=== PATIENT | male | born 1945 | race Caucasian/White ===

== ENCOUNTER → 2016-03-18 | Outpatient (CLI) | payer MEDICARE ==
[2016-03-18 11:21] LABS: Basophils # (A) 0.1 k/uL (0-0.2); Basophils % (A) 1 %; CH 29.2; Eosinophils # (A) 0.2 k/uL (0-0.7); Eosinophils % (A) 2 %; HCT 41.4 % (39.0-53.0); HDW 2.76; HGB 13.6 gm/dL (13.0-17.5); Luc # (Auto) 0.25; Luc % (Auto) 2; Lymphocytes # (A) 2.4 k/uL (1.0-4.8); Lymphocytes % (A) 21 %; MCH 29.2 pg (25.0-35.0); MCHC 32.9 g/dL (31.0-37.0); MCV 88.7 fL (80.0-100.0); Mean Platelet Volume 7.1; Monocytes # (A) 0.6 k/uL (0-1.0); Monocytes % (A) 5 %; Neutrophils # (A) 7.8 k/uL (1.3-7.7); Neutrophils % (A) 69 %; RBC 4.67 m/uL (4.30-5.90); RDW 13.9 % (11.5-15.5); WBC 11.3 k/uL (3.8-10.6); WBC (Perox) 11.69
[2016-03-18 14:09] LABS: Erythrocyte Sedimentation Rate 48 mm/hr (0-15)
== END | disposition home or self-care (01) ==
LOC: LABWHC1 10:37
PROVIDERS: ATTEND Family Medicine
DX: M62.81 Muscle weakness (generalized) (principal); M79.1 Myalgia; M33.20 Polymyositis, organ involvement unspecified
CPT/HCPCS: 36415; 82553; 85025; 85652; 86038; 86431

== ENCOUNTER → 2017-08-30 | Outpatient (CLI) | payer MEDICARE ==
--- NOTE | 2017-08-30 17:04 | US ---
EXAMINATION TYPE: US axilla LT DATE OF EXAM: 08/30/2017 COMPARISON: NONE CLINICAL HISTORY: C85.90 Lymphoma. No abnormal appearing mass, lymph node or fluid collection seen at patients palpable area. IMPRESSION: Negative ultrasound of the left axilla. No enlarged lymph nodes seen.
--- NOTE | 2017-08-30 23:11 | CT ---
EXAMINATION TYPE: CT chest wo con DATE OF EXAM: 08/30/2017 COMPARISON: Left axillary ultrasound earlier today HISTORY: lump under left axillary area X 3 weeks per patient. Lymphoma per order. CT DLP: 482.2 mGycm. Automated Exposure Control for Dose Reduction was Utilized. TECHNIQUE: CT scan of the thorax is performed without IV contrast. FINDINGS: LUNGS: The lungs are predominantly clear, there is no concerning parenchymal mass or nodule identifie d. There are some patchy left basilar linear scarring and/or atelectasis. There is no pleural effusi on or pneumothorax seen. The tracheobronchial tree is patent. MEDIASTINUM: Lack of IV contrast is noted to limit evaluation for mediastinal and especially hilar ad enopathy. There are no definitive greater than 1 cm noncalcified hilar or mediastinal lymph nodes. There are some calcified paraesophageal lymph nodes. No significant pericardial effusion is seen. Car diomegaly is identified. There is moderate coronary artery calcification which is noted marker for co ronary artery disease. Main pulmonary artery at bifurcation measures 3.7 cm in diameter, CT findings consistent with underlying pulmonary artery hypertension. There is mild calcified plaque in the aorti c arch and descending aorta. There is 2.5 cm right thyroid nodule coronal image 48 that warrants foll ow-up. OTHER: There is tiny nondependent calcific focus right aspect of gallbladder measuring 2 mm could ref lect small calculus. Several calcifications are seen scattered throughout the spleen. Finding presume d product of old granulomatous disease. There is mild to moderate multilevel spurring in the thoracic spine. No suspicious axillary masses or adenopathy are identified. IMPRESSION: 1. No suspicious axillary masses or adenopathy. 2. Cardiomegaly and underlying pulmonary hypertension. No suspicious acute pulmonary process. 3. There is 2.5 cm right thyroid nodule. Thyroid ultrasound is advised to further evaluate and charac terize to rule out malignancy.
== END | disposition home or self-care (01) ==
LOC: RADCTMAIN 16:01
PROVIDERS: ATTEND Surgery Plastic and Reconstructive Surgery
DX: C85.90 Non-Hodgkin lymphoma, unspecified, unspecified site (principal); I51.7 Cardiomegaly; I27.20 Pulmonary hypertension, unspecified
CPT/HCPCS: 36415; 71250; 82565; 84520

== ENCOUNTER 2017-10-24 11:27 | Day surgery (SDC) | payer MEDICARE ==
[2017-10-24 12:12] VITALS: RESP 18; TEMP 98
[2017-10-24 12:37] LABS: Glucose,Whole Blood 141 mg/dL (75-99)
[2017-10-24 13:33] VITALS: BP 175/75; PULSE 75
--- NOTE | 2017-10-24 13:37 | US ---
EXAMINATION TYPE: US FNA thyroid DATE OF EXAM: 10/24/2017 COMPARISON: CT chest 08/30/2017 HISTORY: Thyroid nodule. Maximal barrier technique was utilized. After informed consent, skin overlying the lesion was locali zed with ultrasound and the overlying skin prepped and draped. Ultrasound was utilized using sterile technique. Lidocaine was used for local anesthesia. Five passes with a 25-gauge needle were made int o the right lower lobe thyroid nodule and aspirated specimen was submitted to cytology. Following th e procedure hemostasis achieved. No immediate complication. The patient discharged in stable condit ion. IMPRESSION: STATUS POST ULTRASOUND GUIDED FINE NEEDLE ASPIRATION OF THYROID NODULE, PATHOLOGY IS PEND ING. THIS PROCEDURE WAS PERFORMED BY THE UNDERSIGNED.
== END 2017-10-24 13:40 | disposition home or self-care (01) ==
LOC: RADPROMAIN 11:27
PROVIDERS: ATTEND Surgery Plastic and Reconstructive Surgery
DX: E04.1 Nontoxic single thyroid nodule (principal)
CPT/HCPCS: 10022; 76942; 88173; 88305

== ENCOUNTER → 2018-07-19 | Outpatient (CLI) | payer MEDICARE ==
--- NOTE | 2018-07-19 10:28 | XR ---
EXAMINATION TYPE: XR chest 2V DATE OF EXAM: 07/19/2018 COMPARISON: 12/23/2010 HISTORY: Cough and fever for one week TECHNIQUE: Frontal and lateral views of the chest are obtained. FINDINGS: There is no focal air space opacity, pleural effusion, or pneumothorax seen. Central perib ronchial cuffing is seen. The cardiac silhouette size is upper limits of normal. The osseous struct ures are intact. Mild to moderate degenerative changes of the thoracic spine. IMPRESSION: Central peribronchial cuffing may relate to reactive or infectious airway disease.
== END | disposition home or self-care (01) ==
LOC: RADXRYALE 08:36
PROVIDERS: ATTEND Nurse Practitioner Family
DX: J98.09 Other diseases of bronchus, not elsewhere classified (principal); R05 Cough; R50.9 Fever, unspecified
CPT/HCPCS: 71046

== ENCOUNTER 2021-05-20 12:21 | Observation (INO) | payer MEDICARE ==
[2021-05-20] MEDS ORDERED: SODIUM CHLORIDE 0.9% 500 ML 500 ML IV STA (12:51)
[2021-05-20 13:05] LABS: Basophils # (A) 0.1 k/uL (0-0.2); Basophils % (A) 1 %; Eosinophils # (A) 0.5 k/uL (0-0.7); Eosinophils % (A) 3 %; HCT 39.3 % (39.0-53.0); HGB 12.6 gm/dL (13.0-17.5); Lymphocytes # (A) 2.6 k/uL (1.0-4.8); Lymphocytes % (A) 18 %; MCH 27.9 pg (25.0-35.0); MCV 87.1 fL (80.0-100.0); Mean Platelet Volume 7.4; Monocytes # (A) 0.8 k/uL (0-1.0); Monocytes % (A) 5 %; Neutrophils # (A) 10.8 k/uL (1.3-7.7); Neutrophils % (A) 72 %; Platelet Count 298 k/uL (150-450); RBC 4.51 m/uL (4.30-5.90); RDW 13.5 % (11.5-15.5); WBC 14.9 k/uL (3.8-10.6)
--- NOTE | 2021-05-20 13:12 | ED ---
General Adult HPI - General Chief complaint: Dizziness Stated complaint: lightheaded, dizziness Time Seen by Provider: 05/20/21 12:45 Source: patient, EMS, RN notes reviewed, old records reviewed Mode of arrival: EMS - History of Present Illness Initial comments: 75-year-old male presents to the emergency room with complaints of a near- syncopal episode while at the store today. Patient states that he felt like he was going to pass out and when he sat down he lost bowel control. EMS was called he denies any chest pain or difficulty in breathing. He denies any abdominal pain. He states that this happened to him a February of last year. He opted not to seek medical care. He did talk to his doctor about his near syncope but did not let his doctor know about the bowel incontinence at that time. Patient denies any abdominal pain. He states that his primary care docto r did decrease his blood pressure medication patient has lower blood pressure readings. He has never been told he has a slow heart rate. He states that he did not hit his head he sat down on his own. -: hour(s) Severity scale (1-10): 0 Consistency: now resolved Associated Symptoms: other (Near syncope with loss of bowel control) Treatments Prior to Arrival: other (500 mL normal saline bolus by EMS) - Related Data Home Medications Medication Instructions Recorded Confirmed ALPRAZolam [Xanax] 0.5 mg PO DAILY PRN 03/01/17 05/20/21 Bisoprolol-Hctz 10-6.25 mg [Ziac 1 tab PO DAILY 03/01/17 05/20/21 10-6.25 MG] Febuxostat [Uloric] 80 mg PO DAILY 05/20/21 05/20/21 Olmesartan Medoxomil 40 mg PO DAILY 05/20/21 05/20/21 amLODIPine [Norvasc] 10 mg PO DAILY 05/20/21 05/20/21 hydroCHLOROthiazide [Hydrodiuril] 25 mg PO DAILY 05/20/21 05/20/21 Allergies Allergy/AdvReac Type Severity Reaction Status Date / Time Penicillins Allergy Rash/Hives Verified 05/20/21 15:22 Review of Systems ROS Statement: Those systems with pertinent positive or pertinent negative responses have been documented in the HPI. ROS Other: All systems not noted in ROS Statement are negative. Past Medical History Past Medical History: Hypertension Additional Past Medical History / Comment(s): polymyalgia, rheumatica, muscle pain/stiffness. 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 Absent: scleral icterus, conjunctival injection, nystagmus, periorbital swelling, periorbital tenderness ENT exam: Present: normal exam, normal oropharynx, mucous membranes moist Neck exam: Present: normal inspection. Absent: tenderness, meningismus, lymphadenopathy, thyromegaly Respiratory exam: Present: normal lung sounds bilaterally. Absent: respiratory distress, wheezes, rales, rhonchi, stridor, accessory muscle use, decreased breath sounds Cardiovascular Exam: Present: bradycardia. Absent: JVD GI/Abdominal exam: Present: soft. Absent: distended, tenderness Extremities exam: Present: normal capillary refill. Absent: pedal edema Back exam: Present: normal inspection, full ROM. Absent: tenderness, CVA tenderness (R), CVA tenderness (L), rash noted Neurological exam: Present: alert, oriented X3, CN II-XII intact Expanded Patient oriented to: Present: person, place, time Speech: Present: fluid speech Cranial nerves: EOM's Intact: Normal, Gag Reflex: Normal, Tongue Deviation: Normal Cerebellar function: Finger to Nose: Normal, Heel to Hardy: Normal Motor strength exam: RUE: 5, LUE: 5, RLE: 5, LLE: 5 Eye Response: (4) open spontaneously Motor Response: (6) obeys commands Verbal Response: (5) oriented [place] Total: 15 Psychiatric exam: Present: normal affect, normal mood Skin exam: Present: warm, dry, intact, normal color. Absent: cyanosis, diaphoretic, petechiae, pallor Course Vital Signs 05/20/21 05/20/21 12:23 14:29 Temperature 97.7 F Pulse Rate 58 L 67 Respiratory 18 18 Rate Blood Pressure 163/67 161/69 O2 Sat by Pulse 99 98 Oximetry EKG Findings - EKG Results: EKG: sinus rhythm EKG shows: bradycardia (Ventricular rate of 60, MS interval 0.205, QRS 0.120, QT C 0.439) Medical Decision Making - Medical Decision Making 75-year-old male presents with near-syncope and bowel incontinence today. He denies any chest pain or shortness of breath. He denies any hematochezia or hematemesis. He did not loose consciousness. He states he did see his primary care doctor in February who decreased his Ziac to 5mg a day related to low blood pressures. Patient states that he has been checking his heart rate at home and has been as low as 44 but he denies dizziness at that time. EKG shows sinus rhythm with a troponin negative at 0.012. There is slight elevation in BUN/Cre from last visit. Patient has no focal neurological deficits. Abdomen is soft and non-tender. Vital signs are stable. Case discussed with Dr. Jimenez, patient will be placed in observation with a cardiac consult. This may be related to his beta sujey blood pressure medication as patient states that he has had episodes where his heart rate is 44 at home. Patient and son are agreeable to this plan of care. - Lab Data Result diagrams: 05/20/21 12:57 05/20/21 12:57 Lab Results 05/20/21 05/20/21 05/20/21 Range/Units 12:57 12:57 12:57 WBC 14.9 H (3.8-10.6) k/uL RBC 4.51 (4.30-5.90) m/uL Hgb 12.6 L (13.0-17.5) gm/dL Hct 39.3 (39.0-53.0) % MCV 87.1 (80.0-100.0) fL MCH 27.9 (25.0-35.0) pg MCHC 32.0 (31.0-37.0) g/dL RDW 13.5 (11.5-15.5) % Plt Count 298 (150-450) k/uL MPV 7.4 Neutrophils % 72 % Lymphocytes % 18 % Monocytes % 5 % Eosinophils % 3 % Basophils % 1 % Neutrophils # 10.8 H (1.3-7.7) k/uL Lymphocytes # 2.6 (1.0-4.8) k/uL Monocytes # 0.8 (0-1.0) k/uL Eosinophils # 0.5 (0-0.7) k/uL Basophils # 0.1 (0-0.2) k/uL Sodium 141 (137-145) mmol/L Potassium 3.8 (3.5-5.1) mmol/L Chloride 103 (98-107) mmol/L Carbon Dioxide 24 (22-30) mmol/L Anion Gap 14 mmol/L BUN 38 H (9-20) mg/dL Creatinine 1.89 H (0.66-1.25) mg/dL Est GFR (CKD-EPI)AfAm 39 (>60 ml/min/1.73 sqM) Est GFR (CKD-EPI)NonAf 33 (>60 ml/min/1.73 sqM) Glucose 113 H (74-99) mg/dL Calcium 9.1 (8.4-10.2) mg/dL Total Bilirubin 0.6 (0.2-1.3) mg/dL AST 19 (17-59) U/L ALT 12 (4-49) U/L Alkaline Phosphatase 59 (38-126) U/L Troponin I <0.012 (0.000-0.034) ng/mL Total Protein 7.9 (6.3-8.2) g/dL Albumin 4.4 (3.5-5.0) g/dL Disposition Clinical Impression: Near syncope Disposition: ADMITTED IP TO THIS [facility] Decision Date: 05/20/21 Decision Time: 14:26
[2021-05-20 13:34] LABS: Albumin 4.4 g/dL (3.5-5.0); Calcium 9.1 mg/dL (8.4-10.2); Potassium 3.8 mmol/L (3.5-5.1); Total Bilirubin 0.6 mg/dL (0.2-1.3); Total Protein 7.9 g/dL (6.3-8.2)
--- NOTE | 2021-05-20 13:41 | XR ---
EXAMINATION TYPE: XR chest 2V DATE OF EXAM: 05/20/2021 COMPARISON: Chest x-ray July 19, 2018 HISTORY: Dizziness and weakness. TECHNIQUE: Frontal and lateral views of the chest are obtained. FINDINGS: There is mild chronic parenchymal change without suspicious focal air space opacity, pleur al effusion, or pneumothorax seen. The cardiac silhouette size is mildly enlarged. The osseous str uctures are intact. IMPRESSION: Chronic changes and mild cardiomegaly without acute pulmonary process.
[2021-05-20] MEDS ORDERED: NALOXONE 0.4 MG/ML 1 ML VIAL IV PRN ×2 (14:27→14:42)
[2021-05-20] MEDS ORDERED: ACETAMINOPHEN TAB 325 MG TAB PO PRN (14:27)
[2021-05-20] MEDS ORDERED: ALPRAZolam 0.5 MG TAB PO PRN (14:39)
[2021-05-20 14:42] LABS: Appearance,Urine Clear (Clear); Bilirubin,Urine Negative (Negative); Blood,Urine Negative (Negative); Color,Urine Light Yellow; Glucose,Urine (UA) Negative (Negative); Ketones,Urine Negative (Negative); Leukocyte Esterase,Urine Negative (Negative); Nitrite,Urine Negative (Negative); Protein,Urine Trace (Negative); Specific Gravity,Urine 1.012 (1.001-1.035); Urobilinogen,Urine <2.0 mg/dL (<2.0)
[2021-05-20] MEDS ORDERED: ONDANSETRON 4 MG/2 ML VIAL IVP PRN (14:42)
[2021-05-20] MEDS ORDERED: LOPERAMIDE 2 MG CAP PO ONE (14:42)
[2021-05-20] MEDS ORDERED: amLODIPine 5 MG TAB PO STA (14:53)
--- NOTE | 2021-05-20 15:39 | P.HPIM ---
History of Present Illness Chief Complaint: Near syncope 75-year-old male presents to the emergency room with complaints of a near- syncopal episode while at the store today. Patient states that he felt like he was going to pass out and when he sat down he lost bowel control. EMS was called he denies any chest pain or difficulty in breathing. He denies any abdominal pain. He states that this happened to him a February of last year. He opted not to seek medical care. He did talk to his doctor about his near syncope but did not let his doctor know about the bowel incontinence at that time. Patient denies any nausea vomiting or abdominal pain. He states that his primary care doctor did decrease his blood pressure medication patient has lower blood pressure readings. He has never been told he has a slow heart rate. He states that he did not hit his head he sat down on his own. Patient on multiple combination of antihypertensive medication including the generic for Ziac and Tribenzor. Patient denied any headache or visual changes. Patient denies any seizure activity. Patient stated that he lost weight lately due to stress. 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 Patient denies any history of coronary disease or stroke in the past. Review of Systems All 14 review of systems evaluated and all negative except for above. Past Medical History Past Medical History: Hypertension Additional Past Medical History / Comment(s): polymyalgia, rheumatica, muscle pain/stiffness. 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 Past Anesthesia/Blood Transfusion Reactions: No Reported Reaction Past Psychological History: No Psychological Hx Reported Smoking Status: Former smoker Past Alcohol Use History: None Reported Past Drug Use History: None Reported Medications and Allergies Home Medications Medication Instructions Recorded Confirmed Type ALPRAZolam [Xanax] 0.5 mg PO DAILY PRN 03/01/17 10/24/17 History Bisoprolol-Hctz 10-6.25 mg [Ziac 20 mg PO DAILY 03/01/17 10/24/17 History 10-6.25 MG] Febuxostat [Uloric] 80 mg PO DAILY 05/20/21 05/20/21 History Olmesartan Medoxomil 40 mg PO DAILY 05/20/21 05/20/21 History amLODIPine [Norvasc] 10 mg PO DAILY 05/20/21 05/20/21 History hydroCHLOROthiazide [Hydrodiuril] 25 mg PO DAILY 05/20/21 05/20/21 History Allergies Allergy/AdvReac Type Severity Reaction Status Date / Time Penicillins Allergy Rash/Hives Verified 05/20/21 15:22 Physical Exam Vitals: Vital Signs Temp Pulse Resp BP Pulse Ox 05/20/21 14:29 67 18 161/69 98 05/20/21 12:23 97.7 F 58 L 18 163/67 99 Intake and Output 05/20/21 05/20/21 05/20/21 06:59 14:59 22:59 Other: Weight 83.915 kg General: non toxic, no distress, appears at stated age Derm: warm, dry Head: atraumatic, normocephalic, symmetric Eyes: EOMI, no lid lag, anicteric sclera Mouth: no lip lesion, mucus membranes moist Cardiovascular: S1S2 reg, no murmur, positive posterior tibial pulse bilateral, Lungs: CTA bilateral, no rhonchi, no rales , no accessory muscle use Abdominal: soft, nontender to palpation, no guarding, no appreciable organomegaly Ext: no gross muscle atrophy, no edema, no contractures Neuro: CN II-XI grossly intact, no focal neuro deficits Psych: Alert, oriented, appropriate affect Results CBC & Chem 7: 05/20/21 12:57 05/20/21 12:57 Labs: Abnormal Lab Results - Last 24 Hours (Table) 05/20/21 05/20/21 05/20/21 Range/Units 12:57 12:57 14:28 WBC 14.9 H (3.8-10.6) k/uL Hgb 12.6 L (13.0-17.5) gm/dL Neutrophils # 10.8 H (1.3-7.7) k/uL BUN 38 H (9-20) mg/dL Creatinine 1.89 H (0.66-1.25) mg/dL Glucose 113 H (74-99) mg/dL Urine Protein Trace H (Negative) Assessment and Plan Assessment: #Near-syncopal episode -Unclear etiology possibly secondary to dehydration versus bradycardia -Possibly secondary to dehydration induced by medications -Discontinue hydrochlorothiazide -Change blood pressure meds to Norvasc 10 mg daily -Check orthostatics -Hold beta blockers. -Check CT of the head without contrast -Check B12, A1c and TSH -2-D echo -Telemetry floor -Cardiology consultation #Acute kidney injury -Hold diuretics -Hold ARBs -IV fluids -Kidney ultrasound #Chronic kidney disease. -Baseline creatinine 1.4-1.6 #History of rheumatoid arthritis -Patient currently off methotrexate and prednisone #DVT prophylaxis subcu heparin
--- NOTE | 2021-05-20 15:54 | US ---
EXAMINATION TYPE: US kidneys/renal and bladder DATE OF EXAM: 05/20/2021 COMPARISON: NONE CLINICAL HISTORY: JESSIE. Abnormal labs, no pain EXAM MEASUREMENTS: Right Kidney: 9.1 x 3.6 x 4.5 cm Left Kidney: 12.3 x 4.9 x 6.2 cm Right Kidney: Appears smaller in size compared to contralateral kidney. Cortical cyst = 2.2 x 2.6 x 2.1 cm. Malrotated kidney Left Kidney: Multiple cysts seen. Largest lateral = 1.8 x 1.3 x 1.5 cm. Largest mid = 1.3 x 1.6 x 1.2 cm. Bladder: distended, anechoic Right jet seen IMPRESSION: 1. Several grouped left renal cortical cysts. 2. Lower pole right renal cyst
--- NOTE | 2021-05-20 16:11 | CT ---
EXAMINATION TYPE: CT brain wo con DATE OF EXAM: 05/20/2021 HISTORY: Dizziness. CT DLP: 1092.4 mGycm. Automated Exposure Control for Dose Reduction was Utilized. TECHNIQUE: CT scan of the head is performed without contrast. COMPARISON: None. FINDINGS: There is no acute intracranial hemorrhage or midline shift identified. There is moderate diffuse ventricular and sulcal prominence consistent with diffuse cerebral atrophy greatest over the bilateral frontal and temporal lobes. Mena-white matter differentiation fairly well-maintained. No s uspicious opacification of mastoid air cells. The globes are intact and the visualized sinuses are cl ear. IMPRESSION: No acute intracranial hemorrhage or midline shift. There is moderate diffuse cerebral a trophy incidentally noted.
[2021-05-20 18:23] LABS: Glucose,Whole Blood 111 mg/dL (75-99)
[2021-05-20] MEDS: HEPARIN SODIUM,PORCINE/PF 5,000 UNIT/0.5 ML SYRINGE SQ SCH ×2 (18:25→23:51)
--- NOTE | 2021-05-21 07:26 | ECHOF ---
Referral Reason:near syncope MEASUREMENTS -------- HEIGHT: 177.8 cm WEIGHT: 83.9 kg BP: 161/69 RVIDd: 3.3 cm (< 3.3) IVSd: 1.1 cm (0.6 - 1.1) LVIDd: 5.0 cm (3.9 - 5.3) LVPWd: 1.1 cm (0.6 - 1.1) IVSs: 1.8 cm LVIDs: 3.5 cm LVPWs: 1.9 cm LA Diam: 3.8 cm (2.7 - 3.8) LAESV Index (A-L): 24.03 ml/m Ao Diam: 3.3 cm (2.0 - 3.7) AV Cusp: 2.3 cm (1.5 - 2.6) MV EXCURSION: 14.230 mm (> 18.000) MV EF SLOPE: 41 mm/s (70 - 150) EPSS: 0.7 cm MV E Daniel: 1.07 m/s MV DecT: 300 ms MV A Daniel: 1.13 m/s MV E/A Ratio: 0.95 RAP: 5.00 mmHg RVSP: 21.56 mmHg FINDINGS -------- Sinus rhythm. This was a technically adequate study. The left ventricular size is normal. There is borderline concentric left ventricular hypertrophy. Overall left ventricular systolic function is normal with, an EF between 55 - 60 %. The diastolic filling pattern is normal for the age of the patient 13.30. The right ventricle is normal in size. Normal LA size by volume 22+/-6 ml/m2. The right atrial size is normal. Interatrial and interventricular septum intact. The aortic valve is trileaflet and appears structurally normal. There is mild aortic regurgitation. The mitral valve leaflets are mildly thickened. Mild mitral regurgitation is present. The tricuspid valve appears structurally normal. Mild tricuspid regurgitation present. Right vent ricular systolic pressure is normal at < 35 mmHg. Trace/mild (physiologic) pulmonic regurgitation. The aortic root size is normal. Normal inferior vena cava with normal inspiratory collapse consistent with estimated right atrial pre ssure of 5 mmHg. There is no pericardial effusion. CONCLUSIONS -------- 1. There is borderline concentric left ventricular hypertrophy. 2. Overall left ventricular systolic function is normal with, an EF between 55 - 60 %. 3. There is mild aortic regurgitation. 4. Mild mitral regurgitation is present. 5. Mild tricuspid regurgitation present. 6. Trace/mild (physiologic) pulmonic regurgitation. 7. There is no pericardial effusion. LIBRARY INFORMATION TECHNICIAN: Darlene Drew RDCS
[2021-05-21 08:19] VITALS: RESP 18
[2021-05-21] MEDS: HEPARIN SODIUM,PORCINE/PF 5,000 UNIT/0.5 ML SYRINGE SQ SCH (08:26)
[2021-05-21] MEDS ORDERED: amLODIPine 10 MG TAB PO SCH (09:00)
[2021-05-21] MEDS ORDERED: FOLIC ACID 1 MG TAB PO SCH (09:00)
[2021-05-21] MEDS ORDERED: allopurinoL 100 MG TAB PO SCH ×2 (09:00)
[2021-05-21 09:06] LABS: Basophils # (A) 0.07 X 10*3/uL (0.00-0.10); Basophils % (A) 0.7 %; Eosinophils # (A) 0.41 X 10*3/uL (0.04-0.35); HCT 35.7 % (39.6-50.0); HGB 11.3 g/dL (13.0-17.0); Immature Grans, Automated 0.4 %; Lymphocytes # (A) 2.78 X 10*3/uL (0.90-5.00); Lymphocytes % (A) 26.8 %; MCH 27.6 pg (27.0-32.0); MCHC 31.7 g/dL (32.0-37.0); MCV 87.1 fL (80.0-97.0); Mean Platelet Volume 10.1 fL (9.5-12.2); Monocytes # (A) 0.77 X 10*3/uL (0.20-1.00); Monocytes % (A) 7.4 %; NRBC Per 100 WBC 0 /100 WBCS (0.0-0.0); Neutrophils # (A) 6.29 X 10*3/uL (1.80-7.70); Neutrophils % (A) 60.7 %; Platelet Count 265 X 10*3/uL (140-440); RDW 13.5 % (11.5-14.5); WBC 10.36 X 10*3/uL (4.50-10.00)
[2021-05-21 09:16] LABS: African American GFR (CKD) 53.5 (60.0-200.0); Albumin/Globulin Ratio 1.56 (1.60-3.17); Anion Gap 14.5 mmol/L (10.00-18.00); BUN/Creat Ratio 20.48 Ratio (12.00-20.00); Blood Urea Nitrogen 29.7 mg/dL (9.0-27.0); Calcium 9.2 mg/dL (8.7-10.3); Carbon Dioxide 21.9 mmol/L (20.0-27.5); Globulin 2.6 g/dL (1.6-3.3); Magnesium 2.1 mg/dL (1.5-2.4); Non-African American GFR(CKD) 46.1 (60.0-200.0); Potassium 3.9 mmol/L (3.5-5.5); Total Bilirubin 0.3 mg/dL (0.30-1.20); Total Protein 6.6 g/dL (6.2-8.2)
--- NOTE | 2021-05-21 10:17 | P.CRDCN ---
History of Present Illness Consult date: 05/21/21 History of present illness: History of Present Illness: The patient is a 75-year-old male with a history of hypertension who presented with presyncopal episode. He was still, standing he felt dizzy, leaned down for about 10 minutes until his symptoms resolved. He had no associated chest discomfort or dyspnea. He denies any palpitations or syncope. He had a similar episode in February. At that time his antihypertensive regimen was adjusted. Patient is reasonably active physically has no exertional chest discomfort or significant dyspnea on exertion. He denies any palpitations, PND or orthopnea. On presentation he was in sinus mechanism and he was noted to have abnormal renal function test. He has been in sinus since admission and he feels better. He has no history of recent smoking, he stopped in 1983. He has a history of hypertension. He is nondiabetic and no documented hyperlipidemia. His medications at home include hydro-Diuril, Norvasc, Lorcet than, euphoric, Ziac. Review of Systems: Respiratory: [No history of asthma, bronchitis or recent cough.] GI: [She had nausea and vomiting today. No history of peptic ulcer disease. No recent GI bleed.] : [No hematuria or dysuria.] Nervous System: [No stroke or seizure.] Physical Examination: 75-year-old male, alert and oriented no apparent distress blood pressure 154/60 was orthostatic changes, heart rate in the 60s Head: [Normocephalic.] Eyes: [Sclerae nonicteric.] Neck: [Good carotid upstroke, no bruit, no jugular venous distention.] Lungs: [Clear to auscultation.] Heart: [Regular rate and rhythm, S1-S2, no S3, no rub. Systolic murmur ejection type at the base .] Abdomen: [Soft nontender, positive bowel sounds no organomegaly.] Extremities: [No edema, intact distal pulses.] Labs: Troponin less than 0.012, BUN and creatinine 29 and 1.5, yesterday 38 and 1.89. Potassium 3.9. EKG shows sinus mechanism rate of [address] segment changes. Computed tomography scan of the head showed no acute event Impression: 1. Presyncope probable orthostatic hypotension and dehydration 2. Abnormal renal function test, improved consistent with dehydration 3. History of hypertension Plan: 1. Agree with holding beta sujey and diuretic 2. Obtain an echocardiogram with Doppler 3. Increase physical activity 4. If no further symptoms probable discharge home soon and follow blood pressure as an outpatient 5. Thank you for this consult we will follow with you. Past Medical History Past Medical History: Hypertension Additional Past Medical History / Comment(s): polymyalgia, rheumatica, muscle pain/stiffness. Elevated glucose A1c 10.2% on correction steroids at this time History of Any Multi-Drug Resistant Organisms: None Reported Additional Past Surgical History / Comment(s): melanoma behind right ear and left scalp Past Anesthesia/Blood Transfusion Reactions: No Reported Reaction Past Psychological History: No Psychological Hx Reported Smoking Status: Never smoker Past Alcohol Use History: None Reported Additional Past Alcohol Use History / Comment(s): stopped drinking beer in August 2016 Past Drug Use History: None Reported Medications and Allergies Home Medications Medication Instructions Recorded Confirmed Type ALPRAZolam [Xanax] 0.5 mg PO DAILY PRN 03/01/17 05/20/21 History Bisoprolol-Hctz 10-6.25 mg [Ziac 1 tab PO DAILY 03/01/17 05/20/21 History 10-6.25 MG] Febuxostat [Uloric] 80 mg PO DAILY 05/20/21 05/20/21 History Olmesartan Medoxomil 40 mg PO DAILY 05/20/21 05/20/21 History amLODIPine [Norvasc] 10 mg PO DAILY 05/20/21 05/20/21 History hydroCHLOROthiazide [Hydrodiuril] 25 mg PO DAILY 05/20/21 05/20/21 History Allergies Allergy/AdvReac Type Severity Reaction Status Date / Time Penicillins Allergy Rash/Hives Verified 05/20/21 15:22 Physical Exam Vitals: Vital Signs Temp Pulse Pulse Pulse Pulse Pulse Pulse 05/21/21 07:30 97.9 F 65 69 61 05/21/21 01:13 98.6 F 65 05/20/21 19:26 98.7 F 65 05/20/21 17:31 98.3 F 61 05/20/21 16:57 61 05/20/21 14:29 67 05/20/21 12:23 97.7 F 58 L Resp BP BP BP BP Pulse Ox 05/21/21 07:30 18 125/64 116/57 154/65 05/21/21 01:13 16 123/62 97 05/20/21 19:26 16 151/68 95 05/20/21 17:31 18 156/63 98 05/20/21 16:57 18 158/67 98 05/20/21 14:29 18 161/69 98 05/20/21 12:23 18 163/67 99 Intake and Output 05/20/21 05/21/21 05/21/21 22:59 06:59 14:59 Intake Total 118 Balance 118 Intake: Oral 118 Other: # Voids 1 1 Weight 83.915 kg Results 05/21/21 05:32 05/21/21 05:32 Cardiac Enzymes 05/20/21 05/20/21 05/20/21 Range/Units 12:57 12:57 15:23 AST 19 (17-59) U/L Troponin I <0.012 <0.012 (0.000-0.034) ng/mL 05/21/21 Range/Units 05:32 AST 11 L (17-59) U/L Troponin I (0.000-0.034) ng/mL CBC 05/20/21 05/21/21 Range/Units 12:57 05:32 WBC 14.9 H 10.36 H (3.8-10.6) k/uL RBC 4.51 4.10 L (4.30-5.90) m/uL Hgb 12.6 L 11.3 L (13.0-17.5) gm/dL Hct 39.3 35.7 L (39.0-53.0) % Plt Count 298 265 (150-450) k/uL Comprehensive Metabolic Panel 05/20/21 05/21/21 Range/Units 12:57 05:32 Sodium 141 141 (137-145) mmol/L Potassium 3.8 3.9 (3.5-5.1) mmol/L Chloride 103 105 (98-107) mmol/L Carbon Dioxide 24 21.9 (22-30) mmol/L BUN 38 H 29.7 H (9-20) mg/dL Creatinine 1.89 H 1.5 (0.66-1.25) mg/dL Glucose 113 H 89 (74-99) mg/dL Calcium 9.1 9.2 (8.4-10.2) mg/dL AST 19 11 L (17-59) U/L ALT 12 8 L (4-49) U/L Alkaline Phosphatase 59 57 (38-126) U/L Total Protein 7.9 6.6 (6.3-8.2) g/dL Albumin 4.4 4.0 (3.5-5.0) g/dL Current Medications Generic Name Dose Route Start Last Admin Trade Name Freq PRN Reason Stop Dose Admin Acetaminophen 650 mg 05/20/21 14:27 Acetaminophen Tab 325 Mg Tab PO Q6HR PRN Mild Pain or Fever > 100.5 Allopurinol 400 mg 05/21/21 09:00 05/21/21 08:26 Allopurinol 100 Mg Tab PO 400 mg DAILY JARET Administration Alprazolam 0.5 mg 05/20/21 14:39 05/20/21 23:51 Alprazolam 0.5 Mg Tab PO 0.5 mg DAILY PRN Administration Anxiety Amlodipine Besylate 10 mg 05/21/21 09:00 05/21/21 08:26 Amlodipine 10 Mg Tab PO 10 mg DAILY JARET Administration Folic Acid 1 mg 05/21/21 09:00 05/21/21 08:26 Folic Acid 1 Mg Tab PO 1 mg DAILY JARET Administration Heparin Sodium (Porcine) 5,000 unit 05/20/21 16:00 05/21/21 08:26 Heparin Sodium,Porcine/Pf 5,000 Unit/0.5 Ml Syringe SQ 5,000 unit Q8HR JARET Administration Naloxone HCl 0.2 mg 05/20/21 14:27 Naloxone 0.4 Mg/Ml 1 Ml Vial IV Q2M PRN Opioid Reversal Ondansetron HCl 4 mg 05/20/21 14:42 Ondansetron 4 Mg/2 Ml Vial IVP Q8HR PRN Nausea And Vomiting Prednisone 15 mg 05/25/21 09:00 Prednisone 10 Mg Tab PO WEEKLY JARET Intake and Output 05/20/21 05/21/21 05/21/21 22:59 06:59 14:59 Intake Total 118 Balance 118 Intake: Oral 118 Other: # Voids 1 1 Weight 83.915 kg 05/21/21 05:32 05/21/21 05:32
[2021-05-21 11:59] LABS: Glucose,Whole Blood 95 mg/dL (75-99)
[2021-05-21 14:36] VITALS: BP 122/61; PULSE 72; TEMP 97.7
--- NOTE | 2021-05-21 15:39 | P.DS ---
Providers Date of admission: 05/20/21 14:26 Expected date of discharge: 05/21/21 Attending physician: Aj Bee MD Consults: 05/20/21 14:28 Consult Physician Routine Consulting Provider: Edwin Velez Consult Reason/Comments: near syncope Do you want consulting provider notified?: Yes Primary care physician: [facility] Course: Discharge Diagnosis: Near syncopal episode likely secondary to dehydration, hydrochlorothiazide discontinued Bradycardia, beta sujey discontinued Acute kidney injury, resolved with discontinuation of hydrochlorothiazide and IV fluid hydration Chronic kidney disease, polycystic kidneys Rheumatoid arthritis Hospital Course: Patient is a very pleasant 75-year-old male with a past medical history of hypertension and polycystic kidneys. He presented to the emergency department with a chief complaint of near syncopal episode. Patient reported that while at the grocery store he was standing in line at the meat counter when he suddenly felt very lightheaded as if he was going to pass out so he went and laid down on the bench and moments later began to feel better but states he did have uncontrolled loss of his bowels. Despite his feeling better he reports that the grocery store manager told him it would be important for him to be evaluated in the emergency department as he had a similar event happen to him in February of last year in which he opted not to seek medical care. Patient denied having any associated symptoms at that time including headache, changes in vision or hearing, tinnitus, dysphagia, changes in or difficulties with his speech, chest pain or palpitations, shortness of breath, abdominal pain, nausea, vomiting, or experiencing any numbness/tingling/weakness in his extremities. Patient denies losing consciousness, states he was awake and talking the entire time. In the emergency department patient underwent full evaluation. He was found to have an acute kidney injury with BUN 38, creatinine 1.89, and GFR of 33, be bradycardic and dehydrated. Troponin less than 0.0122 draws. TSH 1.940. Patient was ad mitted under our services with consultation to cardiology. Chest x-ray was completed showing chronic changes with mild cardiomegaly negative for acute cardiopulmonary process. EKG showing sinus rhythm at 60 bpm with no noted T- wave or ST abnormalities. CT brain negative for acute intercranial process. Abdominal/kidney/bladder ultrasound negative for acute process showing several grouped left renal cortical cysts. Hydrochlorothiazide was discontinued and patient received IV hydration overnight. Patient reports feeling unremarkable and denies having any complaints at this time. Acute kidney injury has resolved. Patient did have slightly positive orthostatic vitals however he denies any dizziness upon standing. Patient ambulated up and down the halls unassisted without any difficulties or complaints. Echocardiogram completed revealing EF between 55 and 60% with mild mitral and tricuspid regurgitation. Patient is medically stable for discharge at this time. Beta sujey and diu retic were discontinued. Patient to follow up outpatient with cardiology and PCP as recommended. Cardiology in agreement that beta sujey and diuretic remain discontinued and recommend following up outpatient with their office in one week. Patient medically stable for discharge home with family at this time. Physical examination: Patient seen and examined at bedside. Vital signs reviewed and stable. General: Nontoxic, no distress and appears stated age. Derm: Skin warm and dry, normal coloration for ethnicity. Head: Atraumatic, normocephalic and symmetric. Eyes: EOMs intact, no lid lag, and anicteric sclera Mouth: no lip lesions, mucus membranes moist Cardiovascular: regular rate and rhythm with normal S1S2, no murmur, positive posterior tibial pulses bilaterally, and cap refill < 2 seconds. Lungs: Respirations even, regular, and unlabored on room air. Lungs CTA bilaterally, no rhonchi, no rales, no wheezing, and no accessory muscle usage. Abdominal: soft, nontender to palpation, no guarding, no appreciable organomegaly Ext: ROM intact. No gross muscle atrophy, no edema, no contractures Neuro: Speech clear, face symmetrical and CN II-XII grossly intact with no noted focal neuro deficits Psych: Alert and oriented to person, place, time, and situation. Appropriate and pleasant affect. A total of 40 minutes of time were spent preparing this complex discharge summary. Patient Condition at Discharge: Stable Plan - Discharge Summary Discharge Rx Participant: Yes New Discharge Prescriptions: New Folic Acid 1 mg PO DAILY 30 Days #30 tab Continue ALPRAZolam [Xanax] 0.5 mg PO DAILY PRN PRN Reason: Anxiety Febuxostat [Uloric] 80 mg PO DAILY Olmesartan Medoxomil 40 mg PO DAILY amLODIPine [Norvasc] 10 mg PO DAILY Discontinued Bisoprolol-Hctz 10-6.25 mg [Ziac 10-6.25 MG] 1 tab PO DAILY hydroCHLOROthiazide [Hydrodiuril] 25 mg PO DAILY Discharge Medication List ALPRAZolam [Xanax] 0.5 mg PO DAILY PRN 03/01/17 [History] Febuxostat [Uloric] 80 mg PO DAILY 05/20/21 [History] Olmesartan Medoxomil 40 mg PO DAILY 05/20/21 [History] amLODIPine [Norvasc] 10 mg PO DAILY 05/20/21 [History] Folic Acid 1 mg PO DAILY 30 Days #30 tab 05/21/21 [Rx] Follow up Appointment(s)/Referral(s): Tushar Carmichael MD [STAFF PHYSICIAN] - 1 Week (office will call to schedule.) David Mancini MD [Primary Care Provider] - 1-2 days Patient Instructions/Handouts: Syncope (DC) Activity/Diet/Wound Care/Special Instructions: Activity: As tolerated. Take breaks as needed. Remember to change positions slowly from lying to sitting and sitting to standing. Diet: Heart healthy and carb consistent diet. Avoid salts, or foods with hidden salts such as canned or boxed foods and frozen dinners. Extra salt makes your heart work harder and traps the fluid in your body for longer. Special Instructions: Take all of your medications as directed and remember to keep all of your doctor's appointments and follow-up as needed. Thank you for allowing us to participate in your care, it was truly a pleasure having you for our patient!!! Discharge Disposition: HOME SELF-CARE
[2021-05-25] MEDS ORDERED: predniSONE 10 MG TAB PO SCH (09:00)
== END 2021-05-21 15:51 | disposition home or self-care (01) ==
LOC: EC 12:21 → 6NMEDSUR 14:26
PROVIDERS: ADMIT Hospitalist; ATTEND Hospitalist
DX: R55 Syncope and collapse (principal); R15.9 Full incontinence of feces; R00.1 Bradycardia, unspecified; N17.9 Acute kidney failure, unspecified; E86.0 Dehydration; I12.9 Hypertensive chronic kidney disease with stage 1 through stage 4 chronic kidney disease, or unspecified chronic kidney disease; N18.9 Chronic kidney disease, unspecified; M35.3 Polymyalgia rheumatica; M06.9 Rheumatoid arthritis, unspecified; R63.4 Abnormal weight loss; M79.10 Myalgia, unspecified site; R73.9 Hyperglycemia, unspecified; Q61.3 Polycystic kidney, unspecified; I08.3 Combined rheumatic disorders of mitral, aortic and tricuspid valves; Z63.6 Dependent relative needing care at home; Z79.899 Other long term (current) drug therapy; Z88.0 Allergy status to penicillin; Z79.52 Long term (current) use of systemic steroids; Z85.820 Personal history of malignant melanoma of skin; Z87.891 Personal history of nicotine dependence
CPT/HCPCS: 96372 ×2; 96360; 99285; 36415; 93005; 93306; 80053 ×2; 84443; 83735; 84484; 85025 ×2; 81003; 83036; 71046; 76770; 70450; G0378 ×2; J1644 ×2

== ENCOUNTER 2021-07-22 05:56 | Inpatient (IN) | payer MEDICARE ==
[~2021-07-22 05:56] MED LIST: INSULIN REGULAR 100 UNIT in SODIUM CHLORIDE 0.9% 100 ML IV ONE; LACTATED RINGERS 1,000 ML IV ONE; NITROGLYCERIN-D5W PMX 50 MG in DEXTROSE/WATER 1 250ML.BAG IV ONE; NOREPINEPHRINE 4 MG in SODIUM CHLORIDE 0.9% 250 ML IV ONE
[2021-07-22] MEDS ORDERED: NITROGLYCERIN SL TABS 0.4 MG TAB SUBLINGUAL PRN (06:04)
[2021-07-22] MEDS ORDERED: ALPRAZolam 0.5 MG TAB PO PRN ×2 (06:04→08:28)
[2021-07-22] MEDS ORDERED: HEPARIN SODIUM,PORCINE 10,000 UNIT in SODIUM CHLORIDE 0.9% 1,000 ML IRRIGATION PRN (06:04)
[2021-07-22] MEDS ORDERED: ASPIRIN 325 MG TAB PO STA (06:04)
[2021-07-22] MEDS ORDERED: HEPARIN SODIUM,PORCINE 2,500 UNIT in SODIUM CHLORIDE 0.9% 250 ML IRRIGATION PRN (06:04)
[2021-07-22] MEDS ORDERED: ALPRAZolam 0.25 MG TAB PO PRN (06:04)
[2021-07-22] MEDS ORDERED: ATORVASTATIN 80 MG TAB PO STA (06:04)
[2021-07-22] MEDS: SODIUM CHLORIDE 0.9% 1,000 ML in EMPTY BAG 1 BAG IV SCH (06:35)
[2021-07-22] MEDS ORDERED: VERAPAMIL 2.5 MG/ML 2 ML AMP ONE (07:26)
[2021-07-22] MEDS ORDERED: HEPARIN SODIUM 1,000 UN/ML (10ML VL) ONE (07:27)
[2021-07-22] MEDS ORDERED: fentaNYL (PF) 50 MCG/ML 2 ML AMP ONE (07:27)
[2021-07-22] MEDS ORDERED: fentaNYL (PF) 50 MCG/ML 2 ML AMP IV ONE (07:56)
[2021-07-22] MEDS ORDERED: LIDOCAINE 1% PF 10 MG/ML (5 ML AMP) SQ ONE (08:01)
[2021-07-22] MEDS: MIDAZOLAM 2 MG/2 ML VIAL IV ONE ×2 (08:01→08:13)
[2021-07-22] MEDS ORDERED: VERAPAMIL SYRINGE (5 MG/10 ML) INTRAARTER ONE (08:02)
[2021-07-22] MEDS ORDERED: HEPARIN SODIUM 1,000 UN/ML (10ML VL) IV ONE (08:07)
[2021-07-22] MEDS ORDERED: IOPAMIDOL-370 125ML BTL INJ ONE (08:12)
[2021-07-22] MEDS ORDERED: RX INFO: IV CONTRAST WAS GIVEN 1 EACH MISC MISCELLANE PRN (08:27)
[2021-07-22] MEDS ORDERED: SODIUM CHLORIDE 0.9% 1,000 ML IV SCH (08:30)
--- NOTE | 2021-07-22 08:34 | P.CARDCATH ---
Date of Procedure: 07/22/21 Description of Procedure: Cardiac Catheterization: The patient is a 75-year-old male with a history of hypertension who has been complaining of dyspnea on exertion, progressive symptoms of fatigue, underwent an MPI that showed evidence of stress induced. Recommendations were made regarding cardiac catheterization, the risks and the complications were discussed with the patient who is in full understanding and agreement. Procedure Description: Patient was brought to carpenter labor supervisor in fasting semi-sedated state after receiving Fentanyl and Benadryl achieiving moderate conscious sedated state. Using Xylocaine Anesthesia and Seldinger technique, a 6-Amharic sheath was introduced in the right radial artery . Subsequently, selective coronary angiography performed using a 5-Amharic 3.5 bend Sara catheter. Multiple views of the coronary artery including hemiaxial views were obtained. Following that, catheter and sheath were removed. Hemostasis was obtained with deployment of TR band . There was no immediate complication. Patient was returned to room in stable condition. Of note, the patient received a total of 4500 units of intravenous heparin as well as intra- arterial verapamil. There was no immediate complications. Findings: Fluoroscopy revealed significant calcification involving all the coronary arteries, predominantly the left system. Left main: This is a large size vessel, bifurcating into LAD and left circumflex, the distal left main has 60% plaque LAD: This is a large size vessel, reaching to the apex with a wrap around the apex segment giving rise to 2 small to moderate diagonal branch. The ostium of the LAD has 99% stenosis with a tubular lesion in the midsegment of 50%. Left circumflex: This is a codominant vessel large in caliber giving us to a large obtuse marginal branch and distally bifurcating into PDA and PLV. The left circumflex has mild disease of 20% proximal segment RCA: This is a codominant vessel bifurcating into PDA and PLV, the mid RCA has a 40-50% plaque, mild intimal disease distally was noted with no high-grade stenosis. [Left] Ventriculogram: Was not performed Conclusion: 1. Calcified coronary arteries 2. Significant left main disease 3. Critical stenosis in the ostium of the LAD 4. Mild disease in the left circumflex and mild to moderate disease in the RCA Recommendations: In view of the anatomy I have recommended to proceed with evaluation for possible CABG. The procedure and the findings were discussed with the patient and his family, they are in full understanding and agreement. Surgical evaluation will be obtained. Duration of sedation is 17 minutes.
[2021-07-22] MEDS ORDERED: amLODIPine 10 MG TAB PO SCH (09:00)
[2021-07-22] MEDS ORDERED: OLMESARTAN MEDOXOMIL 40 MG PO SCH (09:00)
--- NOTE | 2021-07-22 11:17 | US ---
EXAMINATION TYPE: US carotid duplex BILAT DATE OF EXAM: 07/22/2021 COMPARISON: NONE CLINICAL HISTORY: preop cardiac surgery. EXAM MEASUREMENTS: RIGHT: Peak Systolic Velocity (PSV) cm/sec ----- Right CCA: 72.1 ----- Right ICA: 99.1 ----- Right ECA: 195.9 ICA/CCA ratio: 1.4 RIGHT: End Diastole cm/sec ----- Right CCA: 9.2 ----- Right ICA: 15.0 ----- Right ECA: 0.0 LEFT: Peak Systolic Velocity (PSV) cm/sec ----- Left CCA: 113.5 ----- Left ICA: 84.2 ----- Left ECA: 169.2 ICA/CCA ratio: 0.7 LEFT: End Diastole cm/sec ----- Left CCA: 10.4 ----- Left ICA: 18.7 ----- Left ECA: 0.0 VERTEBRALS (direction of flow): Right Vertebral: Antegrade Left Vertebral: Antegrade Rhythm: Normal No significant stenosis IMPRESSION: No evidence for hemodynamically significant stenosis. Criteria for Assigning % of Stenosis / Diameter reduction (Estimation based on the indirect measurements of the internal carotid artery velocities (ICA PSV). 1. Normal (no stenosis)=ICA PSV < 125 cm/s: ratio < 2.0: ICA EDV<40 cm/s. 2. Less than 50% stenosis=ICA PSV < 125 cm/s: ratio < 2.0: ICA EDV<40 cm/s. 3. 50 to 69% stenosis=ICA PSV of 125 to 230 cm/s: ration 2.0 ? 4.0: ICA EDV 40-100 cm/s. 4. Greater than 70% stenosis to near occlusion= ICA PSV > 230 cm/s: ratio > 4.0: ICA EDV > 100 cm/s. 5. Near occlusion= ICA PSV velocities may be low or undetectable: variable ratio and ICA EDV. 6. Total occlusion=unable to detect flow.
--- NOTE | 2021-07-22 11:43 | P.GSCN ---
History of Present Illness Consult date: 07/22/21 Reason for Consult: Coronary artery disease Requesting physician: Tushar Carmichael History of present illness: This is a 75-year-old active gentleman who follows on an outpatient basis with Dr. David Mancini for primary care and Dr. Carmichael for cardiology. He has a previous medical history of hypertension, polymyositis with daily prednisone use, melanoma in 2001 and 2016, remote history of pneumonia, previous tobacco dependence, 35 pound weight loss since last August due to not eating and the stress of taking care of his , and family history of premature coronary artery disease with father from myocardial infarction at 55 years old. He was recently hospitalized for dizziness and near syncope which was felt to be secondary to dehydration. Brain CT completed at that time was negative for any acute process. He also had an echocardiogram completed during that admission demonstrating normal left ventricular systolic function with EF 55-60%, mild aortic insufficiency, mild mitral and tricuspid regurgitation, and no pericardial effusion. He was stabilized and discharged to home. Upon follow-up with cardiology he had a stress test which was abnormal and he was recommended to undergo heart catheterization which was completed today and which demonstrated distal left main stenosis 60%, ostial LAD stenosis 99% with mid LAD stenosis 50%, and RCA stenosis 40-50%. Due to heart catheterization findings consultation was placed to Dr. Long from cardiothoracic surgery for revascularization recommendations. Review of Systems Review of systems was completed and was negative except as noted - Cardiovascular Reports as per HPI, Reports dyspnea on exertion, Reports lightheadedness Past Medical History Past Medical History: Coronary Artery Disease (CAD), Cancer, Hyperlipidemia, Hypertension, Pneumonia Additional Past Medical History / Comment(s): See Dr Carmichael's H&P. Polymyalgia Rheumatica causing muscle pain and stiffness, requiring detention steroid use, resulting in elevated A1C. Currently having mild flare up, on steroids. Hx Melamoma X2, once on left scalp and once behind right ear. History of Any Multi-Drug Resistant Organisms: None Reported Past Surgical History: Appendectomy Additional Past Surgical History / Comment(s): Melanoma behind right ear and left scalp removed, ganglion cyst removed from wrist, all teeth extracted. Knee scope Past Anesthesia/Blood Transfusion Reactions: No Reported Reaction Past Psychological History: No Psychological Hx Reported Smoking Status: Former smoker Past Alcohol Use History: Occasional Additional Past Alcohol Use History / Comment(s): Quit smoking at age 37. Stopped drinking beer 08/2016. Past Drug Use History: None Reported - Past Family History Mother Family Medical History: Dementia, Pneumonia Father Family Medical History: Coronary Artery Disease (CAD), Myocardial Infarction ([place]) Additional Family Medical History / Comment(s): from myocardial infarction at 55 years old Medications and Allergies Home Medications Medication Instructions Recorded Confirmed Type ALPRAZolam [Xanax] 0.5 mg PO DAILY PRN 03/01/17 07/22/21 History Febuxostat [Uloric] 40 mg PO DAILY 05/20/21 07/21/21 History Olmesartan Medoxomil 40 mg PO DAILY 05/20/21 07/22/21 History amLODIPine [Norvasc] 10 mg PO DAILY 05/20/21 07/22/21 History Folic Acid 1 mg PO DAILY 30 Days #30 tab 05/21/21 07/21/21 Rx Aspirin [Adult Low Dose Aspirin EC] 81 mg PO DAILY 07/21/21 07/22/21 History predniSONE 5 mg PO DAILY 07/21/21 07/21/21 History Allergies Allergy/AdvReac Type Severity Reaction Status Date / Time Penicillins Allergy Rash/Hives Verified 07/22/21 06:27 Surgical - Exam Vital Signs Temp Pulse Resp BP Pulse Ox 98.3 F 92 18 189/85 99 07/22/21 06:33 07/22/21 06:33 07/22/21 06:33 07/22/21 06:33 07/22/21 06:33 CONSTITUTIONAL: Awake and alert, appears comfortable, cooperative, well- developed, well-nourished, no pain, no acute distress EYES: Pupils equal, round, reactive to light, normal ocular movement ENT: Moist mucous membranes without oral lesions present NECK: No masses, no bruits, trachea midline RESPIRATORY: Lungs sounds clear to auscultation bilaterally. Respirations even, nonlabored. Currently on room air with oxygen saturation 99%. Strong cough. No chest wall deformities. No clubbing or cyanosis present CARDIOVASCULAR: S1, S2 present. Regular rate and rhythm, sinus rhythm on telemetry. Palpable peripheral pulses bilaterally. No edema present. No calf pain or tenderness noted. No significant lower extremity varicosities noted. GASTROINTESTINAL: Abdomen soft, nontender, nondistended without masses or organomegaly noted. There is no rebound or guarding present. Active bowel sounds present 4 quadrants. GENITOURINARY: Deferred INTEGUMENTARY: Skin is warm and dry with evidence of good perfusion. NEUROLOGIC: Cranial nerves II through XII intact, normal coordination, no obvious motor or sensory deficits, speech is normal MUSKULOSKELETAL: Able to move all extremities, strength equal bilaterally, normal posture PSYCHIATRIC: Alert and oriented to person place and time, appropriate affect, intact judgment and insight Results - Imaging Additional studies: Heart catheterization films reviewed with Dr. Long Assessment and Plan Assessment: 1. Coronary artery disease 2. Hypertension 3. Hyperlipidemia 4. Polymyositis with daily prednisone use 5. Melanoma in 2001 and 2016 6. Remote history of pneumonia 7. Previous tobacco dependence 8. 35 pound weight loss since last August 9. Family history of premature coronary artery disease 10. Severe COPD with preoperative FEV1 28% of predicted Plan: The patient was seen and examined at the bedside with Dr. Long in the extended stay unit. Chart/diagnostics were reviewed. The usual perioperative course of coronary artery bypass surgery was discussed in detail with the patient and his son, risks and benefits were reviewed, all questions were answered. Preoperative testing was initiated. Carotid Dopplers revealed no significant stenosis bilaterally. Bedside spirometry revealed FEV1 28% of predicted, 0.83 L. Once all testing is been completed STS risk score will be calculated and discussed with the patient. Pulmonology was consulted for recommendations. Currently our plan is for coronary artery bypass surgery with left internal mammary artery and endoscopic vein harvest, left atrial appendage ligation with Dr. Barboza tomorrow, 07/23/2021 pending final outcome of preoperative testing and pulmonology recommendations. Continue aspirin, statin, beta sujey therapy. Thank you Dr. Carmichael for this consult. We will continue to follow along with be ramos and make further recommendations as appropriate I have personally seen and examined the patient, performed the documentation and the assessment and plan as written. Number of minutes spent on the visit: 30. DRU Luu
--- NOTE | 2021-07-22 12:16 | XR ---
EXAMINATION TYPE: XR chest 2V DATE OF EXAM: 07/22/2021 HISTORY: Shortness of breath. COMPARISON: None. TECHNIQUE: Single view of the chest is submitted. FINDINGS: Demonstrated are scattered senescent parenchymal change. There is no evidence for focal infiltrate. The heart is stable. Hilar and mediastinal structures are within normal limits. Degenerative changes are seen of the dorsal spine. IMPRESSION: 1. Chronic changes without evidence for acute pulmonary disease.
--- NOTE | 2021-07-22 14:48 | P.CNPUL ---
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 Carmichael. Patient was recently hospitalized for symptoms of dizziness and near-syncope. His brain CT showed no acute intracranial process, echocardiogram showed normal LV function with EF 55-60%, mild aortic insufficiency, mild mitral and tricuspid regurgitation, no pericardial effusion, patient had a outpatient stress test at the [facility] which was abnormal, and patient was recommended to undergo heart catheterization which was completed today on 07/22/2021 and showed a distal left main stenosis of 60%, ostial LAD stenosis of 99% with mid LAD st enosis 50% and RCA stenosis of 40-50%. Patient was referred to cardiothoracic surgery for surgical revascularization. Patient had a preop FEV1 was 0.83, which is 28% of predicted, FVC of 2.77 or 66% of predicted, FEV1 to FVC ratio of 42%, MCV of 31.1. Patient states he had quit smoking at age 37, and denies any extensive tobacco smoking history. Patient states he can climb stairs, although one at a time. His chest x-ray shows chronic changes without evidence for acute pulmonary disease. Scattered senescent parenchymal changes, no evidence of focal infiltrate. His last set of blood work from 07/08/2021 showed a white count of 14.8, hemoglobin was 12.5, platelet count was 301, electrolytes and renal profile were all within normal limits, cardiac enzymes and troponins were negative 1, total cholesterol is 160, triglyceride level was 231, LDL was 81.8, HDL was 32, TSH was within normal limits. COVID-19 PCR was negative. Cardiothoracic surgery is considering taking the patient to surgery tomorrow. We were asked to see the patient in preop evaluation for pulmonary clearance. Patient is able to achieve [id number] on his incentive spirometer, his lungs are clear to auscultation, there is a possibility that poor preop FEV1 was due to poor patient effort. Review of Systems All systems: negative Constitutional: Denies chills, Denies fever Eyes: denies blurred vision, denies pain Ears, nose, mouth and throat: Denies headache, Denies sore throat Cardiovascular: Denies chest pain, Denies shortness of breath Respiratory: Denies cough Gastrointestinal: Denies abdominal pain, Denies diarrhea, Denies nausea, Denies vomiting Musculoskeletal: Denies myalgias Integumentary: Denies pruritus, Denies rash Neurological: Denies numbness, Denies weakness Psychiatric: Denies anxiety, Denies depression Endocrine: Denies fatigue, Denies weight change Past Medical History Past Medical History: Coronary Artery Disease (CAD), Cancer, Hyperlipidemia, Hypertension, Pneumonia Additional Past Medical History / Comment(s): See Dr Carmichael's H&P. Polymyositis causing muscle pain and stiffness, requiring custodial steroid use, resulting in elevated A1C. Currently having mild flare up, on steroids. Hx Melamoma X2, once on left scalp and once behind right ear. History of Any Multi-Drug Resistant Organisms: None Reported Past Surgical History: Appendectomy Additional Past Surgical History / Comment(s): Melanoma behind right ear and lef t scalp removed, ganglion cyst removed from wrist, all teeth extracted. Knee scope Past Anesthesia/Blood Transfusion Reactions: No Reported Reaction Past Psychological History: No Psychological Hx Reported Smoking Status: Former smoker Past Alcohol Use History: Occasional Additional Past Alcohol Use History / Comment(s): Quit smoking at age 37. Stopped drinking beer 08/2016. Past Drug Use History: None Reported - Past Family History Mother Family Medical History: Dementia, Pneumonia Father Family Medical History: Coronary Artery Disease (CAD), Myocardial Infarction ([place]) Additional Family Medical History / Comment(s): from myocardial infarction at 55 years old Medications and Allergies Home Medications Medication Instructions Recorded Confirmed Type ALPRAZolam [Xanax] 0.5 mg PO DAILY PRN 03/01/17 07/22/21 History Febuxostat [Uloric] 40 mg PO DAILY 05/20/21 07/21/21 History Olmesartan Medoxomil 40 mg PO DAILY 05/20/21 07/22/21 History amLODIPine [Norvasc] 10 mg PO DAILY 05/20/21 07/22/21 History Folic Acid 1 mg PO DAILY 30 Days #30 tab 05/21/21 07/21/21 Rx Aspirin [Adult Low Dose Aspirin EC] 81 mg PO DAILY 07/21/21 07/22/21 History predniSONE 5 mg PO DAILY 07/21/21 07/21/21 History Allergies Allergy/AdvReac Type Severity Reaction Status Date / Time Penicillins Allergy Rash/Hives Verified 07/23/21 06:33 Physical Exam Vitals: Vital Signs Temp Pulse Pulse Resp BP BP Pulse Ox 07/22/21 12:34 68 18 174/74 99 07/22/21 11:34 76 18 146/65 99 07/22/21 10:34 73 18 141/64 99 07/22/21 10:04 86 18 148/67 99 07/22/21 09:34 94 18 137/62 99 07/22/21 09:19 92 18 151/71 99 07/22/21 08:49 90 18 137/64 99 07/22/21 08:34 96 18 176/95 99 07/22/21 06:33 98.3 F 92 18 189/85 183/84 99 Intake and Output 07/21/21 07/22/21 07/22/21 22:59 06:59 14:59 Intake Total 350 100 Output Total 650 Balance 350 -550 Intake: IV 350 100 Output: Urine 650 Other: # Voids 1 Weight 82.1 kg GENERAL EXAM: Alert, very pleasant, 75-year-old white male, resting on the gurney in extended stay, awaiting a bed on 3 S., breathing comfortably, on room air with pulse ox of 99% comfortable in no apparent distress. HEAD: Normocephalic/atraumatic. EYES: Normal reaction of pupils, equal size. Conjunctiva pink, sclera white. NOSE: Clear with pink turbinates. THROAT: No erythema or exudates. NECK: No masses, no JVD, no thyroid enlargement, no adenopathy. CHEST: No chest wall deformity. Symmetrical expansion. LUNGS: Equal air entry with no crackles, wheeze, rhonchi or dullness. CVS: Regular rate and rhythm, normal S1 and S2, no gallops, no murmurs, no rubs ABDOMEN: Soft, nontender. No hepatosplenomegaly, normal bowel sounds, no guarding or rigidity. EXTREMITIES: No clubbing, no edema, no cyanosis, 2+ pulses and upper and lower extremities. MUSCULOSKELETAL: Muscle strength and tone normal. SPINE: No scoliosis or deformity SKIN: No rashes CENTRAL NERVOUS SYSTEM: Alert and oriented -3. No focal deficits, tone is normal in all 4 extremities. PSYCHIATRIC: Alert and oriented -3. Appropriate affect. Intact judgment and i nsight. Results - Laboratory Findings CBC and BMP: 07/22/21 15:11 07/22/21 15:11 - Diagnostic Findings Chest x-ray: report reviewed, image reviewed Assessment and Plan Plan: Assessment: #1. Coronary artery disease, with 60% left main stenosis, ostial LAD stenosis of 99%, and mid LAD stenosis of 50% and RCA stenosis of 40-50%, pending surgical evaluation for revascularization surgery #2. Hypertension #3. Remote history of smoking #4. Recent hospitalization for dizziness and syncope #5. History of melanoma with history of surgical resection behind his right ear, and left scalp #6. Family history of Heart disease #7. History of polymyositis on maintenance dose prednisone 5 mg daily #8. Severe obstruction seen on the preop FEV1, which was 28% of predicted, which is likely related to poor patient effort, positioning or technique. #9. History of 35 pound weight loss in roughly 11 months Plan: Patient was interviewed and examined at the bedside along with Dr. Morris Preop FEV1 was reviewed, and is not likely accurate, and inconsistent with patient's incentive spirometer effort, and remote history of smoking Continue with cardiology and CT surgery recommendations No difficulty breathing, no cough or congestion, and maintaining stable O2 saturations Patient's benefits of surgical revascularization outweigh potential risk We'll continue to follow in the postoperative period I have personally seen and examined the patient, performed the documentation and the assessment and plan as written. Number of minutes spent on the visit: [15] I have personally seen and examined the patient and reviewed the documentation. I performed a joint evaluation with the nurse practitioner in this evaluation was done more than 30 minutes. I fully agree with the documentation above and the plan of care. Patient is stable. The patient will need stress dose hydrocortisone.. His been chronically steroid dependence and history of polymyositis. Nevertheless, overall muscle strength and functionality has been good. The spirometry has been suboptimal due to poor effort. Patient has adequate functionality and his performance and functional status is adequate and his pulling more than 3000 on his incentive spirometer. Chest x-ray is normal. We'll change this patient for surgery. May be beneficial to repeat a spirometry which was essentially of a low quality/suboptimal trial. Time with Patient: Greater than 30
[2021-07-22] MEDS ORDERED: MD COMMUNICATION TO PHARMACY 1 EACH MISC PO ONE ×3 (14:52)
[2021-07-22 15:32] LABS: Basophils # (A) 0.1 k/uL (0-0.2); Basophils % (A) 1 %; Eosinophils # (A) 0.3 k/uL (0-0.7); Eosinophils % (A) 3 %; HCT 39.9 % (39.0-53.0); HGB 12.4 gm/dL (13.0-17.5); Lymphocytes # (A) 2.4 k/uL (1.0-4.8); Lymphocytes % (A) 23 %; MCH 27.8 pg (25.0-35.0); MCHC 31.1 g/dL (31.0-37.0); MCV 89.4 fL (80.0-100.0); Mean Platelet Volume 7.2; Monocytes # (A) 0.6 k/uL (0-1.0); Monocytes % (A) 6 %; Neutrophils # (A) 7.2 k/uL (1.3-7.7); Neutrophils % (A) 67 %; Platelet Count 202 k/uL (150-450); RBC 4.46 m/uL (4.30-5.90); RDW 14.4 % (11.5-15.5); WBC 10.7 k/uL (3.8-10.6)
[2021-07-22 15:37] LABS: Calcium 8.5 mg/dL (8.4-10.2); Partial Thromboplastin Time 27.6 sec (22.0-30.0); Potassium 3.8 mmol/L (3.5-5.1); Total Bilirubin 0.3 mg/dL (0.2-1.3); Total Protein 6.7 g/dL (6.3-8.2)
[2021-07-22 16:02] LABS: Glucose,Whole Blood 86 mg/dL (75-99)
[2021-07-22 16:07] LABS: Appearance,Urine Clear (Clear); Bilirubin,Urine Negative (Negative); Blood,Urine Trace (Negative); Color,Urine Light Yellow; Glucose,Urine (UA) Negative (Negative); Hyaline Casts,Urine 1 /lpf (0-2); Ketones,Urine Negative (Negative); Leukocyte Esterase,Urine Negative (Negative); Nitrite,Urine Negative (Negative); Protein,Urine Trace (Negative); RBC,Urine 3 /hpf (0-5); Specific Gravity,Urine 1.029 (1.001-1.035); Urobilinogen,Urine <2.0 mg/dL (<2.0); WBC,Urine 1 /hpf (0-5)
[2021-07-22] MEDS ORDERED: TRANEXAMIC ACID 2,000 MG in SODIUM CHLORIDE 0.9% 80 ML IV ONE (16:15)
[2021-07-22] MEDS: MUPIROCIN 2% OINT 22 GM TUBE NASAL SCH (21:00)
[2021-07-22] MEDS ORDERED: METOPROLOL TARTRATE 25 MG TAB PO SCH (21:00)
[2021-07-22 22:47] LABS: Chol/HDL Ratio 4.14 Ratio
[2021-07-23] MEDS ORDERED: PAPAVERINE 360 MG in SODIUM CHLORIDE 0.9% 90 ML IV ONE ×2 (05:00→09:34)
[2021-07-23] MEDS ORDERED: SODIUM BICARB 8.4% 50 ML SYR (1 MEQ/ML) IV ONE (05:00)
[2021-07-23] MEDS ORDERED: ALBUMIN HUMAN 25% 50 ML in EMPTY BAG 1 BAG IVPB ONE (05:00)
[2021-07-23] MEDS ORDERED: ASPIRIN 325 MG TAB PO ONE (05:00)
[2021-07-23] MEDS ORDERED: CHLORHEXIDINE GLUCONATE 15 ML CUP MUCOUS MEM ONE (05:00)
[2021-07-23] MEDS ORDERED: MANNITOL 25% 12.5 GM/50 ML VIAL IV ONE ×2 (05:00)
[2021-07-23] MEDS ORDERED: HEPARIN SODIUM,PORCINE 5,000 UNIT in SODIUM CHLORIDE 0.9% 500 ML 500 ML IV ONE (05:00)
[2021-07-23] MEDS ORDERED: TRANEXAMIC ACID 2,000 MG in SODIUM CHLORIDE 0.9% 80 ML IV ONE ×4 (05:00)
[2021-07-23] MEDS ORDERED: ALBUMIN HUMAN 5% 500 ML in EMPTY BAG 1 BAG IVPB ONE ×6 (05:00)
[2021-07-23] MEDS ORDERED: PROTAMINE SULFATE 10 MG/ML 25 ML VIAL IV ONE ×2 (05:00→07:50)
[2021-07-23] MEDS ORDERED: CALCIUM CHLORIDE 100 MG/ML 10 ML SYRINGE IVP ONE (05:00)
[2021-07-23] MEDS ORDERED: HEPARIN SODIUM 1,000 UN/ML (10ML VL) IV ONE (05:00)
[2021-07-23] MEDS ORDERED: ATORVASTATIN 10 MG TAB PO ONE (05:00)
[2021-07-23] MEDS ORDERED: ceFAZolin 1,000 MG in SODIUM CHLORIDE 0.9% IRRIGATIO 1,000 ML IRRIGATION ONE (05:00)
[2021-07-23] MEDS ORDERED: NITROGLYCERIN-D5W PMX 25 MG/250 ML BTL IV ONE (05:00)
[2021-07-23] MEDS ORDERED: PROTAMINE SULFATE 250 MG in EMPTY BAG 1 BAG IV ONE (05:00)
[2021-07-23] MEDS ORDERED: PHENYLEPHRINE 40 MG in SODIUM CHLORIDE 0.9% 250 ML IV ONE (05:00)
[2021-07-23] MEDS ORDERED: METOPROLOL TARTRATE 12.5 MG TAB PO ONE (05:00)
[2021-07-23] MEDS ORDERED: MAGNESIUM SULFATE 16.24 MEQ in EMPTY SYRINGE 1 SYR IV ONE (05:00)
[2021-07-23] MEDS ORDERED: PHENYLEPHRINE 10 MG/ML VIAL IV ONE (05:00)
[2021-07-23] MEDS ORDERED: CLEVIDIPINE BUTYRATE 25 MG in EMPTY BAG 1 BAG IV SCH ×2 (05:00→12:09)
[2021-07-23] MEDS ORDERED: ELECTROLYTE-A SOLUTION 1,000 ML with POTASSIUM CHLORIDE 40 MEQ, MAGNESIUM SULFATE 16 ME... IV SCH ×5 (05:00)
[2021-07-23] MEDS ORDERED: ELECTROLYTE-A SOLUTION 1,000 ML with POTASSIUM CHLORIDE 100 MEQ, MAGNESIUM SULFATE 16 M... IV SCH ×5 (05:00)
[2021-07-23] MEDS: SODIUM CHLORIDE 0.9% 1,000 ML in EMPTY BAG 1 BAG IV SCH ×3 (05:05→05:07)
[2021-07-23] MEDS: MUPIROCIN 2% OINT 22 GM TUBE NASAL SCH ×2 (05:08→21:50)
[2021-07-23 05:48] LABS: Glucose,Whole Blood 89 mg/dL (75-99)
[2021-07-23] MEDS ORDERED: LIDOCAINE 1% (10MG/ML) FOR IV START INTRADERMA ONE (06:29)
[2021-07-23] MEDS ORDERED: HYDROCORTISONE SUCCINATE 100 MG/2 ML VIAL IV ONE (06:50)
[2021-07-23] MEDS ORDERED: ALBUMIN HUMAN 5% (25gm) 500 ML VIAL IVPB ONE (07:50)
[2021-07-23] MEDS ORDERED: fentaNYL (PF) 50 MCG/ML 50 ML VIAL ONE (07:50)
[2021-07-23] MEDS ORDERED: MAGNESIUM SULFATE 4 MEQ/ML 10ML VIAL ONE (07:50)
[2021-07-23] MEDS ORDERED: PHENYLEPHRINE-0.9% NACL SYG 1,000 MCG/10 ML SYRINGE ONE (07:50)
[2021-07-23] MEDS ORDERED: VECURONIUM 10 MG VIAL IV ONE (07:50)
[2021-07-23] MEDS ORDERED: HEPARIN SODIUM,PORCINE 10,000 UNIT/ML 1 ML VIAL ONE (07:50)
[2021-07-23] MEDS ORDERED: LIDOCAINE 2% SYG (PF) 100 MG/5 ML ONE (07:50)
[2021-07-23] MEDS ORDERED: PROPOFOL 10 MG/ML 20 ML VIAL IV ONE (07:50)
[2021-07-23] MEDS ORDERED: TRANEXAMIC ACID IN NACL,ISO-OS 1,000 MG/100 ML BAG ONE (07:50)
[2021-07-23] MEDS ORDERED: MIDAZOLAM HCL 10 MG/10 ML VIAL ONE (07:50)
[2021-07-23 08:27] LABS: ABG Base Excess 1.7 mmol/L; ABG Glucose Whole Blood 111 mg/dL (75-99); ABG HCO3 26 mmol/L (21-25); ABG Hematocrit 35 % (34.0-46.0); ABG Ionized Calcium 4.5 mg/dL (4.5-5.3); ABG Lactic Acid Whole Blood 0.4 mmol/L (0.5-1.6); ABG PCO2 38 mmHg (35-45); ABG PH 7.44 (7.35-7.45); ABG PO2 417 mmHg (83-108); ABG Potassium Whole Blood 3.8 mmol/L (3.4-4.5); ABG Sodium Whole Blood 143 mmol/L (135-146); ABG TCO2 27 mmol/L (19-24)
[2021-07-23] MEDS ORDERED: FOLIC ACID 1 MG TAB PO SCH (09:00)
[2021-07-23 09:29] LABS: ABG Base Excess 0.9 mmol/L; ABG Glucose Whole Blood 141 mg/dL (75-99); ABG HCO3 26 mmol/L (21-25); ABG Hematocrit 33 % (34.0-46.0); ABG Ionized Calcium 4.6 mg/dL (4.5-5.3); ABG Lactic Acid Whole Blood 1.2 mmol/L (0.5-1.6); ABG Oxygen Saturation 99.2 % (94-97); ABG PCO2 44 mmHg (35-45); ABG PH 7.38 (7.35-7.45); ABG PO2 145 mmHg (83-108); ABG Potassium Whole Blood 4.1 mmol/L (3.4-4.5); ABG Sodium Whole Blood 141 mmol/L (135-146); ABG TCO2 28 mmol/L (19-24)
[2021-07-23] MEDS ORDERED: SODIUM CHLORIDE 0.9% 500 ML 500 ML with HEPARIN SODIUM,PORCINE 5,000 UNIT IV ONE ×2 (09:34)
[2021-07-23] MEDS ORDERED: ceFAZolin 1,000 MG in SODIUM CHLORIDE 0.9% 1,000 ML IRRIGATION ONE (09:35)
--- NOTE | 2021-07-23 09:37 | P.ANPRN ---
Procedure Note - Anesthesia - Invasive Line Right Central Line Time Out Performed: Yes (0727) Date of Procedure: 07/23/21 Time of Procedure: 07:28 Location of Patient: PreOp Preparation: Sterile Prep, Sterile Dressing Arterial Line Location: Radial (right per [employer]ENDER) Ultrasound Used: Yes Purpose - Visualization and Identification of Vasculature: Yes Needle Guage: 18g angio Image Stored and Saved: Yes Narrative: Central line placement per sterile protocol utilized. sterile protocol. Right neck prepped and draped. Local. Angio. CVP. Jwire. Uneventful dilation and introduction right IJ cordis. +US for vessel identification +picture saved. Lumen bled and flushed. Secured.
--- NOTE | 2021-07-23 09:38 | P.ANPRN ---
Procedure Note - Anesthesia - Invasive Line Right [place] Sharlene Time Out Performed: Yes (0727) Date of Procedure: 07/23/21 Time of Procedure: 07:39 Location of Patient: PreOp Preparation: Sterile Prep, Sterile Dressing Ultrasound Used: No Purpose - Visualization and Identification of Vasculature: No Image Stored and Saved: No Narrative: Central line placement per sterile protocol utilized. sterile protocol. [place] floated in sheath in one attempt to wedge at 52 cm. balloon down and withdrawn to 47 cm. PA waveform. Secured.
[2021-07-23 10:14] LABS: ABG Glucose Whole Blood 148 mg/dL (75-99); ABG HCO3 25 mmol/L (21-25); ABG Hematocrit 26 % (34.0-46.0); ABG Ionized Calcium 4.1 mg/dL (4.5-5.3); ABG Lactic Acid Whole Blood 0.9 mmol/L (0.5-1.6); ABG PCO2 42 mmHg (35-45); ABG PH 7.38 (7.35-7.45); ABG PO2 356 mmHg (83-108); ABG Potassium Whole Blood 4.9 mmol/L (3.4-4.5); ABG Sodium Whole Blood 139 mmol/L (135-146); ABG TCO2 26 mmol/L (19-24)
[2021-07-23 10:53] LABS: ABG Base Excess -0.9 mmol/L; ABG Glucose Whole Blood 156 mg/dL (75-99); ABG HCO3 24 mmol/L (21-25); ABG Hematocrit 25 % (34.0-46.0); ABG Ionized Calcium 4.1 mg/dL (4.5-5.3); ABG Lactic Acid Whole Blood 1.1 mmol/L (0.5-1.6); ABG PCO2 42 mmHg (35-45); ABG PH 7.37 (7.35-7.45); ABG PO2 356 mmHg (83-108); ABG Potassium Whole Blood 4.8 mmol/L (3.4-4.5); ABG Sodium Whole Blood 140 mmol/L (135-146); ABG TCO2 26 mmol/L (19-24)
[2021-07-23 11:45] LABS: ABG Base Excess -0.7 mmol/L; ABG Glucose Whole Blood 163 mg/dL (75-99); ABG HCO3 24 mmol/L (21-25); ABG Hematocrit 29 % (34.0-46.0); ABG Ionized Calcium 4.6 mg/dL (4.5-5.3); ABG Lactic Acid Whole Blood 1.6 mmol/L (0.5-1.6); ABG Oxygen Saturation 99.9 % (94-97); ABG PCO2 38 mmHg (35-45); ABG PO2 311 mmHg (83-108); ABG Potassium Whole Blood 4.3 mmol/L (3.4-4.5); ABG Sodium Whole Blood 141 mmol/L (135-146); ABG TCO2 25 mmol/L (19-24)
[2021-07-23] MEDS ORDERED: BENZOCAINE/MENTHOL LOZENG 1 EACH LOZENGE MUCOUS MEM PRN (12:09)
[2021-07-23] MEDS ORDERED: Magnesium Replacement Protocol 1 EACH MISC MISCELLANE PRN (12:09)
[2021-07-23] MEDS ORDERED: INSULIN REGULAR 100 UNIT in SODIUM CHLORIDE 0.9% 100 ML IV SCH (12:09)
[2021-07-23] MEDS ORDERED: CALCIUM GLUCONATE IN NACL 2 GM in SALINE 1 100ML.BAG IVPB PRN (12:09)
[2021-07-23] MEDS ORDERED: DEXMEDETOMIDINE/0.9% NACL(PMX) 400 MCG in EMPTY BAG 1 BAG IV SCH (12:09)
[2021-07-23] MEDS ORDERED: AMIODARONE 360 MG in DEXTROSE 5% IN WATER 200 ML IV PRN ×2 (12:09)
[2021-07-23] MEDS ORDERED: AMIODARONE 450 MG in DEXTROSE 5% IN WATER 250 ML IV PRN ×2 (12:09)
[2021-07-23] MEDS ORDERED: IPRATROPIUM-ALBUTEROL 3 ML NEB INHALATION PRN (12:09)
[2021-07-23] MEDS ORDERED: Potassium Replacement Protocol 1 EACH MISC MISCELLANE PRN (12:09)
[2021-07-23] MEDS ORDERED: NITROGLYCERIN-D5W PMX 50 MG in DEXTROSE/WATER 1 250ML.BAG IV SCH (12:09)
[2021-07-23 12:39] LABS: Glucose,Whole Blood 176 mg/dL (75-99)
[2021-07-23 13:06] LABS: ABG Base Excess -1.1 mmol/L; ABG HCO3 24 mmol/L (21-25); ABG PCO2 40 mmHg (35-45); ABG PH 7.38 (7.35-7.45); ABG PO2 342 mmHg (83-108); ABG TCO2 25 mmol/L (19-24)
[2021-07-23] MEDS: IPRATROPIUM-ALBUTEROL 3 ML NEB INHALATION SCH ×3 (13:15→21:11)
--- NOTE | 2021-07-23 13:22 | XR ---
EXAMINATION TYPE: XR chest 1V portable DATE OF EXAM: 07/23/2021 COMPARISON: 07/22/2021 INDICATION: Postop cardiac surgery TECHNIQUE: Single frontal view of the chest is obtained. FINDINGS: The heart size is normal. The pulmonary vasculature is normal. Minimal plate atelectasis in the left lung. Mild infiltrate is in the right infrahilar region. Correl ate for atelectasis . Endotracheal tube tip is 4.3 cm above the alejandro. Bilateral chest tubes and a mediastinal tube are pr esent. [place]-Sharlene catheter tip is in the main pulmonary artery region. No pneumothorax is evident. IMPRESSION: 1. Mild bilateral lung infiltrates, likely on the basis of atelectasis. Follow-up can be performed. 2. Multiple lines and catheters as discussed above
[2021-07-23] MEDS: LACTATED RINGERS 1,000 ML IV SCH (13:40)
[2021-07-23] MEDS: NOREPINEPHRINE 4 MG in SODIUM CHLORIDE 0.9% 250 ML IV SCH (13:41)
[2021-07-23 13:43] LABS: Basophils # (A) 0.1 k/uL (0-0.2); Basophils % (A) 0 %; Eosinophils % (A) 0 %; HCT 30.4 % (39.0-53.0); Lymphocytes # (A) 0.9 k/uL (1.0-4.8); Lymphocytes % (A) 6 %; MCH 28.7 pg (25.0-35.0); MCHC 31.8 g/dL (31.0-37.0); MCV 90.2 fL (80.0-100.0); Mean Platelet Volume 7.3; Monocytes # (A) 0.5 k/uL (0-1.0); Monocytes % (A) 3 %; Neutrophils # (A) 12.8 k/uL (1.3-7.7); Neutrophils % (A) 89 %; Platelet Count 157 k/uL (150-450); RBC 3.38 m/uL (4.30-5.90); RDW 14.4 % (11.5-15.5); WBC 14.3 k/uL (3.8-10.6)
[2021-07-23 13:44] LABS: Ionized Calcium 4.8 mg/dL (4.5-5.3)
[2021-07-23 13:45] LABS: HGB 9.7 gm/dL (13.0-17.5)
[2021-07-23 13:52] LABS: Albumin 3.1 g/dL (3.5-5.0); Calcium 7.8 mg/dL (8.4-10.2); Magnesium 2.8 mg/dL (1.6-2.3); Potassium 4.4 mmol/L (3.5-5.1); Total Bilirubin 0.4 mg/dL (0.2-1.3)
[2021-07-23 14:02] LABS: INR 1.1 (<1.2); Partial Thromboplastin Time 31.9 sec (22.0-30.0); Prothrombin Time 11.9 sec (9.0-12.0)
[2021-07-23] MEDS: ACETAMINOPHEN IV (For NPO) 1,000 MG in EMPTY BAG 1 BAG IVPB SCH ×2 (14:18→18:55)
[2021-07-23 14:57] LABS: Glucose,Whole Blood 169 mg/dL (75-99)
--- NOTE | 2021-07-23 15:30 | P.PN ---
Subjective Progress Note Date: 07/23/21 07/23/2021, the patient is being seen for a follow-up. The patient was seen immediately after he arrived from the operating room. The patient underwent two-vessel bypass surgery with MEZA to LAD. The patient was kept sedated and the patient was brought into the intensive care unit. This point in time, the patient on propofol running at 50 mg/kg per minute. He is well sedated and synchronous with the mechanical ventilator. His assist-control mode of mechanical ventilation at the rate of 12 with tidal volume of 550 mL with an FiO2 of 100% and a PEEP of 5. The patient has 3 chest tubes, right pleural, left pleural and mediastinal and output is minimal for now. No evidence of any air leaks. No evidence of pneumothorax on chest x-ray done postop. ET tube is in a good location and the patient also has a [place]-Sharlene catheter in place. The patient is at 7.38 with a pCO2 of 40 and pO2 of 342 and the patient's FiO2 has been drop down to 50%. Hemodynamically, the patient is on 5 mcg/kg per minute of nitroglycerin infusion. The patient is on no pressors for now. The patient on insulin drip at 2 units an hour. Urine output is adequate. The hemoglobin is at 9.7 with a white second of 14.3. Platelet count is at 157. BUN is at 17 with a creatinine of 0.7 sodium level is at 138. He is afebrile. He is on normal saline at the rate of 50 hour., Comfortable and a cardiac rhythm is sin us. Objective - Vital Signs Vital signs: Vital Signs Temp 98.9 F 07/23/21 06:32 Pulse 80 07/23/21 15:00 Resp 16 07/23/21 15:00 BP 172/78 07/23/21 06:32 Pulse Ox 100 07/23/21 15:00 FiO2 50 07/23/21 13:45 Intake & Output 07/22/21 07/23/21 07/23/21 18:59 06:59 18:59 Intake Total 100 200 405.004 Output Total 650 2034 Balance -550 200 -1628.996 Weight 82.1 kg Intake: IV 100 200 393.5 ACETAMINOPHEN IV (For NPO 100 ) 1,000 mg In Empty Bag 1 bag @ 400 mls/hr IVPB Q6HR JARET Rx#:[id number] CO/CI 60 Lactated Ringers 1,000 ml 150 @ 50 mls/hr IV .Q20H JARET Rx#:[id number] Nitroglycerin-D5w Pmx 50 4.5 mg In Dextrose/Water 1 250ml.bag @ 5 MCG/MIN 1.5 mls/hr IV .Q24H JARET Rx#: [id number] PRESSURE BAGS 27 Intake, IV Titration 11.504 Amount Insulin Regular 100 unit 2.062 In Sodium Chloride 0.9% 100 ml @ Per Protocol IV .Q0M JARET Rx#:[id number] propofoL 1,000 mg In 9.442 Empty Bag 1 bag @ Titrate IV .Q0M JARET Rx#: [id number] Output: Chest Tube Drainage 174 Mediastinal 100 Right/Left 74 Urine 650 860 Estimated Blood Loss 1000 Other: Voiding Method Toilet # Voids 1 2 ABP, PAP, CO, CI - Last Documented Arterial Blood Pressure 117/56 Pulmonary Artery Pressure 28/19 Cardiac Output 5.3 Cardiac Index 2.7 - Exam intubated, calm and comfortable nonacute distress, sedated with propofol Head exam was generally normal. There was no scleral icterus or corneal arcus. Mucous membranes were moist. Neck was supple and without jugular venous distension, thyromegaly, or carotid bruits. Carotids were easily palpable bilaterally. There was no adenopathy.The patient has a right IJ [place]arlene catheter is in place. Orogastric and orotracheal tube are both in place. Lungs sounds are diminished bilaterally and the patient has equal and symmetrical breath sound and the patient has 3 chest tubes, bipolar, left pleural and mediastinal. Cardiac exam revealed the PMI to be normally situated and sized. The rhythm was regular and no extrasystoles were noted during several minutes of auscultation. The first and second heart sounds were normal and physiologic splitting of the second heart sound was noted. There were no murmurs, rubs, clicks, or gallops.Sternum stable clean and intact. Abdominal exam revealed normal bowel sounds. The abdomen was soft, non-tender, and without masses, organomegaly, or appreciable enlargement of the abdominal aorta. Examination of the extremities revealed easily palpable radial, femoral and pedal pulses. There was no cyanosis, clubbing or edema. Examination of the skin revealed no evidence of significant rashes, suspicious appearing nevi or other concerning lesions. Neurologically, the patient is sedated with propofol. Pupils are equal and reactive to light. He grimaces to deep painful stimulation. - Labs CBC & Chem 7: 07/23/21 12:40 07/23/21 12:40 Labs: Abnormal Lab Results - Last 24 Hours (Table) 07/22/21 07/22/21 07/22/21 Range/Units 13:02 15:11 15:11 WBC (3.8-10.6) k/uL RBC (4.30-5.90) m/uL Hgb (13.0-17.5) gm/dL Hct (39.0-53.0) % Neutrophils # (1.3-7.7) k/uL Lymphocytes # (1.0-4.8) k/uL APTT (22.0-30.0) sec ABG pO2 (83-108) mmHg ABG HCO3 (21-25) mmol/L ABG Total CO2 (19-24) mmol/L ABG O2 Saturation (94-97) % ABG Hematocrit (34.0-46.0) % ABG Potassium (3.4-4.5) mmol/L ABG Ionized Calcium (4.5-5.3) mg/dL ABG Glucose (75-99) mg/dL ABG Lactic Acid (0.5-1.6) mmol/L Hemoglobin (13.0-17.5) gm/dL Chloride (98-107) mmol/L Glucose (74-99) mg/dL POC Glucose (mg/dL) (75-99) mg/dL Calcium (8.4-10.2) mg/dL Magnesium (1.6-2.3) mg/dL Alkaline Phosphatase (38-126) U/L Total Protein (6.3-8.2) g/dL Albumin (3.5-5.0) g/dL Triglycerides 169.00 H (0.00-149.00) mg/dL HDL Cholesterol 38.20 L (40.00-60.00) mg/dL Arterial Blood Potassium (3.4-4.5) mmol/L Arterial Blood Glucose (75-99) mg/dL Urine Protein Trace H (Negative) Urine Blood Trace H (Negative) Crossmatch See Detail 07/22/21 07/22/21 07/23/21 Range/Units 15:11 15:11 08:29 WBC 10.7 H (3.8-10.6) k/uL RBC (4.30-5.90) m/uL Hgb 12.4 L (13.0-17.5) gm/dL Hct (39.0-53.0) % Neutrophils # (1.3-7.7) k/uL Lymphocytes # (1.0-4.8) k/uL APTT (22.0-30.0) sec ABG pO2 417 H (83-108) mmHg ABG HCO3 26 H (21-25) mmol/L ABG Total CO2 27 H (19-24) mmol/L ABG O2 Saturation 100.0 H (94-97) % ABG Hematocrit (34.0-46.0) % ABG Potassium (3.4-4.5) mmol/L ABG Ionized Calcium (4.5-5.3) mg/dL ABG Glucose 111 H (75-99) mg/dL ABG Lactic Acid 0.4 L (0.5-1.6) mmol/L Hemoglobin 11.5 L (13.0-17.5) gm/dL Chloride 109 H (98-107) mmol/L Glucose (74-99) mg/dL POC Glucose (mg/dL) (75-99) mg/dL Calcium (8.4-10.2) mg/dL Magnesium (1.6-2.3) mg/dL Alkaline Phosphatase (38-126) U/L Total Protein (6.3-8.2) g/dL Albumin (3.5-5.0) g/dL Triglycerides (0.00-149.00) mg/dL HDL Cholesterol (40.00-60.00) mg/dL Arterial Blood Potassium (3.4-4.5) mmol/L Arterial Blood Glucose 111 H (75-99) mg/dL Urine Protein (Negative) Urine Blood (Negative) Crossmatch 07/23/21 07/23/21 07/23/21 Range/Units 09:30 10:15 10:54 WBC (3.8-10.6) k/uL RBC (4.30-5.90) m/uL Hgb (13.0-17.5) gm/dL Hct (39.0-53.0) % Neutrophils # (1.3-7.7) k/uL Lymphocytes # (1.0-4.8) k/uL APTT (22.0-30.0) sec ABG pO2 145 H 356 H 356 H (83-108) mmHg ABG HCO3 26 H (21-25) mmol/L ABG Total CO2 28 H 26 H 26 H (19-24) mmol/L ABG O2 Saturation 99.2 H 100.0 H 100.0 H (94-97) % ABG Hematocrit 33 L 26 L 25 L (34.0-46.0) % ABG Potassium 4.9 H 4.8 H (3.4-4.5) mmol/L ABG Ionized Calcium 4.1 L 4.1 L (4.5-5.3) mg/dL ABG Glucose 141 H 148 H 156 H (75-99) mg/dL ABG Lactic Acid (0.5-1.6) mmol/L Hemoglobin 10.8 L 8.4 L 8.3 L (13.0-17.5) gm/dL Chloride (98-107) mmol/L Glucose (74-99) mg/dL POC Glucose (mg/dL) (75-99) mg/dL Calcium (8.4-10.2) mg/dL Magnesium (1.6-2.3) mg/dL Alkaline Phosphatase (38-126) U/L Total Protein (6.3-8.2) g/dL Albumin (3.5-5.0) g/dL Triglycerides (0.00-149.00) mg/dL HDL Cholesterol (40.00-60.00) mg/dL Arterial Blood Potassium 4.9 H 4.8 H (3.4-4.5) mmol/L Arterial Blood Glucose 141 H 148 H 156 H (75-99) mg/dL Urine Protein (Negative) Urine Blood (Negative) Crossmatch 07/23/21 07/23/21 07/23/21 Range/Units 11:46 12:37 12:40 WBC 14.3 H (3.8-10.6) k/uL RBC 3.38 L (4.30-5.90) m/uL Hgb 9.7 L D (13.0-17.5) gm/dL Hct 30.4 L (39.0-53.0) % Neutrophils # 12.8 H (1.3-7.7) k/uL Lymphocytes # 0.9 L (1.0-4.8) k/uL APTT (22.0-30.0) sec ABG pO2 311 H (83-108) mmHg ABG HCO3 (21-25) mmol/L ABG Total CO2 25 H (19-24) mmol/L ABG O2 Saturation 99.9 H (94-97) % ABG Hematocrit 29 L (34.0-46.0) % ABG Potassium (3.4-4.5) mmol/L ABG Ionized Calcium (4.5-5.3) mg/dL ABG Glucose 163 H (75-99) mg/dL ABG Lactic Acid (0.5-1.6) mmol/L Hemoglobin 9.4 L (13.0-17.5) gm/dL Chloride (98-107) mmol/L Glucose (74-99) mg/dL POC Glucose (mg/dL) 176 H (75-99) mg/dL Calcium (8.4-10.2) mg/dL Magnesium (1.6-2.3) mg/dL Alkaline Phosphatase (38-126) U/L Total Protein (6.3-8.2) g/dL Albumin (3.5-5.0) g/dL Triglycerides (0.00-149.00) mg/dL HDL Cholesterol (40.00-60.00) mg/dL Arterial Blood Potassium (3.4-4.5) mmol/L Arterial Blood Glucose 163 H (75-99) mg/dL Urine Protein (Negative) Urine Blood (Negative) Crossmatch 07/23/21 07/23/21 07/23/21 Range/Units 12:40 12:40 13:00 WBC (3.8-10.6) k/uL RBC (4.30-5.90) m/uL Hgb (13.0-17.5) gm/dL Hct (39.0-53.0) % Neutrophils # (1.3-7.7) k/uL Lymphocytes # (1.0-4.8) k/uL APTT 31.9 H (22.0-30.0) sec ABG pO2 342 H (83-108) mmHg ABG HCO3 (21-25) mmol/L ABG Total CO2 25 H (19-24) mmol/L ABG O2 Saturation 100.0 H (94-97) % ABG Hematocrit (34.0-46.0) % ABG Potassium (3.4-4.5) mmol/L ABG Ionized Calcium (4.5-5.3) mg/dL ABG Glucose (75-99) mg/dL ABG Lactic Acid (0.5-1.6) mmol/L Hemoglobin (13.0-17.5) gm/dL Chloride (98-107) mmol/L Glucose 166 H (74-99) mg/dL POC Glucose (mg/dL) (75-99) mg/dL Calcium 7.8 L (8.4-10.2) mg/dL Magnesium 2.8 H (1.6-2.3) mg/dL Alkaline Phosphatase 32 L (38-126) U/L Total Protein 5.0 L (6.3-8.2) g/dL Albumin 3.1 L (3.5-5.0) g/dL Triglycerides (0.00-149.00) mg/dL HDL Cholesterol (40.00-60.00) mg/dL Arterial Blood Potassium (3.4-4.5) mmol/L Arterial Blood Glucose (75-99) mg/dL Urine Protein (Negative) Urine Blood (Negative) Crossmatch 07/23/21 Range/Units 14:54 WBC (3.8-10.6) k/uL RBC (4.30-5.90) m/uL Hgb (13.0-17.5) gm/dL Hct (39.0-53.0) % Neutrophils # (1.3-7.7) k/uL Lymphocytes # (1.0-4.8) k/uL APTT (22.0-30.0) sec ABG pO2 (83-108) mmHg ABG HCO3 (21-25) mmol/L ABG Total CO2 (19-24) mmol/L ABG O2 Saturation (94-97) % ABG Hematocrit (34.0-46.0) % ABG Potassium (3.4-4.5) mmol/L ABG Ionized Calcium (4.5-5.3) mg/dL ABG Glucose (75-99) mg/dL ABG Lactic Acid (0.5-1.6) mmol/L Hemoglobin (13.0-17.5) gm/dL Chloride (98-107) mmol/L Glucose (74-99) mg/dL POC Glucose (mg/dL) 169 H (75-99) mg/dL Calcium (8.4-10.2) mg/dL Magnesium (1.6-2.3) mg/dL Alkaline Phosphatase (38-126) U/L Total Protein (6.3-8.2) g/dL Albumin (3.5-5.0) g/dL Triglycerides (0.00-149.00) mg/dL HDL Cholesterol (40.00-60.00) mg/dL Arterial Blood Potassium (3.4-4.5) mmol/L Arterial Blood Glucose (75-99) mg/dL Urine Protein (Negative) Urine Blood (Negative) Crossmatch Microbiology - Last 24 Hours (Table) 07/22/21 15:00 Nasal Screen MRSA/MSSA - Preliminary Nasal Swab Assessment and Plan Plan: Assessment: coronary artery bypass surgery. The patient is post two-vessel bypass and the patient is currently postop day #0. Note that the patient had some dramatic CAD and preop cardiac catheterization showed 60% left main stenosis, ostial LAD stenosis of 99%, and mid LAD stenosis of 50% and RCA stenosis of 40-50%. The patient is currently hemodynamically stable intubated on a mechanical ventilator. Cardiac rhythm is sinus on no pressors and hemodynamic parameters are adequate with an adequate cardiac output and index. Post thoracotomy, currently intubated on a mechanical ventilator. 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 History of 35 pound weight loss in roughly 11 months Plan: continue ventilator support Drop the FiO2 down to 40% and gradually down the FiO2 to maintain saturation above 90% Keep the patient on the sedation for now Gradually down his sedation propofol and check weaning parameters and assess his readiness to wean Output from the chest tubes were noted and output is minimal at this point in time and there is no evidence of air leak Hemodynamic parameters are adequate and the patient has adequate cardiac output and index and the patient is on no pressors for now Continue following up this patient. Put the patient on stress dose hydrocortisone as the patient has been on steroids for a extended period of time. Possible extubation within the next few hours. We'll try to extubate him prior to 6 hours window. Condition is stable for now. We'll continue to follow make further accommodation based on the progress. There is a critically care evaluation that was done and more than 30 minutes. Time with Patient: Greater than 30
[2021-07-23] MEDS: ALBUMIN HUMAN 5% 250 ML in EMPTY BAG 1 BAG IVPB PRN ×3 (15:33→22:21)
[2021-07-23 15:55] LABS: Glucose,Whole Blood 152 mg/dL (75-99)
[2021-07-23] MEDS: HYDROCORTISONE SUCCINATE 100 MG/2 ML VIAL IV SCH ×2 (16:01→23:59)
[2021-07-23] MEDS: HEPARIN SODIUM,PORCINE/PF 5,000 UNIT/0.5 ML SYRINGE SQ SCH ×2 (16:01→23:58)
[2021-07-23 16:04] LABS: Basophils % (A) 0 %; Eosinophils % (A) 0 %; HCT 29.5 % (39.0-53.0); HGB 9.6 gm/dL (13.0-17.5); Lymphocytes # (A) 1.2 k/uL (1.0-4.8); Lymphocytes % (A) 8 %; MCH 28.8 pg (25.0-35.0); MCHC 32.5 g/dL (31.0-37.0); MCV 88.6 fL (80.0-100.0); Mean Platelet Volume 7.8; Monocytes # (A) 0.8 k/uL (0-1.0); Monocytes % (A) 6 %; Neutrophils # (A) 12.9 k/uL (1.3-7.7); Neutrophils % (A) 86 %; Platelet Count 173 k/uL (150-450); RBC 3.33 m/uL (4.30-5.90); RDW 15.1 % (11.5-15.5)
[2021-07-23 16:39] LABS: ABG Base Excess 0.2 mmol/L; ABG HCO3 25 mmol/L (21-25); ABG PCO2 44 mmHg (35-45); ABG PH 7.38 (7.35-7.45); ABG PO2 144 mmHg (83-108); ABG TCO2 27 mmol/L (19-24)
[2021-07-23 17:08] LABS: Glucose,Whole Blood 143 mg/dL (75-99)
[2021-07-23] MEDS: KETOROLAC 15 MG/ML 1 ML VIAL IVP SCH ×2 (17:19→23:59)
[2021-07-23 17:57] LABS: Glucose,Whole Blood 142 mg/dL (75-99)
--- NOTE | 2021-07-23 18:44 | OP ---
OPERATIVE REPORT DATE OF SURGERY: 07/23/2021. PREOPERATIVE DIAGNOSIS: Coronary artery disease. POSTOPERATIVE DIAGNOSIS: Coronary artery disease. PROCEDURE: 1. Coronary artery bypass grafting x2 vessels (left internal mammary artery to left anterior descending artery, saphenous vein graft to obtuse marginal artery). 2. Endoscopic harvest of left greater saphenous vein. 3. Ligation of left atrial appendage using 35 mm AtriClip. 4. Epiaortic ultrasound. 5. Transesophageal echocardiogram. SURGEON: Faraz Barboza M.D. ASSISTANTS: 1. CTA. Maral 2. Sabino Cr N.P. ANESTHESIA: General. SPECIMEN: None. COMPLICATIONS: None. INDICATION: The patient is a 75-year-old male with a past medical history significant for hyperlipidemia, hypertension, polymyositis, on daily prednisone, history of melanoma and history of tobacco use who was recently hospitalized secondary to a near- syncopal episode. Workup revealed multivessel coronary artery disease, including an ostial left anterior descending artery stenosis of 99%. Coronary artery bypass was recommended. The risks, benefits, and alternatives of this procedure were discussed with the patient. All of his questions were answered. Consent was obtained. FINDINGS: The left internal mammary artery was a good conduit with brisk flow. The saphenous vein was a good conduit. The LAD measured 1.5 mm. The obtuse marginal artery measured 1.5 mm. PROCEDURE IN DETAIL: The patient was taken to the operating room and placed supine on the operating table. After the induction of general anesthesia, he was prepped and draped in the usual sterile fashion. Preoperative transesophageal echocardiogram confirmed a preserved ejection fraction with no significant valvular pathology. A median sternotomy was performed. The left internal mammary artery was harvested in the standard fashion, taking care to clip all branches. Intravenous heparin was administered. The vessel was transected distally revealing brisk flow. Simultaneously, greater saphenous vein was harvested from the left lower extremity using endoscopic technique. All branches were tied. Both the mammary artery and saphenous vein were good conduits. A pericardial cradle was created. The ascending aorta was palpated. There was no significant calcific plaque noted. The aortic wall itself appeared to be thickened. Epiaortic ultrasound was then performed on the ascending aorta. Again no calcific plaque was identified. An arterial cannula was placed in the distal ascending aorta. A venous cannula was placed through the right atrial appendage and directed into the IVC. Both antegrade and retrograde catheters were placed as well. The patient was then placed on cardiopulmonary bypass with good decompression of the heart. The aortic crossclamp was applied. Cold blood potassium cardioplegia was delivered in both antegrade and retrograde fashion to achieve arrest of the heart. Of note, cardioplegia was delivered every 15 to 20 minutes while the patient was under crossclamp. I began by identifying the left atrial appendage. A 35 mm AtriClip was placed across its base to ensure ligation. Next, attention was turned to the lateral wall. The obtuse marginal was identified. It was dissected free. A small arteriotomy was created. This vessel accepted a 1.5 mm probe. Using saphenous vein in a reverse fashion, an end- to-side anastomosis was created. This was performed using a running 7-0 Prolene suture. The graft was hemostatic and had great flow. Next, attention was turned to the anterior wall. The left anterior descending artery was dissected free in its mid portion. A small arteriotomy was created. This vessel accepted a 1.5 mm probe. Using the left internal mammary artery, an end-to- side anastomosis was created. This was performed using a running 8-0 Prolene suture. The graft was hemostatic. The mammary pedicle was then tacked down to the anterior surface of the heart. Attention was then turned to the proximal anastomosis. This was performed in an end-to- side fashion using a running 6-0 Prolene suture. One liter of warm blood was delivered in retrograde fashion. Lidocaine and magnesium were administered as well. The aortic crossclamp was removed. The vein graft was de-aired in the standard fashion. Distal anastomoses were all inspected and appeared to be hemostatic. Temporary and atrial ventricular pacing wires were placed and brought through the skin. The patient was then weaned off cardiopulmonary bypass. He without difficulty. Follow-up transesophageal echocardiogram confirmed a preserved ejection fraction with good wall motion and no valvular pathology. Protamine was administered. There were no adverse reactions. The remaining cannulas were then removed. The mediastinum was copiously irrigated with warm saline solution. Again all surgical sites were inspected and appeared to be hemostatic. Soft tissues were reapproximated over the ascending aorta as well as over the apex of the heart. Chest tubes were placed in both the left and right pleural spaces as well as in the mediastinum. These were all secured to the skin using sutures. The sternum was then reapproximated using the [place] Cable System. The cables were placed in a figure- of-eight fashion. At the completion of the closure, the sternum was well aligned. The remainder of the wound was closed in layers. A sterile dressing was applied. The patient appeared to tolerate the procedure well. There were no immediate complications. He returned to the ICU in critical but stable condition. He did not receive any intraoperative blood products. MMODL / IJN: [id number] / [id number]
[2021-07-23 18:52] LABS: Glucose,Whole Blood 146 mg/dL (75-99)
[2021-07-23 19:17] LABS: Basophils % (A) 0 %; Eosinophils % (A) 0 %; HCT 29.1 % (39.0-53.0); HGB 9.5 gm/dL (13.0-17.5); Lymphocytes # (A) 0.5 k/uL (1.0-4.8); Lymphocytes % (A) 4 %; MCH 28.8 pg (25.0-35.0); MCHC 32.5 g/dL (31.0-37.0); MCV 88.5 fL (80.0-100.0); Mean Platelet Volume 7.8; Monocytes # (A) 0.6 k/uL (0-1.0); Monocytes % (A) 4 %; Neutrophils # (A) 12.5 k/uL (1.3-7.7); Neutrophils % (A) 92 %; Platelet Count 151 k/uL (150-450); RBC 3.29 m/uL (4.30-5.90); RDW 14.8 % (11.5-15.5); WBC 13.7 k/uL (3.8-10.6)
[2021-07-23 20:12] LABS: Glucose,Whole Blood 124 mg/dL (75-99)
[2021-07-23 21:01] LABS: Glucose,Whole Blood 132 mg/dL (75-99)
[2021-07-23 22:54] LABS: Glucose,Whole Blood 125 mg/dL (75-99)
[2021-07-23] MEDS ORDERED: HYDROcodone/APAP 5-325MG 1 EACH TAB PO PRN (23:13)
[2021-07-24] MEDS: ALBUMIN HUMAN 5% 250 ML in EMPTY BAG 1 BAG IVPB PRN ×6 (00:42→12:04)
[2021-07-24 01:05] LABS: Glucose,Whole Blood 107 mg/dL (75-99)
[2021-07-24] MEDS: ONDANSETRON 4 MG/2 ML VIAL IVP PRN ×2 (01:22→14:14)
[2021-07-24 02:58] LABS: Glucose,Whole Blood 136 mg/dL (75-99)
[2021-07-24 03:29] LABS: Glucose,Whole Blood 140 mg/dL (75-99)
[2021-07-24 04:02] LABS: Basophils % (A) 0 %; Eosinophils % (A) 0 %; HGB 8.4 gm/dL (13.0-17.5); Lymphocytes # (A) 0.8 k/uL (1.0-4.8); Lymphocytes % (A) 6 %; MCH 28.8 pg (25.0-35.0); MCHC 32.2 g/dL (31.0-37.0); MCV 89.5 fL (80.0-100.0); Mean Platelet Volume 7.6; Monocytes # (A) 0.6 k/uL (0-1.0); Monocytes % (A) 4 %; Neutrophils # (A) 12.5 k/uL (1.3-7.7); Neutrophils % (A) 90 %; Platelet Count 148 k/uL (150-450); RBC 2.91 m/uL (4.30-5.90); RDW 14.5 % (11.5-15.5); WBC 13.9 k/uL (3.8-10.6)
[2021-07-24 04:23] LABS: Ionized Calcium 4.6 mg/dL (4.5-5.3)
[2021-07-24 04:32] LABS: Albumin 3.5 g/dL (3.5-5.0); Calcium 7.8 mg/dL (8.4-10.2); Magnesium 2.3 mg/dL (1.6-2.3); Potassium 3.8 mmol/L (3.5-5.1); Total Bilirubin 0.4 mg/dL (0.2-1.3); Total Protein 5.2 g/dL (6.3-8.2)
[2021-07-24] MEDS ORDERED: POTASSIUM CHLORIDE ER 20 MEQ TAB.ER PO SCH ×2 (05:00→08:00)
[2021-07-24 05:50] LABS: Glucose,Whole Blood 120 mg/dL (75-99)
[2021-07-24] MEDS: HYDROcodone/APAP 5-325MG 1 EACH TAB PO PRN ×2 (06:28→10:06)
[2021-07-24] MEDS: KETOROLAC 15 MG/ML 1 ML VIAL IVP SCH ×3 (06:29→18:09)
[2021-07-24 06:50] LABS: Glucose,Whole Blood 128 mg/dL (75-99)
--- NOTE | 2021-07-24 07:46 | XR ---
EXAMINATION TYPE: XR chest 1V portable DATE OF EXAM: 07/24/2021 COMPARISON: 07/23/2021 INDICATION: Postop cardiac surgery TECHNIQUE: Single frontal view of the chest is obtained. FINDINGS: The heart size is mildly prominent. The pulmonary vasculature is normal. There may be some developing left lower lobe infiltrate. Left-sided chest tube remains present. Right -sided chest tube is present. No pneumothorax is evident. [place]-Sharlene catheter may be present, distal tip however is not well-visualized. Mediastinal tube is present. IMPRESSION: 1. There may be some developing left lower lobe infiltrate. Correlate for atelectasis and pneumonia.
[2021-07-24 08:13] LABS: Glucose,Whole Blood 129 mg/dL (75-99)
[2021-07-24] MEDS: NOREPINEPHRINE 4 MG in SODIUM CHLORIDE 0.9% 250 ML IV SCH (08:14)
[2021-07-24] MEDS: ASPIRIN 325 MG TAB PO SCH (08:15)
[2021-07-24] MEDS: CLOPIDOGREL 75 MG TAB PO SCH (08:15)
[2021-07-24] MEDS: HEPARIN SODIUM,PORCINE/PF 5,000 UNIT/0.5 ML SYRINGE SQ SCH ×2 (08:15→16:03)
[2021-07-24] MEDS: METOPROLOL TARTRATE 12.5 MG TAB PO SCH ×2 (08:15→20:04)
[2021-07-24] MEDS: HYDROCORTISONE SUCCINATE 100 MG/2 ML VIAL IV SCH ×2 (08:15→16:03)
[2021-07-24] MEDS: FOLIC ACID 1 MG TAB PO SCH (08:15)
[2021-07-24] MEDS: ATORVASTATIN 40 MG TAB PO SCH (08:15)
[2021-07-24] MEDS: MUPIROCIN 2% OINT 22 GM TUBE NASAL SCH (08:16)
[2021-07-24] MEDS: IPRATROPIUM-ALBUTEROL 3 ML NEB INHALATION SCH ×4 (08:19→19:16)
[2021-07-24] MEDS ORDERED: ATORVASTATIN 40 MG TAB PO SCH (09:00)
[2021-07-24] MEDS ORDERED: ASPIRIN 81 MG PO SCH (09:00)
[2021-07-24] MEDS ORDERED: PANTOPRAZOLE 40 MG/10 ML VIAL IVP SCH (09:00)
[2021-07-24] MEDS ORDERED: MAGNESIUM HYDROXIDE 2,400 MG/10 ML CUP PO PRN (09:00)
[2021-07-24] MEDS ORDERED: bisacodyL 10 MG SUPP RECTAL PRN (09:00)
[2021-07-24 09:16] LABS: Glucose,Whole Blood 147 mg/dL (75-99)
[2021-07-24] MEDS: LACTATED RINGERS 1,000 ML IV SCH (09:27)
[2021-07-24] MEDS ORDERED: ACETAMINOPHEN TAB 325 MG TAB PO PRN (09:51)
[2021-07-24 10:10] LABS: Glucose,Whole Blood 131 mg/dL (75-99)
--- NOTE | 2021-07-24 10:30 | P.PN ---
Subjective Progress Note Date: 07/24/21 Principal diagnosis: Coronary artery disease. Previous medical history of hypertension, hyperlipidemia, polymyositis with daily prednisone use, melanoma in 2001 and 2016, remote history of pneumonia, previous tobacco dependence, 35 pound weight loss since last August, family history of premature coronary artery disease, severe COPD POD #1 coronary artery bypass grafting 2 vessels, left internal mammary artery to the left anterior descending artery, reverse saphenous vein graft to the obtuse marginal artery, endoscopic harvesting of the left greater saphenous vein, ligation of left atrial appendage using a 25 mm Atriclip, epi-aortic ultrasound and intraoperative transesophageal echocardiogram Postoperative acute blood loss anemia, expected given hemodilution and cardi opulmonary bypass pump The patient was seen and examined this morning with Dr. Barboza sitting up in a recliner in no acute distress in the intensive care unit. He was successfully extubated yesterday at 16:55. Remains in sinus rhythm and hemodynamically stable on low-dose levo. Does complain of postsurgical pain including between his shoulder blades, mostly controlled on current medication regimen. Currently on 2 L nasal cannula with oxygen saturation in the high 90s, poor effort with incentive spirometry only achieving 750 mL. Right internal jugular [place]/Cordis, right radial arterial line, mediastinal/right/left pleural chest tubes all remain in place. No other new concerns. Objective - Vital Signs Vital signs: Vital Signs Temp 99.5 F 07/24/21 04:00 Pulse 79 07/24/21 09:00 Resp 14 07/24/21 09:00 BP 110/53 07/24/21 09:00 Pulse Ox 94 L 07/24/21 09:00 FiO2 50 07/23/21 16:00 Intake & Output 07/23/21 07/24/21 07/24/21 18:59 06:59 18:59 Intake Total 3219.767 0668.793 717.324 Output Total 2711 1387 75 Balance -1572.928 946.793 642.324 Weight 84.1 kg Intake: IV 1115.5 1828 688 ACETAMINOPHEN IV (For NPO 200 ) 1,000 mg In Empty Bag 1 bag @ 400 mls/hr IVPB Q6HR [facility] Rx#:[id number] Albumin Human 5% 250 ml 250 1000 500 In Empty Bag 1 bag @ 250 mls/hr IVPB Q1HR PRN Rx#: [id number] CO/CI 140 120 20 Lactated Ringers 1,000 ml 300 600 100 @ 50 mls/hr IV .Q20H [facility] Rx#:[id number] Nitroglycerin-D5w Pmx 50 10.5 mg In Dextrose/Water 1 250ml.bag @ 5 MCG/MIN 1.5 mls/hr IV .Q24H [facility] Rx#: [id number] PRESSURE BAGS 63 108 18 ceFAZolin 1,000 mg In 100 50 Sodium Chloride 0.9% 50 ml @ 100 mls/hr IVPB Q8HR [facility] Rx#:[id number] Intake, IV Titration 22.572 25.793 29.324 Amount Insulin Regular 100 unit 13.130 24.755 7.011 In Sodium Chloride 0.9% 100 ml @ Per Protocol IV .Q0M [facility] Rx#:[id number] Norepinephrine 4 mg In 22.313 Sodium Chloride 0.9% 250 ml @ 0.05 MCG/KG/MIN 15. 64 mls/hr IV .H20O78Q [facility] Rx#:[id number] Norepinephrine 4 mg In 1.038 Sodium Chloride 0.9% 250 ml @ Titrate IV .Q0M [facility] Rx#:[id number] propofoL 1,000 mg In 9.442 Empty Bag 1 bag @ Titrate IV .Q0M [facility] Rx#: [id number] Oral 480 Output: Chest Tube Drainage 316 532 40 Mediastinal 162 328 10 Right/Left 154 204 30 Urine 1395 855 35 Estimated Blood Loss 1000 Other: Voiding Method Indwelling Catheter Indwelling Catheter Indwelling Catheter ABP, PAP, CO, CI - Last Documented Arterial Blood Pressure 108/39 Pulmonary Artery Pressure 30/11 Cardiac Output 8.9 Cardiac Index 4.5 - Exam CONSTITUTIONAL: Appears comfortable, cooperative, no acute distress RESPIRATORY: Lungs sounds diminished bilaterally. Respirations even, nonlabored. Currently on 2 L nasal cannula with oxygen saturation 96%. Able to achieve 750 mL on incentive spirometry. Weak cough. CARDIOVASCULAR: S1, S2 present. Regular rate and rhythm, sinus rhythm on telemetry. Sternum stable. Palpable peripheral pulses bilaterally. No edema present. No calf pain or tenderness noted. Heart hugger in place with patient demonstrating appropriate use. Antiembolism stockings, SCDs present. GASTROINTESTINAL: Abdomen soft, nontender, nondistended. Hypoactive bowel sounds present 4 quadrants. Tolerating clear liquids. Denies flatus GENITOURINARY: Ramirez present draining clear, yellow urine. Output overnight 30-80 mL per hour INTEGUMENTARY: Skin is warm and dry with evidence of good perfusion. Anterior chest incision well approximated and covered with dry intact dressing. Left lower extremity EVH site well approximated without redness or drainage. NEUROLOGIC: Cranial nerves II through XII intact MUSKULOSKELETAL: Able to move all extremities, strength equal bilaterally PSYCHIATRIC: Alert and oriented to person place and time, appropriate affect, intact judgment and insight INVASIVE LINES AND TUBES: Mediastinal/left/right pleural chest tubes present and connected to wall suction, no air leaks present. Mediastinal tube with 260 mL serosanguineous drainage overnight, 500 mL since surgery. Left/right pleural chest tubes with 180 mL serosanguineous drainage overnight, 350 mL since surgery. A/V epicardial pacemaker wires present, connected to generator, backup rate 50 bpm. Right internal jugular [place]/Cordis, right radial arterial line present. Last CO/CI 8.9/4.5, PA 13/01, CVP 5. - Allied health notes Allied health notes reviewed: nursing - Labs CBC & Chem 7: 07/24/21 03:30 07/24/21 03:30 Labs: Abnormal Lab Results - Last 24 Hours (Table) 07/22/21 07/23/21 07/23/21 Range/Units 15:11 08:29 09:30 WBC (3.8-10.6) k/uL RBC (4.30-5.90) m/uL Hgb (13.0-17.5) gm/dL Hct (39.0-53.0) % Plt Count (150-450) k/uL Neutrophils # (1.3-7.7) k/uL Lymphocytes # (1.0-4.8) k/uL APTT (22.0-30.0) sec ABG pO2 417 H 145 H (83-108) mmHg ABG HCO3 26 H 26 H (21-25) mmol/L ABG Total CO2 27 H 28 H (19-24) mmol/L ABG O2 Saturation 100.0 H 99.2 H (94-97) % ABG Hematocrit 33 L (34.0-46.0) % ABG Potassium (3.4-4.5) mmol/L ABG Ionized Calcium (4.5-5.3) mg/dL ABG Glucose 111 H 141 H (75-99) mg/dL ABG Lactic Acid 0.4 L (0.5-1.6) mmol/L Hemoglobin 11.5 L 10.8 L (13.0-17.5) gm/dL Glucose (74-99) mg/dL POC Glucose (mg/dL) (75-99) mg/dL Calcium (8.4-10.2) mg/dL Magnesium (1.6-2.3) mg/dL Alkaline Phosphatase (38-126) U/L Total Protein (6.3-8.2) g/dL Albumin (3.5-5.0) g/dL Arterial Blood Potassium (3.4-4.5) mmol/L Arterial Blood Glucose 111 H 141 H (75-99) mg/dL Crossmatch See Detail 07/23/21 07/23/21 07/23/21 Range/Units 10:15 10:54 11:46 WBC (3.8-10.6) k/uL RBC (4.30-5.90) m/uL Hgb (13.0-17.5) gm/dL Hct (39.0-53.0) % Plt Count (150-450) k/uL Neutrophils # (1.3-7.7) k/uL Lymphocytes # (1.0-4.8) k/uL APTT (22.0-30.0) sec ABG pO2 356 H 356 H 311 H (83-108) mmHg ABG HCO3 (21-25) mmol/L ABG Total CO2 26 H 26 H 25 H (19-24) mmol/L ABG O2 Saturation 100.0 H 100.0 H 99.9 H (94-97) % ABG Hematocrit 26 L 25 L 29 L (34.0-46.0) % ABG Potassium 4.9 H 4.8 H (3.4-4.5) mmol/L ABG Ionized Calcium 4.1 L 4.1 L (4.5-5.3) mg/dL ABG Glucose 148 H 156 H 163 H (75-99) mg/dL ABG Lactic Acid (0.5-1.6) mmol/L Hemoglobin 8.4 L 8.3 L 9.4 L (13.0-17.5) gm/dL Glucose (74-99) mg/dL POC Glucose (mg/dL) (75-99) mg/dL Calcium (8.4-10.2) mg/dL Magnesium (1.6-2.3) mg/dL Alkaline Phosphatase (38-126) U/L Total Protein (6.3-8.2) g/dL Albumin (3.5-5.0) g/dL Arterial Blood Potassium 4.9 H 4.8 H (3.4-4.5) mmol/L Arterial Blood Glucose 148 H 156 H 163 H (75-99) mg/dL Crossmatch 07/23/21 07/23/21 07/23/21 Range/Units 12:37 12:40 12:40 WBC 14.3 H (3.8-10.6) k/uL RBC 3.38 L (4.30-5.90) m/uL Hgb 9.7 L D (13.0-17.5) gm/dL Hct 30.4 L (39.0-53.0) % Plt Count (150-450) k/uL Neutrophils # 12.8 H (1.3-7.7) k/uL Lymphocytes # 0.9 L (1.0-4.8) k/uL APTT 31.9 H (22.0-30.0) sec ABG pO2 (83-108) mmHg ABG HCO3 (21-25) mmol/L ABG Total CO2 (19-24) mmol/L ABG O2 Saturation (94-97) % ABG Hematocrit (34.0-46.0) % ABG Potassium (3.4-4.5) mmol/L ABG Ionized Calcium (4.5-5.3) mg/dL ABG Glucose (75-99) mg/dL ABG Lactic Acid (0.5-1.6) mmol/L Hemoglobin (13.0-17.5) gm/dL Glucose (74-99) mg/dL POC Glucose (mg/dL) 176 H (75-99) mg/dL Calcium (8.4-10.2) mg/dL Magnesium (1.6-2.3) mg/dL Alkaline Phosphatase (38-126) U/L Total Protein (6.3-8.2) g/dL Albumin (3.5-5.0) g/dL Arterial Blood Potassium (3.4-4.5) mmol/L Arterial Blood Glucose (75-99) mg/dL Crossmatch 07/23/21 07/23/21 07/23/21 Range/Units 12:40 13:00 14:54 WBC (3.8-10.6) k/uL RBC (4.30-5.90) m/uL Hgb (13.0-17.5) gm/dL Hct (39.0-53.0) % Plt Count (150-450) k/uL Neutrophils # (1.3-7.7) k/uL Lymphocytes # (1.0-4.8) k/uL APTT (22.0-30.0) sec ABG pO2 342 H (83-108) mmHg ABG HCO3 (21-25) mmol/L ABG Total CO2 25 H (19-24) mmol/L ABG O2 Saturation 100.0 H (94-97) % ABG Hematocrit (34.0-46.0) % ABG Potassium (3.4-4.5) mmol/L ABG Ionized Calcium (4.5-5.3) mg/dL ABG Glucose (75-99) mg/dL ABG Lactic Acid (0.5-1.6) mmol/L Hemoglobin (13.0-17.5) gm/dL Glucose 166 H (74-99) mg/dL POC Glucose (mg/dL) 169 H (75-99) mg/dL Calcium 7.8 L (8.4-10.2) mg/dL Magnesium 2.8 H (1.6-2.3) mg/dL Alkaline Phosphatase 32 L (38-126) U/L Total Protein 5.0 L (6.3-8.2) g/dL Albumin 3.1 L (3.5-5.0) g/dL Arterial Blood Potassium (3.4-4.5) mmol/L Arterial Blood Glucose (75-99) mg/dL Crossmatch 07/23/21 07/23/21 07/23/21 Range/Units 15:50 15:52 16:37 WBC 15.0 H (3.8-10.6) k/uL RBC 3.33 L (4.30-5.90) m/uL Hgb 9.6 L (13.0-17.5) gm/dL Hct 29.5 L (39.0-53.0) % Plt Count (150-450) k/uL Neutrophils # 12.9 H (1.3-7.7) k/uL Lymphocytes # (1.0-4.8) k/uL APTT (22.0-30.0) sec ABG pO2 144 H (83-108) mmHg ABG HCO3 (21-25) mmol/L ABG Total CO2 27 H (19-24) mmol/L ABG O2 Saturation 100.0 H (94-97) % ABG Hematocrit (34.0-46.0) % ABG Potassium (3.4-4.5) mmol/L ABG Ionized Calcium (4.5-5.3) mg/dL ABG Glucose (75-99) mg/dL ABG Lactic Acid (0.5-1.6) mmol/L Hemoglobin (13.0-17.5) gm/dL Glucose (74-99) mg/dL POC Glucose (mg/dL) 152 H (75-99) mg/dL Calcium (8.4-10.2) mg/dL Magnesium (1.6-2.3) mg/dL Alkaline Phosphatase (38-126) U/L Total Protein (6.3-8.2) g/dL Albumin (3.5-5.0) g/dL Arterial Blood Potassium (3.4-4.5) mmol/L Arterial Blood Glucose (75-99) mg/dL Crossmatch 07/23/21 07/23/21 07/23/21 Range/Units 17:06 17:56 18:50 WBC 13.7 H (3.8-10.6) k/uL RBC 3.29 L (4.30-5.90) m/uL Hgb 9.5 L (13.0-17.5) gm/dL Hct 29.1 L (39.0-53.0) % Plt Count (150-450) k/uL Neutrophils # 12.5 H (1.3-7.7) k/uL Lymphocytes # 0.5 L (1.0-4.8) k/uL APTT (22.0-30.0) sec ABG pO2 (83-108) mmHg ABG HCO3 (21-25) mmol/L ABG Total CO2 (19-24) mmol/L ABG O2 Saturation (94-97) % ABG Hematocrit (34.0-46.0) % ABG Potassium (3.4-4.5) mmol/L ABG Ionized Calcium (4.5-5.3) mg/dL ABG Glucose (75-99) mg/dL ABG Lactic Acid (0.5-1.6) mmol/L Hemoglobin (13.0-17.5) gm/dL Glucose (74-99) mg/dL POC Glucose (mg/dL) 143 H 142 H (75-99) mg/dL Calcium (8.4-10.2) mg/dL Magnesium (1.6-2.3) mg/dL Alkaline Phosphatase (38-126) U/L Total Protein (6.3-8.2) g/dL Albumin (3.5-5.0) g/dL Arterial Blood Potassium (3.4-4.5) mmol/L Arterial Blood Glucose (75-99) mg/dL Crossmatch 07/23/21 07/23/21 07/23/21 Range/Units 18:50 20:10 20:59 WBC (3.8-10.6) k/uL RBC (4.30-5.90) m/uL Hgb (13.0-17.5) gm/dL Hct (39.0-53.0) % Plt Count (150-450) k/uL Neutrophils # (1.3-7.7) k/uL Lymphocytes # (1.0-4.8) k/uL APTT (22.0-30.0) sec ABG pO2 (83-108) mmHg ABG HCO3 (21-25) mmol/L ABG Total CO2 (19-24) mmol/L ABG O2 Saturation (94-97) % ABG Hematocrit (34.0-46.0) % ABG Potassium (3.4-4.5) mmol/L ABG Ionized Calcium (4.5-5.3) mg/dL ABG Glucose (75-99) mg/dL ABG Lactic Acid (0.5-1.6) mmol/L Hemoglobin (13.0-17.5) gm/dL Glucose (74-99) mg/dL POC Glucose (mg/dL) 146 H 124 H 132 H (75-99) mg/dL Calcium (8.4-10.2) mg/dL Magnesium (1.6-2.3) mg/dL Alkaline Phosphatase (38-126) U/L Total Protein (6.3-8.2) g/dL Albumin (3.5-5.0) g/dL Arterial Blood Potassium (3.4-4.5) mmol/L Arterial Blood Glucose (75-99) mg/dL Crossmatch 07/23/21 07/24/21 07/24/21 Range/Units 22:53 01:03 02:55 WBC (3.8-10.6) k/uL RBC (4.30-5.90) m/uL Hgb (13.0-17.5) gm/dL Hct (39.0-53.0) % Plt Count (150-450) k/uL Neutrophils # (1.3-7.7) k/uL Lymphocytes # (1.0-4.8) k/uL APTT (22.0-30.0) sec ABG pO2 (83-108) mmHg ABG HCO3 (21-25) mmol/L ABG Total CO2 (19-24) mmol/L ABG O2 Saturation (94-97) % ABG Hematocrit (34.0-46.0) % ABG Potassium (3.4-4.5) mmol/L ABG Ionized Calcium (4.5-5.3) mg/dL ABG Glucose (75-99) mg/dL ABG Lactic Acid (0.5-1.6) mmol/L Hemoglobin (13.0-17.5) gm/dL Glucose (74-99) mg/dL POC Glucose (mg/dL) 125 H 107 H 136 H (75-99) mg/dL Calcium (8.4-10.2) mg/dL Magnesium (1.6-2.3) mg/dL Alkaline Phosphatase (38-126) U/L Total Protein (6.3-8.2) g/dL Albumin (3.5-5.0) g/dL Arterial Blood Potassium (3.4-4.5) mmol/L Arterial Blood Glucose (75-99) mg/dL Crossmatch 0607/24/21 07/24/21 Range/Units 03:27 03:30 03:30 WBC 13.9 H (3.8-10.6) k/uL RBC 2.91 L (4.30-5.90) m/uL Hgb 8.4 L (13.0-17.5) gm/dL Hct 26.0 L (39.0-53.0) % Plt Count 148 L (150-450) k/uL Neutrophils # 12.5 H (1.3-7.7) k/uL Lymphocytes # 0.8 L (1.0-4.8) k/uL APTT (22.0-30.0) sec ABG pO2 (83-108) mmHg ABG HCO3 (21-25) mmol/L ABG Total CO2 (19-24) mmol/L ABG O2 Saturation (94-97) % ABG Hematocrit (34.0-46.0) % ABG Potassium (3.4-4.5) mmol/L ABG Ionized Calcium (4.5-5.3) mg/dL ABG Glucose (75-99) mg/dL ABG Lactic Acid (0.5-1.6) mmol/L Hemoglobin (13.0-17.5) gm/dL Glucose 127 H (74-99) mg/dL POC Glucose (mg/dL) 140 H (75-99) mg/dL Calcium 7.8 L (8.4-10.2) mg/dL Magnesium (1.6-2.3) mg/dL Alkaline Phosphatase 33 L (38-126) U/L Total Protein 5.2 L (6.3-8.2) g/dL Albumin (3.5-5.0) g/dL Arterial Blood Potassium (3.4-4.5) mmol/L Arterial Blood Glucose (75-99) mg/dL Crossmatch 07/24/21 07/24/21 07/24/21 Range/Units 05:49 06:49 08:11 WBC (3.8-10.6) k/uL RBC (4.30-5.90) m/uL Hgb (13.0-17.5) gm/dL Hct (39.0-53.0) % Plt Count (150-450) k/uL Neutrophils # (1.3-7.7) k/uL Lymphocytes # (1.0-4.8) k/uL APTT (22.0-30.0) sec ABG pO2 (83-108) mmHg ABG HCO3 (21-25) mmol/L ABG Total CO2 (19-24) mmol/L ABG O2 Saturation (94-97) % ABG Hematocrit (34.0-46.0) % ABG Potassium (3.4-4.5) mmol/L ABG Ionized Calcium (4.5-5.3) mg/dL ABG Glucose (75-99) mg/dL ABG Lactic Acid (0.5-1.6) mmol/L Hemoglobin (13.0-17.5) gm/dL Glucose (74-99) mg/dL POC Glucose (mg/dL) 120 H 128 H 129 H (75-99) mg/dL Calcium (8.4-10.2) mg/dL Magnesium (1.6-2.3) mg/dL Alkaline Phosphatase (38-126) U/L Total Protein (6.3-8.2) g/dL Albumin (3.5-5.0) g/dL Arterial Blood Potassium (3.4-4.5) mmol/L Arterial Blood Glucose (75-99) mg/dL Crossmatch 07/24/21 07/24/21 Range/Units 09:14 10:09 WBC (3.8-10.6) k/uL RBC (4.30-5.90) m/uL Hgb (13.0-17.5) gm/dL Hct (39.0-53.0) % Plt Count (150-450) k/uL Neutrophils # (1.3-7.7) k/uL Lymphocytes # (1.0-4.8) k/uL APTT (22.0-30.0) sec ABG pO2 (83-108) mmHg ABG HCO3 (21-25) mmol/L ABG Total CO2 (19-24) mmol/L ABG O2 Saturation (94-97) % ABG Hematocrit (34.0-46.0) % ABG Potassium (3.4-4.5) mmol/L ABG Ionized Calcium (4.5-5.3) mg/dL ABG Glucose (75-99) mg/dL ABG Lactic Acid (0.5-1.6) mmol/L Hemoglobin (13.0-17.5) gm/dL Glucose (74-99) mg/dL POC Glucose (mg/dL) 147 H 131 H (75-99) mg/dL Calcium (8.4-10.2) mg/dL Magnesium (1.6-2.3) mg/dL Alkaline Phosphatase (38-126) U/L Total Protein (6.3-8.2) g/dL Albumin (3.5-5.0) g/dL Arterial Blood Potassium (3.4-4.5) mmol/L Arterial Blood Glucose (75-99) mg/dL Crossmatch Microbiology - Last 24 Hours (Table) 07/22/21 15:00 Nasal Screen MRSA/MSSA - Final Nasal Swab - Imaging and Cardiology Chest x-ray: report reviewed, image reviewed Assessment and Plan Assessment: 1. Coronary artery disease, status post two-vessel CABG 2. Hypertension 3. Hyperlipidemia 4. Polymyositis with daily prednisone use 5. Melanoma in 2001 and 2016 6. Remote history of pneumonia 7. Previous tobacco dependence 8. 35 pound weight loss since last August 9. Family history of premature coronary artery disease 10. Severe COPD with preoperative FEV1 28% of predicted Plan: 1. Continue aspirin, statin, Plavix, beta sujey therapy. Will increase beta sujey therapy as tolerated. Discontinue IV nitro. Wean levo as tolerated 2. Wean O2 as tolerated. Encourage incentive spirometry 10 times every hour while awake. Bronchodilators, IV Solu-Cortef per pulmonology 3. Increase activity as tolerated. PT/OT/cardiac rehab consulted 4. Will monitor daily labs and x-rays. Electrolyte replacement per protocol 5. GI/DVT prophylaxis 6. Pain control with current medication regimen 7. Insulin management per primary care service. Patient is not diabetic, preoperative hemoglobin A1c 6.3% of predicted 8. Discontinue [place]. Connect Cordis to continuous CVP monitoring 9. Continue chest tubes for another 24 hours 10. Continue Ramirez catheter for another 24 hours for strict accurate intake and output. Daily weights 11. More recommendations to follow
--- NOTE | 2021-07-24 10:30 | P.PN ---
Subjective Progress Note Date: 07/24/21 07/23/2021, the patient is being seen for a follow-up. The patient was seen immediately after he arrived from the operating room. The patient underwent two-vessel bypass surgery with MEZA to LAD. The patient was kept sedated and the patient was brought into the intensive care unit. This point in time, the patient on propofol running at 50 mg/kg per minute. He is well sedated and synchronous with the mechanical ventilator. His assist-control mode of mechanical ventilation at the rate of 12 with tidal volume of 550 mL with an FiO2 of 100% and a PEEP of 5. The patient has 3 chest tubes, right pleural, left pleural and mediastinal and output is minimal for now. No evidence of any air leaks. No evidence of pneumothorax on chest x-ray done postop. ET tube is in a good location and the patient also has a [place] catheter in place. The patient is at 7.38 with a pCO2 of 40 and pO2 of 342 and the patient's FiO2 has been drop down to 50%. Hemodynamically, the patient is on 5 mcg/kg per minute of nitroglycerin infusion. The patient is on no pressors for now. The patient on insulin drip at 2 units an hour. Urine output is adequate. The hemoglobin is at 9.7 with a white second of 14.3. Platelet count is at 157. BUN is at 17 with a creatinine of 0.7 sodium level is at 138. He is afebrile. He is on normal saline at the rate of 50 hour., Comfortable and a cardiac rhythm is sin us. Stent 2021, the patient is extubated and patient sitting up on a chair. Is currently on oxygen at 2 L. No complaints. No altered mentation. No focal neurological deficits. His cardiac output is at 8.9 with an index of 4.9. Pulmonary artery pressures are 31/17. The patient is on a low dose of norepinephrine infusion running at 0.01 mcg/kg per minute. Insulin drip is running at 2 units an hour. Nitroglycerin drip has been discontinued yesterday. Chest tube output was noted. The mediastinal chest tube has produced 20 mL /hours 460 cc since surgery, I will and the right and left pleural chest tubes are produced 10 mL an hour a total of 270 mL since arrival from today operating room. Chest x-ray showed adequate expansion of both lungs. No evidence of pneumothorax. Chest tubes are in place. [place] catheter is still in place. He is using incentive spirometer and is pulling approximately 500 mL. He is also on a stress dose hydrocortisone for now.. On today's blood work, the hemoglobin is at 8.4, dropped since surgery. Platelet count is at 148, dropped since surgery. Objective - Vital Signs Vital signs: Vital Signs Temp 99.5 F 07/24/21 04:00 Pulse 69 07/24/21 10:15 Resp 11 L 07/24/21 10:15 BP 121/58 07/24/21 10:15 Pulse Ox 95 07/24/21 10:15 FiO2 50 07/23/21 16:00 Intake & Output 07/23/21 07/24/21 07/24/21 18:59 06:59 18:59 Intake Total 3381.010 6718.793 1026.324 Output Total 2711 1387 100 Balance -1572.928 946.793 926.324 Weight 84.1 kg Intake: IV 1115.5 1828 997 ACETAMINOPHEN IV (For NPO 200 ) 1,000 mg In Empty Bag 1 bag @ 400 mls/hr IVPB Q6HR [facility] Rx#:[id number] Albumin Human 5% 250 ml 250 1000 750 In Empty Bag 1 bag @ 250 mls/hr IVPB Q1HR PRN Rx#: [id number] CO/CI 140 120 20 Lactated Ringers 1,000 ml 300 600 100 @ 20 mls/hr IV .Q24H JARET Rx#:[id number] Nitroglycerin-D5w Pmx 50 10.5 mg In Dextrose/Water 1 250ml.bag @ 5 MCG/MIN 1.5 mls/hr IV .Q24H JAR[facility] Rx#: [id number] PRESSURE BAGS 63 108 27 ceFAZolin 1,000 mg In 100 100 Sodium Chloride 0.9% 50 ml @ 100 mls/hr IVPB Q8HR JARET Rx#:[id number] Intake, IV Titration 22.572 25.793 29.324 Amount Insulin Regular 100 unit 13.130 24.755 7.011 In Sodium Chloride 0.9% 100 ml @ Per Protocol IV .Q0M [facility] Rx#:[id number] Norepinephrine 4 mg In 22.313 Sodium Chloride 0.9% 250 ml @ 0.05 MCG/KG/MIN 15. 64 mls/hr IV .[id number] [facility] Rx#:[id number] Norepinephrine 4 mg In 1.038 Sodium Chloride 0.9% 250 ml @ Titrate IV .Q0M ONE Rx#:[id number] propofoL 1,000 mg In 9.442 Empty Bag 1 bag @ Titrate IV .Q0M [facility] Rx#: [id number] Oral 480 Output: Chest Tube Drainage 316 532 60 Mediastinal 162 328 30 Right/Left 154 204 30 Urine 1395 855 40 Estimated Blood Loss 1000 Other: Voiding Method Indwelling Catheter Indwelling Catheter Indwelling Catheter ABP, PAP, CO, CI - Last Documented Arterial Blood Pressure 100/39 Pulmonary Artery Pressure 29/12 Cardiac Output 5.9 Cardiac Index 3 - Exam intubated, calm and comfortable nonacute distress, awake and alert on 2 L of oxygen by nasal cannula Head exam was generally normal. There was no scleral icterus or corneal arcus. Mucous membranes were moist. Neck was supple and without jugular venous distension, thyromegaly, or carotid bruits. Carotids were easily palpable bilaterally. There was no adenopathy.The patient has a right IJ [place] catheter is in place. Orogastric and orotracheal tube are both in place. Lungs sounds are diminished bilaterally and the patient has equal and symmetrical breath sound and the patient has 3 chest tubes, bipolar, left pleural and mediastinal. Cardiac exam revealed the PMI to be normally situated and sized. The rhythm was regular and no extrasystoles were noted during several minutes of auscultation. The first and second heart sounds were normal and physiologic splitting of the second heart sound was noted. There were no murmurs, rubs, clicks, or gallops.Sternum stable clean and intact. Abdominal exam revealed normal bowel sounds. The abdomen was soft, non-tender, and without masses, organomegaly, or appreciable enlargement of the abdominal aorta. Examination of the extremities revealed easily palpable radial, femoral and pedal pulses. There was no cyanosis, clubbing or edema. Examination of the skin revealed no evidence of significant rashes, suspicious appearing nevi or other concerning lesions. Neurologically, the patient is awake and alert and the patient does not have any focal neurological deficit. Cranial nerves are essentially intact. - Labs CBC & Chem 7: 07/24/21 03:30 07/24/21 03:30 Labs: Abnormal Lab Results - Last 24 Hours (Table) 07/22/21 07/23/21 07/23/21 Range/Units 15:11 08:29 09:30 WBC (3.8-10.6) k/uL RBC (4.30-5.90) m/uL Hgb (13.0-17.5) gm/dL Hct (39.0-53.0) % Plt Count (150-450) k/uL Neutrophils # (1.3-7.7) k/uL Lymphocytes # (1.0-4.8) k/uL APTT (22.0-30.0) sec ABG pO2 417 H 145 H (83-108) mmHg ABG HCO3 26 H 26 H (21-25) mmol/L ABG Total CO2 27 H 28 H (19-24) mmol/L ABG O2 Saturation 100.0 H 99.2 H (94-97) % ABG Hematocrit 33 L (34.0-46.0) % ABG Potassium (3.4-4.5) mmol/L ABG Ionized Calcium (4.5-5.3) mg/dL ABG Glucose 111 H 141 H (75-99) mg/dL ABG Lactic Acid 0.4 L (0.5-1.6) mmol/L Hemoglobin 11.5 L 10.8 L (13.0-17.5) gm/dL Glucose (74-99) mg/dL POC Glucose (mg/dL) (75-99) mg/dL Calcium (8.4-10.2) mg/dL Magnesium (1.6-2.3) mg/dL Alkaline Phosphatase (38-126) U/L Total Protein (6.3-8.2) g/dL Albumin (3.5-5.0) g/dL Arterial Blood Potassium (3.4-4.5) mmol/L Arterial Blood Glucose 111 H 141 H (75-99) mg/dL Crossmatch See Detail 07/23/21 07/23/21 07/23/21 Range/Units 10:15 10:54 11:46 WBC (3.8-10.6) k/uL RBC (4.30-5.90) m/uL Hgb (13.0-17.5) gm/dL Hct (39.0-53.0) % Plt Count (150-450) k/uL Neutrophils # (1.3-7.7) k/uL Lymphocytes # (1.0-4.8) k/uL APTT (22.0-30.0) sec ABG pO2 356 H 356 H 311 H (83-108) mmHg ABG HCO3 (21-25) mmol/L ABG Total CO2 26 H 26 H 25 H (19-24) mmol/L ABG O2 Saturation 100.0 H 100.0 H 99.9 H (94-97) % ABG Hematocrit 26 L 25 L 29 L (34.0-46.0) % ABG Potassium 4.9 H 4.8 H (3.4-4.5) mmol/L ABG Ionized Calcium 4.1 L 4.1 L (4.5-5.3) mg/dL ABG Glucose 148 H 156 H 163 H (75-99) mg/dL ABG Lactic Acid (0.5-1.6) mmol/L Hemoglobin 8.4 L 8.3 L 9.4 L (13.0-17.5) gm/dL Glucose (74-99) mg/dL POC Glucose (mg/dL) (75-99) mg/dL Calcium (8.4-10.2) mg/dL Magnesium (1.6-2.3) mg/dL Alkaline Phosphatase (38-126) U/L Total Protein (6.3-8.2) g/dL Albumin (3.5-5.0) g/dL Arterial Blood Potassium 4.9 H 4.8 H (3.4-4.5) mmol/L Arterial Blood Glucose 148 H 156 H 163 H (75-99) mg/dL Crossmatch 07/23/21 07/23/21 07/23/21 Range/Units 12:37 12:40 12:40 WBC 14.3 H (3.8-10.6) k/uL RBC 3.38 L (4.30-5.90) m/uL Hgb 9.7 L D (13.0-17.5) gm/dL Hct 30.4 L (39.0-53.0) % Plt Count (150-450) k/uL Neutrophils # 12.8 H (1.3-7.7) k/uL Lymphocytes # 0.9 L (1.0-4.8) k/uL APTT 31.9 H (22.0-30.0) sec ABG pO2 (83-108) mmHg ABG HCO3 (21-25) mmol/L ABG Total CO2 (19-24) mmol/L ABG O2 Saturation (94-97) % ABG Hematocrit (34.0-46.0) % ABG Potassium (3.4-4.5) mmol/L ABG Ionized Calcium (4.5-5.3) mg/dL ABG Glucose (75-99) mg/dL ABG Lactic Acid (0.5-1.6) mmol/L Hemoglobin (13.0-17.5) gm/dL Glucose (74-99) mg/dL POC Glucose (mg/dL) 176 H (75-99) mg/dL Calcium (8.4-10.2) mg/dL Magnesium (1.6-2.3) mg/dL Alkaline Phosphatase (38-126) U/L Total Protein (6.3-8.2) g/dL Albumin (3.5-5.0) g/dL Arterial Blood Potassium (3.4-4.5) mmol/L Arterial Blood Glucose (75-99) mg/dL Crossmatch 07/23/21 07/23/21 07/23/21 Range/Units 12:40 13:00 14:54 WBC (3.8-10.6) k/uL RBC (4.30-5.90) m/uL Hgb (13.0-17.5) gm/dL Hct (39.0-53.0) % Plt Count (150-450) k/uL Neutrophils # (1.3-7.7) k/uL Lymphocytes # (1.0-4.8) k/uL APTT (22.0-30.0) sec ABG pO2 342 H (83-108) mmHg ABG HCO3 (21-25) mmol/L ABG Total CO2 25 H (19-24) mmol/L ABG O2 Saturation 100.0 H (94-97) % ABG Hematocrit (34.0-46.0) % ABG Potassium (3.4-4.5) mmol/L ABG Ionized Calcium (4.5-5.3) mg/dL ABG Glucose (75-99) mg/dL ABG Lactic Acid (0.5-1.6) mmol/L Hemoglobin (13.0-17.5) gm/dL Glucose 166 H (74-99) mg/dL POC Glucose (mg/dL) 169 H (75-99) mg/dL Calcium 7.8 L (8.4-10.2) mg/dL Magnesium 2.8 H (1.6-2.3) mg/dL Alkaline Phosphatase 32 L (38-126) U/L Total Protein 5.0 L (6.3-8.2) g/dL Albumin 3.1 L (3.5-5.0) g/dL Arterial Blood Potassium (3.4-4.5) mmol/L Arterial Blood Glucose (75-99) mg/dL Crossmatch 07/23/21 07/23/21 07/23/21 Range/Units 15:50 15:52 16:37 WBC 15.0 H (3.8-10.6) k/uL RBC 3.33 L (4.30-5.90) m/uL Hgb 9.6 L (13.0-17.5) gm/dL Hct 29.5 L (39.0-53.0) % Plt Count (150-450) k/uL Neutrophils # 12.9 H (1.3-7.7) k/uL Lymphocytes # (1.0-4.8) k/uL APTT (22.0-30.0) sec ABG pO2 144 H (83-108) mmHg ABG HCO3 (21-25) mmol/L ABG Total CO2 27 H (19-24) mmol/L ABG O2 Saturation 100.0 H (94-97) % ABG Hematocrit (34.0-46.0) % ABG Potassium (3.4-4.5) mmol/L ABG Ionized Calcium (4.5-5.3) mg/dL ABG Glucose (75-99) mg/dL ABG Lactic Acid (0.5-1.6) mmol/L Hemoglobin (13.0-17.5) gm/dL Glucose (74-99) mg/dL POC Glucose (mg/dL) 152 H (75-99) mg/dL Calcium (8.4-10.2) mg/dL Magnesium (1.6-2.3) mg/dL Alkaline Phosphatase (38-126) U/L Total Protein (6.3-8.2) g/dL Albumin (3.5-5.0) g/dL Arterial Blood Potassium (3.4-4.5) mmol/L Arterial Blood Glucose (75-99) mg/dL Crossmatch 07/23/21 07/23/21 07/23/21 Range/Units 17:06 17:56 18:50 WBC 13.7 H (3.8-10.6) k/uL RBC 3.29 L (4.30-5.90) m/uL Hgb 9.5 L (13.0-17.5) gm/dL Hct 29.1 L (39.0-53.0) % Plt Count (150-450) k/uL Neutrophils # 12.5 H (1.3-7.7) k/uL Lymphocytes # 0.5 L (1.0-4.8) k/uL APTT (22.0-30.0) sec ABG pO2 (83-108) mmHg ABG HCO3 (21-25) mmol/L ABG Total CO2 (19-24) mmol/L ABG O2 Saturation (94-97) % ABG Hematocrit (34.0-46.0) % ABG Potassium (3.4-4.5) mmol/L ABG Ionized Calcium (4.5-5.3) mg/dL ABG Glucose (75-99) mg/dL ABG Lactic Acid (0.5-1.6) mmol/L Hemoglobin (13.0-17.5) gm/dL Glucose (74-99) mg/dL POC Glucose (mg/dL) 143 H 142 H (75-99) mg/dL Calcium (8.4-10.2) mg/dL Magnesium (1.6-2.3) mg/dL Alkaline Phosphatase (38-126) U/L Total Protein (6.3-8.2) g/dL Albumin (3.5-5.0) g/dL Arterial Blood Potassium (3.4-4.5) mmol/L Arterial Blood Glucose (75-99) mg/dL Crossmatch 07/23/21 07/23/21 07/23/21 Range/Units 18:50 20:10 20:59 WBC (3.8-10.6) k/uL RBC (4.30-5.90) m/uL Hgb (13.0-17.5) gm/dL Hct (39.0-53.0) % Plt Count (150-450) k/uL Neutrophils # (1.3-7.7) k/uL Lymphocytes # (1.0-4.8) k/uL APTT (22.0-30.0) sec ABG pO2 (83-108) mmHg ABG HCO3 (21-25) mmol/L ABG Total CO2 (19-24) mmol/L ABG O2 Saturation (94-97) % ABG Hematocrit (34.0-46.0) % ABG Potassium (3.4-4.5) mmol/L ABG Ionized Calcium (4.5-5.3) mg/dL ABG Glucose (75-99) mg/dL ABG Lactic Acid (0.5-1.6) mmol/L Hemoglobin (13.0-17.5) gm/dL Glucose (74-99) mg/dL POC Glucose (mg/dL) 146 H 124 H 132 H (75-99) mg/dL Calcium (8.4-10.2) mg/dL Magnesium (1.6-2.3) mg/dL Alkaline Phosphatase (38-126) U/L Total Protein (6.3-8.2) g/dL Albumin (3.5-5.0) g/dL Arterial Blood Potassium (3.4-4.5) mmol/L Arterial Blood Glucose (75-99) mg/dL Crossmatch 07/23/21 07/24/21 07/24/21 Range/Units 22:53 01:03 02:55 WBC (3.8-10.6) k/uL RBC (4.30-5.90) m/uL Hgb (13.0-17.5) gm/dL Hct (39.0-53.0) % Plt Count (150-450) k/uL Neutrophils # (1.3-7.7) k/uL Lymphocytes # (1.0-4.8) k/uL APTT (22.0-30.0) sec ABG pO2 (83-108) mmHg ABG HCO3 (21-25) mmol/L ABG Total CO2 (19-24) mmol/L ABG O2 Saturation (94-97) % ABG Hematocrit (34.0-46.0) % ABG Potassium (3.4-4.5) mmol/L ABG Ionized Calcium (4.5-5.3) mg/dL ABG Glucose (75-99) mg/dL ABG Lactic Acid (0.5-1.6) mmol/L Hemoglobin (13.0-17.5) gm/dL Glucose (74-99) mg/dL POC Glucose (mg/dL) 125 H 107 H 136 H (75-99) mg/dL Calcium (8.4-10.2) mg/dL Magnesium (1.6-2.3) mg/dL Alkaline Phosphatase (38-126) U/L Total Protein (6.3-8.2) g/dL Albumin (3.5-5.0) g/dL Arterial Blood Potassium (3.4-4.5) mmol/L Arterial Blood Glucose (75-99) mg/dL Crossmatch 07/24/21 07/24/21 07/24/21 Range/Units 03:27 03:30 03:30 WBC 13.9 H (3.8-10.6) k/uL RBC 2.91 L (4.30-5.90) m/uL Hgb 8.4 L (13.0-17.5) gm/dL Hct 26.0 L (39.0-53.0) % Plt Count 148 L (150-450) k/uL Neutrophils # 12.5 H (1.3-7.7) k/uL Lymphocytes # 0.8 L (1.0-4.8) k/uL APTT (22.0-30.0) sec ABG pO2 (83-108) mmHg ABG HCO3 (21-25) mmol/L ABG Total CO2 (19-24) mmol/L ABG O2 Saturation (94-97) % ABG Hematocrit (34.0-46.0) % ABG Potassium (3.4-4.5) mmol/L ABG Ionized Calcium (4.5-5.3) mg/dL ABG Glucose (75-99) mg/dL ABG Lactic Acid (0.5-1.6) mmol/L Hemoglobin (13.0-17.5) gm/dL Glucose 127 H (74-99) mg/dL POC Glucose (mg/dL) 140 H (75-99) mg/dL Calcium 7.8 L (8.4-10.2) mg/dL Magnesium (1.6-2.3) mg/dL Alkaline Phosphatase 33 L (38-126) U/L Total Protein 5.2 L (6.3-8.2) g/dL Albumin (3.5-5.0) g/dL Arterial Blood Potassium (3.4-4.5) mmol/L Arterial Blood Glucose (75-99) mg/dL Crossmatch 07/24/21 07/24/21 07/24/21 Range/Units 05:49 06:49 08:11 WBC (3.8-10.6) k/uL RBC (4.30-5.90) m/uL Hgb (13.0-17.5) gm/dL Hct (39.0-53.0) % Plt Count (150-450) k/uL Neutrophils # (1.3-7.7) k/uL Lymphocytes # (1.0-4.8) k/uL APTT (22.0-30.0) sec ABG pO2 (83-108) mmHg ABG HCO3 (21-25) mmol/L ABG Total CO2 (19-24) mmol/L ABG O2 Saturation (94-97) % ABG Hematocrit (34.0-46.0) % ABG Potassium (3.4-4.5) mmol/L ABG Ionized Calcium (4.5-5.3) mg/dL ABG Glucose (75-99) mg/dL ABG Lactic Acid (0.5-1.6) mmol/L Hemoglobin (13.0-17.5) gm/dL Glucose (74-99) mg/dL POC Glucose (mg/dL) 120 H 128 H 129 H (75-99) mg/dL Calcium (8.4-10.2) mg/dL Magnesium (1.6-2.3) mg/dL Alkaline Phosphatase (38-126) U/L Total Protein (6.3-8.2) g/dL Albumin (3.5-5.0) g/dL Arterial Blood Potassium (3.4-4.5) mmol/L Arterial Blood Glucose (75-99) mg/dL Crossmatch 07/24/21 07/24/21 Range/Units 09:14 10:09 WBC (3.8-10.6) k/uL RBC (4.30-5.90) m/uL Hgb (13.0-17.5) gm/dL Hct (39.0-53.0) % Plt Count (150-450) k/uL Neutrophils # (1.3-7.7) k/uL Lymphocytes # (1.0-4.8) k/uL APTT (22.0-30.0) sec ABG pO2 (83-108) mmHg ABG HCO3 (21-25) mmol/L ABG Total CO2 (19-24) mmol/L ABG O2 Saturation (94-97) % ABG Hematocrit (34.0-46.0) % ABG Potassium (3.4-4.5) mmol/L ABG Ionized Calcium (4.5-5.3) mg/dL ABG Glucose (75-99) mg/dL ABG Lactic Acid (0.5-1.6) mmol/L Hemoglobin (13.0-17.5) gm/dL Glucose (74-99) mg/dL POC Glucose (mg/dL) 147 H 131 H (75-99) mg/dL Calcium (8.4-10.2) mg/dL Magnesium (1.6-2.3) mg/dL Alkaline Phosphatase (38-126) U/L Total Protein (6.3-8.2) g/dL Albumin (3.5-5.0) g/dL Arterial Blood Potassium (3.4-4.5) mmol/L Arterial Blood Glucose (75-99) mg/dL Crossmatch Microbiology - Last 24 Hours (Table) 07/22/21 15:00 Nasal Screen MRSA/MSSA - Final Nasal Swab Assessment and Plan Plan: Assessment: coronary artery bypass surgery. The patient is post two-vessel bypass and the patient is currently postop day #1. Note that the patient had some dramatic CAD and preop cardiac catheterization showed 60% left main stenosis, ostial LAD stenosis of 99%, and mid LAD stenosis of 50% and RCA stenosis of 40-50%. The patient is currently hemodynamically stable intubated on a mechanical ventilator. Cardiac rhythm is sinus on no pressors and hemodynamic parameters are adequate with an adequate cardiac output and index. Patient is currently on a low-dose norepinephrine infusion which will be hopefully weaned off. Post thoracotomy, currently off mechanical ventilator on 2 L of oxygen nasal cannula. Chest x-ray blood gases are noted and the patient the chest is in pl jus without any evidence of air leaks Hypertension, Currently off nitroglycerin the patient is requiring low-dose norepinephrine infusion for now. 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 History of 35 pound weight loss in roughly 11 months Acute anemia, expected outcome following surgery Plan: Continue using incentive spirometer and the patient is pulling approximately 750 Drop down the FiO2 to maintain saturation above 90% Output from the chest tubes were noted and output is minimal at this point in time and there is no evidence of air leak Hemodynamic parameters are adequate and the patient has adequate cardiac output and index and the patient is on low dose pressors for now Continue following up this patient. Put the patient on stress dose hydrocortisone Monitor hemoglobin DC swan The patient was started on aspirin and beta blockers and high-dose statins. Condition is stable for now. We'll continue to follow make further accommodation based on the progress.
[2021-07-24 11:12] LABS: Glucose,Whole Blood 118 mg/dL (75-99)
[2021-07-24 12:11] LABS: Glucose,Whole Blood 118 mg/dL (75-99)
[2021-07-24 13:07] LABS: Glucose,Whole Blood 148 mg/dL (75-99)
[2021-07-24 13:36] VITALS: BMI 26.6
[2021-07-24 14:14] LABS: Glucose,Whole Blood 137 mg/dL (75-99)
[2021-07-24 15:02] LABS: Glucose,Whole Blood 115 mg/dL (75-99)
[2021-07-24] MEDS: METOCLOPRAMIDE 5 MG/ML 2 ML VIAL IVP PRN (16:03)
[2021-07-24 16:15] LABS: Glucose,Whole Blood 117 mg/dL (75-99)
--- NOTE | 2021-07-24 16:39 | P.CONS ---
History of Present Illness - Reason for Consult Consult date: 07/24/21 Medical management - Chief Complaint CAD/Distal left main stenosis - History of Present Illness 75-year-old active gentleman who follows on an outpatient basis with Dr. David Mancini for primary care and Dr. Carmichael for cardiology. He has a previous medical history of hypertension, polymyositis with daily prednisone use, melanoma in 2001 and 2016, remote history of pneumonia, previous tobacco dependence, 35 pound weight loss since last August due to not eating and the stress of taking care of his , and family history of premature coronary artery disease with father from myocardial infarction at 55 years old. He was recently hospitalized for dizziness and near syncope which was felt to be secondary to dehydration. Brain CT completed at that time was negative for any acute proce ss. He also had an echocardiogram completed during that admission demonstrating normal left ventricular systolic function with EF 55-60%, mild aortic insufficiency, mild mitral and tricuspid regurgitation, and no pericardial effusion. He was stabilized and discharged to home. Upon follow-up with cardiology he had a stress test which was abnormal and he was recommended to undergo heart catheterization which was completed today and which demonstrated distal left main stenosis 60%, ostial LAD stenosis 99% with mid LAD stenosis 50%, and RCA stenosis 40-50%. Due to heart catheterization findings consultation was placed to Dr. Long from cardiothoracic surgery for revascularization recommendations. Review of Systems REVIEW OF SYSTEMS: CONSTITUTIONAL: No fever, no malaise, no fatigue. HEENT: No recent visual problems or hearing problems. Denied any sore throat. CARDIOVASCULAR: No chest pain, orthopnea, PND, no palpitations, no syncope. PULMONARY: No shortness of breath, no cough, no hemoptysis. GASTROINTESTINAL: No diarrhea, no nausea, no vomiting, no abdominal pain. NEUROLOGICAL: No headaches, no weakness, no numbness. HEMATOLOGICAL: Denies any bleeding or petechiae. GENITOURINARY: Denies any burning micturition, frequency, or urgency. MUSCULOSKELETAL/RHEUMATOLOGICAL: Denies any joint pain, swelling, or any muscle pain. ENDOCRINE: Denies any polyuria or polydipsia. The rest of the 14-point review of systems is negative. Past Medical History Past Medical History: Coronary Artery Disease (CAD), Cancer, Hyperlipidemia, Hypertension, Pneumonia Additional Past Medical History / Comment(s): See Dr Carmichael's H&P. Polymyositis causing muscle pain and stiffness, requiring [facility] steroid use, resulting in elevated A1C. Currently having mild flare up, on steroids. Hx Melamoma X2, once on left scalp and once behind right ear. History of Any Multi-Drug Resistant Organisms: None Reported Past Surgical History: Appendectomy Additional Past Surgical History / Comment(s): Melanoma behind right ear and left scalp removed, ganglion cyst removed from wrist, all teeth extracted. Knee scope Past Anesthesia/Blood Transfusion Reactions: No Reported Reaction Past Psychological History: No Psychological Hx Reported Smoking Status: Former smoker Past Alcohol Use History: Occasional Additional Past Alcohol Use History / Comment(s): Quit smoking at age 37. Stopped drinking beer 08/2016. Past Drug Use History: None Reported - Past Family History Mother Family Medical History: Dementia, Pneumonia Father Family Medical History: Coronary Artery Disease (CAD), Myocardial Infarction ([place]) Additional Family Medical History / Comment(s): from myocardial infarction at 55 years old Medications and Allergies Home Medications Medication Instructions Recorded Confirmed Type ALPRAZolam [Xanax] 0.5 mg PO DAILY PRN 03/01/17 07/22/21 History Febuxostat [Uloric] 40 mg PO DAILY 05/20/21 07/21/21 History Olmesartan Medoxomil 40 mg PO DAILY 05/20/21 07/22/21 History amLODIPine [Norvasc] 10 mg PO DAILY 05/20/21 07/22/21 History Folic Acid 1 mg PO DAILY 30 Days #30 tab 05/21/21 07/21/21 Rx Aspirin [Adult Low Dose Aspirin EC] 81 mg PO DAILY 07/21/21 07/22/21 History predniSONE 5 mg PO DAILY 07/21/21 07/21/21 History Allergies Allergy/AdvReac Type Severity Reaction Status Date / Time Penicillins Allergy Rash/Hives Verified 07/23/21 06:33 Physical Exam Vitals: Vital Signs Temp Pulse Pulse Resp BP Pulse Ox FiO2 07/24/21 11:30 76 14 107/50 07/24/21 11:00 68 11 L 96 07/24/21 10:30 75 13 95 07/24/21 10:15 69 11 L 121/58 95 07/24/21 10:00 68 13 96 07/24/21 09:45 75 11 L 95 07/24/21 09:30 74 13 96 07/24/21 09:15 79 21 96 07/24/21 09:00 79 14 110/53 94 L 07/24/21 08:45 80 10 L 96 07/24/21 08:33 83 16 07/24/21 08:30 77 8 L 99 07/24/21 08:19 76 18 96 07/24/21 08:15 72 12 95 07/24/21 08:00 80 15 103/56 96 07/24/21 07:45 83 9 L 94 L 07/24/21 07:30 79 8 L 108/55 95 07/24/21 07:15 90 5 L 07/24/21 07:00 86 5 L 101/50 07/24/21 06:45 85 14 121/65 07/24/21 06:30 94 20 121/65 07/24/21 06:15 118 H 18 07/24/21 06:00 87 16 95 07/24/21 05:45 94 13 92 L 07/24/21 05:30 98 16 94 L 07/24/21 05:15 104 H 16 94 L 07/24/21 05:00 97 14 94 L 07/24/21 04:45 84 13 94 L 07/24/21 04:30 84 14 94 L 07/24/21 04:15 79 14 114/55 94 L 07/24/21 04:00 99.5 F 89 92 14 94 L 07/24/21 03:45 87 11 L 94 L 07/24/21 03:30 87 14 94 L 07/24/21 03:15 86 12 95 07/24/21 03:00 86 12 94 L 07/24/21 02:45 89 12 94 L 07/24/21 02:30 87 12 94 L 07/24/21 02:15 88 5 L 110/60 93 L 07/24/21 02:00 83 13 95 07/24/21 01:45 85 14 95 07/24/21 01:30 81 12 94 L 07/24/21 01:15 75 13 94 L 07/24/21 01:00 74 14 94 L 07/24/21 00:45 80 14 95 07/24/21 00:30 70 12 93 L 07/24/21 00:15 73 16 114/54 95 07/24/21 00:00 99.5 F 70 14 96 07/23/21 23:45 84 15 96 07/23/21 23:30 71 11 L 97 07/23/21 23:15 73 12 98 07/23/21 23:12 71 10 L 07/23/21 23:00 72 10 L 98 07/23/21 22:45 70 10 L 98 07/23/21 22:30 70 10 L 98 07/23/21 22:15 67 10 L 98 07/23/21 22:00 68 10 L 98 07/23/21 21:45 70 11 L 107/53 97 07/23/21 21:30 73 12 97 07/23/21 21:15 93 17 96 07/23/21 21:13 95 07/23/21 21:00 75 12 94 L 07/23/21 20:45 64 97 07/23/21 20:30 80 97 07/23/21 20:15 84 131/61 96 07/23/21 20:00 65 76 14 121/55 98 07/23/21 19:45 98.1 F 63 14 97 07/23/21 19:30 86 12 96 07/23/21 19:00 69 8 L 98 07/23/21 18:45 64 6 L 99 07/23/21 18:30 76 6 L 98 07/23/21 18:15 61 3 L 99 07/23/21 18:00 55 L 10 L 99 07/23/21 17:45 57 L 12 100 07/23/21 17:30 80 13 99 07/23/21 17:15 80 13 100 07/23/21 17:06 80 16 07/23/21 17:00 80 14 121/69 100 07/23/21 16:45 50 L 18 100 07/23/21 16:30 63 15 100 07/23/21 16:15 53 L 14 100 07/23/21 16:00 80 14 100 50 07/23/21 15:48 50 07/23/21 15:45 80 14 100 07/23/21 15:30 80 13 100 07/23/21 15:15 80 12 100 07/23/21 15:00 80 16 100 07/23/21 14:30 80 13 100 07/23/21 14:00 80 12 97 07/23/21 13:50 80 12 98 07/23/21 13:45 80 13 100 50 07/23/21 13:25 80 13 07/23/21 13:18 80 12 07/23/21 13:15 50 07/23/21 12:36 100 07/23/21 12:27 100 Intake and Output 07/23/21 07/24/21 07/24/21 22:59 06:59 14:59 Intake Total 0690.049 5981.221 1098.743 Output Total 1485 825 110 Balance 152.043 786.221 988.743 Intake: IV 1619.5 1111 1056 ACETAMINOPHEN IV (For NPO 200 ) 1,000 mg In Empty Bag 1 bag @ 400 mls/hr IVPB Q6HR JARET Rx#:[id number] Albumin Human 5% 250 ml 750 500 750 In Empty Bag 1 bag @ 250 mls/hr IVPB Q1HR PRN Rx#: [id number] CO/CI 140 80 20 Lactated Ringers 1,000 ml 350 450 150 @ 20 mls/hr IV .Q24H JARET Rx#:[id number] Nitroglycerin-D5w Pmx 50 7.5 mg In Dextrose/Water 1 250ml.bag @ 5 MCG/MIN 1.5 mls/hr IV .Q24H JARET Rx#: [id number] PRESSURE BAGS 72 81 36 ceFAZolin 1,000 mg In 100 100 Sodium Chloride 0.9% 50 ml @ 100 mls/hr IVPB Q8HR JARET Rx#:[id number] Intake, IV Titration 17.543 20.221 42.743 Amount Insulin Regular 100 unit 16.640 19.183 9.065 In Sodium Chloride 0.9% 100 ml @ Per Protocol IV .Q0M JARET Rx#:[id number] Norepinephrine 4 mg In 33.678 Sodium Chloride 0.9% 250 ml @ 0.05 MCG/KG/MIN 15. 64 mls/hr IV .[id number] JARET Rx#:[id number] Norepinephrine 4 mg In 1.038 Sodium Chloride 0.9% 250 ml @ Titrate IV .Q0M ONE Rx#:[id number] propofoL 1,000 mg In 0.903 Empty Bag 1 bag @ Titrate IV .Q0M JARET Rx#: [id number] Oral 480 Output: Chest Tube Drainage 280 440 60 Mediastinal 146 260 30 Right/Left 134 180 30 Urine 1205 385 50 Other: Voiding Method Indwelling Catheter Indwelling Catheter Indwelling Catheter Weight 84.1 kg ABP, PAP, CO, CI - Last 8 Hours Arterial Blood Pressure 103/36 Arterial Blood Pressure 90/38 Arterial Blood Pressure 119/46 Arterial Blood Pressure 100/39 Arterial Blood Pressure 100/36 Arterial Blood Pressure 107/40 Arterial Blood Pressure 92/34 Arterial Blood Pressure 95/35 Arterial Blood Pressure 108/39 Arterial Blood Pressure 96/38 Arterial Blood Pressure 118/41 Arterial Blood Pressure 97/37 Arterial Blood Pressure 91/37 Arterial Blood Pressure 101/44 Arterial Blood Pressure 92/40 Arterial Blood Pressure 94/42 Arterial Blood Pressure 89/39 Arterial Blood Pressure 111/38 Arterial Blood Pressure 111/41 Arterial Blood Pressure 115/47 Arterial Blood Pressure 112/48 Arterial Blood Pressure 122/51 Arterial Blood Pressure 142/57 Arterial Blood Pressure 132/56 Arterial Blood Pressure 104/45 Arterial Blood Pressure 101/46 Arterial Blood Pressure 92/44 Arterial Blood Pressure 96/46 Pulmonary Artery Pressure 28/11 Pulmonary Artery Pressure 35/14 Pulmonary Artery Pressure 29/12 Pulmonary Artery Pressure 28/9 Pulmonary Artery Pressure 30/10 Pulmonary Artery Pressure 29/10 Pulmonary Artery Pressure 30/11 Pulmonary Artery Pressure 29/10 Pulmonary Artery Pressure 27/9 Pulmonary Artery Pressure 26/10 Pulmonary Artery Pressure 26/10 Pulmonary Artery Pressure 28/12 Pulmonary Artery Pressure 29/11 Pulmonary Artery Pressure 36/13 Pulmonary Artery Pressure 29/9 Pulmonary Artery Pressure 33/10 Pulmonary Artery Pressure 29/11 Pulmonary Artery Pressure 41/26 Pulmonary Artery Pressure 39/16 Pulmonary Artery Pressure 39/15 Pulmonary Artery Pressure 38/18 Pulmonary Artery Pressure 42/18 Pulmonary Artery Pressure 43/17 Pulmonary Artery Pressure 37/15 Pulmonary Artery Pressure 36/13 Pulmonary Artery Pressure 35/12 Cardiac Output 5.9 Cardiac Output 8.9 Cardiac Output 8.4 Cardiac Index 3 Cardiac Index 4.5 Cardiac Index 4.2 Head exam was generally normal. There was no scleral icterus or corneal arcus. Mucous membranes were moist. Neck was supple and without jugular venous distension, thyromegaly, or carotid bruits. Carotids were easily palpable bilaterally Lungs sounds are diminished bilaterally and the patient has equal and symmetrical breath sound and the patient has 3 chest tubes, bipolar, left pleural and mediastinal. Cardiac exam revealed the PMI to be normally situated and sized. The rhythm was regular and no extrasystoles were noted during several minutes of auscultation. The first and second heart sounds were normal and physiologic splitting of the second heart sound was noted. There were no murmurs, rubs, clicks, or gallops.Sternum stable clean and intact. Abdominal exam revealed normal bowel sounds. The abdomen was soft, non-tender, and without masses, organomegaly, or appreciable enlargement of the abdominal aorta. Examination of the extremities revealed easily palpable radial, femoral and pedal pulses. There was no cyanosis, clubbing or edema. Examination of the skin revealed no evidence of significant rashes, suspicious appearing nevi or other concerning lesions. Neurologically, the patient is awake and alert and the patient does not have any focal neurological deficit. Cranial nerves are essentially intact. Results CBC & Chem 7: 07/24/21 03:30 07/24/21 03:30 Labs: Abnormal Lab Results - Last 24 Hours (Table) 07/22/21 07/23/21 07/23/21 Range/Units 15:11 08:29 09:30 WBC (3.8-10.6) k/uL RBC (4.30-5.90) m/uL Hgb (13.0-17.5) gm/dL Hct (39.0-53.0) % Plt Count (150-450) k/uL Neutrophils # (1.3-7.7) k/uL Lymphocytes # (1.0-4.8) k/uL APTT (22.0-30.0) sec ABG pO2 417 H 145 H (83-108) mmHg ABG HCO3 26 H 26 H (21-25) mmol/L ABG Total CO2 27 H 28 H (19-24) mmol/L ABG O2 Saturation 100.0 H 99.2 H (94-97) % ABG Hematocrit 33 L (34.0-46.0) % ABG Potassium (3.4-4.5) mmol/L ABG Ionized Calcium (4.5-5.3) mg/dL ABG Glucose 111 H 141 H (75-99) mg/dL ABG Lactic Acid 0.4 L (0.5-1.6) mmol/L Hemoglobin 11.5 L 10.8 L (13.0-17.5) gm/dL Glucose (74-99) mg/dL POC Glucose (mg/dL) (75-99) mg/dL Calcium (8.4-10.2) mg/dL Magnesium (1.6-2.3) mg/dL Alkaline Phosphatase (38-126) U/L Total Protein (6.3-8.2) g/dL Albumin (3.5-5.0) g/dL Arterial Blood Potassium (3.4-4.5) mmol/L Arterial Blood Glucose 111 H 141 H (75-99) mg/dL Crossmatch See Detail 07/23/21 07/23/21 07/23/21 Range/Units 10:15 10:54 11:46 WBC (3.8-10.6) k/uL RBC (4.30-5.90) m/uL Hgb (13.0-17.5) gm/dL Hct (39.0-53.0) % Plt Count (150-450) k/uL Neutrophils # (1.3-7.7) k/uL Lymphocytes # (1.0-4.8) k/uL APTT (22.0-30.0) sec ABG pO2 356 H 356 H 311 H (83-108) mmHg ABG HCO3 (21-25) mmol/L ABG Total CO2 26 H 26 H 25 H (19-24) mmol/L ABG O2 Saturation 100.0 H 100.0 H 99.9 H (94-97) % ABG Hematocrit 26 L 25 L 29 L (34.0-46.0) % ABG Potassium 4.9 H 4.8 H (3.4-4.5) mmol/L ABG Ionized Calcium 4.1 L 4.1 L (4.5-5.3) mg/dL ABG Glucose 148 H 156 H 163 H (75-99) mg/dL ABG Lactic Acid (0.5-1.6) mmol/L Hemoglobin 8.4 L 8.3 L 9.4 L (13.0-17.5) gm/dL Glucose (74-99) mg/dL POC Glucose (mg/dL) (75-99) mg/dL Calcium (8.4-10.2) mg/dL Magnesium (1.6-2.3) mg/dL Alkaline Phosphatase (38-126) U/L Total Protein (6.3-8.2) g/dL Albumin (3.5-5.0) g/dL Arterial Blood Potassium 4.9 H 4.8 H (3.4-4.5) mmol/L Arterial Blood Glucose 148 H 156 H 163 H (75-99) mg/dL Crossmatch 07/23/21 07/23/21 07/23/21 Range/Units 12:37 12:40 12:40 WBC 14.3 H (3.8-10.6) k/uL RBC 3.38 L (4.30-5.90) m/uL Hgb 9.7 L D (13.0-17.5) gm/dL Hct 30.4 L (39.0-53.0) % Plt Count (150-450) k/uL Neutrophils # 12.8 H (1.3-7.7) k/uL Lymphocytes # 0.9 L (1.0-4.8) k/uL APTT 31.9 H (22.0-30.0) sec ABG pO2 (83-108) mmHg ABG HCO3 (21-25) mmol/L ABG Total CO2 (19-24) mmol/L ABG O2 Saturation (94-97) % ABG Hematocrit (34.0-46.0) % ABG Potassium (3.4-4.5) mmol/L ABG Ionized Calcium (4.5-5.3) mg/dL ABG Glucose (75-99) mg/dL ABG Lactic Acid (0.5-1.6) mmol/L Hemoglobin (13.0-17.5) gm/dL Glucose (74-99) mg/dL POC Glucose (mg/dL) 176 H (75-99) mg/dL Calcium (8.4-10.2) mg/dL Magnesium (1.6-2.3) mg/dL Alkaline Phosphatase (38-126) U/L Total Protein (6.3-8.2) g/dL Albumin (3.5-5.0) g/dL Arterial Blood Potassium (3.4-4.5) mmol/L Arterial Blood Glucose (75-99) mg/dL Crossmatch 07/23/21 07/23/21 07/23/21 Range/Units 12:40 13:00 14:54 WBC (3.8-10.6) k/uL RBC (4.30-5.90) m/uL Hgb (13.0-17.5) gm/dL Hct (39.0-53.0) % Plt Count (150-450) k/uL Neutrophils # (1.3-7.7) k/uL Lymphocytes # (1.0-4.8) k/uL APTT (22.0-30.0) sec ABG pO2 342 H (83-108) mmHg ABG HCO3 (21-25) mmol/L ABG Total CO2 25 H (19-24) mmol/L ABG O2 Saturation 100.0 H (94-97) % ABG Hematocrit (34.0-46.0) % ABG Potassium (3.4-4.5) mmol/L ABG Ionized Calcium (4.5-5.3) mg/dL ABG Glucose (75-99) mg/dL ABG Lactic Acid (0.5-1.6) mmol/L Hemoglobin (13.0-17.5) gm/dL Glucose 166 H (74-99) mg/dL POC Glucose (mg/dL) 169 H (75-99) mg/dL Calcium 7.8 L (8.4-10.2) mg/dL Magnesium 2.8 H (1.6-2.3) mg/dL Alkaline Phosphatase 32 L (38-126) U/L Total Protein 5.0 L (6.3-8.2) g/dL Albumin 3.1 L (3.5-5.0) g/dL Arterial Blood Potassium (3.4-4.5) mmol/L Arterial Blood Glucose (75-99) mg/dL Crossmatch 07/23/21 07/23/21 07/23/21 Range/Units 15:50 15:52 16:37 WBC 15.0 H (3.8-10.6) k/uL RBC 3.33 L (4.30-5.90) m/uL Hgb 9.6 L (13.0-17.5) gm/dL Hct 29.5 L (39.0-53.0) % Plt Count (150-450) k/uL Neutrophils # 12.9 H (1.3-7.7) k/uL Lymphocytes # (1.0-4.8) k/uL APTT (22.0-30.0) sec ABG pO2 144 H (83-108) mmHg ABG HCO3 (21-25) mmol/L ABG Total CO2 27 H (19-24) mmol/L ABG O2 Saturation 100.0 H (94-97) % ABG Hematocrit (34.0-46.0) % ABG Potassium (3.4-4.5) mmol/L ABG Ionized Calcium (4.5-5.3) mg/dL ABG Glucose (75-99) mg/dL ABG Lactic Acid (0.5-1.6) mmol/L Hemoglobin (13.0-17.5) gm/dL Glucose (74-99) mg/dL POC Glucose (mg/dL) 152 H (75-99) mg/dL Calcium (8.4-10.2) mg/dL Magnesium (1.6-2.3) mg/dL Alkaline Phosphatase (38-126) U/L Total Protein (6.3-8.2) g/dL Albumin (3.5-5.0) g/dL Arterial Blood Potassium (3.4-4.5) mmol/L Arterial Blood Glucose (75-99) mg/dL Crossmatch 07/23/21 07/23/21 07/23/21 Range/Units 17:06 17:56 18:50 WBC 13.7 H (3.8-10.6) k/uL RBC 3.29 L (4.30-5.90) m/uL Hgb 9.5 L (13.0-17.5) gm/dL Hct 29.1 L (39.0-53.0) % Plt Count (150-450) k/uL Neutrophils # 12.5 H (1.3-7.7) k/uL Lymphocytes # 0.5 L (1.0-4.8) k/uL APTT (22.0-30.0) sec ABG pO2 (83-108) mmHg ABG HCO3 (21-25) mmol/L ABG Total CO2 (19-24) mmol/L ABG O2 Saturation (94-97) % ABG Hematocrit (34.0-46.0) % ABG Potassium (3.4-4.5) mmol/L ABG Ionized Calcium (4.5-5.3) mg/dL ABG Glucose (75-99) mg/dL ABG Lactic Acid (0.5-1.6) mmol/L Hemoglobin (13.0-17.5) gm/dL Glucose (74-99) mg/dL POC Glucose (mg/dL) 143 H 142 H (75-99) mg/dL Calcium (8.4-10.2) mg/dL Magnesium (1.6-2.3) mg/dL Alkaline Phosphatase (38-126) U/L Total Protein (6.3-8.2) g/dL Albumin (3.5-5.0) g/dL Arterial Blood Potassium (3.4-4.5) mmol/L Arterial Blood Glucose (75-99) mg/dL Crossmatch 07/23/21 07/23/21 07/23/21 Range/Units 18:50 20:10 20:59 WBC (3.8-10.6) k/uL RBC (4.30-5.90) m/uL Hgb (13.0-17.5) gm/dL Hct (39.0-53.0) % Plt Count (150-450) k/uL Neutrophils # (1.3-7.7) k/uL Lymphocytes # (1.0-4.8) k/uL APTT (22.0-30.0) sec ABG pO2 (83-108) mmHg ABG HCO3 (21-25) mmol/L ABG Total CO2 (19-24) mmol/L ABG O2 Saturation (94-97) % ABG Hematocrit (34.0-46.0) % ABG Potassium (3.4-4.5) mmol/L ABG Ionized Calcium (4.5-5.3) mg/dL ABG Glucose (75-99) mg/dL ABG Lactic Acid (0.5-1.6) mmol/L Hemoglobin (13.0-17.5) gm/dL Glucose (74-99) mg/dL POC Glucose (mg/dL) 146 H 124 H 132 H (75-99) mg/dL Calcium (8.4-10.2) mg/dL Magnesium (1.6-2.3) mg/dL Alkaline Phosphatase (38-126) U/L Total Protein (6.3-8.2) g/dL Albumin (3.5-5.0) g/dL Arterial Blood Potassium (3.4-4.5) mmol/L Arterial Blood Glucose (75-99) mg/dL Crossmatch 07/23/21 07/24/21 07/24/21 Range/Units 22:53 01:03 02:55 WBC (3.8-10.6) k/uL RBC (4.30-5.90) m/uL Hgb (13.0-17.5) gm/dL Hct (39.0-53.0) % Plt Count (150-450) k/uL Neutrophils # (1.3-7.7) k/uL Lymphocytes # (1.0-4.8) k/uL APTT (22.0-30.0) sec ABG pO2 (83-108) mmHg ABG HCO3 (21-25) mmol/L ABG Total CO2 (19-24) mmol/L ABG O2 Saturation (94-97) % ABG Hematocrit (34.0-46.0) % ABG Potassium (3.4-4.5) mmol/L ABG Ionized Calcium (4.5-5.3) mg/dL ABG Glucose (75-99) mg/dL ABG Lactic Acid (0.5-1.6) mmol/L Hemoglobin (13.0-17.5) gm/dL Glucose (74-99) mg/dL POC Glucose (mg/dL) 125 H 107 H 136 H (75-99) mg/dL Calcium (8.4-10.2) mg/dL Magnesium (1.6-2.3) mg/dL Alkaline Phosphatase (38-126) U/L Total Protein (6.3-8.2) g/dL Albumin (3.5-5.0) g/dL Arterial Blood Potassium (3.4-4.5) mmol/L Arterial Blood Glucose (75-99) mg/dL Crossmatch 07/24/21 07/24/21 07/24/21 Range/Units 03:27 03:30 03:30 WBC 13.9 H (3.8-10.6) k/uL RBC 2.91 L (4.30-5.90) m/uL Hgb 8.4 L (13.0-17.5) gm/dL Hct 26.0 L (39.0-53.0) % Plt Count 148 L (150-450) k/uL Neutrophils # 12.5 H (1.3-7.7) k/uL Lymphocytes # 0.8 L (1.0-4.8) k/uL APTT (22.0-30.0) sec ABG pO2 (83-108) mmHg ABG HCO3 (21-25) mmol/L ABG Total CO2 (19-24) mmol/L ABG O2 Saturation (94-97) % ABG Hematocrit (34.0-46.0) % ABG Potassium (3.4-4.5) mmol/L ABG Ionized Calcium (4.5-5.3) mg/dL ABG Glucose (75-99) mg/dL ABG Lactic Acid (0.5-1.6) mmol/L Hemoglobin (13.0-17.5) gm/dL Glucose 127 H (74-99) mg/dL POC Glucose (mg/dL) 140 H (75-99) mg/dL Calcium 7.8 L (8.4-10.2) mg/dL Magnesium (1.6-2.3) mg/dL Alkaline Phosphatase 33 L (38-126) U/L Total Protein 5.2 L (6.3-8.2) g/dL Albumin (3.5-5.0) g/dL Arterial Blood Potassium (3.4-4.5) mmol/L Arterial Blood Glucose (75-99) mg/dL Crossmatch 07/24/21 07/24/21 07/24/21 Range/Units 05:49 06:49 08:11 WBC (3.8-10.6) k/uL RBC (4.30-5.90) m/uL Hgb (13.0-17.5) gm/dL Hct (39.0-53.0) % Plt Count (150-450) k/uL Neutrophils # (1.3-7.7) k/uL Lymphocytes # (1.0-4.8) k/uL APTT (22.0-30.0) sec ABG pO2 (83-108) mmHg ABG HCO3 (21-25) mmol/L ABG Total CO2 (19-24) mmol/L ABG O2 Saturation (94-97) % ABG Hematocrit (34.0-46.0) % ABG Potassium (3.4-4.5) mmol/L ABG Ionized Calcium (4.5-5.3) mg/dL ABG Glucose (75-99) mg/dL ABG Lactic Acid (0.5-1.6) mmol/L Hemoglobin (13.0-17.5) gm/dL Glucose (74-99) mg/dL POC Glucose (mg/dL) 120 H 128 H 129 H (75-99) mg/dL Calcium (8.4-10.2) mg/dL Magnesium (1.6-2.3) mg/dL Alkaline Phosphatase (38-126) U/L Total Protein (6.3-8.2) g/dL Albumin (3.5-5.0) g/dL Arterial Blood Potassium (3.4-4.5) mmol/L Arterial Blood Glucose (75-99) mg/dL Crossmatch 07/24/21 07/24/21 07/24/21 Range/Units 09:14 10:09 11:10 WBC (3.8-10.6) k/uL RBC (4.30-5.90) m/uL Hgb (13.0-17.5) gm/dL Hct (39.0-53.0) % Plt Count (150-450) k/uL Neutrophils # (1.3-7.7) k/uL Lymphocytes # (1.0-4.8) k/uL APTT (22.0-30.0) sec ABG pO2 (83-108) mmHg ABG HCO3 (21-25) mmol/L ABG Total CO2 (19-24) mmol/L ABG O2 Saturation (94-97) % ABG Hematocrit (34.0-46.0) % ABG Potassium (3.4-4.5) mmol/L ABG Ionized Calcium (4.5-5.3) mg/dL ABG Glucose (75-99) mg/dL ABG Lactic Acid (0.5-1.6) mmol/L Hemoglobin (13.0-17.5) gm/dL Glucose (74-99) mg/dL POC Glucose (mg/dL) 147 H 131 H 118 H (75-99) mg/dL Calcium (8.4-10.2) mg/dL Magnesium (1.6-2.3) mg/dL Alkaline Phosphatase (38-126) U/L Total Protein (6.3-8.2) g/dL Albumin (3.5-5.0) g/dL Arterial Blood Potassium (3.4-4.5) mmol/L Arterial Blood Glucose (75-99) mg/dL Crossmatch Microbiology - Last 24 Hours (Table) 07/22/21 15:00 Nasal Screen MRSA/MSSA - Final Nasal Swab Assessment and Plan Assessment: 1. CAD/CABG. The patient is post two-vessel bypass and the patient is currently postop day #1. Note that the patient had some dramatic CAD and preop cardiac catheterization showed 60% left main stenosis, ostial LAD stenosis of 99%, and mid LAD stenosis of 50% and RCA stenosis of 40-50%. The patient is currently hemodynamically stable intubated on a mechanical ventilator. Cardiac rhythm is sinus on no pressors and hemodynamic parameters are adequate with an adequate cardiac output and index. Patient is currently on a low-dose norepinephrine infusion which will be hopefully weaned off. 2. Post thoracotomy, currently off mechanical ventilator on 2 L of oxygen nasal cannula. Chest x-ray blood gases are noted and the patient the chest is in place without any evidence of air leaks 3. Hypertension, Currently off nitroglycerin the patient is requiring low-dose norepinephrine infusion for now. 4. History of polymyositis on maintenance dose prednisone 5 mg daily 5. Severe obstruction seen on the preop FEV1, which was 28% of predicted, which is likely related to poor patient effort, positioning or technique. 6. Acute anemia, expected outcome following surgery Plan: Continue using incentive spirometer and the patient is pulling approximately 750 Drop down the FiO2 to maintain saturation above 90% Output from the chest tubes were noted and output is minimal at this point in time and there is no evidence of air leak Hemodynamic parameters are adequate and the patient has adequate cardiac output and index and the patient is on low dose pressors for now Continue following up this patient. Put the patient on stress dose hydrocortisone Monitor hemoglobin DC swan The patient was started on aspirin and beta blockers and high-dose statins. Condition is stable for now. We'll continue to follow make further accommodation based on the progress.
[2021-07-24 18:15] LABS: Glucose,Whole Blood 153 mg/dL (75-99)
[2021-07-24 19:01] LABS: Glucose,Whole Blood 168 mg/dL (75-99)
[2021-07-24 19:47] LABS: Glucose,Whole Blood 149 mg/dL (75-99)
[2021-07-24] MEDS: SENNOSIDES-DOCUSATE SODIUM 1 EACH TAB PO SCH (20:04)
[2021-07-24 21:56] LABS: Glucose,Whole Blood 114 mg/dL (75-99)
[2021-07-25] MEDS: KETOROLAC 15 MG/ML 1 ML VIAL IVP SCH ×4 (00:21→16:57)
[2021-07-25] MEDS: HEPARIN SODIUM,PORCINE/PF 5,000 UNIT/0.5 ML SYRINGE SQ SCH ×3 (00:32→16:56)
[2021-07-25] MEDS: HYDROCORTISONE SUCCINATE 100 MG/2 ML VIAL IV SCH ×3 (00:32→16:56)
[2021-07-25 00:39] LABS: Glucose,Whole Blood 124 mg/dL (75-99)
[2021-07-25 02:25] LABS: Glucose,Whole Blood 127 mg/dL (75-99)
[2021-07-25 04:36] LABS: Glucose,Whole Blood 107 mg/dL (75-99)
[2021-07-25 04:51] LABS: Basophils % (A) 0 %; Eosinophils % (A) 0 %; HCT 22.7 % (39.0-53.0); HGB 7.4 gm/dL (13.0-17.5); Lymphocytes # (A) 0.8 k/uL (1.0-4.8); Lymphocytes % (A) 7 %; MCH 28.8 pg (25.0-35.0); MCHC 32.4 g/dL (31.0-37.0); MCV 88.9 fL (80.0-100.0); Mean Platelet Volume 9.3; Monocytes # (A) 0.4 k/uL (0-1.0); Monocytes % (A) 4 %; Neutrophils # (A) 10.4 k/uL (1.3-7.7); Neutrophils % (A) 89 %; Platelet Count 132 k/uL (150-450); RBC 2.56 m/uL (4.30-5.90); RDW 15.2 % (11.5-15.5); WBC 11.7 k/uL (3.8-10.6)
[2021-07-25 04:56] LABS: Ionized Calcium 4.7 mg/dL (4.5-5.3)
[2021-07-25 05:30] LABS: Albumin 3.6 g/dL (3.5-5.0); Total Bilirubin 0.2 mg/dL (0.2-1.3); Total Protein 5.5 g/dL (6.3-8.2)
[2021-07-25 06:21] LABS: Glucose,Whole Blood 125 mg/dL (75-99)
[2021-07-25] MEDS: PANTOPRAZOLE 40 MG TABLET PO SCH (06:37)
--- NOTE | 2021-07-25 06:49 | XR ---
EXAMINATION TYPE: XR chest 1V portable DATE OF EXAM: 07/25/2021 COMPARISON: 07/24/2021 HISTORY: Postcardiac surgery TECHNIQUE: Single frontal view of the chest is obtained. FINDINGS: There are median sternotomy wires, bilateral chest tubes and a mediastinal tube unchanged. There is no pneumothorax. There is mild pulmonary vascular congestion and interstitial edema and small bilateral pleural effusi ons. Overall, no significant interval change. IMPRESSION: Mild to moderate acute cardiopulmonary disease with no significant interval change.
[2021-07-25] MEDS: METOCLOPRAMIDE 5 MG/ML 2 ML VIAL IVP PRN (06:57)
[2021-07-25] MEDS: IPRATROPIUM-ALBUTEROL 3 ML NEB INHALATION SCH (07:28)
--- NOTE | 2021-07-25 08:06 | P.PN ---
Subjective Progress Note Date: 07/25/21 Principal diagnosis: Coronary artery disease. Previous medical history of hypertension, hyperlipidemia, polymyositis with daily prednisone use, melanoma in 2001 and 2016, remote history of pneumonia, previous tobacco dependence, 35 pound weight loss since last August, family history of premature coronary artery disease, severe COPD POD #2 coronary artery bypass grafting 2 vessels, left internal mammary artery to the left anterior descending artery, reverse saphenous vein graft to the obtuse marginal artery, endoscopic harvesting of the left greater saphenous vein, ligation of left atrial appendage using a 25 mm Atriclip, epi-aortic ultrasound and intraoperative transesophageal echocardiogram Postoperative acute blood loss anemia, expected given hemodilution and cardi opulmonary bypass pump The patient was seen and examined this morning sitting up in a recliner in no acute distress in the intensive care unit. Remains in sinus rhythm and hemodynamically stable. Does complain of postsurgical pain including between his shoulder blades, better today. Currently on 2 L nasal cannula with oxygen saturation in the high 90s, able to achieve 1000 mL on his incentive spirometry. Ambulated out to the hallway with assistance this morning. Right internal jugular Cordis, right radial arterial line, mediastinal/right/left pleural chest tubes all remain in place. No other new concerns. Objective - Vital Signs Vital signs: Vital Signs Temp 98.5 F 07/25/21 04:00 Pulse 98 07/25/21 07:00 Resp 18 07/25/21 07:00 BP 135/60 07/25/21 05:15 Pulse Ox 94 L 07/25/21 07:00 FiO2 50 07/24/21 16:00 Intake & Output 07/24/21 07/25/21 07/25/21 18:59 06:59 18:59 Intake Total 2117.167 532.403 36 Output Total 400 1785 75 Balance 1717.167 -1252.597 -39 Weight 84.1 kg 84.7 kg Intake: IV 1562 432 36 Albumin Human 5% 250 ml 1000 In Empty Bag 1 bag @ 250 mls/hr IVPB Q1HR PRN Rx#: [id number] CO/CI 20 Lactated Ringers 1,000 ml 370 360 30 @ 20 mls/hr IV .Q24H [facility] Rx#:[id number] PRESSURE BAGS 72 72 6 ceFAZolin 1,000 mg In 100 Sodium Chloride 0.9% 50 ml @ 100 mls/hr IVPB Q8HR [facility] Rx#:[id number] Intake, IV Titration 55.167 100.403 Amount Insulin Regular 100 unit 21.489 21.681 In Sodium Chloride 0.9% 100 ml @ Per Protocol IV .Q0M [facility] Rx#:[id number] Norepinephrine 4 mg In 33.678 78.722 Sodium Chloride 0.9% 250 ml @ 0.05 MCG/KG/MIN 15. 64 mls/hr IV .[id number] [facility] Rx#:[id number] Oral 500 Output: Chest Tube Drainage 200 130 Mediastinal 130 50 Right/Left 70 80 Urine 200 1655 75 Other: Voiding Method Indwelling Catheter Indwelling Catheter ABP, PAP, CO, CI - Last Documented Arterial Blood Pressure 119/44 Pulmonary Artery Pressure 28/11 Cardiac Output 5.9 Cardiac Index 3 - Exam CONSTITUTIONAL: Appears comfortable, cooperative, no acute distress RESPIRATORY: Lungs sounds diminished bilaterally. Respirations even, nonlabored. Currently on 2 L nasal cannula with oxygen saturation 95%. Able to achieve 1000 mL on incentive spirometry. Weak cough. CARDIOVASCULAR: S1, S2 present. Regular rate and rhythm, sinus rhythm on telemetry. Sternum stable. Palpable peripheral pulses bilaterally. No edema present. No calf pain or tenderness noted. Heart hugger in place with patient demonstrating appropriate use. Antiembolism stockings, SCDs present. GASTROINTESTINAL: Abdomen soft, nontender, nondistended. Active bowel sounds present 4 quadrants. Tolerating diet. Denies flatus GENITOURINARY: Ramirez present draining clear, yellow urine. Output overnight 90-175 mL per hour, 1855 mL the last 24 hours INTEGUMENTARY: Skin is warm and dry with evidence of good perfusion. Anterior chest incision well approximated and covered with dry intact dressing. Left lower extremity EVH site well approximated without redness or drainage. NEUROLOGIC: Cranial nerves II through XII intact MUSKULOSKELETAL: Able to move all extremities, strength equal bilaterally PSYCHIATRIC: Alert and oriented to person place and time, appropriate affect, intact judgment and insight INVASIVE LINES AND TUBES: Mediastinal/left/right pleural chest tubes present and connected to wall suction, no air leaks present. Mediastinal tube with 50 mL serosanguineous drainage overnight, 150 mL in the last 24 hours. Left/right pleural chest tubes with 80 mL serosanguineous drainage overnight, 100 mL the last 24 hours. A/V epicardial pacemaker wires present, grounded. Right inter nal jugular Cordis, right radial arterial line present. - Allied health notes Allied health notes reviewed: nursing - Labs CBC & Chem 7: 07/25/21 04:38 07/25/21 04:38 Labs: Abnormal Lab Results - Last 24 Hours (Table) 07/24/21 07/24/21 07/24/21 Range/Units 08:11 09:14 10:09 WBC (3.8-10.6) k/uL RBC (4.30-5.90) m/uL Hgb (13.0-17.5) gm/dL Hct (39.0-53.0) % Plt Count (150-450) k/uL Neutrophils # (1.3-7.7) k/uL Lymphocytes # (1.0-4.8) k/uL BUN (9-20) mg/dL POC Glucose (mg/dL) 129 H 147 H 131 H (75-99) mg/dL Calcium (8.4-10.2) mg/dL Alkaline Phosphatase (38-126) U/L Total Protein (6.3-8.2) g/dL 07/24/21 07/24/21 07/24/21 Range/Units 11:10 12:09 13:05 WBC (3.8-10.6) k/uL RBC (4.30-5.90) m/uL Hgb (13.0-17.5) gm/dL Hct (39.0-53.0) % Plt Count (150-450) k/uL Neutrophils # (1.3-7.7) k/uL Lymphocytes # (1.0-4.8) k/uL BUN (9-20) mg/dL POC Glucose (mg/dL) 118 H 118 H 148 H (75-99) mg/dL Calcium (8.4-10.2) mg/dL Alkaline Phosphatase (38-126) U/L Total Protein (6.3-8.2) g/dL 07/24/21 07/24/21 07/24/21 Range/Units 14:12 15:00 16:14 WBC (3.8-10.6) k/uL RBC (4.30-5.90) m/uL Hgb (13.0-17.5) gm/dL Hct (39.0-53.0) % Plt Count (150-450) k/uL Neutrophils # (1.3-7.7) k/uL Lymphocytes # (1.0-4.8) k/uL BUN (9-20) mg/dL POC Glucose (mg/dL) 137 H 115 H 117 H (75-99) mg/dL Calcium (8.4-10.2) mg/dL Alkaline Phosphatase (38-126) U/L Total Protein (6.3-8.2) g/dL 07/24/21 07/24/21 07/24/21 Range/Units 18:13 19:00 19:44 WBC (3.8-10.6) k/uL RBC (4.30-5.90) m/uL Hgb (13.0-17.5) gm/dL Hct (39.0-53.0) % Plt Count (150-450) k/uL Neutrophils # (1.3-7.7) k/uL Lymphocytes # (1.0-4.8) k/uL BUN (9-20) mg/dL POC Glucose (mg/dL) 153 H 168 H 149 H (75-99) mg/dL Calcium (8.4-10.2) mg/dL Alkaline Phosphatase (38-126) U/L Total Protein (6.3-8.2) g/dL 07/24/21 07/25/21 07/25/21 Range/Units 21:54 00:37 02:23 WBC (3.8-10.6) k/uL RBC (4.30-5.90) m/uL Hgb (13.0-17.5) gm/dL Hct (39.0-53.0) % Plt Count (150-450) k/uL Neutrophils # (1.3-7.7) k/uL Lymphocytes # (1.0-4.8) k/uL BUN (9-20) mg/dL POC Glucose (mg/dL) 114 H 124 H 127 H (75-99) mg/dL Calcium (8.4-10.2) mg/dL Alkaline Phosphatase (38-126) U/L Total Protein (6.3-8.2) g/dL 07/25/21 07/25/21 07/25/21 Range/Units 04:34 04:38 04:38 WBC 11.7 H (3.8-10.6) k/uL RBC 2.56 L (4.30-5.90) m/uL Hgb 7.4 L (13.0-17.5) gm/dL Hct 22.7 L (39.0-53.0) % Plt Count 132 L (150-450) k/uL Neutrophils # 10.4 H (1.3-7.7) k/uL Lymphocytes # 0.8 L (1.0-4.8) k/uL BUN 21 H (9-20) mg/dL POC Glucose (mg/dL) 107 H (75-99) mg/dL Calcium 8.0 L (8.4-10.2) mg/dL Alkaline Phosphatase 35 L (38-126) U/L Total Protein 5.5 L (6.3-8.2) g/dL 07/25/21 Range/Units 06:20 WBC (3.8-10.6) k/uL RBC (4.30-5.90) m/uL Hgb (13.0-17.5) gm/dL Hct (39.0-53.0) % Plt Count (150-450) k/uL Neutrophils # (1.3-7.7) k/uL Lymphocytes # (1.0-4.8) k/uL BUN (9-20) mg/dL POC Glucose (mg/dL) 125 H (75-99) mg/dL Calcium (8.4-10.2) mg/dL Alkaline Phosphatase (38-126) U/L Total Protein (6.3-8.2) g/dL - Imaging and Cardiology Chest x-ray: report reviewed, image reviewed Assessment and Plan Assessment: 1. Coronary artery disease, status post two-vessel CABG 2. Hypertension 3. Hyperlipidemia 4. Polymyositis with daily prednisone use 5. Melanoma in 2001 and 2017 6. Remote history of pneumonia 7. Previous tobacco dependence 8. 35 pound weight loss since last August 9. Family history of premature coronary artery disease 10. Severe COPD with preoperative FEV1 28% of predicted Plan: 1. Continue aspirin, statin, Plavix, beta sujey therapy. Will increase beta sujey therapy as tolerated. 2. Wean O2 as tolerated. Encourage incentive spirometry 10 times every hour while awake. Bronchodilators, IV Solu-Cortef per pulmonology 3. Increase activity as tolerated. PT/OT/cardiac rehab consulted 4. Will monitor daily labs and x-rays. Electrolyte replacement per protocol 5. GI/DVT prophylaxis 6. Pain control with current medication regimen 7. Insulin management per primary care service. Patient is not diabetic, preoperative hemoglobin A1c 6.3% of predicted 8. Will discontinue mediastinal chest tube. Continue pleural chest tubes for another 24 hours 9. Discontinue Ramirez catheter. May bladder scan and straight cath for > 300 mL residual 10. Strict accurate intake and output. Daily weights 11. More recommendations to follow
[2021-07-25] MEDS: HYDROcodone/APAP 5-325MG 1 EACH TAB PO PRN (09:00)
[2021-07-25] MEDS: METOPROLOL TARTRATE 25 MG TAB PO SCH ×2 (09:01→20:48)
[2021-07-25] MEDS: CLOPIDOGREL 75 MG TAB PO SCH (09:01)
[2021-07-25] MEDS: ASPIRIN 325 MG TAB PO SCH (09:01)
[2021-07-25] MEDS: FOLIC ACID 1 MG TAB PO SCH (09:01)
[2021-07-25] MEDS: ATORVASTATIN 40 MG TAB PO SCH (09:01)
--- NOTE | 2021-07-25 09:09 | P.PN ---
Subjective Progress Note Date: 07/25/21 07/23/2021, the patient is being seen for a follow-up. The patient was seen immediately after he arrived from the operating room. The patient underwent two-vessel bypass surgery with MZEA to LAD. The patient was kept sedated and the patient was brought into the intensive care unit. This point in time, the patient on propofol running at 50 mg/kg per minute. He is well sedated and synchronous with the mechanical ventilator. His assist-control mode of mechanical ventilation at the rate of 12 with tidal volume of 550 mL with an FiO2 of 100% and a PEEP of 5. The patient has 3 chest tubes, right pleural, left pleural and mediastinal and output is minimal for now. No evidence of any air leaks. No evidence of pneumothorax on chest x-ray done postop. ET tube is in a good location and the patient also has a [place]-Sharlene catheter in place. The patient is at 7.38 with a pCO2 of 40 and pO2 of 342 and the patient's FiO2 has been drop down to 50%. Hemodynamically, the patient is on 5 mcg/kg per minute of nitroglycerin infusion. The patient is on no pressors for now. The patient on insulin drip at 2 units an hour. Urine output is adequate. The hemoglobin is at 9.7 with a white second of 14.3. Platelet count is at 157. BUN is at 17 with a creatinine of 0.7 sodium level is at 138. He is afebrile. He is on normal saline at the rate of 50 hour., Comfortable and a cardiac rhythm is sin us. 2021, the patient is extubated and patient sitting up on a chair. Is currently on oxygen at 2 L. No complaints. No altered mentation. No focal neurological deficits. His cardiac output is at 8.9 with an index of 4.9. Pulmonary artery pressures are 31/17. The patient is on a low dose of norepinephrine infusion running at 0.01 mcg/kg per minute. Insulin drip is running at 2 units an hour. Nitroglycerin drip has been discontinued yesterday. Chest tube output was noted. The mediastinal chest tube has produced 20 mL /hours 460 cc since surgery, I will and the right and left pleural chest tubes are produced 10 mL an hour a total of 270 mL since arrival from today operating room. Chest x-ray showed adequate expansion of both lungs. No evidence of pneumothorax. Chest tubes are in place. [place]-Sharlene catheter is still in place. He is using incentive spirometer and is pulling approximately 500 mL. He is also on a stress dose hydrocortisone for now.. On today's blood work, the hemoglobin is at 8.4, dropped since surgery. Platelet count is at 148, dropped since surgery.. 07/25 2021, the patient is doing well on 2 L of oxygen by nasal cannula. Chest tubes are still in place and the patient has a mediastinal, right pleural and left pleural chest tube. The output from the chest tubes were noted. The mediastinal chest tube has produced 1 80 mL over the past 24 hours and the pleural chest tubes have produced 1 50 mL over the past 24 hours. The chest x- ray from today shows adequate expansion of both lungs. No evidence of pneumothorax. All of the chest tubes are in good location and the patient is using incentive spirometer and he is pulling approximately 500. The patient otherwise is doing well. No nausea. No vomiting. No chest pain. No hypotension. He was taken off the norepinephrine infusion this morning and he is running is soft and blood pressure. Despite all this, he is receiving his Lopressor. Cardiac rhythm remains sinus. [place]-Sharlene catheter removed. Surgical wound site is dry clean and intact. No altered mentation. No focal neurol ogical deficits. The blood work from today shows a hemoglobin of 7.4 and the white cell count is at 11.7. Platelet count is at 132. BUN is at 21 with a creatinine of 1.2 and the sodium level of 137. Objective - Vital Signs Vital signs: Vital Signs Temp 98.5 F 07/25/21 04:00 Pulse 98 07/25/21 07:00 Resp 18 07/25/21 07:00 BP 135/60 07/25/21 05:15 Pulse Ox 94 L 07/25/21 07:00 FiO2 50 07/24/21 16:00 Intake & Output 07/24/21 07/25/21 07/25/21 18:59 06:59 18:59 Intake Total 2117.167 532.403 36 Output Total 400 1785 75 Balance 1717.167 -1252.597 -39 Weight 84.1 kg 84.7 kg Intake: IV 1562 432 36 Albumin Human 5% 250 ml 1000 In Empty Bag 1 bag @ 250 mls/hr IVPB Q1HR PRN Rx#: [id number] CO/CI 20 Lactated Ringers 1,000 ml 370 360 30 @ 20 mls/hr IV .Q24H [facility] Rx#:[id number] PRESSURE BAGS 72 72 6 ceFAZolin 1,000 mg In 100 Sodium Chloride 0.9% 50 ml @ 100 mls/hr IVPB Q8HR [facility] Rx#:[id number] Intake, IV Titration 55.167 100.403 Amount Insulin Regular 100 unit 21.489 21.681 In Sodium Chloride 0.9% 100 ml @ Per Protocol IV .Q0M [facility] Rx#:[id number] Norepinephrine 4 mg In 33.678 78.722 Sodium Chloride 0.9% 250 ml @ 0.05 MCG/KG/MIN 15. 64 mls/hr IV .[id number] [facility] Rx#:[id number] Oral 500 Output: Chest Tube Drainage 200 130 Mediastinal 130 50 Right/Left 70 80 Urine 200 1655 75 Other: Voiding Method Indwelling Catheter Indwelling Catheter ABP, PAP, CO, CI - Last Documented Arterial Blood Pressure 119/44 Pulmonary Artery Pressure 28/11 Cardiac Output 5.9 Cardiac Index 3 - Exam intubated, calm and comfortable nonacute distress, awake and alert on 2 L of oxygen by nasal cannula Head exam was generally normal. There was no scleral icterus or corneal arcus. Mucous membranes were moist. Neck was supple and without jugular venous distension, thyromegaly, or carotid bruits. Carotids were easily palpable bilaterally. There was no adenopathy.The patient has a right IJ [place]-Sharlene catheter is in place. Orogastric and orotracheal tube are both in place. Lungs sounds are diminished bilaterally and the patient has equal and symmetrical breath sound and the patient has 3 chest tubes, bipolar, left p leural and mediastinal. Cardiac exam revealed the PMI to be normally situated and sized. The rhythm was regular and no extrasystoles were noted during several minutes of auscultation. The first and second heart sounds were normal and physiologic splitting of the second heart sound was noted. There were no murmurs, rubs, clicks, or gallops.Sternum stable clean and intact. Abdominal exam revealed normal bowel sounds. The abdomen was soft, non-tender, and without masses, organomegaly, or appreciable enlargement of the abdominal aorta. Examination of the extremities revealed easily palpable radial, femoral and pedal pulses. There was no cyanosis, clubbing or edema. Examination of the skin revealed no evidence of significant rashes, suspicious appearing nevi or other concerning lesions. Neurologically, the patient is awake and alert and the patient does not have any focal neurological deficit. Cranial nerves are essentially intact. - Labs CBC & Chem 7: 07/25/21 04:38 07/25/21 04:38 Labs: Abnormal Lab Results - Last 24 Hours (Table) 07/24/21 07/24/21 07/24/21 Range/Units 09:14 10:09 11:10 WBC (3.8-10.6) k/uL RBC (4.30-5.90) m/uL Hgb (13.0-17.5) gm/dL Hct (39.0-53.0) % Plt Count (150-450) k/uL Neutrophils # (1.3-7.7) k/uL Lymphocytes # (1.0-4.8) k/uL BUN (9-20) mg/dL POC Glucose (mg/dL) 147 H 131 H 118 H (75-99) mg/dL Calcium (8.4-10.2) mg/dL Alkaline Phosphatase (38-126) U/L Total Protein (6.3-8.2) g/dL 07/24/21 07/24/21 07/24/21 Range/Units 12:09 13:05 14:12 WBC (3.8-10.6) k/uL RBC (4.30-5.90) m/uL Hgb (13.0-17.5) gm/dL Hct (39.0-53.0) % Plt Count (150-450) k/uL Neutrophils # (1.3-7.7) k/uL Lymphocytes # (1.0-4.8) k/uL BUN (9-20) mg/dL POC Glucose (mg/dL) 118 H 148 H 137 H (75-99) mg/dL Calcium (8.4-10.2) mg/dL Alkaline Phosphatase (38-126) U/L Total Protein (6.3-8.2) g/dL 07/24/21 07/24/21 07/24/21 Range/Units 15:00 16:14 18:13 WBC (3.8-10.6) k/uL RBC (4.30-5.90) m/uL Hgb (13.0-17.5) gm/dL Hct (39.0-53.0) % Plt Count (150-450) k/uL Neutrophils # (1.3-7.7) k/uL Lymphocytes # (1.0-4.8) k/uL BUN (9-20) mg/dL POC Glucose (mg/dL) 115 H 117 H 153 H (75-99) mg/dL Calcium (8.4-10.2) mg/dL Alkaline Phosphatase (38-126) U/L Total Protein (6.3-8.2) g/dL 07/24/21 07/24/21 07/24/21 Range/Units 19:00 19:44 21:54 WBC (3.8-10.6) k/uL RBC (4.30-5.90) m/uL Hgb (13.0-17.5) gm/dL Hct (39.0-53.0) % Plt Count (150-450) k/uL Neutrophils # (1.3-7.7) k/uL Lymphocytes # (1.0-4.8) k/uL BUN (9-20) mg/dL POC Glucose (mg/dL) 168 H 149 H 114 H (75-99) mg/dL Calcium (8.4-10.2) mg/dL Alkaline Phosphatase (38-126) U/L Total Protein (6.3-8.2) g/dL 07/25/21 07/25/21 07/25/21 Range/Units 00:37 02:23 04:34 WBC (3.8-10.6) k/uL RBC (4.30-5.90) m/uL Hgb (13.0-17.5) gm/dL Hct (39.0-53.0) % Plt Count (150-450) k/uL Neutrophils # (1.3-7.7) k/uL Lymphocytes # (1.0-4.8) k/uL BUN (9-20) mg/dL POC Glucose (mg/dL) 124 H 127 H 107 H (75-99) mg/dL Calcium (8.4-10.2) mg/dL Alkaline Phosphatase (38-126) U/L Total Protein (6.3-8.2) g/dL 07/25/21 07/25/21 07/25/21 Range/Units 04:38 04:38 06:20 WBC 11.7 H (3.8-10.6) k/uL RBC 2.56 L (4.30-5.90) m/uL Hgb 7.4 L (13.0-17.5) gm/dL Hct 22.7 L (39.0-53.0) % Plt Count 132 L (150-450) k/uL Neutrophils # 10.4 H (1.3-7.7) k/uL Lymphocytes # 0.8 L (1.0-4.8) k/uL BUN 21 H (9-20) mg/dL POC Glucose (mg/dL) 125 H (75-99) mg/dL Calcium 8.0 L (8.4-10.2) mg/dL Alkaline Phosphatase 35 L (38-126) U/L Total Protein 5.5 L (6.3-8.2) g/dL Assessment and Plan Plan: Assessment: coronary artery bypass surgery. The patient is post two-vessel bypass and the patient is currently postop day #2. Note that the patient had some dramatic CAD and preop cardiac catheterization showed 60% left main stenosis, ostial LAD stenosis of 99%, and mid LAD stenosis of 50% and RCA stenosis of 40-50%. The p atient is currently hemodynamically stable intubated on a mechanical ventilator. Cardiac rhythm is sinus on no pressors and hemodynamic parameters are adequate with an adequate cardiac output and index. Patient was on a low-dose norepinephrine infusion was treated with IV albumin and the patient was taken off pressors for now. Post thoracotomy, current and volumely off mechanical ventilator on 2 L of oxygen nasal cannula. Chest x-ray blood gases are noted and the patient the chest is in place without any evidence of air leaks Hypertension, Currently off nitroglycerin the patient is requiring low-dose norepinephrine infusion for now. The patient was requiring norepinephrine postop. The patient received IV albumin and total of 9 doses and the patient is currently off pressors. 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 History of 35 pound weight loss in roughly 11 months Acute anemia, expected outcome following surgery Plan: Continue using incentive spirometer and the patient is pulling approximately 500-750 Drop down the FiO2 to maintain saturation above 90% Output from the chest tubes were noted and output is minimal at this point in time and there is no evidence of air leak Discontinue insulin drip and transitioned this patient to a NovoLog sliding scale coverage. Blood sugars of rather adequate control. Hemodynamic parameters are adequate and the patient has adequate cardiac output and index and the patient is on low dose pressors for now Continue following up this patient. Put the patient on stress dose hydrocortisone Keep the patient off pressors and monitor the blood pressure Management of chest tube for cardiothoracic surgery. Output was noted. No ilbertad dence of any air leak. No evidence of pneumothorax on today's chest x-ray. Hemoglobin is stable The patient was started on aspirin and beta blockers and high-dose statins. Condition is stable for now. We'll continue to follow make further accommodation based on the progress.
[2021-07-25] MEDS: LACTATED RINGERS 1,000 ML IV SCH (10:40)
--- NOTE | 2021-07-25 11:08 | P.PN ---
Subjective Progress Note Date: 07/25/21 This is Patel kincaid NP, I'm dictating on behalf of Dr. Whitney's H&P and A&P. Patient was interviewed and examined. Patient is a pleasant 75-year-old male who initially presented to Hospital for a cardiac catheterization, and ended up undergoing CABG. Patient reports that he is doing well today, does not complain of any chest pain or shortness of breath. He does have 3 chest tubes that are being removed today. Patient was sitting up in the chair during the exam. He is using his incentive spirometry as ordered. GENERAL: Well-appearing, well-nourished and in no acute distress. NECK: Supple without JVD or thyromegaly. LUNGS: Breath sounds clear to auscultation bilaterally. Respiration equal and unlabored. No wheezes, rales or rhonchi. HEART: Regular rate and rhythm without murmurs, rubs or gallops. S1 and S2 heard. EXTREMITIES: Normal range of motion, no edema. No clubbing or cyanosis. Peripheral pulses intact and strong. VITALS: Pulse 62, respirations 13, blood pressure 129/63, O2 saturation 95% TELEMETRY: Normal sinus rhythm LABS: White count 11.7, hemoglobin 7.4, sodium 137, potassium 4.0, B1 21, creatinine 1.20 IMPRESSION/PLAN: 1. CAD, status post CABG-continue medications as ordered. Control blood pressures. 2. Hypertension-see #1. 3. Hyperlipidemia-continue statin 4. COPD-continue to follow with pulmonary Further recommendations will be made based on the patient's clinical course. Objective - Vital Signs Vital signs: Vital Signs Temp 98.2 F 07/25/21 08:00 Pulse 62 07/25/21 10:45 Resp 10 L 07/25/21 10:45 BP 129/63 07/25/21 10:45 Pulse Ox 95 07/25/21 10:45 FiO2 50 07/24/21 16:00 Intake & Output 07/24/21 07/25/21 07/25/21 18:59 06:59 18:59 Intake Total 2117.167 532.403 504 Output Total 400 1785 225 Balance 1717.167 -1252.597 279 Weight 84.1 kg 84.7 kg Intake: IV 1562 432 144 Albumin Human 5% 250 ml 1000 In Empty Bag 1 bag @ 250 mls/hr IVPB Q1HR PRN Rx#: [id number] CO/CI 20 Lactated Ringers 1,000 ml 370 360 120 @ 20 mls/hr IV .Q24H [facility] Rx#:[id number] PRESSURE BAGS 72 72 24 ceFAZolin 1,000 mg In 100 Sodium Chloride 0.9% 50 ml @ 100 mls/hr IVPB Q8HR [facility] Rx#:[id number] Intake, IV Titration 55.167 100.403 Amount Insulin Regular 100 unit 21.489 21.681 In Sodium Chloride 0.9% 100 ml @ Per Protocol IV .Q0M [facility] Rx#:[id number] Norepinephrine 4 mg In 33.678 78.722 Sodium Chloride 0.9% 250 ml @ 0.05 MCG/KG/MIN 15. 64 mls/hr IV .[id number] [facility] Rx#:[id number] Oral 500 360 Output: Chest Tube Drainage 200 130 Mediastinal 130 50 Right/Left 70 80 Urine 200 1655 225 Other: Voiding Method Indwelling Catheter Indwelling Catheter ABP, PAP, CO, CI - Last Documented Arterial Blood Pressure 89/36 Pulmonary Artery Pressure 28/11 Cardiac Output 5.9 Cardiac Index 3 - Labs CBC & Chem 7: 07/25/21 04:38 07/25/21 04:38 Labs: Abnormal Lab Results - Last 24 Hours (Table) 07/24/21 07/24/21 07/24/21 Range/Units 11:10 12:09 13:05 WBC (3.8-10.6) k/uL RBC (4.30-5.90) m/uL Hgb (13.0-17.5) gm/dL Hct (39.0-53.0) % Plt Count (150-450) k/uL Neutrophils # (1.3-7.7) k/uL Lymphocytes # (1.0-4.8) k/uL BUN (9-20) mg/dL POC Glucose (mg/dL) 118 H 118 H 148 H (75-99) mg/dL Calcium (8.4-10.2) mg/dL Alkaline Phosphatase (38-126) U/L Total Protein (6.3-8.2) g/dL 07/24/21 07/24/21 07/24/21 Range/Units 14:12 15:00 16:14 WBC (3.8-10.6) k/uL RBC (4.30-5.90) m/uL Hgb (13.0-17.5) gm/dL Hct (39.0-53.0) % Plt Count (150-450) k/uL Neutrophils # (1.3-7.7) k/uL Lymphocytes # (1.0-4.8) k/uL BUN (9-20) mg/dL POC Glucose (mg/dL) 137 H 115 H 117 H (75-99) mg/dL Calcium (8.4-10.2) mg/dL Alkaline Phosphatase (38-126) U/L Total Protein (6.3-8.2) g/dL 07/24/21 07/24/21 07/24/21 Range/Units 18:13 19:00 19:44 WBC (3.8-10.6) k/uL RBC (4.30-5.90) m/uL Hgb (13.0-17.5) gm/dL Hct (39.0-53.0) % Plt Count (150-450) k/uL Neutrophils # (1.3-7.7) k/uL Lymphocytes # (1.0-4.8) k/uL BUN (9-20) mg/dL POC Glucose (mg/dL) 153 H 168 H 149 H (75-99) mg/dL Calcium (8.4-10.2) mg/dL Alkaline Phosphatase (38-126) U/L Total Protein (6.3-8.2) g/dL 07/24/21 07/25/21 07/25/21 Range/Units 21:54 00:37 02:23 WBC (3.8-10.6) k/uL RBC (4.30-5.90) m/uL Hgb (13.0-17.5) gm/dL Hct (39.0-53.0) % Plt Count (150-450) k/uL Neutrophils # (1.3-7.7) k/uL Lymphocytes # (1.0-4.8) k/uL BUN (9-20) mg/dL POC Glucose (mg/dL) 114 H 124 H 127 H (75-99) mg/dL Calcium (8.4-10.2) mg/dL Alkaline Phosphatase (38-126) U/L Total Protein (6.3-8.2) g/dL 07/25/21 07/25/21 07/25/21 Range/Units 04:34 04:38 04:38 WBC 11.7 H (3.8-10.6) k/uL RBC 2.56 L (4.30-5.90) m/uL Hgb 7.4 L (13.0-17.5) gm/dL Hct 22.7 L (39.0-53.0) % Plt Count 132 L (150-450) k/uL Neutrophils # 10.4 H (1.3-7.7) k/uL Lymphocytes # 0.8 L (1.0-4.8) k/uL BUN 21 H (9-20) mg/dL POC Glucose (mg/dL) 107 H (75-99) mg/dL Calcium 8.0 L (8.4-10.2) mg/dL Alkaline Phosphatase 35 L (38-126) U/L Total Protein 5.5 L (6.3-8.2) g/dL 07/25/21 Range/Units 06:20 WBC (3.8-10.6) k/uL RBC (4.30-5.90) m/uL Hgb (13.0-17.5) gm/dL Hct (39.0-53.0) % Plt Count (150-450) k/uL Neutrophils # (1.3-7.7) k/uL Lymphocytes # (1.0-4.8) k/uL BUN (9-20) mg/dL POC Glucose (mg/dL) 125 H (75-99) mg/dL Calcium (8.4-10.2) mg/dL Alkaline Phosphatase (38-126) U/L Total Protein (6.3-8.2) g/dL
[2021-07-25 11:45] LABS: Glucose,Whole Blood 140 mg/dL (75-99)
[2021-07-25] MEDS: INSULIN ASPART (NovoLOG) 100 UNIT/ML VIAL SQ SCH ×3 (13:55→21:00)
[2021-07-25 16:38] LABS: Glucose,Whole Blood 190 mg/dL (75-99)
--- NOTE | 2021-07-25 16:52 | P.PN ---
Subjective Progress Note Date: 07/25/21 Principal diagnosis: Coronary artery bypass surgery; post two-vessel bypass Post thoracotomy 75-year-old active gentleman who follows on an outpatient basis with Dr. David Mancini for primary care and Dr. Carmichael for cardiology. He has a previous medical history of hypertension, polymyositis with daily prednisone use, melanoma in 2001 and 2016, remote history of pneumonia, previous tobacco dependence, 35 pound weight loss since last August due to not eating and the stress of taking care of his , and family history of premature coronary artery disease with father from myocardial infarction at 55 years old. He was recently hospitalized for dizziness and near syncope which was felt to be secondary to dehydration. Brain CT completed at that time was negative for any acute process. He also had an echocardiogram completed during that admission demonstrating normal left ventricular systolic function with EF 55-60%, mild aortic insufficiency, mild mitral and tricuspid regurgitation, and no pericardial effusion. He was stabilized and discharged to home. Upon follow-up with cardiology he had a stress test which was abnormal and he was recommended to undergo heart catheterization which was completed today and which demonstrated distal left main stenosis 60%, ostial LAD stenosis 99% with mid LAD stenosis 50%, and RCA stenosis 40-50%. Due to heart catheterization findings consultation was placed to Dr. Long from cardiothoracic surgery for revascularization recommendations. 07/25 2021 --the patient is doing well on 2 L of oxygen by nasal cannula. Chest tubes are still in place and the patient has a mediastinal, right pleural and left pleural chest tube. --The mediastinal chest tube has produced 1 80 mL over the past 24 hours and the pleural chest tubes have produced 1 50 mL over the past 24 hours. The chest x- ray from today shows adequate expansion of both lungs. No evidence of pneumotho rax. All of the chest tubes are in good location and the patient is using incentive spirometer and he is pulling approximately 500. -- He was taken off the norepinephrine infusion this morning and he is running is soft and blood pressure. Despite all this, he is receiving his Lopressor. Cardiac rhythm remains sinus. Surgical wound site is dry clean and intact. No altered mentation. No focal neurological deficits. The blood work from today shows a hemoglobin of 7.4 and the white cell count is at 11.7. Platelet count is at 132. BUN is at 21 with a creatinine of 1.2 and the sodium level of 137. Software Configuration Analyst on both and recommending to continue insulin drip and transition patient to Accu-Cheks every before meals and at bedtime with insulin sliding scale -- The patient was started on aspirin and beta blockers and high-dose statins. Objective - Vital Signs Vital signs: Vital Signs Temp 98.0 F 07/25/21 12:00 Pulse 85 07/25/21 14:00 Resp 13 07/25/21 14:00 BP 129/55 07/25/21 14:00 Pulse Ox 95 07/25/21 14:00 FiO2 50 07/24/21 16:00 Intake & Output 07/24/21 07/25/21 07/25/21 18:59 06:59 18:59 Intake Total 2117.167 552.682 4873 Output Total 400 1785 365 Balance 1717.167 -1252.597 877 Weight 84.1 kg 84.7 kg Intake: IV 1562 432 282 Albumin Human 5% 250 ml 1000 In Empty Bag 1 bag @ 250 mls/hr IVPB Q1HR PRN Rx#: [id number] CO/CI 20 Lactated Ringers 1,000 ml 370 360 240 @ 20 mls/hr IV .Q24H [facility] Rx#:[id number] PRESSURE BAGS 72 72 42 ceFAZolin 1,000 mg In 100 Sodium Chloride 0.9% 50 ml @ 100 mls/hr IVPB Q8HR [facility] Rx#:[id number] Intake, IV Titration 55.167 100.403 Amount Insulin Regular 100 unit 21.489 21.681 In Sodium Chloride 0.9% 100 ml @ Per Protocol IV .Q0M [facility] Rx#:[id number] Norepinephrine 4 mg In 33.678 78.722 Sodium Chloride 0.9% 250 ml @ 0.05 MCG/KG/MIN 15. 64 mls/hr IV .[id number] [facility] Rx#:[id number] Oral 500 960 Output: Chest Tube Drainage 200 130 Mediastinal 130 50 Right/Left 70 80 Urine 200 1655 365 Other: Voiding Method Indwelling Catheter Indwelling Catheter Indwelling Catheter ABP, PAP, CO, CI - Last Documented Arterial Blood Pressure 95/46 Pulmonary Artery Pressure 28/11 Cardiac Output 5.9 Cardiac Index 3 - Exam Head exam was generally normal. There was no scleral icterus or corneal arcus. Mucous membranes were moist. Neck was supple and without jugular venous distension, thyromegaly, or carotid bruits. Carotids were easily palpable bilaterally Lungs sounds are diminished bilaterally and the patient has equal and symmetrical breath sound and the patient has 3 chest tubes, bipolar, left pleural and mediastinal. Cardiac exam revealed the PMI to be normally situated and sized. The rhythm was regular and no extrasystoles were noted during several minutes of auscultation. The first and second heart sounds were normal and physiologic splitting of the second heart sound was noted. There were no murmurs, rubs, clicks, or gallops.Sternum stable clean and intact. Abdominal exam revealed normal bowel sounds. The abdomen was soft, non-tender, and without masses, organomegaly, or appreciable enlargement of the abdominal aorta. Examination of the extremities revealed easily palpable radial, femoral and pedal pulses. There was no cyanosis, clubbing or edema. Examination of the skin revealed no evidence of significant rashes, suspicious appearing nevi or other concerning lesions. Neurologically, the patient is awake and alert; Cranial nerves are essentially intact. - Labs CBC & Chem 7: 07/25/21 04:38 07/25/21 04:38 Labs: Abnormal Lab Results - Last 24 Hours (Table) 07/24/21 07/24/21 07/24/21 Range/Units 18:13 19:00 19:44 WBC (3.8-10.6) k/uL RBC (4.30-5.90) m/uL Hgb (13.0-17.5) gm/dL Hct (39.0-53.0) % Plt Count (150-450) k/uL Neutrophils # (1.3-7.7) k/uL Lymphocytes # (1.0-4.8) k/uL BUN (9-20) mg/dL POC Glucose (mg/dL) 153 H 168 H 149 H (75-99) mg/dL Calcium (8.4-10.2) mg/dL Alkaline Phosphatase (38-126) U/L Total Protein (6.3-8.2) g/dL 07/24/21 07/25/21 07/25/21 Range/Units 21:54 00:37 02:23 WBC (3.8-10.6) k/uL RBC (4.30-5.90) m/uL Hgb (13.0-17.5) gm/dL Hct (39.0-53.0) % Plt Count (150-450) k/uL Neutrophils # (1.3-7.7) k/uL Lymphocytes # (1.0-4.8) k/uL BUN (9-20) mg/dL POC Glucose (mg/dL) 114 H 124 H 127 H (75-99) mg/dL Calcium (8.4-10.2) mg/dL Alkaline Phosphatase (38-126) U/L Total Protein (6.3-8.2) g/dL 07/25/21 07/25/21 07/25/21 Range/Units 04:34 04:38 04:38 WBC 11.7 H (3.8-10.6) k/uL RBC 2.56 L (4.30-5.90) m/uL Hgb 7.4 L (13.0-17.5) gm/dL Hct 22.7 L (39.0-53.0) % Plt Count 132 L (150-450) k/uL Neutrophils # 10.4 H (1.3-7.7) k/uL Lymphocytes # 0.8 L (1.0-4.8) k/uL BUN 21 H (9-20) mg/dL POC Glucose (mg/dL) 107 H (75-99) mg/dL Calcium 8.0 L (8.4-10.2) mg/dL Alkaline Phosphatase 35 L (38-126) U/L Total Protein 5.5 L (6.3-8.2) g/dL 07/25/21 07/25/21 07/25/21 Range/Units 06:20 11:43 16:36 WBC (3.8-10.6) k/uL RBC (4.30-5.90) m/uL Hgb (13.0-17.5) gm/dL Hct (39.0-53.0) % Plt Count (150-450) k/uL Neutrophils # (1.3-7.7) k/uL Lymphocytes # (1.0-4.8) k/uL BUN (9-20) mg/dL POC Glucose (mg/dL) 125 H 140 H 190 H (75-99) mg/dL Calcium (8.4-10.2) mg/dL Alkaline Phosphatase (38-126) U/L Total Protein (6.3-8.2) g/dL
[2021-07-25] MEDS: SENNOSIDES-DOCUSATE SODIUM 1 EACH TAB PO SCH (20:49)
[2021-07-25 20:53] LABS: Glucose,Whole Blood 157 mg/dL (75-99)
[2021-07-26] MEDS: HYDROCORTISONE SUCCINATE 100 MG/2 ML VIAL IV SCH ×2 (00:14→07:40)
[2021-07-26] MEDS: HEPARIN SODIUM,PORCINE/PF 5,000 UNIT/0.5 ML SYRINGE SQ SCH ×4 (00:14→23:37)
[2021-07-26] MEDS: KETOROLAC 15 MG/ML 1 ML VIAL IVP SCH ×3 (00:17→11:48)
--- NOTE | 2021-07-26 06:34 | XR ---
EXAMINATION TYPE: XR chest 1V portable DATE OF EXAM: 07/26/2021 COMPARISON: 07/25/2021 HISTORY: Postcardiac surgery TECHNIQUE: Single frontal view of the chest is obtained. FINDINGS: Postoperative changes of recent cardiac surgery. There has been interval removal of the bilateral chest tubes and mediastinal tube. There is no pneumo thorax. There is mild persistent atelectasis in the left lower lobe. The right lung is clear. The pulmonary vasculature does not appear congested. There are no pleural effusions. IMPRESSION: Interval removal of the bilateral chest tubes and mediastinal tube. No pneumothorax or p leural effusion. Minimal left lower lobe atelectasis.
[2021-07-26 06:58] LABS: Glucose,Whole Blood 176 mg/dL (75-99)
[2021-07-26] MEDS: DEXTROSE 5% IN WATER 100 ML with AMIODARONE 150 MG IV PRN ×3 (07:03→11:48)
[2021-07-26] MEDS: INSULIN ASPART (NovoLOG) 100 UNIT/ML VIAL SQ SCH ×4 (07:04→20:18)
[2021-07-26] MEDS: ASPIRIN 325 MG TAB PO SCH (07:40)
[2021-07-26] MEDS: METOPROLOL TARTRATE 25 MG TAB PO SCH ×3 (07:40→23:37)
[2021-07-26] MEDS: PANTOPRAZOLE 40 MG TABLET PO SCH (07:40)
[2021-07-26] MEDS: FOLIC ACID 1 MG TAB PO SCH (07:40)
[2021-07-26] MEDS: CLOPIDOGREL 75 MG TAB PO SCH (07:40)
[2021-07-26] MEDS: ATORVASTATIN 40 MG TAB PO SCH (07:40)
--- NOTE | 2021-07-26 07:51 | P.PN ---
Subjective Progress Note Date: 07/26/21 Principal diagnosis: Coronary artery disease. Previous medical history of hypertension, hyperlipidemia, polymyositis with daily prednisone use, melanoma in 2001 and 2016, remote history of pneumonia, previous tobacco dependence, 35 pound weight loss since last August, family history of premature coronary artery disease, severe COPD POD #3 coronary artery bypass grafting 2 vessels, left internal mammary artery to the left anterior descending artery, reverse saphenous vein graft to the obtuse marginal artery, endoscopic harvesting of the left greater saphenous vein, ligation of left atrial appendage using a 25 mm Atriclip, epi-aortic ultrasound and intraoperative transesophageal echocardiogram Postoperative acute blood loss anemia, expected given hemodilution and cardi opulmonary bypass pump Postoperative atrial fibrillation, known common occurrence after open heart surgery The patient was seen and examined this morning laying in bed in no acute distress in the intensive care unit. Went into AFib with RVR this morning, started on amiodarone protocol. Hemodynamically stable off pressors. Does complain of chest pain which started with tachycardia. Currently on 2 L nasal cannula with oxygen saturation in the high 90s, able to achieve 1000 mL on his incentive spirometry. Ambulated out to the hallway yesterday. Right internal jugular Cordis remains in place. No other new concerns. Objective - Vital Signs Vital signs: Vital Signs Temp 98 F 07/26/21 04:00 Pulse 131 H 07/26/21 07:00 Resp 13 07/26/21 07:00 BP 122/88 07/26/21 07:00 Pulse Ox 93 L 07/26/21 07:00 FiO2 50 07/25/21 16:00 Intake & Output 07/25/21 07/26/21 07/26/21 18:59 06:59 18:59 Intake Total 1767 363 33 Output Total 545 975 200 Balance 1222 -612 -167 Intake: IV 447 363 33 Lactated Ringers 1,000 ml 390 330 30 @ 20 mls/hr IV .Q24H [facility] Rx#:[id number] PRESSURE BAGS 57 33 3 Oral 1320 Output: Urine 545 975 200 Other: Voiding Method Indwelling Catheter Indwelling Catheter ABP, PAP, CO, CI - Last Documented Arterial Blood Pressure 95/46 Pulmonary Artery Pressure 28/11 Cardiac Output 5.9 Cardiac Index 3 - Exam CONSTITUTIONAL: Appears comfortable, cooperative, no acute distress RESPIRATORY: Lungs sounds diminished bilaterally. Respirations even, nonlabored. Currently on 2 L nasal cannula with oxygen saturation 96%. Able to achieve 1000 mL on incentive spirometry. Weak cough. CARDIOVASCULAR: S1, S2 present. [place], irregular rate and rhythm, afib with RVR on telemetry. Sternum stable. Palpable peripheral pulses bilaterally. No edema present. No calf pain or tenderness noted. Heart hugger in place with patient demonstrating appropriate use. Antiembolism stockings, SCDs present. GASTROINTESTINAL: Abdomen soft, nontender, nondistended. Active bowel sounds present 4 quadrants. Tolerating diet. Positive flatus GENITOURINARY: Ramirez present draining clear, yellow urine. Output overnight 70-100 mL per hour, 1520 mL the last 24 hours INTEGUMENTARY: Skin is warm and dry with evidence of good perfusion. Anterior chest incision well approximated and covered with dry intact dressing. Left lower extremity EVH site well approximated without redness or drainage. NEUROLOGIC: Cranial nerves II through XII intact MUSKULOSKELETAL: Able to move all extremities, strength equal bilaterally PSYCHIATRIC: Alert and oriented to person place and time, appropriate affect, intact judgment and insight INVASIVE LINES AND TUBES: A/V epicardial pacemaker wires present, grounded. Right internal jugular Cordis present. - Allied health notes Allied health notes reviewed: nursing - Labs CBC & Chem 7: 07/25/21 04:38 07/25/21 04:38 Labs: Abnormal Lab Results - Last 24 Hours (Table) 07/25/21 07/25/21 07/25/21 Range/Units 11:43 16:36 20:52 POC Glucose (mg/dL) 140 H 190 H 157 H (75-99) mg/dL 07/26/21 Range/Units 06:55 POC Glucose (mg/dL) 176 H (75-99) mg/dL - Imaging and Cardiology Chest x-ray: report reviewed, image reviewed Assessment and Plan Assessment: 1. Coronary artery disease, status post two-vessel CABG 2. Hypertension 3. Hyperlipidemia 4. Polymyositis with daily prednisone use 5. Melanoma in 2001 and 2016 6. Remote history of pneumonia 7. Previous tobacco dependence 8. 35 pound weight loss since last August 9. Family history of premature coronary artery disease 10. Severe COPD with preoperative FEV1 28% of predicted 11. Postoperative acute blood loss anemia 12. Postoperative atrial fibrillation, status post left atrial appendage ligation Plan: 1. Continue aspirin, statin, Plavix, beta sujey therapy. Will increase beta sujey therapy as tolerated. 2. Continue amiodarone, may give up to 4 boluses. Will transition to oral amio. No need for anticoagulation unless in afib >24 hours 3. Wean O2 as tolerated. Encourage incentive spirometry 10 times every hour while awake. Bronchodilators, IV Solu-Cortef per pulmonology 4. Increase activity as tolerated. PT/OT/cardiac rehab consulted 5. Will monitor daily labs and x-rays. Electrolyte replacement per protocol 6. GI/DVT prophylaxis 7. Pain control with current medication regimen 8. Insulin management per primary care service. Patient is not diabetic, preoperative hemoglobin A1c 6.3% of predicted 9. Discontinue Ramirez catheter. May bladder scan and straight cath for > 300 mL residual 10. Strict accurate intake and output. Daily weights 11. More recommendations to follow
[2021-07-26 07:55] LABS: Basophils % (A) 0 %; Eosinophils % (A) 0 %; HCT 24.7 % (39.0-53.0); HGB 7.6 gm/dL (13.0-17.5); Lymphocytes # (A) 0.9 k/uL (1.0-4.8); Lymphocytes % (A) 8 %; MCHC 30.9 g/dL (31.0-37.0); MCV 90.6 fL (80.0-100.0); Mean Platelet Volume 8.8; Monocytes # (A) 0.4 k/uL (0-1.0); Monocytes % (A) 3 %; Neutrophils # (A) 9.5 k/uL (1.3-7.7); Neutrophils % (A) 88 %; Platelet Count 157 k/uL (150-450); RBC 2.72 m/uL (4.30-5.90); RDW 14.6 % (11.5-15.5); WBC 10.8 k/uL (3.8-10.6)
[2021-07-26 07:57] LABS: Albumin 3.4 g/dL (3.5-5.0); Calcium 7.9 mg/dL (8.4-10.2); Total Bilirubin 0.3 mg/dL (0.2-1.3); Total Protein 5.5 g/dL (6.3-8.2)
[2021-07-26] MEDS: LACTATED RINGERS 1,000 ML IV SCH (09:41)
[2021-07-26] MEDS: CLOTRIMAZOLE 1% CREAM 30 GM TUBE TOPICAL SCH ×2 (10:19→20:17)
--- NOTE | 2021-07-26 10:19 | P.PN ---
Subjective Progress Note Date: 07/26/21 07/23/2021, the patient is being seen for a follow-up. The patient was seen immediately after he arrived from the operating room. The patient underwent two-vessel bypass surgery with MEZA to LAD. The patient was kept sedated and the patient was brought into the intensive care unit. This point in time, the patient on propofol running at 50 mg/kg per minute. He is well sedated and synchronous with the mechanical ventilator. His assist-control mode of mechanical ventilation at the rate of 12 with tidal volume of 550 mL with an FiO2 of 100% and a PEEP of 5. The patient has 3 chest tubes, right pleural, left pleural and mediastinal and output is minimal for now. No evidence of any air leaks. No evidence of pneumothorax on chest x-ray done postop. ET tube is in a good location and the patient also has a [place] catheter in place. The patient is at 7.38 with a pCO2 of 40 and pO2 of 342 and the patient's FiO2 has been drop down to 50%. Hemodynamically, the patient is on 5 mcg/kg per minute of nitroglycerin infusion. The patient is on no pressors for now. The patient on insulin drip at 2 units an hour. Urine output is adequate. The hemoglobin is at 9.7 with a white second of 14.3. Platelet count is at 157. BUN is at 17 with a creatinine of 0.7 sodium level is at 138. He is afebrile. He is on normal saline at the rate of 50 hour., Comfortable and a cardiac rhythm is sin us. 2021, the patient is extubated and patient sitting up on a chair. Is currently on oxygen at 2 L. No complaints. No altered mentation. No focal neurological deficits. His cardiac output is at 8.9 with an index of 4.9. Pulmonary artery pressures are 31/17. The patient is on a low dose of norepinephrine infusion running at 0.01 mcg/kg per minute. Insulin drip is running at 2 units an hour. Nitroglycerin drip has been discontinued yesterday. Chest tube output was noted. The mediastinal chest tube has produced 20 mL /hours 460 cc since surgery, I will and the right and left pleural chest tubes are produced 10 mL an hour a total of 270 mL since arrival from today operating room. Chest x-ray showed adequate expansion of both lungs. No evidence of pneumothorax. Chest tubes are in place. [place] catheter is still in place. He is using incentive spirometer and is pulling approximately 500 mL. He is also on a stress dose hydrocortisone for now.. On today's blood work, the hemoglobin is at 8.4, dropped since surgery. Platelet count is at 148, dropped since surgery.. 07/25 2021, the patient is doing well on 2 L of oxygen by nasal cannula. Chest tubes are still in place and the patient has a mediastinal, right pleural and left pleural chest tube. The output from the chest tubes were noted. The mediastinal chest tube has produced 1 80 mL over the past 24 hours and the pleural chest tubes have produced 1 50 mL over the past 24 hours. The chest x- ray from today shows adequate expansion of both lungs. No evidence of pneumothorax. All of the chest tubes are in good location and the patient is using incentive spirometer and he is pulling approximately 500. The patient otherwise is doing well. No nausea. No vomiting. No chest pain. No hypotension. He was taken off the norepinephrine infusion this morning and he is running is soft and blood pressure. Despite all this, he is receiving his Lopressor. Cardiac rhythm remains sinus. [place] catheter removed. Surgical wound site is dry clean and intact. No altered mentation. No focal neurol ogical deficits. The blood work from today shows a hemoglobin of 7.4 and the white cell count is at 11.7. Platelet count is at 132. BUN is at 21 with a creatinine of 1.2 and the sodium level of 137. On today's evaluation of 07/26/2021, the patient is postop day #3. The patient was doing well following his two-vessel bypass surgery. However, at around 8:00 this morning, the patient went into atrial fibrillation with RVR. Based on that, the patient was started on amiodarone per protocol the patient has received a bolus. The patient has received 2 boluses thus far the patient is currently being loaded with amiodarone. Cardiac rhythm for now is atrial fibrillation with a controlled rate. He is currently on room air oxygen. All of the chest tubes have been removed yesterday. He is using the incentive spirometer and he is achieving of 1000 mL of air. He did ambulate yesterday. Priscila lopeztly is sitting up comfortably on the recliner. No other new complaints otherwise for now. No chest pain. Surgical wound site is dry clean and intact. The chest x-ray from today shows postsurgical atelectatic changes and left lung base. The patient's white cell count is at 10.8 with a hemoglobin of 7.6. Creatinine is at 1.2. Objective - Vital Signs Vital signs: Vital Signs Temp 98.9 F 07/26/21 08:00 Pulse 82 07/26/21 09:00 Resp 12 07/26/21 09:00 BP 127/63 07/26/21 09:00 Pulse Ox 98 07/26/21 09:00 FiO2 50 07/25/21 16:00 Intake & Output 07/25/21 07/26/21 07/26/21 18:59 06:59 18:59 Intake Total 1767 363 505 Output Total 545 975 200 Balance 1222 -612 305 Intake: IV 447 363 99 Lactated Ringers 1,000 ml 390 330 90 @ 20 mls/hr IV .Q24H [facility] Rx#:[id number] PRESSURE BAGS 57 33 9 Intake, IV Titration 166 Amount Amiodarone 360 mg In 66 Dextrose 5% in Water 200 ml @ 1 MG/MIN 34.533 mls/ hr IV .Q6H [facility]N Rx#: [id number] Dextrose 5% in Water 100 100 ml @ 618 mls/hr IV .Q10M PRN with Amiodarone 150 mg Rx#:[id number] Oral 1320 240 Output: Urine 545 975 200 Other: Voiding Method Indwelling Catheter Indwelling Catheter Urinal ABP, PAP, CO, CI - Last Documented Arterial Blood Pressure 95/46 Pulmonary Artery Pressure 28/11 Cardiac Output 5.9 Cardiac Index 3 - Exam intubated, calm and comfortable nonacute distress, awake and alert on 2 L of oxygen by nasal cannula Head exam was generally normal. There was no scleral icterus or corneal arcus. Mucous membranes were moist. Neck was supple and without jugular venous distension, thyromegaly, or carotid bruits. Carotids were easily palpable bilaterally. There was no adenopathy.The patient has a right IJ [place] catheter is in place. Orogastric and orotracheal tube are both in place. Lungs sounds are diminished bilaterally and the patient has equal and symmetrical breath sound and the patient has 3 chest tubes and all of the chest tubes are removed and the patient has adequate dry dressing applied to the chest tube sites. Cardiac exam revealed the PMI to be normally situated and sized. The rhythm was irregular and no extrasystoles were noted during several minutes of auscultation. The first and second heart sounds were normal and physiologic splitting of the second heart sound was noted. There were no murmurs, rubs, clicks, or gallops.Sternum stable clean and intact. The patient's cardiac rhythm is irregular consistent with atrial fibrillation, rate is controlled for now Abdominal exam revealed normal bowel sounds. The abdomen was soft, non-tender, and without masses, organomegaly, or appreciable enlargement of the abdominal aorta. Examination of the extremities revealed easily palpable radial, femoral and pedal pulses. There was no cyanosis, clubbing or edema. Examination of the skin revealed no evidence of significant rashes, suspicious appearing nevi or other concerning lesions. Neurologically, the patient is awake and alert and the patient does not have any focal neurological deficit. Cranial nerves are essentially intact. - Labs CBC & Chem 7: 07/26/21 07:18 07/26/21 07:18 Labs: Abnormal Lab Results - Last 24 Hours (Table) 07/25/21 07/25/21 07/25/21 Range/Units 11:43 16:36 20:52 WBC (3.8-10.6) k/uL RBC (4.30-5.90) m/uL Hgb (13.0-17.5) gm/dL Hct (39.0-53.0) % MCHC (31.0-37.0) g/dL Neutrophils # (1.3-7.7) k/uL Lymphocytes # (1.0-4.8) k/uL BUN (9-20) mg/dL Glucose (74-99) mg/dL POC Glucose (mg/dL) 140 H 190 H 157 H (75-99) mg/dL Calcium (8.4-10.2) mg/dL Total Protein (6.3-8.2) g/dL Albumin (3.5-5.0) g/dL 07/26/21 07/26/21 07/26/21 Range/Units 06:55 07:18 07:18 WBC 10.8 H (3.8-10.6) k/uL RBC 2.72 L (4.30-5.90) m/uL Hgb 7.6 L (13.0-17.5) gm/dL Hct 24.7 L (39.0-53.0) % MCHC 30.9 L (31.0-37.0) g/dL Neutrophils # 9.5 H (1.3-7.7) k/uL Lymphocytes # 0.9 L (1.0-4.8) k/uL BUN 25 H (9-20) mg/dL Glucose 159 H (74-99) mg/dL POC Glucose (mg/dL) 176 H (75-99) mg/dL Calcium 7.9 L (8.4-10.2) mg/dL Total Protein 5.5 L (6.3-8.2) g/dL Albumin 3.4 L (3.5-5.0) g/dL Assessment and Plan Plan: Assessment: coronary artery bypass surgery. The patient is post two-vessel bypass and the patient is currently postop day #3. Note that the patient had some dramatic CAD and preop cardiac catheterization showed 60% left main stenosis, ostial LAD stenosis of 99%, and mid LAD stenosis of 50% and RCA stenosis of 40-50%. The patient is currently hemodynamically stable intubated on a mechanical ventilator. Atrial fibrillation with RVR, currently loaded with amiodarone. Still in atrial fibrillation with a controlled rate for now. 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 History of 35 pound weight loss in roughly 11 months Acute anemia, expected outcome following surgery Plan: Discontinue the hydrocortisone up with the patient on prednisone of 10 mg on a daily basis, and maintenance dose for polymyositis Continue using incentive spirometer and the patient is pulling approximately 1000 Drop down the FiO2 to maintain saturation above 90%, currently on room air oxygen No pressors for now Amiodarone loading and maintenance per protocol No anticoagulants for now Chest tubes are removed and the patient has some postsurgical atelectatic carter ges in the left lung base, expected outcome of surgery Hemoglobin is stable The patient was started on aspirin and beta blockers and high-dose statins. Condition is stable for now. We'll continue to follow make further accommodation based on the progress.
[2021-07-26 11:10] LABS: Glucose,Whole Blood 183 mg/dL (75-99)
--- NOTE | 2021-07-26 11:18 | P.PN ---
Subjective Progress Note Date: 07/26/21 This is Patel Monteiro NP, I'm dictating on behalf of Dr. Whitney's H&P and A&P. Patient was interviewed and examined. Patient is a pleasant 75-year-old male who initially presented to the hospital for a heart catheterization, and subsequently underwent CABG. Patient reports that he's doing okay this morning, but nursing reports that the patient went into A. fib with RVR this morning. The nursing staff has been following cardiothoracic protocol giving the patient boluses of amiodarone. They state t he patient's heart rate started in the 140s, and is now in the low 100s, the patient does remain in A. fib at this time. Patient denies chest pain, shortness of breath, heart palpitations. He does report that he felt when he went into A. fib, as he did not feel very well at that time. Patient does state he has improved. GENERAL: Well-appearing, well-nourished and in no acute distress. NECK: Supple without JVD or thyromegaly. LUNGS: Breath sounds clear to auscultation bilaterally. Respiration equal and unlabored. No wheezes, rales or rhonchi. HEART: Regular rate and rhythm without murmurs, rubs or gallops. S1 and S2 heard. EXTREMITIES: Normal range of motion, no edema. No clubbing or cyanosis. Peripheral pulses intact and strong. VITALS: Temp 98.9, pulse 112, respirations 13, blood pressure 135/81, O2 saturation 97% on 2 L by nasal cannula TELEMETRY: Atrial fibrillation, rapid ventricular response LABS: White count 10.8, hemoglobin 7.6, sodium 141, potassium 4.0, B1 25, creatinine 1.22 IMPRESSION/PLAN: 1. A. fib with RVR-recommend increasing beta blockers for more sympathetic management to the heart rate. 2. CAD, status post CABG-continue medications as ordered. Continue to monitor blood pressure. 3. Hyperlipidemia-continue statin. 4. COPD-continue to follow with pulmonary. Further recommendations will be made based on the patient's clinical course. Objective - Vital Signs Vital signs: Vital Signs Temp 98 F 07/26/21 04:00 Pulse 131 H 07/26/21 07:00 Resp 13 07/26/21 07:00 BP 122/88 07/26/21 07:00 Pulse Ox 97 07/26/21 08:14 FiO2 50 07/25/21 16:00 Intake & Output 07/25/21 07/26/21 07/26/21 18:59 06:59 18:59 Intake Total 1767 363 33 Output Total 545 975 200 Balance 8662 -292 -997 Intake: IV 447 363 33 Lactated Ringers 1,000 ml 390 330 30 @ 20 mls/hr IV .Q24H [facility] Rx#:[id number] PRESSURE BAGS 57 33 3 Oral 1320 Output: Urine 545 975 200 Other: Voiding Method Indwelling Catheter Indwelling Catheter ABP, PAP, CO, CI - Last Documented Arterial Blood Pressure 95/46 Pulmonary Artery Pressure 28/11 Cardiac Output 5.9 Cardiac Index 3 - Labs CBC & Chem 7: 07/26/21 07:18 07/26/21 07:18 Labs: Abnormal Lab Results - Last 24 Hours (Table) 07/25/21 07/25/21 07/25/21 Range/Units 11:43 16:36 20:52 WBC (3.8-10.6) k/uL RBC (4.30-5.90) m/uL Hgb (13.0-17.5) gm/dL Hct (39.0-53.0) % MCHC (31.0-37.0) g/dL Neutrophils # (1.3-7.7) k/uL Lymphocytes # (1.0-4.8) k/uL BUN (9-20) mg/dL Glucose (74-99) mg/dL POC Glucose (mg/dL) 140 H 190 H 157 H (75-99) mg/dL Calcium (8.4-10.2) mg/dL Total Protein (6.3-8.2) g/dL Albumin (3.5-5.0) g/dL 07/26/21 07/26/21 07/26/21 Range/Units 06:55 07:18 07:18 WBC 10.8 H (3.8-10.6) k/uL RBC 2.72 L (4.30-5.90) m/uL Hgb 7.6 L (13.0-17.5) gm/dL Hct 24.7 L (39.0-53.0) % MCHC 30.9 L (31.0-37.0) g/dL Neutrophils # 9.5 H (1.3-7.7) k/uL Lymphocytes # 0.9 L (1.0-4.8) k/uL BUN 25 H (9-20) mg/dL Glucose 159 H (74-99) mg/dL POC Glucose (mg/dL) 176 H (75-99) mg/dL Calcium 7.9 L (8.4-10.2) mg/dL Total Protein 5.5 L (6.3-8.2) g/dL Albumin 3.4 L (3.5-5.0) g/dL
[2021-07-26] MEDS: AMIODARONE 450 MG in DEXTROSE 5% IN WATER 250 ML IV SCH ×2 (15:48)
[2021-07-26 16:40] LABS: Glucose,Whole Blood 132 mg/dL (75-99)
[2021-07-26 20:16] LABS: Glucose,Whole Blood 143 mg/dL (75-99)
[2021-07-26] MEDS: SENNOSIDES-DOCUSATE SODIUM 1 EACH TAB PO SCH (20:18)
[2021-07-26] MEDS: AMIODARONE 200 MG TAB PO SCH (20:19)
[2021-07-26 20:56] LABS: Glucose,Whole Blood 137 mg/dL (75-99)
[2021-07-26] MEDS ORDERED: MELATONIN 3 MG TABLET PO PRN (23:52)
[2021-07-27 06:08] LABS: Glucose,Whole Blood 101 mg/dL (75-99)
[2021-07-27] MEDS: INSULIN ASPART (NovoLOG) 100 UNIT/ML VIAL SQ SCH ×4 (06:19→20:44)
[2021-07-27] MEDS: PANTOPRAZOLE 40 MG TABLET PO SCH (06:44)
--- NOTE | 2021-07-27 07:19 | XR ---
EXAMINATION TYPE: XR chest 2V DATE OF EXAM: 07/27/2021 HISTORY: Shortness of breath. COMPARISON: 07/26/2021 TECHNIQUE: Single view of the chest is submitted. FINDINGS: Demonstrated are scattered senescent parenchymal change. Improving linear atelectasis at the left lung base. Postoperative changes redemonstrated. The heart is stable. Hilar and mediastinal structures are within normal limits. Degenerative changes are seen of the dorsal spine. IMPRESSION: 1. Improved aeration left lower lobe with near complete resolution of atelectasis. No pneumothorax p resent.
[2021-07-27 07:24] LABS: HGB 8.8 gm/dL (13.0-17.5); Hypochromasia Slight; MCH 29.4 pg (25.0-35.0); MCHC 32.6 g/dL (31.0-37.0); MCV 90.3 fL (80.0-100.0); Mean Platelet Volume 8.3; RBC 2.99 m/uL (4.30-5.90); RDW 15.2 % (11.5-15.5); WBC 15.8 k/uL (3.8-10.6)
[2021-07-27 07:25] LABS: Platelet Count 322 k/uL (150-450)
[2021-07-27 07:48] LABS: Calcium 8.3 mg/dL (8.4-10.2); Magnesium 2.6 mg/dL (1.6-2.3); Potassium 3.8 mmol/L (3.5-5.1)
[2021-07-27] MEDS: AMIODARONE 450 MG in DEXTROSE 5% IN WATER 250 ML IV SCH ×2 (08:18)
[2021-07-27] MEDS: LACTATED RINGERS 1,000 ML IV SCH (08:19)
[2021-07-27] MEDS: HEPARIN SODIUM,PORCINE/PF 5,000 UNIT/0.5 ML SYRINGE SQ SCH ×3 (08:41→23:49)
[2021-07-27] MEDS: CLOPIDOGREL 75 MG TAB PO SCH (08:41)
[2021-07-27] MEDS: AMIODARONE 200 MG TAB PO SCH ×2 (08:41→20:41)
[2021-07-27] MEDS: ATORVASTATIN 40 MG TAB PO SCH (08:41)
[2021-07-27] MEDS: ASPIRIN 325 MG TAB PO SCH (08:41)
[2021-07-27] MEDS: predniSONE 10 MG TAB PO SCH (08:42)
[2021-07-27] MEDS: CLOTRIMAZOLE 1% CREAM 30 GM TUBE TOPICAL SCH ×2 (08:42→20:44)
[2021-07-27] MEDS: METOPROLOL TARTRATE 50 MG TAB PO SCH ×2 (09:00→20:42)
[2021-07-27] MEDS ORDERED: POTASSIUM CHLORIDE ER 20 MEQ TAB.ER PO SCH (09:00)
[2021-07-27] MEDS: FOLIC ACID 1 MG TAB PO SCH (09:00)
--- NOTE | 2021-07-27 10:13 | P.PN ---
Subjective 75-year-old gentleman with history of coronary artery disease status post CABG postop atrial fibrillation. Patient is doing well and is free of cardiac symptoms. He could not sleep well last night. He has had runs of atrial fibrillation and had to be treated with amiodarone. He is currently not on anticoagulant per cardiothoracic surgery. Patient had MEZA to LAD and saphenous vein graft to OM. Left atrial appendage was ligated using 35 mm atriclip On exam: Patient is comfortable at rest remains in sinus rhythm vital signs are stable th ere is no jugular venous distention diminished air entry bilaterally heart exam reveals first and second heart sounds no gallop no murmur abdomen is soft exam extremities reveals mild bilateral pitting edema Labs showed a hemoglobin of 8.8 potassium is 3.8 BN is 26 creatinine is 1.4 Patient is currently on amiodarone 400 twice a day aspirin and Lipitor Plavix Lopressor 50 twice a day Assessment and plan: CAD status post CABG Postop atrial fibrillation Hypertension Dyslipidemia Continue current medications I will decrease the dose of amiodarone to 200 twice a day in 3 days. Objective - Vital Signs Vital signs: Vital Signs Temp 98.0 F 07/27/21 08:18 Pulse 64 07/27/21 08:18 Resp 12 07/27/21 08:18 BP 143/55 07/27/21 08:18 Pulse Ox 94 L 07/27/21 08:18 FiO2 21 07/27/21 08:16 Intake & Output 07/26/21 07/27/21 07/27/21 18:59 06:59 18:59 Intake Total 1151 216 100 Output Total 600 1775 Balance 551 -1559 100 Weight 85.5 kg Intake: IV 309 100 Lactated Ringers 1,000 ml 300 100 @ 20 mls/hr IV .Q24H [facility] Rx#:[id number] PRESSURE BAGS 9 Intake, IV Titration 362 16 Amount Amiodarone 360 mg In 66 Dextrose 5% in Water 200 ml @ 1 MG/MIN 34.533 mls/ hr IV .Q6H PRN Rx#: [id number] Amiodarone 450 mg In 48 Dextrose 5% in Water 250 ml @ 0.5 MG/MIN 16.667 mls/hr IV .Q15H PRN Rx#: [id number] Amiodarone 450 mg In 48 16 Dextrose 5% in Water 250 ml @ 0.5 MG/MIN 16.667 mls/hr IV .Q15H [facility] Rx#: [id number] Dextrose 5% in Water 100 200 ml @ 618 mls/hr IV .Q10M PRN with Amiodarone 150 mg Rx#:[id number] Oral 480 100 100 Output: Urine 600 1775 Other: Voiding Method Urinal Urinal # Bowel Movements 1 ABP, PAP, CO, CI - Last Documented Arterial Blood Pressure 95/46 Pulmonary Artery Pressure 28/11 Cardiac Output 5.9 Cardiac Index 3 - Labs CBC & Chem 7: 07/27/21 06:38 07/27/21 06:52 Labs: Abnormal Lab Results - Last 24 Hours (Table) 07/26/21 07/26/21 07/26/21 Range/Units 11:09 16:38 20:14 WBC (3.8-10.6) k/uL RBC (4.30-5.90) m/uL Hgb (13.0-17.5) gm/dL Hct (39.0-53.0) % BUN (9-20) mg/dL Creatinine (0.66-1.25) mg/dL Glucose (74-99) mg/dL POC Glucose (mg/dL) 183 H 132 H 143 H (75-99) mg/dL Calcium (8.4-10.2) mg/dL Magnesium (1.6-2.3) mg/dL 07/26/21 07/27/21 07/27/21 Range/Units 20:55 06:06 06:38 WBC 15.8 H (3.8-10.6) k/uL RBC 2.99 L (4.30-5.90) m/uL Hgb 8.8 L (13.0-17.5) gm/dL Hct 27.0 L (39.0-53.0) % BUN (9-20) mg/dL Creatinine (0.66-1.25) mg/dL Glucose (74-99) mg/dL POC Glucose (mg/dL) 137 H 101 H (75-99) mg/dL Calcium (8.4-10.2) mg/dL Magnesium (1.6-2.3) mg/dL 07/27/21 Range/Units 06:52 WBC (3.8-10.6) k/uL RBC (4.30-5.90) m/uL Hgb (13.0-17.5) gm/dL Hct (39.0-53.0) % BUN 26 H (9-20) mg/dL Creatinine 1.41 H (0.66-1.25) mg/dL Glucose 105 H (74-99) mg/dL POC Glucose (mg/dL) (75-99) mg/dL Calcium 8.3 L (8.4-10.2) mg/dL Magnesium 2.6 H (1.6-2.3) mg/dL
--- NOTE | 2021-07-27 10:43 | P.PN ---
Subjective Progress Note Date: 07/26/21 75-year-old active gentleman who follows on an outpatient basis with Dr. David Mancini for primary care and Dr. Carmichael for cardiology. He has a previous medical history of hypertension, polymyositis with daily prednisone use, melanoma in 2001 and 2016, remote history of pneumonia, previous tobacco dependence, 35 pound weight loss since last August due to not eating and the stress of taking care of his , and family history of premature coronary artery disease with father from myocardial infarction at 55 years old. He was recently hospitalized for dizziness and near syncope which was felt to be secondary to dehydration. Brain CT completed at that time was negative for any acute process. He also had an echocardiogram completed during that admission demonstrating normal left ventricular systolic function with EF 55-60%, mild aortic insufficiency, mild mitral and tricuspid regurgitation, and no pericardial effusion. He was stabilized and discharged to home. Upon follow-up with cardiology he had a stress test which was abnormal and he was recommended to undergo heart catheterization which was completed today and which demonstrated distal left main stenosis 60%, ostial LAD stenosis 99% with mid LAD stenosis 50%, and RCA stenosis 40-50%. Due to heart catheterization findings consultation was placed to Dr. Long from cardiothoracic surgery for revascularization recommendations. 07/25 2021 --the patient is doing well on 2 L of oxygen by nasal cannula. Chest tubes are still in place and the patient has a mediastinal, right pleural and left pleural chest tube. --The mediastinal chest tube has produced 1 80 mL over the past 24 hours and the pleural chest tubes have produced 1 50 mL over the past 24 hours. The chest x- ray from today shows adequate expansion of both lungs. No evidence of pneumothorax. All of the chest tubes are in good location and the patient is using incentive spirometer and he is pulling approximately 500. -- He was taken off the norepinephrine infusion this morning and he is running is soft and blood pressure. Despite all this, he is receiving his Lopressor. Cardiac rhythm remains sinus. Surgical wound site is dry clean and intact. No altered mentation. No focal neurological deficits. The blood work from today shows a hemoglobin of 7.4 and the white cell count is at 11.7. Platelet count is at 132. BUN is at 21 with a creatinine of 1.2 and the sodium level of 137. Compressed Gases Tester on both and recommending to continue insulin drip and [facility] before meals and at bedtime with insulin sliding scale -- The patient was started on aspirin and beta blockers and high-dose statins. 07/26/2021 Patient is currently sitting in a chair comfortably. Awake alert and oriented 3. No complaints of shortness of breath. Soreness at the surgical site. Patient is able to tolerate oral diet. On room air currently. Otherwise patient went into atrial fibrillation with RVR around 8 AM today. Patient was started on amiodarone drip and loading dose was given. Denied any dizziness or lightheadedness. No cough or sputum production. Chest x-ray showed interval removal of the bilateral chest tubes and mediastinal tube. No pneumothorax or pleural effusion. Minimal left lower lobe atelectasis. Laboratory data showed WBC 10.8 hemoglobin 7.6 and platelets 157 sodium 141 potassium 4.0 chloride 106 bicarb is 27 BUN 25 and creatinine 1.22 and calcium 7.9, 3.4 Current medications reviewed. Objective - Vital Signs Vital signs: Vital Signs Temp 98.0 F 07/27/21 08:18 Pulse 64 07/27/21 08:18 Resp 12 07/27/21 08:18 BP 143/55 07/27/21 08:18 Pulse Ox 94 L 07/27/21 08:18 FiO2 21 07/27/21 08:16 Intake & Output 07/26/21 07/27/21 07/27/21 18:59 06:59 18:59 Intake Total 1151 216 100 Output Total 600 1775 Balance 551 -1559 100 Weight 85.5 kg Intake: IV 309 100 Lactated Ringers 1,000 ml 300 100 @ 20 mls/hr IV .Q24H JARET Rx#:[id number] PRESSURE BAGS 9 Intake, IV Titration 362 16 Amount Amiodarone 360 mg In 66 Dextrose 5% in Water 200 ml @ 1 MG/MIN 34.533 mls/ hr IV .Q6H PRN Rx#: [id number] Amiodarone 450 mg In 48 Dextrose 5% in Water 250 ml @ 0.5 MG/MIN 16.667 mls/hr IV .Q15H PRN Rx#: [id number] Amiodarone 450 mg In 48 16 Dextrose 5% in Water 250 ml @ 0.5 MG/MIN 16.667 mls/hr IV .Q15H JARET Rx#: [id number] Dextrose 5% in Water 100 200 ml @ 618 mls/hr IV .Q10M PRN with Amiodarone 150 mg Rx#:[id number] Oral 480 100 100 Output: Urine 600 1775 Other: Voiding Method Urinal Urinal # Bowel Movements 1 ABP, PAP, CO, CI - Last Documented Arterial Blood Pressure 95/46 Pulmonary Artery Pressure 28/11 Cardiac Output 5.9 Cardiac Index 3 - Exam - Exam Head exam was generally normal. There was no scleral icterus or corneal arcus. M ucous membranes were moist. Neck was supple and without jugular venous distension, thyromegaly, or carotid bruits. Carotids were easily palpable bilaterally Lungs sounds are diminished bilaterally and the patient has equal and symmetrical breath sounds Cardiac exam revealed the PMI to be normally situated and sized. Irregular rhythm. There were no murmurs, rubs, clicks, or gallops.Sternum stable clean and intact. Abdominal exam revealed normal bowel sounds. The abdomen was soft, non-tender, a nd without masses, organomegaly, or appreciable enlargement of the abdominal aorta. Examination of the extremities revealed easily palpable radial, femoral and pedal pulses. There was no cyanosis, clubbing or edema. Examination of the skin revealed no evidence of significant rashes, suspicious appearing nevi or other concerning lesions. Neurologically, the patient is awake and alert; Cranial nerves are essentially intact. - Labs CBC & Chem 7: 07/27/21 06:38 07/27/21 06:52 Labs: Abnormal Lab Results - Last 24 Hours (Table) 07/26/21 07/26/21 07/26/21 Range/Units 11:09 16:38 20:14 WBC (3.8-10.6) k/uL RBC (4.30-5.90) m/uL Hgb (13.0-17.5) gm/dL Hct (39.0-53.0) % BUN (9-20) mg/dL Creatinine (0.66-1.25) mg/dL Glucose (74-99) mg/dL POC Glucose (mg/dL) 183 H 132 H 143 H (75-99) mg/dL Calcium (8.4-10.2) mg/dL Magnesium (1.6-2.3) mg/dL 07/26/21 07/27/21 07/27/21 Range/Units 20:55 06:06 06:38 WBC 15.8 H (3.8-10.6) k/uL RBC 2.99 L (4.30-5.90) m/uL Hgb 8.8 L (13.0-17.5) gm/dL Hct 27.0 L (39.0-53.0) % BUN (9-20) mg/dL Creatinine (0.66-1.25) mg/dL Glucose (74-99) mg/dL POC Glucose (mg/dL) 137 H 101 H (75-99) mg/dL Calcium (8.4-10.2) mg/dL Magnesium (1.6-2.3) mg/dL 07/27/21 Range/Units 06:52 WBC (3.8-10.6) k/uL RBC (4.30-5.90) m/uL Hgb (13.0-17.5) gm/dL Hct (39.0-53.0) % BUN 26 H (9-20) mg/dL Creatinine 1.41 H (0.66-1.25) mg/dL Glucose 105 H (74-99) mg/dL POC Glucose (mg/dL) (75-99) mg/dL Calcium 8.3 L (8.4-10.2) mg/dL Magnesium 2.6 H (1.6-2.3) mg/dL Assessment and Plan Assessment: Status post two-vessel coronary artery bypass graft. Postoperative day 2. Patient is off mechanical ventilator and is on room air currently. Tapered off pressors support. New onset atrial fibrillation with rapid Rate Hypertension History of polymyositis on maintenance dose of prednisone 5 mg daily. Mild acute blood loss anemia expected from surgery. DVT prophylaxis Plan: Patient will be continued on telemetry monitoring. Started on amiodarone drip and bolus dose was given due to new onset atrial fibrillation with rapid ventricular rate. Currently patient is on room air. Status post removal of bilateral chest tubes and mediastinal tube.. Encourage incentive spirometry. Monitor H&H. Patient is being continued on aspirin as, statins and the bronchus. Continue to follow closely. Cardiology pulmonary is on board.
[2021-07-27 11:30] LABS: Glucose,Whole Blood 131 mg/dL (75-99)
--- NOTE | 2021-07-27 12:24 | P.PN ---
Subjective Progress Note Date: 07/27/21 Principal diagnosis: Status post two-vessel CABG, postoperative day #4 07/23/2021, the patient is being seen for a follow-up. The patient was seen immediately after he arrived from the operating room. The patient underwent two-vessel bypass surgery with MEZA to LAD. The patient was kept sedated and the patient was brought into the intensive care unit. This point in time, the patient on propofol running at 50 mg/kg per minute. He is well sedated and synchronous with the mechanical ventilator. His assist-control mode of mechanical ventilation at the rate of 12 with tidal volume of 550 mL with an FiO2 of 100% and a PEEP of 5. The patient has 3 chest tubes, right pleural, left pleural and mediastinal and output is minimal for now. No evidence of any air leaks. No evidence of pneumothorax on chest x-ray done postop. ET tube is in a good location and the patient also has a [place]ir[place]-Sharlene catheter in place. The patient is at 7.38 with a pCO2 of 40 and pO2 of 342 and the patient's FiO2 has been drop down to 50%. Hemodynamically, the patient is on 5 mcg/kg per minute of nitroglycerin infusion. The patient is on no pressors for now. The patient on insulin drip at 2 units an hour. Urine output is adequate. The hemoglobin is at 9.7 with a white second of 14.3. Platelet count is at 157. BUN is at 17 with a creatinine of 0.7 sodium level is at 138. He is afebrile. He is on normal saline at the rate of 50 hour., Comfortable and a cardiac rhythm is sinus. 2021, the patient is extubated and patient sitting up on a chair. Is currently on oxygen at 2 L. No complaints. No altered mentation. No focal neurological deficits. His cardiac output is at 8.9 with an index of 4.9. Pulmonary artery pressures are 31/17. The patient is on a low dose of norepinephrine infusion running at 0.01 mcg/kg per minute. Insulin drip is running at 2 units an hour. Nitroglycerin drip has been discontinued yesterday. Chest tube output was noted. The mediastinal chest tube has produced 20 mL /hours 460 cc since surgery, I will and the right and left pleural chest tubes are produced 10 mL an hour a total of 270 mL since arrival from today operating room. Chest x-ray showed adequate expansion of both lungs. No evidence of pneumothorax. Chest tubes are in place. [place]-Sharlene catheter is still in place. He is using incentive spirometer and is pulling approximately 500 mL. He is also on a stress dose hydrocortisone for now.. On today's blood work, the hemoglobin is at 8.4, dropped since surgery. Platelet count is at 148, dropped since surgery.. 07/25 2021, the patient is doing well on 2 L of oxygen by nasal cannula. Chest tubes are still in place and the patient has a mediastinal, right pleural and left pleural chest tube. The output from the chest tubes were noted. The mediastinal chest tube has produced 1 80 mL over the past 24 hours and the pleural chest tubes have produced 1 50 mL over the past 24 hours. The chest x- ray from today shows adequate expansion of both lungs. No evidence of pneumothorax. All of the chest tubes are in good location and the patient is using incentive spirometer and he is pulling approximately 500. The patient otherwise is doing well. No nausea. No vomiting. No chest pain. No hypotension. He was taken off the norepinephrine infusion this morning and he is running is soft and blood pressure. Despite all this, he is receiving his Lopressor. Cardiac rhythm remains sinus. Weir[place]-Sharlene catheter removed. Surgical wound site is dry clean and intact. No altered mentation. No focal neurologi dorie deficits. The blood work from today shows a hemoglobin of 7.4 and the white cell count is at 11.7. Platelet count is at 132. BUN is at 21 with a creatinine of 1.2 and the sodium level of 137. On today's evaluation of 07/26/2021, the patient is postop day #3. The patient was doing well following his two-vessel bypass surgery. However, at around 8:00 this morning, the patient went into atrial fibrillation with RVR. Based on that, the patient was started on amiodarone per protocol the patient has received a bolus. The patient has received 2 boluses thus far the patient is currently being loaded with amiodarone. Cardiac rhythm for now is atrial fibrillation with a controlled rate. He is currently on room air oxygen. All of the chest tubes have been removed yesterday. He is using the incentive spirometer and he is achieving of 1000 mL of air. He did ambulate yesterday. Currently is sitting up comfortably on the recliner. No other new complaints otherwise for now. No chest pain. Surgical wound site is dry clean and intact. The chest x-ray from today shows postsurgical atelectatic changes and left lung base. The patient's white cell count is at 10.8 with a hemoglobin of 7.6. Creatinine is at 1.2. Reevaluated today on , patient is now postoperative day #4, patient is status post 2 vessel bypass surgery, last night the patient had atrial fibrillation with RVR, required amiodarone. however the patient is now in sinus rhythm, seems to be very comfortable, not in any distress. Patient is status post MEZA to LAD and saphenous vein graft to obtuse marginal, chest x-ray is relatively reassuring. His aeration to the left lower lobe is significantly improved. And no further atelectasis Objective - Vital Signs Vital signs: Vital Signs Temp 98.0 F 07/27/21 08:18 Pulse 64 07/27/21 11:00 Resp 13 07/27/21 11:00 BP 143/55 07/27/21 09:00 Pulse Ox 94 L 07/27/21 11:00 FiO2 21 07/27/21 08:16 Intake & Output 07/26/21 07/27/21 07/27/21 18:59 06:59 18:59 Intake Total 1151 216 550 Output Total 600 1775 200 Balance 551 -1559 350 Weight 85.5 kg Intake: IV 309 100 Lactated Ringers 1,000 ml 300 100 @ 20 mls/hr IV .Q24H JARET Rx#:[id number] PRESSURE BAGS 9 Intake, IV Titration 362 16 Amount Amiodarone 360 mg In 66 Dextrose 5% in Water 200 ml @ 1 MG/MIN 34.533 mls/ hr IV .Q6H PRN Rx#: [id number] Amiodarone 450 mg In 48 Dextrose 5% in Water 250 ml @ 0.5 MG/MIN 16.667 mls/hr IV .Q15H PRN Rx#: [id number] Amiodarone 450 mg In 48 16 Dextrose 5% in Water 250 ml @ 0.5 MG/MIN 16.667 mls/hr IV .Q15H JARET Rx#: [id number] Dextrose 5% in Water 100 200 ml @ 618 mls/hr IV .Q10M PRN with Amiodarone 150 mg Rx#:[id number] Oral 480 100 550 Output: Urine 600 1775 200 Other: Voiding Method Urinal Urinal # Bowel Movements 1 ABP, PAP, CO, CI - Last Documented Arterial Blood Pressure 95/46 Pulmonary Artery Pressure 28/11 Cardiac Output 5.9 Cardiac Index 3 - Exam Physical Exam: Revealed a 75-year-old white male in no distress. Head: Atraumatic, normocephalic. HEENT:[Neck is supple.] [No neck masses.] [No thyromegaly.] [No JVD.] Chest: [Symmetrical chest expansion, diminished breath sounds at the bases no rhonchi and no wheezes. Cardiac Exam: [Normal S1 and S2, no S3 gallop, no murmur.] Abdomen: [Soft, nontender, no megaly, no rebound, no guarding, normal bowel sounds.] Extremities: [No clubbing, no edema, no cyanosis.] Neurological Exam: [No focal neurologic deficit.] Alert and oriented 3. Psychiatric: Normal mood, affect and normal mental status examination. Skin: No rashes - Labs CBC & Chem 7: 07/27/21 06:38 07/27/21 06:52 Labs: Abnormal Lab Results - Last 24 Hours (Table) 07/26/21 07/26/21 07/26/21 Range/Units 16:38 20:14 20:55 WBC (3.8-10.6) k/uL RBC (4.30-5.90) m/uL Hgb (13.0-17.5) gm/dL Hct (39.0-53.0) % BUN (9-20) mg/dL Creatinine (0.66-1.25) mg/dL Glucose (74-99) mg/dL POC Glucose (mg/dL) 132 H 143 H 137 H (75-99) mg/dL Calcium (8.4-10.2) mg/dL Magnesium (1.6-2.3) mg/dL 07/27/21 07/27/21 07/27/21 Range/Units 06:06 06:38 06:52 WBC 15.8 H (3.8-10.6) k/uL RBC 2.99 L (4.30-5.90) m/uL Hgb 8.8 L (13.0-17.5) gm/dL Hct 27.0 L (39.0-53.0) % BUN 26 H (9-20) mg/dL Creatinine 1.41 H (0.66-1.25) mg/dL Glucose 105 H (74-99) mg/dL POC Glucose (mg/dL) 101 H (75-99) mg/dL Calcium 8.3 L (8.4-10.2) mg/dL Magnesium 2.6 H (1.6-2.3) mg/dL 07/27/21 Range/Units 11:29 WBC (3.8-10.6) k/uL RBC (4.30-5.90) m/uL Hgb (13.0-17.5) gm/dL Hct (39.0-53.0) % BUN (9-20) mg/dL Creatinine (0.66-1.25) mg/dL Glucose (74-99) mg/dL POC Glucose (mg/dL) 131 H (75-99) mg/dL Calcium (8.4-10.2) mg/dL Magnesium (1.6-2.3) mg/dL Assessment and Plan Assessment: Impression: Status post CABG postoperative day #4. Patient had a two-vessel bypass surgery, MEZA to LAD, and SVG to obtuse marginal. Atrial fibrillation with RVR, on amiodarone. Hypertension. Remote smoking history. History of melanoma requiring surgical resection behind his right ear. And left scalp. History of polymyositis, maintained on 5 mg of prednisone. Recommendation: Continue prednisone, maintenance dose. Continue incentive spirometry. Ambulate. Continue amiodarone. Continue beta blockers as present status. Likely transfer out of the ICU to medical floor today. Time with Patient: Less than 30
--- NOTE | 2021-07-27 12:59 | P.PN ---
Subjective Progress Note Date: 07/27/21 Principal diagnosis: Coronary artery disease. Past medical history significant for hypertension, hyperlipidemia, polymyositis with daily prednisone use, melanoma in 2001 and 2016, remote history of pneumonia, previous tobacco dependence, 35 pound weight loss since last August, family history of premature coronary artery disease, and severe COPD. POD #4 coronary artery bypass grafting 2 vessels, left internal mammary artery to the left anterior descending artery, reverse greater saphenous vein graft to the obtuse marginal artery, endoscopic harvesting of the left greater saphenous vein, ligation of left atrial appendage using a 25 mm Atriclip, epi-aortic ultrasound and intraoperative transesophageal echocardiogram. Postoperative acute blood loss anemia, expected given hemodilution and cardiopulmonary bypass pump. Postoperative atrial fibrillation, known common occurrence after open heart surgery. The patient was seen and examined in follow-up today at his bedside in the intensive care unit. Currently sitting up to the bedside chair, is awake, alert, oriented 3 and is in no acute apparent distress. Denies any complaints of shortness of breath or pain at this time. He remains hemodynamically stable and is currently on no inotropic or pressor support. His bedside nurse reports that he had an episode of atrial fibrillation which lasted for approximately 20- 30 minutes. Bedside telemetry this morning is showing normal sinus rhythm heart rate 74 bpm. Oxygen saturations are 96% on room air, and he is achieving 2000 L on his incentive spirometry with encouragement. Atrial and ventricular epicardial pacemaker wires remaining in place and are grounded. Laboratory results this morning show a WBC count of 15.8, hemoglobin 8.8, hematocrit 27.0, platelets 322, sodium 143, potassium 3.8, BUN 26 and creatinine 1.41. The patient reports he has been up ambulating in the intensive care unit hallway with standby assistance from nursing and therapy staff. He has been afebrile the last 24 hours. Objective - Vital Signs Vital signs: Vital Signs Temp 98 F 07/27/21 12:00 Pulse 67 07/27/21 12:00 Resp 14 07/27/21 12:00 BP 142/62 07/27/21 12:00 Pulse Ox 95 07/27/21 12:00 FiO2 21 07/27/21 08:16 Intake & Output 07/26/21 07/27/21 07/27/21 18:59 06:59 18:59 Intake Total 1151 216 750 Output Total 600 1775 400 Balance 551 -1559 350 Weight 85.5 kg Intake: IV 309 100 Lactated Ringers 1,000 ml 300 100 @ 20 mls/hr IV .Q24H JARET Rx#:[id number] PRESSURE BAGS 9 Intake, IV Titration 362 16 Amount Amiodarone 360 mg In 66 Dextrose 5% in Water 200 ml @ 1 MG/MIN 34.533 mls/ hr IV .Q6H PRN Rx#: [id number] Amiodarone 450 mg In 48 Dextrose 5% in Water 250 ml @ 0.5 MG/MIN 16.667 mls/hr IV .Q15H PRN Rx#: [id number] Amiodarone 450 mg In 48 16 Dextrose 5% in Water 250 ml @ 0.5 MG/MIN 16.667 mls/hr IV .Q15H JARET Rx#: [id number] Dextrose 5% in Water 100 200 ml @ 618 mls/hr IV .Q10M PRN with Amiodarone 150 mg Rx#:[id number] Oral 480 100 750 Output: Urine 600 1775 400 Other: Voiding Method Urinal Urinal Urinal # Bowel Movements 1 1 ABP, PAP, CO, CI - Last Documented Arterial Blood Pressure 95/46 Pulmonary Artery Pressure 28/11 Cardiac Output 5.9 Cardiac Index 3 - Exam CONSTITUTIONAL: Sitting up to the bedside chair in the intensive care unit, appears comfortable, cooperative, no apparent acute distress. HEENT: Neck is supple, no JVD, no lymphadenopathy. RESPIRATORY: Lungs sounds essentially clear throughout, diminished to his bilateral bases. Respirations are symmetrical and nonlabored. Currently on room air with oxygen saturations 96%. Able to achieve 2000 mL on his incentive spirometry. Strong cough. CARDIOVASCULAR: Regular rhythm and rate. S1 and S2 present, negative for S3, gallop or murmur. Sternum is stable. Palpable peripheral pulses bilaterally. No calf pain or tenderness noted. Heart hugger in place with patient demonstr ating appropriate use. Knee-high TIFFANIE hose and sequential compression devices in place to his bilateral lower extremities. GASTROINTESTINAL: Abdomen soft, nontender, nondistended. Active bowel sounds present 4 quadrants. Tolerating diet. Passing flatus. No guarding or rigidity. GENITOURINARY: Continues to void. 1175 mL of urine output in the last 8 hours. INTEGUMENTARY: Skin is warm and dry with no evidence of clubbing or cyanosis. Midline sternal incision clean dry and well approximated, covered with dry intact dressing. Left lower extremity EVH site well approximated without redness or drainage. NEUROLOGIC: Cranial nerves II through XII intact. No focal deficits. MUSKULOSKELETAL: Able to move all extremities, strength equal bilaterally, generalized weakness. PSYCHIATRIC: Alert and oriented to person place and time, appropriate affect, intact judgment and insight. INVASIVE LINES AND TUBES: Atrial and ventricular epicardial pacemaker wires in place and grounded. - Allied health notes Allied health notes reviewed: nursing - Labs CBC & Chem 7: 07/27/21 06:38 07/27/21 06:52 Labs: Abnormal Lab Results - Last 24 Hours (Table) 07/26/21 07/26/21 07/26/21 Range/Units 16:38 20:14 20:55 WBC (3.8-10.6) k/uL RBC (4.30-5.90) m/uL Hgb (13.0-17.5) gm/dL Hct (39.0-53.0) % BUN (9-20) mg/dL Creatinine (0.66-1.25) mg/dL Glucose (74-99) mg/dL POC Glucose (mg/dL) 132 H 143 H 137 H (75-99) mg/dL Calcium (8.4-10.2) mg/dL Magnesium (1.6-2.3) mg/dL 07/27/21 07/27/21 07/27/21 Range/Units 06:06 06:38 06:52 WBC 15.8 H (3.8-10.6) k/uL RBC 2.99 L (4.30-5.90) m/uL Hgb 8.8 L (13.0-17.5) gm/dL Hct 27.0 L (39.0-53.0) % BUN 26 H (9-20) mg/dL Creatinine 1.41 H (0.66-1.25) mg/dL Glucose 105 H (74-99) mg/dL POC Glucose (mg/dL) 101 H (75-99) mg/dL Calcium 8.3 L (8.4-10.2) mg/dL Magnesium 2.6 H (1.6-2.3) mg/dL 07/27/21 Range/Units 11:29 WBC (3.8-10.6) k/uL RBC (4.30-5.90) m/uL Hgb (13.0-17.5) gm/dL Hct (39.0-53.0) % BUN (9-20) mg/dL Creatinine (0.66-1.25) mg/dL Glucose (74-99) mg/dL POC Glucose (mg/dL) 131 H (75-99) mg/dL Calcium (8.4-10.2) mg/dL Magnesium (1.6-2.3) mg/dL - Imaging and Cardiology Chest x-ray: report reviewed, image reviewed Assessment and Plan Assessment: 1. Coronary artery disease, status post two-vessel CABG 2. Hypertension 3. Hyperlipidemia 4. Polymyositis with daily prednisone use 5. Melanoma in 2001 and 2016 6. Remote history of pneumonia 7. Previous tobacco dependence 8. 35 pound weight loss since last August 9. Family history of premature coronary artery disease 10. Severe COPD with preoperative FEV1 28% of predicted 11. Postoperative acute blood loss anemia 12. Postoperative paroxysmal atrial fibrillation, a known common occurrence after cardiac surgery, status post left atrial appendage ligation Plan: 1. Continue aspirin, statin, Plavix, beta sujey therapy. Will increase metoprolol tartrate to 50 mg by mouth twice a day. 2. Continue amiodarone 400 mg by mouth twice a day. No need for anticoagulation unless in afib >24 hours 3. Encourage incentive spirometry 10 times every hour while awake. Bronchodilators, prednisone per pulmonology recommendations. 4. Increase activity as tolerated. PT/OT/cardiac rehab following. 5. Will monitor daily labs and chest x-rays. Electrolyte replacement per protocol. 6. GI/DVT prophylaxis. 7. Pain control with current medication regimen. 8. Insulin management per primary care service. Patient is not diabetic, preoperative hemoglobin A1c 6.3% of predicted. 9. Continue record strict and accurate I's and O's. May bladder scan and straight cath for > 300 mL residual 10. Daily weights. 11. First postoperative shower today. 12. We will place transfer orders to the third floor cardiac stepdown unit. Discharge planning is in place. 13. More recommendations to follow based on patient's clinical course. Time with Patient: Greater than 30
[2021-07-27 16:48] LABS: Glucose,Whole Blood 153 mg/dL (75-99)
[2021-07-27 20:27] LABS: Glucose,Whole Blood 118 mg/dL (75-99)
[2021-07-27] MEDS: SENNOSIDES-DOCUSATE SODIUM 1 EACH TAB PO SCH (20:41)
--- NOTE | 2021-07-27 20:54 | P.PN ---
Progress Note - Text Progress Note Date: 07/27/21 75-year-old active gentleman who follows on an outpatient basis with Dr. David Mancini for primary care and Dr. Carmichael for cardiology. He has a previous medical history of hypertension, polymyositis with daily prednisone use, melanoma in 2001 and 2016, remote history of pneumonia, previous tobacco dependence, 35 pound weight loss since last August due to not eating and the stress of taking care of his , and family history of premature coronary artery disease with father from myocardial infarction at 55 years old. He was recently hospitalized for dizziness and near syncope which was felt to be secondary to dehydration. Brain CT completed at that time was negative for any acute process. He also had an echocardiogram completed during that admission demonstrating normal left ventricular systolic function with EF 55-60%, mild aortic insufficiency, mild mitral and tricuspid regurgitation, and no pericardial effusion. He was stabilized and discharged to home. Upon follow-up with cardiology he had a stress test which was abnormal and he was recommended to undergo heart catheterization which was completed today and which demonstrated distal left main stenosis 60%, ostial LAD stenosis 99% with mid LAD stenosis 50%, and RCA stenosis 40-50%. Due to heart catheterization findings consultation was placed to Dr. Long from cardiothoracic surgery for revascularization recommendations. 07/25 2021 --the patient is doing well on 2 L of oxygen by nasal cannula. Chest tubes are still in place and the patient has a mediastinal, right pleural and left pleural chest tube. --The mediastinal chest tube has produced 1 80 mL over the past 24 hours and the pleural chest tubes have produced 1 50 mL over the past 24 hours. The chest x- ray from today shows adequate expansion of both lungs. No evidence of pneumothorax. All of the chest tubes are in good location and the patient is using incentive spirometer and he is pulling approximately 500. -- He was taken off the norepinephrine infusion this morning and he is running is soft and blood pressure. Despite all this, he is receiving his Lopressor. Cardiac rhythm remains sinus. Surgical wound site is dry clean and intact. No altered mentation. No focal neurological deficits. The blood work from today shows a hemoglobin of 7.4 and the white cell count is at 11.7. Platelet count is at 132. BUN is at 21 with a creatinine of 1.2 and the sodium level of 137. Director Of Slot Operations on both and recommending to continue insulin drip and transition patient to Accu-Cheks every before meals and at bedtime with insulin sliding scale -- The patient was started on aspirin and beta blockers and high-dose statins. 07/26/2021 Patient is currently sitting in a chair comfortably. Awake alert and oriented 3. No complaints of shortness of breath. Soreness at the surgical site. Patient is able to tolerate oral diet. On room air currently. Otherwise patient went into atrial fibrillation with RVR around 8 AM today. Patient was started on amiodarone drip and loading dose was given. Denied any d izziness or lightheadedness. No cough or sputum production. Chest x-ray showed interval removal of the bilateral chest tubes and mediastinal tube. No pneumothorax or pleural effusion. Minimal left lower lobe atelectasis. Laboratory data showed WBC 10.8 hemoglobin 7.6 and platelets 157 sodium 141 potassium 4.0 chloride 106 bicarb is 27 BUN 25 and creatinine 1.22 and calcium 7.9, 3.4 Current medications reviewed. July 27: I assumed care of the patient today. ICU: Sitting up. Comfortable. Had breakfast. Have a bowel movement. Took a few steps. Last night had gone into atrial fibrillation. Acute sinus rhythm. Change to IV amiodarone. Active Medications Acetaminophen (Acetaminophen Tab 325 Mg Tab) 650 mg PO Q4HR PRN PRN Reason: Fever and/ or Pain Albuterol/Ipratropium (Ipratropium-Albuterol 3 Ml Neb) 3 ml INHALATION RT-Q2H PRN PRN Reason: Shortness Of Breath Or Wheezing Amiodarone HCl (Amiodarone 200 Mg Tab) 400 mg PO BID [facility] Last Admin: 07/27/21 20:41 Dose: 400 mg Aspirin (Aspirin 325 Mg Tab) 325 mg PO DAILY [facility] Last Admin: 07/27/21 08:41 Dose: 325 mg Atorvastatin Calcium (Atorvastatin 40 Mg Tab) 40 mg PO DAILY [facility] Last Admin: 07/27/21 08:41 Dose: 40 mg Bisacodyl (Bisacodyl 10 Mg Supp) 10 mg RECTAL DAILY PRN PRN Reason: Constipation Clopidogrel Bisulfate (Clopidogrel 75 Mg Tab) 75 mg PO DAILY [facility] Last Admin: 07/27/21 08:41 Dose: 75 mg Clotrimazole (Clotrimazole 1% Cream 30 Gm Tube) 1 applic TOPICAL BID [facility]; Protocol Last Admin: 07/27/21 08:42 Dose: 1 applic Folic Acid (Folic Acid 1 Mg Tab) 1 mg PO DAILY [facility] Last Admin: 07/27/21 09:00 Dose: 1 mg Heparin Sodium (Porcine) (Heparin Sodium,Porcine/Pf 5,000 Unit/0.5 Ml Syringe) 5,000 unit SQ Q8HR [facility] Last Admin: 07/27/21 16:02 Dose: 5,000 unit Calcium Gluconate/Sodium (Chloride 2 gm/ IV Solution) 100 mls @ 100 mls/hr IVPB ONCE PRN PRN Reason: Ionized Calcium less than 4.4 Stop: 08/13/21 12:10 Insulin Aspart (Insulin Aspart (Novolog) 100 Unit/Ml Vial) 0 unit SQ ACHS [facility]; Protocol Last Admin: 07/27/21 16:50 Dose: 1 unit Magnesium Hydroxide (Magnesium Hydroxide 2,400 Mg/10 Ml Cup) 2,400 mg PO BID PRN PRN Reason: Constipation Last Admin: 07/25/21 09:01 Dose: 2,400 mg Melatonin (Melatonin 3 Mg Tablet) 3 mg PO HS PRN PRN Reason: Insomnia Last Admin: 07/27/21 20:42 Dose: 3 mg Metoclopramide HCl (Metoclopramide 5 Mg/Ml 2 Ml Vial) 10 mg IVP Q4H PRN PRN Reason: Nausea And Vomiting Last Admin: 07/25/21 06:57 Dose: 10 mg Metoprolol Tartrate (Metoprolol Tartrate 50 Mg Tab) 50 mg PO BID [facility] Last Admin: 07/27/21 20:42 Dose: 50 mg Miscellaneous Information (Potassium Replacement Protocol 1 Each Misc) 1 each MISCELLANE DAILY PRN; Protocol PRN Reason: Per Protocol Miscellaneous Information (Magnesium Replacement Protocol 1 Each Misc) 1 each MISCELLANE DAILY PRN; Protocol PRN Reason: Per Protocol Ondansetron HCl (Ondansetron 4 Mg/2 Ml Vial) 4 mg IVP Q6HR PRN PRN Reason: Nausea And Vomiting Last Admin: 07/24/21 14:14 Dose: 4 mg Pantoprazole Sodium (Pantoprazole 40 Mg Tablet) 40 mg PO AC-BRKFST [facility] Last Admin: 07/27/21 06:44 Dose: 40 mg Prednisone (Prednisone 10 Mg Tab) 10 mg PO DAILY [facility] Last Admin: 07/27/21 08:42 Dose: 10 mg Senna/Docusate Sodium (Sennosides-Docusate Sodium 1 Each Tab) 2 each PO HS [facility] Last Admin: 07/27/21 20:41 Dose: 2 each Sodium Chloride (Sodium Chloride 0.9% Flush 10 Ml Syringe) 10 ml IV BID [facility] Last Admin: 07/27/21 20:42 Dose: 10 ml On examination: VITAL SIGNS: [98, 67, 14, 142/62, 95%] GENERAL APPEARANCE: Sitting up reclining in bed, comfortable HEENT: Normal external appearance of nose and ear. Oral cavity normal EYES: Pupils equal. Conjunctiva normal. NECK: JVD not raised. Mass not palpable. RESPIRATORY: Respiratory effort increased. Decreased breath sounds CARDIOVASCULAR: First and second sounds normal. No edema. ABDOMEN: Soft. Liver and spleen not palpable. No tenderness. No mass palpable. PSYCHIATRY: Alert and oriented x3. Mood and affect normal. INVESTIGATIONS, reviewed in the clinical context: White count 15.8 hemoglobin 8.8 platelets 322 potassium 3.8 BUN 26 creatinine 1.41 Admitting labs: Hemoglobin 12.4 Creatinine 1.0 Assessment and plan: -Status post two-vessel coronary artery bypass graft/July 22. Patient is off mechanical ventilator and is on room air currently. Tapered off pressors support. -CAD Aspirin, Lipitor, Plavix, Lopressor -Paroxysmal atrial fibrillation with rapid Rate. back in sinus rhythm Amiodarone 400 mg twice a day, Lopressor 50 mg twice a day -Essential Hypertension Lopressor 50 mg twice a day -Hyperlipidemia Lipitor 40 mg a day -polymyositis on maintenance dose of prednisone 5 mg daily. Currently on 10 mg - acute blood loss anemia as expected from surgery. Ferrous sulfate Oral amiodarone. Continue other medications. Discussed with patient. Add ferrous sulfate. Increase activity as tolerated.
--- NOTE | 2021-07-27 23:17 | US ---
EXAMINATION TYPE: US vein mapping BILAT DATE OF EXAM: 07/22/2021 10:44 AM COMPARISON: NONE CLINICAL HISTORY: preop cardiac surgery. SIDE PERFORMED: Bilateral TECHNIQUE: Lower extremity saphenous vein is examined and measured utilizing real time linear array sonography. DUPLEX FINDINGS: Greater Saphenous: Color flow seen Measurements in mm: Right Greater Saphenous: Groin: 6.1 x 6.4 mm High Thigh: 6.8 x 7.0 mm Mid Thigh: 4.8 x 5.8 mm Above Knee: 4.2 x 4.7 mm Knee: 3.8 x 4.0 mm Below Knee: 3.2 x 3.4 mm Mid Calf: 3.0 x 3.5 mm At Ankle: 2.8 x 3.5 mm Left Greater Saphenous: Groin: 6.3 x 6.1 mm High Thigh: 5.5 x 5.4 mm Mid Thigh: 3.8 x 4.4 mm Above Knee: 4.0 x 4.8 mm Knee: 3.6 x 4.0 mm Below Knee: 3.5 x 3.8 mm Mid Calf: 2.5 x 2.6 mm At Ankle: 2.7 x 3.1 mm IMPRESSION: 1. Bilateral GSV measurements listed above. 2. Performing surgeon to determine viability as conduit.
[2021-07-28 06:07] LABS: Glucose,Whole Blood 129 mg/dL (75-99)
[2021-07-28] MEDS: INSULIN ASPART (NovoLOG) 100 UNIT/ML VIAL SQ SCH ×2 (06:29→12:36)
[2021-07-28] MEDS: PANTOPRAZOLE 40 MG TABLET PO SCH (06:34)
[2021-07-28] MEDS ORDERED: FERROUS SULFATE 325 MG TAB PO SCH (07:30)
[2021-07-28 07:54] LABS: Basophils % (A) 0 %; Eosinophils # (A) 0.2 k/uL (0-0.7); Eosinophils % (A) 2 %; HCT 23.5 % (39.0-53.0); HGB 7.7 gm/dL (13.0-17.5); Hypochromasia Slight; Lymphocytes # (A) 2.1 k/uL (1.0-4.8); Lymphocytes % (A) 20 %; MCH 29.4 pg (25.0-35.0); MCHC 32.7 g/dL (31.0-37.0); MCV 90.1 fL (80.0-100.0); Mean Platelet Volume 7.5; Monocytes # (A) 0.7 k/uL (0-1.0); Monocytes % (A) 7 %; Neutrophils # (A) 7.3 k/uL (1.3-7.7); Neutrophils % (A) 69 %; Platelet Count 292 k/uL (150-450); RBC 2.61 m/uL (4.30-5.90); RDW 14.9 % (11.5-15.5); WBC 10.5 k/uL (3.8-10.6)
[2021-07-28 08:05] LABS: Calcium 7.7 mg/dL (8.4-10.2); Potassium 3.1 mmol/L (3.5-5.1)
[2021-07-28] MEDS ORDERED: Potassium Replacement Protocol 1 EACH MISC MISCELLANE PRN (08:21)
[2021-07-28] MEDS: AMIODARONE 200 MG TAB PO SCH (08:30)
[2021-07-28] MEDS: FOLIC ACID 1 MG TAB PO SCH (08:30)
[2021-07-28] MEDS: ONDANSETRON 4 MG/2 ML VIAL IVP PRN (08:30)
[2021-07-28] MEDS: POTASSIUM CHLORIDE ER 20 MEQ TAB.ER PO SCH ×2 (08:30→10:16)
[2021-07-28] MEDS: ASPIRIN 325 MG TAB PO SCH (08:30)
[2021-07-28] MEDS: ATORVASTATIN 40 MG TAB PO SCH (08:30)
[2021-07-28] MEDS: METOPROLOL TARTRATE 50 MG TAB PO SCH (08:30)
[2021-07-28] MEDS: predniSONE 10 MG TAB PO SCH (08:30)
[2021-07-28] MEDS: CLOTRIMAZOLE 1% CREAM 30 GM TUBE TOPICAL SCH (08:31)
[2021-07-28] MEDS: HEPARIN SODIUM,PORCINE/PF 5,000 UNIT/0.5 ML SYRINGE SQ SCH (08:31)
[2021-07-28] MEDS: CLOPIDOGREL 75 MG TAB PO SCH (08:32)
--- NOTE | 2021-07-28 08:53 | XR ---
EXAMINATION TYPE: XR chest 1V portable DATE OF EXAM: 07/28/2021 Comparison: 07/27/2021 Clinical History: 75-year-old male Postoperative cardiac surgery Findings: Patient is rotated towards the right artery and normal cardiac and mediastinal contours. Median goldstein otomy wires are present with post-CABG clips. Heart borderline enlarged. Mild interstitial prominence unchanged. Mild patchy left lower lung and retrocardiac opacity. Impression: Rotated exam. Borderline heart size. Post-CABG changes. Some increasing patchy left lower lung and re trocardiac densities, likely postoperative atelectasis.
[2021-07-28] MEDS ORDERED: POTASSIUM CHLORIDE ER 10 MEQ TAB.ER.PRT PO STA (09:45)
[2021-07-28] MEDS ORDERED: FUROSEMIDE 10 MG/ML 2 ML VIAL IV STA (09:45)
[2021-07-28 11:57] LABS: Glucose,Whole Blood 145 mg/dL (75-99)
[2021-07-28 12:14] VITALS: PULSE 62; RESP 16
--- NOTE | 2021-07-28 13:02 | P.PN ---
Subjective Progress Note Date: 07/28/21 Principal diagnosis: Coronary artery disease. Past medical history significant for hypertension, hyperlipidemia, polymyositis with daily prednisone use, melanoma in 2001 and 2016, remote history of pneumonia, previous tobacco dependence, 35 pound weight loss since last August, family history of premature coronary artery disease, and severe COPD. POD #5 coronary artery bypass grafting 2 vessels, left internal mammary artery to the left anterior descending artery, reverse greater saphenous vein graft to the obtuse marginal artery, endoscopic harvesting of the left greater saphenous vein, ligation of left atrial appendage using a 25 mm Atriclip, epi-aortic ultrasound and intraoperative transesophageal echocardiogram. Postoperative acute blood loss anemia, expected given hemodilution and cardiopulmonary bypass pump. Postoperative atrial fibrillation, known common occurrence after open heart surgery. The patient was seen and examined in follow-up today 07/28/2021 at his bedside in the intensive care unit. Currently sitting up to the bedside chair, is awake, alert, oriented 3 and is in no acute apparent distress. Denies any complaints of shortness of breath or pain at this time. The patient is complaining of some fatigue, complaining that he has not slept in the last couple of days and he is also complaining of some nausea this morning. He reports he has been up ambulating in the cardiac stepdown unit with minimal assistance from nursing staff, although the nursing staff is reporting that he is only walking short distances. Remote telemetry showing normal sinus rhythm heart rate 64 BPM. Oxygen saturations are 97% on room air and he is achieving 2000 mL on his incentive spirometry with much encouragement. His atrial and ventricular epicardial pacemaker wires were removed yesterday without incident. He has been afebrile the last 24 hours. Laboratory results this morning show a WBC count of 10.5, hemoglobin 7.7, hematocrit 23.5, platelets 292, sodium 139, potassium 3.1, BUN 23, creatinine 1.23, and calcium 7.7. Chest x-ray this morning shows mild interstitial prominence and mild patchy left lower lung retrocardiac opacity. Objective - Vital Signs Vital signs: Vital Signs Temp 97.4 F L 07/28/21 12:00 Pulse 62 07/28/21 12:00 Resp 16 07/28/21 12:00 BP 131/62 07/28/21 12:00 Pulse Ox 95 07/28/21 12:00 FiO2 21 07/27/21 08:16 Intake & Output 07/27/21 07/28/21 07/28/21 18:59 06:59 18:59 Intake Total 750 120 240 Output Total 600 250 750 Balance 150 -130 -510 Weight 129 kg Intake: Oral 750 120 240 Output: Urine 600 250 750 Other: Voiding Method Urinal Urinal Urinal # Bowel Movements 1 1 ABP, PAP, CO, CI - Last Documented Arterial Blood Pressure 95/46 Pulmonary Artery Pressure 28/11 Cardiac Output 5.9 Cardiac Index 3 - Exam CONSTITUTIONAL: Sitting up to the bedside chair in the intensive care unit, appears comfortable, cooperative, no apparent acute distress. HEENT: Neck is supple, no JVD, no lymphadenopathy. RESPIRATORY: Lungs sounds essentially clear throughout, diminished to his bilateral bases, left greater than right. Respirations are symmetrical and nonlabored. Currently on room air with oxygen saturations 97%. Able to achieve 2000 mL on his incentive spirometry. Strong cough. CARDIOVASCULAR: Regular rhythm and rate. S1 and S2 present, negative for S3, gallop or murmur. Sternum is stable. Palpable peripheral pulses bilaterally. No calf pain or tenderness noted. Heart hugger in place with patient demonstrating appropriate use. Knee-high TIFFANIE hose and sequential compression devices in place to his bilateral lower extremities. Remote telemetry showing normal sinus rhythm heart rate 64 BPM. GASTROINTESTINAL: Abdomen soft, nontender, nondistended. Active bowel sounds present 4 quadrants. Tolerating diet. Passing flatus. No guarding or rigidity. Bowel movement this morning. GENITOURINARY: Continues to void. 750 mL of urine output in the last 8 hours. INTEGUMENTARY: Skin is warm and dry with no evidence of clubbing or cyanosis. Midline sternal incision clean dry and well approximated, covered with dry intact dressing. Left lower extremity EVH site well approximated without redness or drainage. NEUROLOGIC: Cranial nerves II through XII intact. No focal deficits. MUSKULOSKELETAL: Able to move all extremities, strength equal bilaterally, generalized weakness. PSYCHIATRIC: Alert and oriented to person place and time, appropriate affect, intact judgment and insight. - Allied health notes Allied health notes reviewed: nursing - Labs CBC & Chem 7: 07/28/21 07:32 07/28/21 07:32 Labs: Abnormal Lab Results - Last 24 Hours (Table) 07/27/21 07/27/21 07/28/21 Range/Units 16:47 20:25 06:02 RBC (4.30-5.90) m/uL Hgb (13.0-17.5) gm/dL Hct (39.0-53.0) % Potassium (3.5-5.1) mmol/L BUN (9-20) mg/dL Glucose (74-99) mg/dL POC Glucose (mg/dL) 153 H 118 H 129 H (75-99) mg/dL Calcium (8.4-10.2) mg/dL 07/28/21 07/28/21 07/28/21 Range/Units 07:32 07:32 11:56 RBC 2.61 L (4.30-5.90) m/uL Hgb 7.7 L (13.0-17.5) gm/dL Hct 23.5 L (39.0-53.0) % Potassium 3.1 L (3.5-5.1) mmol/L BUN 23 H (9-20) mg/dL Glucose 114 H (74-99) mg/dL POC Glucose (mg/dL) 145 H (75-99) mg/dL Calcium 7.7 L (8.4-10.2) mg/dL - Imaging and Cardiology Chest x-ray: report reviewed, image reviewed Assessment and Plan Assessment: 1. Coronary artery disease, status post two-vessel CABG 2. Hypertension 3. Hyperlipidemia 4. Polymyositis with daily prednisone use 5. Melanoma in 2001 and 2017 6. Remote history of pneumonia 7. Previous tobacco dependence 8. 35 pound weight loss since last August 9. Family history of premature coronary artery disease 10. Severe COPD with preoperative FEV1 28% of predicted 11. Postoperative acute blood loss anemia 12. Postoperative paroxysmal atrial fibrillation, a known common occurrence after cardiac surgery, status post left atrial appendage ligation Plan: 1. Continue aspirin, statin, Plavix, beta sujey therapy. Will increase metoprolol tartrate as tolerated. 2. Continue amiodarone 400 mg by mouth twice a day. No need for anticoagulation unless in afib >24 hours 3. Encourage incentive spirometry 10 times every hour while awake. Bronchodilators, prednisone per pulmonology recommendations. 4. Increase activity as tolerated. PT/OT/cardiac rehab following. 5. Will monitor daily labs and chest x-rays. Electrolyte replacement per protocol. 6. GI/DVT prophylaxis. 7. Pain control with current medication regimen. 8. Insulin management per primary care service. Patient is not diabetic, preoperative hemoglobin A1c 6.3% of predicted. 9. Continue record strict and accurate I's and O's. May bladder scan and straight cath for > 300 mL residual 10. Daily weights. 11. Lasix 20 mg IV 1 now. Potassium chloride 10 mEq by mouth 1 now. 12. Anticipate discharge home or to rehab in the next 24 hours. 13. More recommendations to follow based on patient's clinical course. Time with Patient: Greater than 30
--- NOTE | 2021-07-28 13:21 | P.PN ---
Subjective Progress Note Date: 07/28/21 HISTORY OF PRESENT ILLNESS: Patient is status post CABG 2 vessels (MEZA to LAD and SVG to OM). Postoperative day #5. Patient examined this morning at the bedside. Patient denies chest pain or pressure. He denies shortness of breath. Patient is complaining that he has not slept well for the past few days. Telemetry reveals sinus mechanism. Vital signs are stable. PHYSICAL EXAM: VITAL SIGNS: Reviewed. GENERAL: Well-developed in no acute distress. NECK: Supple. No JVD or thyromegaly LUNGS: Respirations even and unlabored. Lungs essentially clear to auscultation bilaterally. HEART: Regular rate and rhythm. S1 and S2 heard. EXTREMITIES: Normal range of motion. No clubbing or cyanosis. Peripheral pulses intact. No lower extremity edema ASSESSMENT: Coronary artery disease, status post CABG 2 vessels Postoperative paroxysmal atrial fibrillation Hypertension Hyperlipidemia Former nicotine dependence COPD PLAN: Continue postoperative management per CTS Continue current cardiac medications Continue telemetry monitoring Increase activity as tolerated Encouraged use of incentive spirometer Further recommendations pending patient course Nurse practitioner note has been reviewed by physician. Signing provider agrees with the documented findings, assessment, and plan of care. Objective - Vital Signs Vital signs: Vital Signs Temp 97.4 F L 07/28/21 12:00 Pulse 62 07/28/21 12:00 Resp 16 07/28/21 12:00 BP 131/62 07/28/21 12:00 Pulse Ox 95 07/28/21 12:00 FiO2 21 07/27/21 08:16 Intake & Output 07/27/21 07/28/21 07/28/21 18:59 06:59 18:59 Intake Total 750 120 240 Output Total 600 250 750 Balance 150 -130 -510 Weight 129 kg Intake: Oral 750 120 240 Output: Urine 600 250 750 Other: Voiding Method Urinal Urinal Urinal # Bowel Movements 1 1 ABP, PAP, CO, CI - Last Documented Arterial Blood Pressure 95/46 Pulmonary Artery Pressure 28/11 Cardiac Output 5.9 Cardiac Index 3 - Labs CBC & Chem 7: 07/28/21 07:32 07/28/21 07:32 Labs: Abnormal Lab Results - Last 24 Hours (Table) 07/27/21 07/27/21 07/28/21 Range/Units 16:47 20:25 06:02 RBC (4.30-5.90) m/uL Hgb (13.0-17.5) gm/dL Hct (39.0-53.0) % Potassium (3.5-5.1) mmol/L BUN (9-20) mg/dL Glucose (74-99) mg/dL POC Glucose (mg/dL) 153 H 118 H 129 H (75-99) mg/dL Calcium (8.4-10.2) mg/dL 07/28/21 07/28/21 07/28/21 Range/Units 07:32 07:32 11:56 RBC 2.61 L (4.30-5.90) m/uL Hgb 7.7 L (13.0-17.5) gm/dL Hct 23.5 L (39.0-53.0) % Potassium 3.1 L (3.5-5.1) mmol/L BUN 23 H (9-20) mg/dL Glucose 114 H (74-99) mg/dL POC Glucose (mg/dL) 145 H (75-99) mg/dL Calcium 7.7 L (8.4-10.2) mg/dL
--- NOTE | 2021-07-28 14:18 | P.PN ---
Subjective Progress Note Date: 07/28/21 Principal diagnosis: Coronary artery disease On 07/28/2021 patient Is seen in follow-up on selective care unit, he was transferred out of intensive care unit yesterday, today is postoperative day #5 status post 2 vessel coronary artery bypass grafting surgery. Patient is doing very well, breathing comfortably, room air pulse ox is 95-98%, his chest tubes and wires have been discontinued, today's chest x-ray showing median sternotomy, mild interstitial prominence, mild patchy left lower lung and a retrocardiac opacity. This likely related to postoperative atelectasis. Working on incentive spirometer. Remains in sinus mechanism. Patient has currently on oral amiodarone 400 mg twice daily, aspirin 325 mg daily, Lipitor 40 mg daily, Plavix, he did receive a dose of IV Lasix today per CT surgery, he is on GI and DVT prophylaxis, he is on beta blockers in the form of Lopressor 50 mg twice daily. He is on prednisone 10 mg daily. Objective - Vital Signs Vital signs: Vital Signs Temp 97.4 F L 07/28/21 12:00 Pulse 62 07/28/21 12:00 Resp 16 07/28/21 12:00 BP 131/62 07/28/21 12:00 Pulse Ox 95 07/28/21 12:00 FiO2 21 07/27/21 08:16 Intake & Output 07/27/21 07/28/21 07/28/21 18:59 06:59 18:59 Intake Total 750 120 240 Output Total 600 250 750 Balance 150 -130 -510 Weight 129 kg Intake: Oral 750 120 240 Output: Urine 600 250 750 Other: Voiding Method Urinal Urinal Urinal # Bowel Movements 1 1 ABP, PAP, CO, CI - Last Documented Arterial Blood Pressure 95/46 Pulmonary Artery Pressure 28/11 Cardiac Output 5.9 Cardiac Index 3 - Exam GENERAL EXAM: Alert, very pleasant, 75-year-old white male, on room air with a pulse ox 97%, sitting up in the recliner on selective care unit, comfortable in no apparent distress. HEAD: Normocephalic/atraumatic. EYES: Normal reaction of pupils, equal size. Conjunctiva pink, sclera white. NOSE: Clear with pink turbinates. THROAT: No erythema or exudates. NECK: No masses, no JVD, no thyroid enlargement, no adenopathy. CHEST: No chest wall deformity. Symmetrical expansion. Midsternal incision and chest tube sites are clean dry and intact, covered with a surgical dressing, LUNGS: Equal air entry with no crackles, wheeze, rhonchi or dullness. CVS: Regular rate and rhythm, normal S1 and S2, no gallops, no murmurs, no rubs ABDOMEN: Soft, nontender. No hepatosplenomegaly, normal bowel sounds, no guarding or rigidity. EXTREMITIES: No clubbing, no edema, no cyanosis, 2+ pulses and upper and lower extremities. MUSCULOSKELETAL: Muscle strength and tone normal. SPINE: No scoliosis or deformity SKIN: No rashes CENTRAL NERVOUS SYSTEM: Alert and oriented -3. No focal deficits, tone is normal in all 4 extremities. PSYCHIATRIC: Alert and oriented -3. Appropriate affect. Intact judgment and insight. - Labs CBC & Chem 7: 07/28/21 07:32 07/28/21 07:32 Labs: Abnormal Lab Results - Last 24 Hours (Table) 07/27/21 07/27/21 07/28/21 Range/Units 16:47 20:25 06:02 RBC (4.30-5.90) m/uL Hgb (13.0-17.5) gm/dL Hct (39.0-53.0) % Potassium (3.5-5.1) mmol/L BUN (9-20) mg/dL Glucose (74-99) mg/dL POC Glucose (mg/dL) 153 H 118 H 129 H (75-99) mg/dL Calcium (8.4-10.2) mg/dL 07/28/21 07/28/21 07/28/21 Range/Units 07:32 07:32 11:56 RBC 2.61 L (4.30-5.90) m/uL Hgb 7.7 L (13.0-17.5) gm/dL Hct 23.5 L (39.0-53.0) % Potassium 3.1 L (3.5-5.1) mmol/L BUN 23 H (9-20) mg/dL Glucose 114 H (74-99) mg/dL POC Glucose (mg/dL) 145 H (75-99) mg/dL Calcium 7.7 L (8.4-10.2) mg/dL Assessment and Plan Plan: Assessment: #1. Coronary artery disease, with 60% left main stenosis, ostial LAD stenosis of 99%, and mid LAD stenosis of 50% and RCA stenosis of 40-50%, status post 2 vessel coronary artery bypass grafting surgery, postoperative day #5 #2. Routine postoperative ventilator management, successfully weaned and extubated postoperative day #0 #3. Episode of A. fib #4. Hypertension #5. Remote history of smoking #6. Recent hospitalization for dizziness and syncope #7. History of melanoma with history of surgical resection behind his right ear, and left scalp #8. Family history of Heart disease #9. History of polymyositis on maintenance dose prednisone 5 mg daily #10. Severe obstruction seen on the preop FEV1, which was 28% of predicted, which is likely related to poor patient effort, positioning or technique. #11. History of 35 pound weight loss in roughly 11 months Plan: Patient is doing well on postoperative day #5 He remains on room air, no worsening dyspnea, Encourage deep breathing and coughing, incentive spirometer use Chest tubes have been removed No evidence of pneumothorax Patient has received a dose of Lasix per CT surgery Remains in sinus mechanism Continue prednisone 10 mg daily We'll continue to follow I have personally seen and examined the patient, performed the documentation and the assessment and plan as written. Number of minutes spent on the visit: [15] Time with Patient: Less than 30
[2021-07-28 14:49] LABS: Glucose,Whole Blood 133 mg/dL (75-99)
--- NOTE | 2021-07-28 14:51 | US ---
EXAMINATION TYPE: Pre-Operative Non-Invasive Evaluation of the hand for Potential Radial Artery Rose dixon, Measurements only DATE OF EXAM: 07/22/2021 10:43 AM CLINICAL HISTORY: measurements only for pre cabg. SIDE PERFORMED: Left TECHNIQUE: Radial artery is measured utilizing real time linear array sonography. Dominant hand: Right Duplex Findings: Radial Artery: Color flow seen Measurements in mm, transverse view: Left Radial: Proximal: 2.2 x 2.4 mm Mid: 2.2 x 2.1 mm Distal: 2.3 x 2.2 mm IMPRESSION: 1. Left radial artery measurements listed above. 2. Performing surgeon to determine viability as conduit.
--- NOTE | 2021-07-28 15:15 | P.PN ---
Progress Note - Text Progress Note Date: 07/28/21 75-year-old active gentleman who follows on an outpatient basis with Dr. David Mancini for primary care and Dr. Carmichael for cardiology. He has a previous medical history of hypertension, polymyositis with daily prednisone use, melanoma in 2001 and 2016, remote history of pneumonia, previous tobacco dependence, 35 pound weight loss since last August due to not eating and the stress of taking care of his , and family history of premature coronary artery disease with father from myocardial infarction at 55 years old. He was recently hospitalized for dizziness and near syncope which was felt to be secondary to dehydration. Brain CT completed at that time was negative for any acute process. He also had an echocardiogram completed during that admission demonstrating normal left ventricular systolic function with EF 55-60%, mild aortic insufficiency, mild mitral and tricuspid regurgitation, and no pericardial effusion. He was stabilized and discharged to home. Upon follow-up with cardiology he had a stress test which was abnormal and he was recommended to undergo heart catheterization which was completed today and which demonstrated distal left main stenosis 60%, ostial LAD stenosis 99% with mid LAD stenosis 50%, and RCA stenosis 40-50%. Due to heart catheterization findings consultation was placed to Dr. Long from cardiothoracic surgery for revascularization recommendations. 07/25 2021 --the patient is doing well on 2 L of oxygen by nasal cannula. Chest tubes are still in place and the patient has a mediastinal, right pleural and left pleural chest tube. --The mediastinal chest tube has produced 1 80 mL over the past 24 hours and the pleural chest tubes have produced 1 50 mL over the past 24 hours. The chest x- ray from today shows adequate expansion of both lungs. No evidence of pneumothorax. All of the chest tubes are in good location and the patient is using incentive spirometer and he is pulling approximately 500. -- He was taken off the norepinephrine infusion this morning and he is running is soft and blood pressure. Despite all this, he is receiving his Lopressor. Cardiac rhythm remains sinus. Surgical wound site is dry clean and intact. No altered mentation. No focal neurological deficits. The blood work from today shows a hemoglobin of 7.4 and the white cell count is at 11.7. Platelet count is at 132. BUN is at 21 with a creatinine of 1.2 and the sodium level of 137. Spinning Mule Operator on both and recommending to continue insulin drip and transition patient to Accu-Cheks every before meals and at bedtime with insulin sliding scale -- The patient was started on aspirin and beta blockers and high-dose statins. 07/26/2021 Patient is currently sitting in a chair comfortably. Awake alert and oriented 3. No complaints of shortness of breath. Soreness at the surgical site. Patient is able to tolerate oral diet. On room air currently. Otherwise patient went into atrial fibrillation with RVR around 8 AM today. Patient was started on amiodarone drip and loading dose was given. Denied any d izziness or lightheadedness. No cough or sputum production. Chest x-ray showed interval removal of the bilateral chest tubes and mediastinal tube. No pneumothorax or pleural effusion. Minimal left lower lobe atelectasis. Laboratory data showed WBC 10.8 hemoglobin 7.6 and platelets 157 sodium 141 potassium 4.0 chloride 106 bicarb is 27 BUN 25 and creatinine 1.22 and calcium 7.9, 3.4 Current medications reviewed. July 27: I assumed care of the patient today. ICU: Sitting up. Comfortable. Had breakfast. Have a bowel movement. Took a few steps. Last night had gone into atrial fibrillation. Acute sinus rhythm. Change to po amiodarone. July 28: Not much of an appetite. Hardly had breakfast. Tired. Breathing stable. Did walk a few steps. Inpatient rehab is being considered. Active Medications Acetaminophen (Acetaminophen Tab 325 Mg Tab) 650 mg PO Q4HR PRN PRN Reason: Fever and/ or Pain Last Admin: 07/27/21 23:49 Dose: 650 mg Albuterol/Ipratropium (Ipratropium-Albuterol 3 Ml Neb) 3 ml INHALATION RT-Q2H PRN PRN Reason: Shortness Of Breath Or Wheezing Amiodarone HCl (Amiodarone 200 Mg Tab) 400 mg PO BID [facility] Last Admin: 07/28/21 08:30 Dose: 400 mg Aspirin (Aspirin 325 Mg Tab) 325 mg PO DAILY [facility] Last Admin: 07/28/21 08:30 Dose: 325 mg Atorvastatin Calcium (Atorvastatin 40 Mg Tab) 40 mg PO DAILY [facility] Last Admin: 07/28/21 08:30 Dose: 40 mg Bisacodyl (Bisacodyl 10 Mg Supp) 10 mg RECTAL DAILY PRN PRN Reason: Constipation Clopidogrel Bisulfate (Clopidogrel 75 Mg Tab) 75 mg PO DAILY [facility] Last Admin: 07/28/21 08:32 Dose: 75 mg Clotrimazole (Clotrimazole 1% Cream 30 Gm Tube) 1 applic TOPICAL BID [facility]; Protocol Last Admin: 07/28/21 08:31 Dose: 1 applic Ferrous Sulfate (Ferrous Sulfate 325 Mg Tab) 325 mg PO BID-W/MEALS [facility] Last Admin: 07/28/21 06:34 Dose: 325 mg Folic Acid (Folic Acid 1 Mg Tab) 1 mg PO DAILY [facility] Last Admin: 07/28/21 08:30 Dose: 1 mg Heparin Sodium (Porcine) (Heparin Sodium,Porcine/Pf 5,000 Unit/0.5 Ml Syringe) 5,000 unit SQ Q8HR [facility] Last Admin: 07/28/21 08:31 Dose: 5,000 unit Calcium Gluconate/Sodium (Chloride 2 gm/ IV Solution) 100 mls @ 100 mls/hr IVPB ONCE PRN PRN Reason: Ionized Calcium less than 4.4 Stop: 08/13/21 12:10 Insulin Aspart (Insulin Aspart (Novolog) 100 Unit/Ml Vial) 0 unit SQ ACHS [facility]; Protocol Last Admin: 07/28/21 12:36 Dose: 1 unit Magnesium Hydroxide (Magnesium Hydroxide 2,400 Mg/10 Ml Cup) 2,400 mg PO BID PRN PRN Reason: Constipation Last Admin: 07/25/21 09:01 Dose: 2,400 mg Melatonin (Melatonin 3 Mg Tablet) 3 mg PO HS PRN PRN Reason: Insomnia Last Admin: 07/27/21 20:42 Dose: 3 mg Metoclopramide HCl (Metoclopramide 5 Mg/Ml 2 Ml Vial) 10 mg IVP Q4H PRN PRN Reason: Nausea And Vomiting Last Admin: 07/25/21 06:57 Dose: 10 mg Metoprolol Tartrate (Metoprolol Tartrate 50 Mg Tab) 50 mg PO BID [facility] Last Admin: 07/28/21 08:30 Dose: 50 mg Miscellaneous Information (Potassium Replacement Protocol 1 Each Misc) 1 each MISCELLANE DAILY PRN; Protocol PRN Reason: Per Protocol Miscellaneous Information (Magnesium Replacement Protocol 1 Each Misc) 1 each MISCELLANE DAILY PRN; Protocol PRN Reason: Per Protocol Miscellaneous Information (Potassium Replacement Protocol 1 Each Misc) 1 each MISCELLANE DAILY PRN; Protocol PRN Reason: Per Protocol Ondansetron HCl (Ondansetron 4 Mg/2 Ml Vial) 4 mg IVP Q6HR PRN PRN Reason: Nausea And Vomiting Last Admin: 07/28/21 08:30 Dose: 4 mg Pantoprazole Sodium (Pantoprazole 40 Mg Tablet) 40 mg PO [id number] [facility] Last Admin: 07/28/21 06:34 Dose: 40 mg Prednisone (Prednisone 10 Mg Tab) 10 mg PO DAILY [facility] Last Admin: 07/28/21 08:30 Dose: 10 mg Senna/Docusate Sodium (Sennosides-Docusate Sodium 1 Each Tab) 2 each PO HS [facility] Last Admin: 07/27/21 20:41 Dose: 2 each Sodium Chloride (Sodium Chloride 0.9% Flush 10 Ml Syringe) 10 ml IV BID [facility] Last Admin: 07/27/21 20:42 Dose: 10 ml On examination: VITAL SIGNS: 97.4, 62, 16, 131/62, 95% room air GENERAL APPEARANCE: Sitting up in a recliner, comfortable HEENT: Normal external appearance of nose and ear. Oral cavity normal EYES: Pupils equal. Conjunctiva normal. NECK: JVD not raised. Mass not palpable. RESPIRATORY: Respiratory effort increased. Decreased breath sounds CARDIOVASCULAR: First and second sounds normal. No edema. ABDOMEN: Soft. Liver and spleen not palpable. No tenderness. No mass palpable. PSYCHIATRY: Alert and oriented x3. Mood and affect normal. INVESTIGATIONS, reviewed in the clinical context: July 28: White count 10.5 hemoglobin 7.7 platelets 292 potassium 3.1 creatinine 1.23 White count 15.8 hemoglobin 8.8 platelets 322 potassium 3.8 BUN 26 creatinine 1.41 Admitting labs: Hemoglobin 12.4 Creatinine 1.0 Assessment and plan: -Status post two-vessel coronary artery bypass graft/July 22. -CAD Aspirin, Lipitor, Plavix, Lopressor -Paroxysmal atrial fibrillation with rapid Rate. back in sinus rhythm Amiodarone 400 mg twice a day, Lopressor 50 mg twice a day -Essential Hypertension Lopressor 50 mg twice a day -Hyperlipidemia Lipitor 40 mg a day -polymyositis on maintenance dose of prednisone 5 mg daily. Currently on 10 mg - acute blood loss anemia as expected from surgery. Ferrous sulfate -Acute medical debility from surgery PT OT. Oral amiodarone. Continue other medications. Discussed with patient and cardiothoracic team.. Increase activity as tolerated. Possible inpatient rehab.
[2021-07-28 17:28] VITALS: BP 146/63; TEMP 98.1
--- NOTE | 2021-07-28 17:42 | P.DS ---
Providers Date of admission: 07/23/21 09:07 Expected date of discharge: 07/28/21 Attending physician: Faraz Barboza Consults: 07/22/21 08:41 Consult Physician Routine Consulting Provider: David Long Consult Reason/Comments: cabg Do you want consulting provider notified?: Already Contacted 07/22/21 11:02 Consult Physician Routine Consulting Provider: Dev Morris Consult Reason/Comments: preop cabg Do you want consulting provider notified?: Already Contacted 07/22/21 14:53 Consult to Anesthesia Routine Consulting Provider: Anesthesia,Services Consult Reason/Comments: Cardiac Surgery Pre-Op 07/23/21 12:09 Consult Physician Routine Consulting Provider: Cr Whitney Consult Reason/Comments: Pit Recorder Consult: post cardiac surgery Do you want consulting provider notified?: Yes Consult Physician Routine Consulting Provider: Jose A Renee Consult Reason/Comments: med mgmt; [facility] patient Do you want consulting provider notified?: Yes Primary care physician: [facility] Course: FINAL DIAGNOSIS: 1. Coronary artery disease, status post two-vessel CABG 2. Hypertension 3. Hyperlipidemia 4. Polymyositis with daily prednisone use 5. Melanoma in 2001 and 2016 6. Remote history of pneumonia 7. Previous tobacco dependence 8. 35 pound weight loss since last August 9. Family history of premature coronary artery disease 10. Severe COPD with preoperative FEV1 28% of predicted 11. Postoperative acute blood loss anemia 12. Postoperative paroxysmal atrial fibrillation, a known common occurrence after cardiac surgery, status post left atrial appendage ligation PRINCIPAL PROCEDURE: 1. Coronary artery bypass grafting 2 vessels, left internal mammary artery to left anterior setting coronary artery, a reverse greater saphenous vein graft to the obtuse marginal coronary artery. 2. Endoscopic harvesting of the left greater saphenous vein. 3. Ligation of the left atrial appendage using a 35 mm Atriclip. 4. Intraoperative epi-aortic ultrasound. 5. Intraoperative transesophageal echocardiogram. HISTORY OF PRESENT ILLNESS: This is a 75-year-old gentleman who follows on an outpatient basis with Dr. David Moon for his primary care and Dr. Carmichael for his cardiology care. He was recently hospitalized for some dizziness and near syncope which was felt to be secondary to dehydration. During that admission a brain computed tomography scan was completed which was negative for any acute process. Also during that admission a transthoracic 2-D echocardiogram was completed which demonstrated a normal left ventricular systolic function with an ejection fraction of 55-60%, mild aortic valve insufficiency, mild mitral valve and mild tricuspid valve regurgitation and no pericardial effusion. After he was medically stabilized he was discharged home. Subsequently, upon follow-up with his solar installation manager he had a stress test completed which was abnormal and he was recommended to undergo a heart catheterization which was completed on 07/22/2021. The heart catheterization demonstrated a distal left main stenosis of 60%, a 99% ostial LAD stenosis with a 50% mid LAD stenosis and a 40-50% stenosis to his right coronary artery. Subsequently due to the findings on the heart catheterization a consult was placed to Dr. David Long from cardiothoracic surgery for further evaluation and treatment recommendations including myocardial revascularization surgery. Dr. Long met with the patient, and the patient's son, treatment options were discussed including myocardial revascularization surgery. Risks and benefits including the STS risk were were discussed with the patient and knowing and understanding the risks the patient wished to proceed with the surgical option. HOSPITAL COURSE: The patient was admitted to the hospital, and on 07/23/2021 after obtaining consent the patient was taken to the preoperative area, prepared in the usual fashion and subsequently taken to the operating room per Dr. Faraz Barboza performed a coronary artery bypass grafting 2 vessels with left internal mammary artery to left anterior ascending coronary artery a reverse greater s aphenous vein graft to the obtuse marginal coronary artery and ligation of the left atrial appendage using a 35 mm Atriclip. Upon completion of the surgery the patient was transferred to the cardiovascular intensive care unit where he was recovered and monitored hemodynamically. He was extubated, all lines, tubes and supportive drips were discontinued when appropriate and he was transferred to the third floor cardiac stepdown unit for further monitoring and rehabilitation. His oxygen was titrated down, he continued to work with physical and occupational therapy, was tolerating an oral diet, his pain was well-controlled and he was ready to be discharged home with [facility] home health care on postoperative day #5. The patient and his son Tawanda, have received written and verbal instructions regarding his medications, activity restrictions, signs and symptoms requiring physician notification and his follow-up appointment. Plan - Discharge Summary Discharge Rx Participant: Yes New Discharge Prescriptions: New Aspirin 325 mg PO DAILY #30 tab Atorvastatin [Lipitor] 40 mg PO DAILY #30 tab Metoprolol Tartrate [Lopressor] 50 mg PO BID #60 tab Clopidogrel [Plavix] 75 mg PO DAILY #30 tab Sennosides-Docusate Sodium [Senokot-S] 2 each PO HS #14 tab Amiodarone [Cordarone] 400 mg PO BID #43 tab Ferrous Sulfate [Iron (65 MG Elemental)] 325 mg PO BID-W/MEALS #14 tab Pantoprazole [Protonix] 40 mg PO AC-BRKFST #30 tab Acetaminophen Tab [Tylenol] 650 mg PO Q4HR PRN tab PRN Reason: Fever And/ Or Pain Continue Febuxostat [Uloric] 40 mg PO DAILY predniSONE 5 mg PO DAILY Folic Acid 1 mg PO DAILY 30 Days #30 tab Discontinued ALPRAZolam [Xanax] 0.5 mg PO DAILY PRN PRN Reason: Anxiety Olmesartan Medoxomil 40 mg PO DAILY amLODIPine [Norvasc] 10 mg PO DAILY Aspirin [Adult Low Dose Aspirin EC] 81 mg PO DAILY Discharge Medication List Febuxostat [Uloric] 40 mg PO DAILY 05/20/21 [History] Folic Acid 1 mg PO DAILY 30 Days #30 tab 05/21/21 [Rx] predniSONE 5 mg PO DAILY 07/21/21 [History] Acetaminophen Tab [Tylenol] 650 mg PO Q4HR PRN tab 07/28/21 [Rx] Amiodarone [Cordarone] 400 mg PO BID #43 tab 07/28/21 [Rx] Aspirin 325 mg PO DAILY #30 tab 07/28/21 [Rx] Atorvastatin [Lipitor] 40 mg PO DAILY #30 tab 07/28/21 [Rx] Clopidogrel [Plavix] 75 mg PO DAILY #30 tab 07/28/21 [Rx] Ferrous Sulfate [Iron (65 MG Elemental)] 325 mg PO BID-W/MEALS #14 tab 07/28/21 [Rx] Metoprolol Tartrate [Lopressor] 50 mg PO BID #60 tab 07/28/21 [Rx] Pantoprazole [Protonix] 40 mg PO AC-BRKFST #30 tab 07/28/21 [Rx] Sennosides-Docusate Sodium [Senokot-S] 2 each PO HS #14 tab 07/28/21 [Rx] Follow up Appointment(s)/Referral(s): Tushar Carmichael MD [STAFF PHYSICIAN] - 08/07/21 9:00 am Kristin Douglass NPC [Nurse Practitioner] - 08/20/21 2:45 pm David Mancini MD [Primary Care Provider] - 08/03/21 11:15 am Sabino Cr NPC [Nurse Practitioner] - 08/05/21 1:00 pm Faraz Barboza MD [STAFF PHYSICIAN] - 08/18/21 9:30 am [facility] Visiting Nurse, [NON-STAFF] - 1-2 Days Ambulatory/Diagnostic Orders: Complete Blood Count w/diff [LAB.AMB] Time Frame: 07/31/21, Facility: [facility], Location: [facility] Comprehensive Metabolic Panel [LAB.AMB] Time Frame: 07/31/21, Facility: [facility], Location: [facility] Activity/Diet/Wound Care/Special Instructions: DISCHARGE INSTRUCTIONS: 1. No driving for 4 weeks, or until physician gives their ok. 2. The patient should sleep in their own bed, no medical bed needed. 3. Stairs are not an issue. If the bedroom is upstairs, it is advised that the patient go up at night and down in the morning for the first week. Go slowly, using handrail and take 1 step at a time. 4. TIFFANIE hose are to be worn for 30 days or until physician discontinues. 5. Heart hugger is to be worn 100% of the time until physician discontinues.(except when showering) 6. No lifting, pushing, or pulling more than 10 pounds for 12 weeks. The physician will advise of any restriction changes. 7. The patient is expected to continue the prescribed walking program. 8. Continue pain control per as needed orders. 9. Continue with incentive spirometry and splinting/heart hugger until otherwise directed by the physician. 10. Must shower daily using liquid antibacterial soap and a separate white washcloth for each individual incision. 11. Routine sternal incision care. No powders, lotions, ointments on incisions. No dressings are necessary on incisions unless they are draining. Dermabond tape is to remain on sternal incision until surgeon follow-up. 12. Please call surgeon/ANIMAL HUSBANDMAN for temp greater than 101 F or purulent drainage from incisions. 13. You should weigh yourself daily, record and bring log with you to follow up appointments. 14. All prescriptions given by surgeon for 30 days. Refills need to be filled through solar installation manager/primary care physician. 15. A Red armband has been placed on the patient. It should be worn for 30 days post surgery and will be removed by the cardiac surgeons. If an ER visit is necessary, please make sure the number on the Red armband is called. 16. You have been referred to and are expected to begin Cardiac Rehab in approximately 4-6 weeks. HOME HEALTH SERVICES TO PROVIDE: RN SKILLED HOME CARE SERVICES FOR POST-OP SURGICAL PATIENTS WITH THE FO LLOWING: Coronary Artery Bypass Surgery (CABG), Mitral Valve Replacement/Repair ( MVR), Aortic Valve Replacement/Repair (AVR) RN TO CONTINUE EDUCATION FROM ``ROAD TO A HEALTH HEART PATIENT EDUCATION MANUAL (GIVEN TO PATIENT IN THE HOSPITAL) MEDICATION RECONCILIATION WITH EDUCATION NEEDED ON FIRST HOME VISIT EMPHASIZE IMPORTANCE OF WEARING BREAST SUPPORT/HEART HUGGER ENCOURAGE USE OF INCENTIVE SPIROMETER 10 X EVERY HOUR WHILE AWAKE ENCOURAGE UTILIZATION OF LOWER EXTREMITY COMPRESSION STOCKINGS/TIFFANIE HOSE and ELEVATE LEGS ABOVE LEVEL OF HEART WHILE AT REST. ENCOURAGE AMBULATION 3-5x/day INCREASING TOLERATES, WHILE AVOIDING EXTREMES IN TEMPERATURE FREQUENCY: RN TO OPEN THE PATIENT WITHIN 24 HOURS OF DISCHARGE FROM THE HOSPITAL WITH TELEHEALTH INSTALLED AT [facility] [place], RN TO VISIT 2-3 X A WEEK FOR 4 WEEKS ESTABLISHED BY PATIENT NEEDS. LABORATORY: CBC, CMP TO BE DRAWN ON THE THIRD DAY HOME, (RAN STAT) FAX RESULTS TO [phone]. TELEHEALTH PARAMETERS: WEIGHT: NOTIFY MD OF WEIGHT GAIN OF 2 LBS IN 24 HOURS OR 5 LBS IN ONE WEEK HR: NOTIFY MD OF HR <55 BPM OR HR>100 BPM BP: NOTIFY MD IF BP <90/55 OR BP>140/100 O2 SAT: NOTIFY MD IF PO2<93% ON ROOM AIR SEND TELEHEALTH REPORT TO SOCIAL SERVICE ASSISTANT AND CARDIOVASCULAR SURGEON THE FIRST WEEK OF CARE AND THEN BI-WEEKLY. PLEASE ADDITIONALLY COMMUNICATE ANY ABNORMALS AND NEW FINDINGS TO THE SURGEONS OFFICE. Discharge Disposition: HOME WITH HOME HEALTH SERVICES
== END 2021-07-28 17:10 | disposition home health service (06) | DRG 234 ==
LOC: CATHCVL 05:56 → 3SCARD 08:16 → 2SICU 07-23 09:05 → CATHCVL 07-23 09:07 → 3SCARD 07-27 22:16
PROVIDERS: ADMIT Internal Medicine Interventional Cardiology; ATTEND Surgery
PROC: 4A023N7 Measurement of Cardiac Sampling and Pressure, Left Heart, Percutaneous Approach (ICD-10-PCS; 2021-07-22)
PROC: B2111ZZ Fluoroscopy of Multiple Coronary Arteries using Low Osmolar Contrast (ICD-10-PCS; 2021-07-22)
PROC: 021009W Bypass Coronary Artery, One Artery from Aorta with Autologous Venous Tissue, Open Approach (ICD-10-PCS; principal; 2021-07-23 08:00)
PROC: 02L70CK Occlusion of Left Atrial Appendage with Extraluminal Device, Open Approach (ICD-10-PCS; principal; 2021-07-23 08:00)
PROC: 5A1221Z Performance of Cardiac Output, Continuous (ICD-10-PCS; principal; 2021-07-23 08:00)
PROC: B24BZZZ Ultrasonography of Heart with Aorta (ICD-10-PCS; principal; 2021-07-23 08:00)
PROC: 02100Z9 Bypass Coronary Artery, One Artery from Left Internal Mammary, Open Approach (ICD-10-PCS; principal; 2021-07-23 08:00)
PROC: 06BP4ZZ Excision of Right Saphenous Vein, Percutaneous Endoscopic Approach (ICD-10-PCS; principal; 2021-07-23 08:00)
DX: R94.39 Abnormal result of other cardiovascular function study (principal); J98.11 Atelectasis; M33.20 Polymyositis, organ involvement unspecified; D62 Acute posthemorrhagic anemia; I25.10 Atherosclerotic heart disease of native coronary artery without angina pectoris; I48.0 Paroxysmal atrial fibrillation; J44.9 Chronic obstructive pulmonary disease, unspecified; K59.00 Constipation, unspecified; M35.3 Polymyalgia rheumatica; Z20.822 Contact with and (suspected) exposure to COVID-19; G47.00 Insomnia, unspecified; E78.5 Hyperlipidemia, unspecified; I10 Essential (primary) hypertension; I08.3 Combined rheumatic disorders of mitral, aortic and tricuspid valves; Z79.02 Long term (current) use of antithrombotics/antiplatelets; Z79.52 Long term (current) use of systemic steroids; Z79.82 Long term (current) use of aspirin; Z79.899 Other long term (current) drug therapy; Z82.49 Family history of ischemic heart disease and other diseases of the circulatory system; Z82.5 Family history of asthma and other chronic lower respiratory diseases; Z85.820 Personal history of malignant melanoma of skin; Z87.01 Personal history of pneumonia (recurrent); Z87.891 Personal history of nicotine dependence; Z82.0 Family history of epilepsy and other diseases of the nervous system; K08.109 Complete loss of teeth, unspecified cause, unspecified class; Z28.21 Immunization not carried out because of patient refusal; Z88.0 Allergy status to penicillin
CPT/HCPCS: 71045; 71046; 80048; 80053; 80061; 81001; 82330; 82805; 83735; 85025; 85027; 85520; 85610; 85730; 86850; 86891; 86900; 86901; 86920; 87070; 87635; 93454; 93880; 93970; 94002; 94150; 94640

== ENCOUNTER 2021-11-17 07:13 | Inpatient (IN) | payer MEDICARE ==
[2021-11-17] MEDS ORDERED: ACETAMINOPHEN TAB 325 MG TAB PO STA (07:43)
[2021-11-17] MEDS ORDERED: SODIUM CHLORIDE 0.9% 500 ML 500 ML IV STA (07:43)
--- NOTE | 2021-11-17 07:48 | ED ---
Weakness HPI - General Chief complaint: Weakness Stated complaint: Weakness, UTI Time Seen by Provider: 11/17/21 07:17 Source: patient, EMS Mode of arrival: EMS Limitations: no limitations - History of Present Illness Initial comments: This patient is 76-year-old man who presents to have evaluation for her weakness and low back pain. The patient states that yesterday he was lying in bed because he was having lumbar back pain that was making it difficult to walk. He states that this morning when he tried to get out of bed he was not able to get out of bed due to weakness. He states he spent an hour trying to get out of bed and was only able to slide down to the bottom of it. He called EMS when he was not able to get up. Patient states that currently he is not having back pain, it is only when he attempts to walk. He indicates the low lumbar area across the back. Patient denied any weakness or numbness of the legs. No loss of bowel function. He states that he did urinate because he was not able to get out of bed. He does use a urinal in bed sometimes but was not able reach it. Complaint: generalized weakness -: hour(s) Location: generalized Severity: moderate Consistency: constant Improves with: none Worsens with: none Associated Symptoms: denies other symptoms - Related Data Home Medications Medication Instructions Recorded Confirmed predniSONE 5 mg PO DAILY 07/21/21 11/17/21 Aspirin 81 mg PO DAILY 11/17/21 11/17/21 Febuxostat [Uloric] 40 mg PO DAILY 11/17/21 11/17/21 Olmesartan Medoxomil [Benicar] 40 mg PO DAILY 11/17/21 11/17/21 Pantoprazole Sodium [Protonix] 40 mg PO DAILY 11/17/21 11/17/21 amLODIPine [Norvasc] 10 mg PO DAILY 11/17/21 11/17/21 Previous Rx's Medication Instructions Recorded Folic Acid 1 mg PO DAILY 30 Days #30 tab 05/21/21 Atorvastatin [Lipitor] 40 mg PO DAILY #30 tab 07/28/21 Clopidogrel [Plavix] 75 mg PO DAILY #30 tab 07/28/21 Allergies Allergy/AdvReac Type Severity Reaction Status Date / Time Penicillins Allergy Rash/Hives Verified 11/17/21 11:07 Review of Systems ROS Statement: Those systems with pertinent positive or pertinent negative responses have been documented in the HPI. ROS Other: All systems not noted in ROS Statement are negative. Constitutional: Denies: fever, chills Respiratory: Denies: cough, dyspnea Cardiovascular: Denies: chest pain, palpitations, edema Gastrointestinal: Denies: abdominal pain, vomiting, diarrhea Genitourinary: Denies: dysuria, frequency, hematuria Musculoskeletal: Reports: as per HPI, back pain Skin: Denies: rash Neurological: Denies: headache, weakness, numbness Past Medical History Past Medical History: Coronary Artery Disease (CAD), Cancer, Hyperlipidemia, Hypertension, Pneumonia Additional Past Medical History / Comment(s): See Dr Carmichael's H&P. Polymyositis causing muscle pain and stiffness, requiring long term steroid use, resulting in elevated A1C. Currently having mild flare up, on steroids. Hx Melamoma X2, once on left scalp and once behind right ear. History of Any Multi-Drug Resistant Organisms: None Reported Past Surgical History: Appendectomy Additional Past Surgical History / Comment(s): Melanoma behind right ear and left scalp removed, ganglion cyst removed from wrist, all teeth extracted. Knee scope Past Anesthesia/Blood Transfusion Reactions: No Reported Reaction Past Psychological History: No Psychological Hx Reported Smoking Status: Never smoker Past Alcohol Use History: None Reported - Past Family History Mother Family Medical History: Dementia, Pneumonia Father Family Medical History: Coronary Artery Disease (CAD), Myocardial Infarction (MS) Additional Family Medical History / Comment(s): from myocardial infarction at 55 years old General Exam General appearance: alert, in no apparent distress Head exam: Present: atraumatic, normocephalic Eye exam: Present: normal appearance. Absent: scleral icterus, conjunctival injection ENT exam: Present: normal oropharynx Neck exam: Present: normal inspection Respiratory exam: Present: normal lung sounds bilaterally. Absent: respiratory distress, wheezes, rales, rhonchi, stridor Cardiovascular Exam: Present: regular rate, normal rhythm, normal heart sounds. Absent: systolic murmur, diastolic murmur, rubs, gallop GI/Abdominal exam: Present: soft. Absent: distended, tenderness, guarding, rebound, rigid, mass Extremities exam: Present: normal inspection, full ROM, normal capillary refill. Absent: tenderness, pedal edema, calf tenderness Back exam: Present: normal inspection. Absent: CVA tenderness (R), CVA tenderness (L), paraspinal tenderness, vertebral tenderness Neurological exam: Present: alert, oriented X3. Absent: motor sensory deficit Skin exam: Present: warm, dry, intact, normal color. Absent: rash Course Vital Signs 11/17/21 11/17/21 11/17/21 07:15 07:22 08:35 Temperature 100.2 F H 100.2 F H 99.6 F Pulse Rate 113 H 110 H 90 Respiratory 20 20 16 Rate Blood Pressure 175/86 175/86 146/70 O2 Sat by Pulse 96 98 96 Oximetry 11/17/21 11/17/21 11/17/21 09:33 10:14 12:04 Temperature 98.9 F 98.3 F Pulse Rate 80 77 72 Respiratory 16 16 16 Rate Blood Pressure 131/62 131/61 101/75 O2 Sat by Pulse 98 95 98 Oximetry 11/17/21 13:17 Temperature Pulse Rate Respiratory 16 Rate Blood Pressure O2 Sat by Pulse Oximetry EKG Findings - EKG Results: EKG: interpreted by ERMD, sinus rhythm, normal ST/T EKG shows: tachycardia (Rate 100 bpm) - Blocks, [place], Hypertrophy, ST Abn: AV and intraventricular conduction: intraventricular conduction delay Medical Decision Making - Medical Decision Making Patient is 76-year-old man presenting with worsening of generalized weakness, found to have COVID-19 infection and dehydration. Patient will require medical admission to facilitate placement for rehabilitation versus retirement. - Lab Data Result diagrams: 11/17/21 07:45 11/17/21 07:45 Lab Results 11/17/21 11/17/21 11/17/21 Range/Units 07:45 07:45 07:45 WBC 9.1 (3.8-10.6) k/uL RBC 4.69 (4.30-5.90) m/uL Hgb 13.0 (13.0-17.5) gm/dL Hct 39.5 (39.0-53.0) % MCV 84.2 (80.0-100.0) fL MCH 27.7 (25.0-35.0) pg MCHC 32.9 (31.0-37.0) g/dL RDW 15.1 (11.5-15.5) % Plt Count 245 (150-450) k/uL MPV 7.4 Neutrophils % 72 % Lymphocytes % 16 % Monocytes % 8 % Eosinophils % 1 % Basophils % 1 % Neutrophils # 6.5 (1.3-7.7) k/uL Lymphocytes # 1.5 (1.0-4.8) k/uL Monocytes # 0.7 (0-1.0) k/uL Eosinophils # 0.1 (0-0.7) k/uL Basophils # 0.1 (0-0.2) k/uL PT 11.8 (9.0-12.0) sec INR 1.1 (<1.2) APTT 29.0 (22.0-30.0) sec Sodium (137-145) mmol/L Potassium (3.5-5.1) mmol/L Chloride (98-107) mmol/L Carbon Dioxide (22-30) mmol/L Anion Gap mmol/L BUN (9-20) mg/dL Creatinine (0.66-1.25) mg/dL Est GFR (CKD-EPI)AfAm (>60 ml/min/1.73 sqM) Est GFR (CKD-EPI)NonAf (>60 ml/min/1.73 sqM) Glucose (74-99) mg/dL Plasma Lactic Acid Romulo (0.7-2.0) mmol/L Calcium (8.4-10.2) mg/dL Magnesium (1.6-2.3) mg/dL Total Bilirubin (0.2-1.3) mg/dL AST (17-59) U/L ALT (4-49) U/L Alkaline Phosphatase (38-126) U/L Troponin I (0.000-0.034) ng/mL Total Protein (6.3-8.2) g/dL Albumin (3.5-5.0) g/dL TSH (0.465-4.680) mIU/L Urine Color Light Yellow Urine Appearance Clear (Clear) Urine pH 6.5 (5.0-8.0) Ur Specific Carmine 1.011 (1.001-1.035) Urine Protein 1+ H (Negative) Urine Glucose (UA) Negative (Negative) Urine Ketones Negative (Negative) Urine Blood Moderate H (Negative) Urine Nitrite Negative (Negative) Urine Bilirubin Negative (Negative) Urine Urobilinogen <2.0 (<2.0) mg/dL Ur Leukocyte Esterase Negative (Negative) Urine RBC 9 H (0-5) /hpf Urine WBC 1 (0-5) /hpf Ur Squamous Epith Cells <1 (0-4) /hpf Coronavirus (PCR) (Not Detectd) 11/17/21 11/17/21 11/17/21 Range/Units 07:45 07:45 07:45 WBC (3.8-10.6) k/uL RBC (4.30-5.90) m/uL Hgb (13.0-17.5) gm/dL Hct (39.0-53.0) % MCV (80.0-100.0) fL MCH (25.0-35.0) pg MCHC (31.0-37.0) g/dL RDW (11.5-15.5) % Plt Count (150-450) k/uL MPV Neutrophils % % Lymphocytes % % Monocytes % % Eosinophils % % Basophils % % Neutrophils # (1.3-7.7) k/uL Lymphocytes # (1.0-4.8) k/uL Monocytes # (0-1.0) k/uL Eosinophils # (0-0.7) k/uL Basophils # (0-0.2) k/uL PT (9.0-12.0) sec INR (<1.2) APTT (22.0-30.0) sec Sodium 139 (137-145) mmol/L Potassium 3.5 (3.5-5.1) mmol/L Chloride 100 (98-107) mmol/L Carbon Dioxide 27 (22-30) mmol/L Anion Gap 12 mmol/L BUN 21 H (9-20) mg/dL Creatinine 1.51 H (0.66-1.25) mg/dL Est GFR (CKD-EPI)AfAm 51 (>60 ml/min/1.73 sqM) Est GFR (CKD-EPI)NonAf 44 (>60 ml/min/1.73 sqM) Glucose 98 (74-99) mg/dL Plasma Lactic Acid Romulo 1.2 (0.7-2.0) mmol/L Calcium 9.1 (8.4-10.2) mg/dL Magnesium 1.8 (1.6-2.3) mg/dL Total Bilirubin 0.6 (0.2-1.3) mg/dL AST 21 (17-59) U/L ALT 18 (4-49) U/L Alkaline Phosphatase 74 (38-126) U/L Troponin I 0.033 (0.000-0.034) ng/mL Total Protein 7.1 (6.3-8.2) g/dL Albumin 4.2 (3.5-5.0) g/dL TSH 0.991 (0.465-4.680) mIU/L Urine Color Urine Appearance (Clear) Urine pH (5.0-8.0) Ur Specific Carmine (1.001-1.035) Urine Protein (Negative) Urine Glucose (UA) (Negative) Urine Ketones (Negative) Urine Blood (Negative) Urine Nitrite (Negative) Urine Bilirubin (Negative) Urine Urobilinogen (<2.0) mg/dL Ur Leukocyte Esterase (Negative) Urine RBC (0-5) /hpf Urine WBC (0-5) /hpf Ur Squamous Epith Cells (0-4) /hpf Coronavirus (PCR) (Not Detectd) 11/17/21 Range/Units 07:50 WBC (3.8-10.6) k/uL RBC (4.30-5.90) m/uL Hgb (13.0-17.5) gm/dL Hct (39.0-53.0) % MCV (80.0-100.0) fL MCH (25.0-35.0) pg MCHC (31.0-37.0) g/dL RDW (11.5-15.5) % Plt Count (150-450) k/uL MPV Neutrophils % % Lymphocytes % % Monocytes % % Eosinophils % % Basophils % % Neutrophils # (1.3-7.7) k/uL Lymphocytes # (1.0-4.8) k/uL Monocytes # (0-1.0) k/uL Eosinophils # (0-0.7) k/uL Basophils # (0-0.2) k/uL PT (9.0-12.0) sec INR (<1.2) APTT (22.0-30.0) sec Sodium (137-145) mmol/L Potassium (3.5-5.1) mmol/L Chloride (98-107) mmol/L Carbon Dioxide (22-30) mmol/L Anion Gap mmol/L BUN (9-20) mg/dL Creatinine (0.66-1.25) mg/dL Est GFR (CKD-EPI)AfAm (>60 ml/min/1.73 sqM) Est GFR (CKD-EPI)NonAf (>60 ml/min/1.73 sqM) Glucose (74-99) mg/dL Plasma Lactic Acid Romulo (0.7-2.0) mmol/L Calcium (8.4-10.2) mg/dL Magnesium (1.6-2.3) mg/dL Total Bilirubin (0.2-1.3) mg/dL AST (17-59) U/L ALT (4-49) U/L Alkaline Phosphatase (38-126) U/L Troponin I (0.000-0.034) ng/mL Total Protein (6.3-8.2) g/dL Albumin (3.5-5.0) g/dL TSH (0.465-4.680) mIU/L Urine Color Urine Appearance (Clear) Urine pH (5.0-8.0) Ur Specific Carmine (1.001-1.035) Urine Protein (Negative) Urine Glucose (UA) (Negative) Urine Ketones (Negative) Urine Blood (Negative) Urine Nitrite (Negative) Urine Bilirubin (Negative) Urine Urobilinogen (<2.0) mg/dL Ur Leukocyte Esterase (Negative) Urine RBC (0-5) /hpf Urine WBC (0-5) /hpf Ur Squamous Epith Cells (0-4) /hpf Coronavirus (PCR) Detected A (Not Detectd) Disposition Clinical Impression: COVID-19, Generalized weakness, Dehydration Disposition: ADMITTED IP TO THIS HOSP Condition: Fair Is patient prescribed a controlled substance at d/c from ED?: No Time of Disposition: 08:59
[2021-11-17 07:55] LABS: Basophils # (A) 0.1 k/uL (0-0.2); Basophils % (A) 1 %; Eosinophils # (A) 0.1 k/uL (0-0.7); Eosinophils % (A) 1 %; HCT 39.5 % (39.0-53.0); Lymphocytes # (A) 1.5 k/uL (1.0-4.8); Lymphocytes % (A) 16 %; MCH 27.7 pg (25.0-35.0); MCHC 32.9 g/dL (31.0-37.0); MCV 84.2 fL (80.0-100.0); Mean Platelet Volume 7.4; Monocytes # (A) 0.7 k/uL (0-1.0); Monocytes % (A) 8 %; Neutrophils # (A) 6.5 k/uL (1.3-7.7); Neutrophils % (A) 72 %; Platelet Count 245 k/uL (150-450); RBC 4.69 m/uL (4.30-5.90); RDW 15.1 % (11.5-15.5); WBC 9.1 k/uL (3.8-10.6)
[2021-11-17 08:04] LABS: Albumin 4.2 g/dL (3.5-5.0); Appearance,Urine Clear (Clear); Bilirubin,Urine Negative (Negative); Blood,Urine Moderate (Negative); Calcium 9.1 mg/dL (8.4-10.2); Color,Urine Light Yellow; Glucose,Urine (UA) Negative (Negative); INR 1.1 (<1.2); Ketones,Urine Negative (Negative); Leukocyte Esterase,Urine Negative (Negative); Magnesium 1.8 mg/dL (1.6-2.3); Nitrite,Urine Negative (Negative); PH, Urine 6.5 (5.0-8.0); Potassium 3.5 mmol/L (3.5-5.1); Protein,Urine 1+ (Negative); Prothrombin Time 11.8 sec (9.0-12.0); RBC,Urine 9 /hpf (0-5); Specific Gravity,Urine 1.011 (1.001-1.035); Squamous Epithelial Cell,Urine <1 /hpf (0-4); Total Bilirubin 0.6 mg/dL (0.2-1.3); Total Protein 7.1 g/dL (6.3-8.2); Urobilinogen,Urine <2.0 mg/dL (<2.0); WBC,Urine 1 /hpf (0-5)
--- NOTE | 2021-11-17 08:32 | XR ---
EXAMINATION TYPE: XR chest 2V DATE OF EXAM: 11/17/2021 8:24 AM COMPARISON: Chest radiographs from 08/20/2021 TECHNIQUE: XR chest 2V Frontal and lateral views of the chest. CLINICAL INDICATION:Male, 76 years old with history of Weakness; FINDINGS: Lungs/Pleura: There is no evidence of pleural effusion, focal consolidation, or pneumothorax. Pulmonary vascularity: Unremarkable. Heart/mediastinum: Cardiomediastinal silhouette is unremarkable. Left atrial appendage clip. Musculoskeletal: Multiple level degenerative disc disease changes seen throughout the spine. Midline sternotomy wires. IMPRESSION: No acute cardiopulmonary disease/process. No significant change from prior examination.
--- NOTE | 2021-11-17 08:36 | XR ---
EXAMINATION TYPE: XR lumbosacral spine min 4V DATE OF EXAM: 11/17/2021 8:24 AM INDICATION: Patient age:Male; 76 years old; Reason for study: pain; PHH. COMPARISON: None TECHNIQUE: Frontal, lateral , bilateral oblique and coned in L5-S1 lateral views of the spine. FINDINGS: There are 5 nonrib-bearing lumbar-type vertebral bodies identified. No evidence of any acut e osseous pathology. No evidence of loss of vertebral body height is seen. There is normal alignment of the lumbar vertebral bodies. Multilevel degenerative changes visualized spine with disc space spike rowing, endplate sclerosis, and anterior osteophytosis. Multilevel facet arthropathy. Vascular sclero sis. IMPRESSION: 1. No acute process. 2. Mild degenerative disc disease.
[2021-11-17] MEDS ORDERED: ACETAMINOPHEN TAB 325 MG TAB PO PRN (08:59)
[2021-11-17] MEDS ORDERED: MAG HYDROX/AL HYDROX/SIMETH 30 ML CUP PO PRN (08:59)
[2021-11-17] MEDS ORDERED: NALOXONE 0.4 MG/ML 1 ML VIAL IV PRN (08:59)
[2021-11-17] MEDS ORDERED: FAMOTIDINE 20 MG TAB PO SCH (09:00)
[2021-11-17] MEDS ORDERED: SODIUM CHLORIDE 0.9% 1,000 ML IV SCH (09:00)
[2021-11-17] MEDS: FAMOTIDINE 20 MG TAB PO SCH (09:33)
[2021-11-17] MEDS ORDERED: LACTULOSE 20 GM/30 ML CUP PO PRN (12:24)
[2021-11-17] MEDS ORDERED: ONDANSETRON 4 MG/2 ML VIAL IVP PRN (12:24)
[2021-11-17] MEDS ORDERED: MELATONIN 3 MG TABLET PO PRN (12:24)
[2021-11-17] MEDS: LACTATED RINGERS 1,000 ML IV SCH ×2 (12:35→21:30)
[2021-11-17] MEDS: ENOXAPARIN 40 MG/0.4 ML SYRINGE SQ SCH (12:36)
--- NOTE | 2021-11-17 14:34 | P.HPIM ---
History of Present Illness H&P Date: 11/17/21 Chief Complaint: Back pain This is a pleasant 76-year-old patient, follows with Dr. Mancini. Chronic stable medical conditions include CAD, hypertension, hyperlipidemia, polymyositis,. Yesterday started feeling weak and tired. To the point he could barely walk. Really has not even could not get out of bed. Having increasing low back pain. Also had some fever and cough. Decrease appetite. No mass or bowel movement every day. Had a loose bowel movement yesterday. He's had lower back pain for about 4 days. No radiation. Did not affect the bowel or urine patent. Did test positive for COVID in the ER. Does have a invalid at home. Pain is better if he does not move. Review of systems: GEN.: Fever, decreased appetite, tired EYES: None HEENT: None NECK: None RESPIRATORY: As above CARDIOVASCULAR: None GASTROINTESTINAL: As above GENITOURINARY: None MUSCULOSKELETAL: As above LYMPHATICS: None HEMATOLOGICAL: None PSYCHIATRY: None NEUROLOGICAL: None Past medical history to include: CAD, hypertension, hyperlipidemia, polymyositis, melanoma, Social history: No smoking. Stop drinking beer in August 2016, is invalid. Patient himself has a Rollator and a cane. Physical examination: VITAL SIGNS: 100.2, 113, 20, 175/86, 96% room air] GENERAL: BMI 24.7, declining but awake, tired. EYES: Pupils equal. Conjunctiva normal. HEENT: External appearance of nose and ears normal, oral cavity grossly normal. NECK: JVD not raised; masses not palpable. HEART: First and second heart sounds are normal; no edema. LUNGS: Respiratory rate normal; clear to auscultation. ABDOMEN: Soft, nontender, liver spleen not palpable, no masses palpable. PSYCH: Alert and oriented x3; mood and affect normal. MUSCULOSKELETAL:No Clubbing/cyanosis;muscles-grossly intact, evidence of OA NEUROLOGICAL: Cranial nerves grossly intact; no facial asymmetry, power and sensation grossly intact. Able to lift both his legs off the bed. LYMPHATICS: No lymph nodes palpable in the axilla and neck INVESTIGATIONS, reviewed in the clinical context: WBC 9.1 hemoglobin 13 platelets 240 07/04/1940 potassium 3.5. 21 creatinine 1.51 Troponin I 0.033, 0.020 TSH 0.991 COVID 19 PCR: Detected EKG tracing personally reviewed by me-normal sinus rhythm, rate 100, Chest x-ray film personally reviewed by me-possible infiltrate X-ray lumbosacral spine: Multiple levels of DJD. With some disc space narrowing. Assessment and plan: -Possible acute flareup of polymyositis, given patient is on prednisone 5 mg in the setting of acute infection from COVID 19 increasing myopathy IV hydrocortisone 50 mg every 8. Hold prednisone -Acute low back pain of 4 days' duration. Becoming more severe. X-ray showing DJD and some matting of disc space. No radiation. Consults orthopedics. -Acute COVID 19 pneumonitis. No hypoxia. Supportive care. Subcu Lovenox -GERD Protonix -Essential hypertension Norvasc, Benicar -CAD with a prior history of stent Aspirin, Lipitor -Kidney injury, acute versus chronic UA 1+ protein. Recheck labs in the morning after IV hydration. Renal ultrasound. Consult orthopedics. IV hydrocortisone. Resume home medications. Resume home medications. IV fluids. Recheck labs. Past Medical History Past Medical History: Coronary Artery Disease (CAD), Cancer, Hyperlipidemia, Hypertension, Pneumonia Additional Past Medical History / Comment(s): See Dr Carmichael's H&P. Polymyositis causing muscle pain and stiffness, requiring detention steroid use, resulting in elevated A1C. Currently having mild flare up, on steroids. Hx Melamoma X2, once on left scalp and once behind right ear. History of Any Multi-Drug Resistant Organisms: None Reported Past Surgical History: Appendectomy Additional Past Surgical History / Comment(s): Melanoma behind right ear and left scalp removed, ganglion cyst removed from wrist, all teeth extracted. Knee scope Past Anesthesia/Blood Transfusion Reactions: No Reported Reaction Past Psychological History: No Psychological Hx Reported Smoking Status: Never smoker Past Alcohol Use History: None Reported - Past Family History Mother Family Medical History: Dementia, Pneumonia Father Family Medical History: Coronary Artery Disease (CAD), Myocardial Infarction ([place]) Additional Family Medical History / Comment(s): from myocardial infarction at 55 years old Medications and Allergies Home Medications Medication Instructions Recorded Confirmed Type Folic Acid 1 mg PO DAILY 30 Days #30 tab 05/21/21 11/17/21 Rx predniSONE 5 mg PO DAILY 07/21/21 11/17/21 History Atorvastatin [Lipitor] 40 mg PO DAILY #30 tab 07/28/21 11/17/21 Rx Clopidogrel [Plavix] 75 mg PO DAILY #30 tab 07/28/21 11/17/21 Rx Aspirin 81 mg PO DAILY 11/17/21 11/17/21 History Febuxostat [Uloric] 40 mg PO DAILY 11/17/21 11/17/21 History Olmesartan Medoxomil [Benicar] 40 mg PO DAILY 11/17/21 11/17/21 History Pantoprazole Sodium [Protonix] 40 mg PO DAILY 11/17/21 11/17/21 History amLODIPine [Norvasc] 10 mg PO DAILY 11/17/21 11/17/21 History Allergies Allergy/AdvReac Type Severity Reaction Status Date / Time Penicillins Allergy Rash/Hives Verified 11/17/21 11:07 Physical Exam Vitals: Vital Signs Temp Pulse Resp BP Pulse Ox 11/17/21 08:35 99.6 F 90 16 146/70 96 11/17/21 07:22 100.2 F H 110 H 20 175/86 98 11/17/21 07:15 100.2 F H 113 H 20 175/86 96 Intake and Output 11/16/21 11/17/21 11/17/21 22:59 06:59 14:59 Other: Weight 78.018 kg Results CBC & Chem 7: 11/17/21 07:45 11/17/21 07:45 Labs: Abnormal Lab Results - Last 24 Hours (Table) 11/17/21 11/17/21 11/17/21 Range/Units 07:45 07:45 07:50 BUN 21 H (9-20) mg/dL Creatinine 1.51 H (0.66-1.25) mg/dL Urine Protein 1+ H (Negative) Urine Blood Moderate H (Negative) Urine RBC 9 H (0-5) /hpf Coronavirus (PCR) Detected A (Not Detectd)
[2021-11-17] MEDS: HYDROCORTISONE SUCCINATE 100 MG/2 ML VIAL IV SCH ×2 (15:28→23:33)
--- NOTE | 2021-11-17 15:43 | US ---
EXAMINATION TYPE: US kidneys/renal and bladder DATE OF EXAM: 11/17/2021 COMPARISON: Prior renal ultrasound May 20, 2021 CLINICAL HISTORY: assess for CKD. EXAM MEASUREMENTS: Right Kidney: 9.4 x 4.8 x 3.3 cm Left Kidney: 13.6 x 6.5 x 4.8 cm Right Kidney: malrotated. cystic areas noted, largest = 3.1 x 2.6 x 3.2cm Left Kidney: enlarged. cystic areas noted, largest = 2.2 x 1.9cm Bladder: wnl Bilateral Jets seen: yes The urinary bladder is adequately distended. Bilateral ureteral jets are seen. Asymmetric diminished size to the right kidney with hyperechoic area midpole cortex redemonstrated. There are thin-walled cysts redemonstrated scattered throughout the right kidney along with a 3.1 cm hypoechoic to anechoic exophytic lesion on current study. Left kidney has also thin-walled cysts and thin-walled cyst with septa. No hydronephrosis seen bilaterally. IMPRESSION: No hydronephrosis seen bilaterally. Evidence of chronic medical renal disease. Possible n onsimple cysts in right kidney. Consider renal protocol contrast-enhanced CT or MRI follow-up to furt her evaluate.
--- NOTE | 2021-11-17 15:48 | P.CNOR ---
History of Present Illness - [facility] Consult date: 11/17/21 Requesting physician: Jose A Renee Consult reason: back pain History of present illness: Patient is a 76-year-old male with a history of HI, CABG, chronic low back pain, hypertension, hyperlipidemia who presented to the emergency department at [facility] with a chief complaint of low back pain. Patient says this low back pain began a few days ago when he was trying to help feed his . Patient says this low back pain worsens when he lifts things up and carries things around his house. Patient states this morning when he tried to get up out of bed he was unable to due to weakness. Patient says he has tried Tylenol before to try and control his low back pain without much relief. Patient states this low back pain does not radiate down his legs. Patient denies any numbness or tingling in the genital region. Patient denies any lower extremity numbness/tingling. Patient says he had a knee arthroscopy performed before. Patient denies any other orthopedic surgeries in the past. Patient did test positive today for Covid in ER. Patient denies chest pain, fever, nausea, vomiting, change in vision, loss of bowel/bladder control. Past Medical History Past Medical History: Coronary Artery Disease (CAD), Cancer, Hyperlipidemia, Hypertension, Pneumonia Additional Past Medical History / Comment(s): See Dr Carmichael's H&P. Polymyositis causing muscle pain and stiffness, requiring group home steroid use, resulting in elevated A1C. Currently having mild flare up, on steroids. Hx Melamoma X2, once on left scalp and once behind right ear. History of Any Multi-Drug Resistant Organisms: None Reported Past Surgical History: Appendectomy Additional Past Surgical History / Comment(s): Melanoma behind right ear and left scalp removed, ganglion cyst removed from wrist, all teeth extracted. Knee scope Past Anesthesia/Blood Transfusion Reactions: No Reported Reaction Past Psychological History: No Psychological Hx Reported Smoking Status: Never smoker Past Alcohol Use History: None Reported - Past Family History Mother Family Medical History: Dementia, Pneumonia Father Family Medical History: Coronary Artery Disease (CAD), Myocardial Infarction ([place]) Additional Family Medical History / Comment(s): from myocardial infarction at 55 years old Medications and Allergies Home Medications Medication Instructions Recorded Confirmed Type Folic Acid 1 mg PO DAILY 30 Days #30 tab 05/21/21 11/17/21 Rx predniSONE 5 mg PO DAILY 07/21/21 11/17/21 History Atorvastatin [Lipitor] 40 mg PO DAILY #30 tab 07/28/21 11/17/21 Rx Clopidogrel [Plavix] 75 mg PO DAILY #30 tab 07/28/21 11/17/21 Rx Aspirin 81 mg PO DAILY 11/17/21 11/17/21 History Febuxostat [Uloric] 40 mg PO DAILY 11/17/21 11/17/21 History Olmesartan Medoxomil [Benicar] 40 mg PO DAILY 11/17/21 11/17/21 History Pantoprazole Sodium [Protonix] 40 mg PO DAILY 11/17/21 11/17/21 History amLODIPine [Norvasc] 10 mg PO DAILY 11/17/21 11/17/21 History Allergies Allergy/AdvReac Type Severity Reaction Status Date / Time Penicillins Allergy Rash/Hives Verified 11/17/21 11:07 Physical Examination Inspection: Negative for any open fractures, ulcers, significant ecchymosis/erythema Sensation: Patient has full sensation that is equal, symmetric, bilaterally intact in upper and lower extremities. Palpation: Fair amount TTP at midline throughout lumbar spine. some mild TTP in lumbar paravertevral region. NTTP throughout rest of exam. Range of motion: Patient has full range of motion bilateral upper and lower extremities on exam Motor: 5/5 in all major motor groups in bilateral upper and lower extremities Special tests: Negative Homans bilaterally; negative clonus bilaterally; negative Esperanza's bilaterally Neurovascular status: Radial pulses intact, 2+ bilaterally. Capillary refill under 3 seconds in digits of upper extremities Results - Labs Labs: Abnormal Lab Results - Last 24 Hours (Table) 11/17/21 11/17/21 11/17/21 Range/Units 07:45 07:45 07:50 BUN 21 H (9-20) mg/dL Creatinine 1.51 H (0.66-1.25) mg/dL Urine Protein 1+ H (Negative) Urine Blood Moderate H (Negative) Urine RBC 9 H (0-5) /hpf Coronavirus (PCR) Detected A (Not Detectd) H & H 11/17/21 Range/Units 07:45 Hgb 13.0 (13.0-17.5) gm/dL Hct 39.5 (39.0-53.0) % Coagulation 11/17/21 Range/Units 07:45 INR 1.1 (<1.2) Result Diagrams: 11/17/21 07:45 11/17/21 07:45 Assessment and Plan Assessment: 1. low back pain; DDD Plan: 1. low back pain; DDD - patient was seen at bedside this afternoon in the ER and examined. X-ray lumbar spine reviewed and does show some mild degenerative changes throughout the lumbar spine. XR negative for fractu re/spondylolisthesis. At this time we recommend conservative measures for control of back pain with medication. We will continue to be available to follow patient during stay in hospital. 2. Appreciate medical management 3. Pain Management - , 4. DVT ppx - aspirin; Lovenox; Plavix 4. GI ppx - Protonix; Pepcid; Maalox 5. PT/OT - WBAT w/walker 6. Appreciate consult Time with Patient: Less than 30
[2021-11-17] MEDS ORDERED: AMIODARONE 200 MG TAB PO SCH (21:00)
[2021-11-17] MEDS ORDERED: METOPROLOL TARTRATE 50 MG TAB PO SCH (21:00)
[2021-11-17] MEDS: LORazepam 0.5 MG TAB PO PRN (21:31)
[2021-11-18] MEDS: LACTATED RINGERS 1,000 ML IV SCH ×3 (05:51→21:18)
[2021-11-18 06:57] LABS: African American GFR (CKD) 73 (>60 ml/min/1.73 sqM); Anion Gap 11 mmol/L; Blood Urea Nitrogen 17 mg/dL (9-20); Calcium 8.8 mg/dL (8.4-10.2); Carbon Dioxide 27 mmol/L (22-30); Chloride 100 mmol/L (98-107); Glucose 117 mg/dL (74-99); Non-African American GFR(CKD) 63 (>60 ml/min/1.73 sqM); Potassium 3.7 mmol/L (3.5-5.1); Sodium 138 mmol/L (137-145)
[2021-11-18] MEDS ORDERED: predniSONE 5 MG TAB PO SCH (09:00)
[2021-11-18] MEDS ORDERED: ASPIRIN 325 MG TAB PO SCH (09:00)
[2021-11-18] MEDS: HYDROCORTISONE SUCCINATE 100 MG/2 ML VIAL IV SCH ×2 (10:06→17:13)
[2021-11-18] MEDS: ENOXAPARIN 40 MG/0.4 ML SYRINGE SQ SCH (10:06)
[2021-11-18] MEDS: ASPIRIN 81 MG PO SCH (10:07)
[2021-11-18] MEDS: LOSARTAN 50 MG TAB PO SCH (10:08)
[2021-11-18] MEDS: allopurinoL 100 MG TAB PO SCH (10:08)
[2021-11-18] MEDS: CLOPIDOGREL 75 MG TAB PO SCH (10:09)
[2021-11-18] MEDS: PANTOPRAZOLE 40 MG TABLET PO SCH (10:09)
[2021-11-18] MEDS: FAMOTIDINE 20 MG TAB PO SCH (10:09)
[2021-11-18] MEDS: ATORVASTATIN 40 MG TAB PO SCH (10:09)
[2021-11-18] MEDS: amLODIPine 10 MG TAB PO SCH (10:09)
--- NOTE | 2021-11-18 11:57 | P.PN ---
Subjective Progress Note Date: 11/18/21 Principal diagnosis: Low back pain; degenerative disc disease Patient was seen at bedside this morning resting, lying in semirecumbent position. Patient says this morning he did get up and go the bathroom under his own power and was able to sit up at bedside without having low back pain. Patient says he is feeling much better today than he was when he came into the emergency department. Patient denies chest pain, fever, shortness of breath, nausea, vomiting, change in vision, loss of/bladder control. Objective - Vital Signs Vital signs: Vital Signs Temp 97.9 F 11/18/21 07:25 Pulse 86 11/18/21 07:25 Resp 18 11/18/21 07:25 BP 155/71 11/18/21 07:25 Pulse Ox 99 11/18/21 07:25 FiO2 Intake & Output 11/17/21 11/18/21 11/18/21 18:59 06:59 18:59 Intake Total 120 Output Total 300 200 Balance -300 -80 Weight 78.018 kg 78.018 kg Intake: Oral 120 Output: Urine 300 200 Other: Voiding Method Urinal # Voids 1 2 # Bowel Movements 1 - Exam Inspection: Negative for any open fractures, ulcers, significant ecchymosis/erythema Sensation: Patient has full sensation that is equal, symmetric, bilaterally intact in upper and lower extremities. Palpation: Fair amount TTP at midline throughout lumbar spine. some mild TTP in lumbar paravertevral region. NTTP throughout rest of exam. Range of motion: Patient has full range of motion bilateral upper and lower extremities on exam Motor: 5/5 in all major motor groups in bilateral upper and lower extremities Special tests: Negative Homans bilaterally; negative clonus bilaterally; negative Esperanza's bilaterally Neurovascular status: Radial pulses intact, 2+ bilaterally. Capillary refill under 3 seconds in digits of upper extremities - Labs CBC & Chem 7: 11/17/21 07:45 11/18/21 06:01 Labs: Abnormal Lab Results - Last 24 Hours (Table) 11/18/21 Range/Units 06:01 Glucose 117 H (74-99) mg/dL Assessment and Plan Assessment: 1. low back pain; DDD Plan: 1. low back pain; DDD - patient was stable at bedside this morning. X-ray lumbar spine reviewed and does show some mild degenerative changes throughout the lumbar spine. XR negative for fracture/spondylolisthesis. At this time we recommend continued conservative measures for control of back pain with medication. Patient is stable from an orthopedic standpoint for discharge home. We do recommend patient to follow-up in the outpatient setting w/ Dr. Ramos. At this time orthopedics is signing off. Please do not hesitate to contact us for any further questions. 2. Appreciate medical management 3. Pain Management - tylenol 4. DVT ppx - aspirin; Lovenox; Plavix 4. GI ppx - Protonix; Pepcid; Maalox 5. PT/OT - WBAT w/walker 6. Appreciate consult Time with Patient: Less than 30
[2021-11-18] MEDS ORDERED: FOLIC ACID 1 MG TAB PO SCH (12:00)
--- NOTE | 2021-11-18 16:25 | P.PN ---
Progress Note - Text Progress Note Date: 11/18/21 Chief Complaint: Back pain This is a pleasant 76-year-old patient, follows with Dr. Mancini. Chronic stable medical conditions include CAD, hypertension, hyperlipidemia, polymyositis,. Yesterday started feeling weak and tired. To the point he could barely walk. Really has not even could not get out of bed. Having increasing low back pain. Also had some fever and cough. Decrease appetite. No mass or bowel movement every day. Had a loose bowel movement yesterday. He's had lower back pain for about 4 days. No radiation. Did not affect the bowel or urine patent. Did test positive for COVID in the ER. Does have a invalid at home. Pain is better if he does not move. Patient admitted with acute polymyositis exacerbation causing severe muscle weakness myalgia secondary to COVID 19. Started IV hydrocortisone. IV fluids. November 18: Patient feeling better. Did walk to the bathroom with support the staff. Hydrocortisone cutback to 50 mg every 8. Discussed with the patient. Seen by Dr. Ramos from orthopedics. No further intervention. Increase activity as tolerated Active Medications Acetaminophen (Acetaminophen Tab 325 Mg Tab) 650 mg PO Q6HR PRN PRN Reason: Mild Pain or Fever > 100.5 Al Hydroxide/Mg Hydroxide (Mag Hydrox/Al Hydrox/Simeth 30 Ml Cup) 15 ml PO Q6HR PRN PRN Reason: Indigestion Allopurinol (Allopurinol 100 Mg Tab) 200 mg PO DAILY [facility] Last Admin: 11/18/21 10:08 Dose: Not Given Amlodipine Besylate (Amlodipine 10 Mg Tab) 10 mg PO DAILY [facility] Last Admin: 11/18/21 10:09 Dose: 10 mg Aspirin (Aspirin 81 Mg) 81 mg PO DAILY [facility] Last Admin: 11/18/21 10:07 Dose: 81 mg Atorvastatin Calcium (Atorvastatin 40 Mg Tab) 40 mg PO DAILY [facility] Last Admin: 11/18/21 10:09 Dose: 40 mg Clopidogrel Bisulfate (Clopidogrel 75 Mg Tab) 75 mg PO DAILY [facility] Last Admin: 11/18/21 10:09 Dose: 75 mg Enoxaparin Sodium (Enoxaparin 40 Mg/0.4 Ml Syringe) 40 mg SQ DAILY [facility] Last Admin: 11/18/21 10:06 Dose: 40 mg Famotidine (Famotidine 20 Mg Tab) 20 mg PO DAILY [facility] Last Admin: 11/18/21 10:09 Dose: 20 mg Folic Acid (Folic Acid 1 Mg Tab) 1 mg PO DAILY@1200 [facility] Last Admin: 11/18/21 13:15 Dose: 1 mg Hydrocortisone Sodium Succinate (Hydrocortisone Succinate 100 Mg/2 Ml Vial) 50 mg IV Q8HR [facility] Last Admin: 11/18/21 10:06 Dose: 50 mg Lactated Ringer's (Lactated Ringers) 1,000 mls @ 50 mls/hr IV .Q20H [facility] Last Admin: 11/18/21 05:51 Dose: 125 mls/hr Lactulose (Lactulose 20 Gm/30 Ml Cup) 20 gm PO DAILY PRN PRN Reason: Constipation Lorazepam (Lorazepam 0.5 Mg Tab) 0.5 mg PO Q6HR PRN PRN Reason: Anxiety Last Admin: 11/17/21 21:31 Dose: 0.5 mg Losartan Potassium (Losartan 50 Mg Tab) 150 mg PO DAILY [facility] Last Admin: 11/18/21 10:08 Dose: 150 mg Melatonin (Melatonin 3 Mg Tablet) 3 mg PO HS PRN PRN Reason: Insomnia Naloxone HCl (Naloxone 0.4 Mg/Ml 1 Ml Vial) 0.2 mg IV Q2M PRN PRN Reason: Opioid Reversal Ondansetron HCl (Ondansetron 4 Mg/2 Ml Vial) 4 mg IVP Q8HR PRN PRN Reason: Nausea And Vomiting Pantoprazole Sodium (Pantoprazole 40 Mg Tablet) 40 mg PO [id number]-[id number] [facility] Last Admin: 11/18/21 10:09 Dose: 40 mg Past medical history to include: CAD, hypertension, hyperlipidemia, polymyositis, melanoma, Social history: No smoking. Stop drinking beer in August 2016, is invalid. Patient himself has a Rollator and a cane. Physical examination: VITAL SIGNS: 97.8, 72, 18, 108/65, 98% room air GENERAL: reclining, less tired EYES: Pupils equal. Conjunctiva normal. HEENT: External appearance of nose and ears normal, oral cavity grossly normal. NECK: JVD not raised; masses not palpable. HEART: First and second heart sounds are normal; no edema. LUNGS: Respiratory rate normal; clear to auscultation. ABDOMEN: Soft, nontender, liver spleen not palpable, no masses palpable. PSYCH: Alert and oriented x3; mood and affect normal. MUSCULOSKELETAL:No Clubbing/cyanosis;muscles-grossly intact, evidence of OA INVESTIGATIONS, reviewed in the clinical context: November 18: Potassium 3.7 creatinine 1.11 WBC 9.1 hemoglobin 13 platelets 240 07/04/1940 potassium 3.5. 21 creatinine 1.51 Troponin I 0.033, 0.020 TSH 0.991 COVID 19 PCR: Detected EKG tracing personally reviewed by me-normal sinus rhythm, rate 100, Chest x-ray film personally reviewed by me-possible infiltrate X-ray lumbosacral spine: Multiple levels of DJD. With some disc space narrowing. Assessment and plan: - acute flareup of polymyositis, given is on prednisone 5 mg in the setting of acute infection from COVID 19 increasing myopathy: Some improvement Decreased IV hydrocortisone 25mg every 8. Hold prednisone. Increase activity -Acute low back pain of 4 days' duration. Becoming more severe. X-ray showing DJD and some matting of disc space. No radiation. Seen by Dr. Ramos. No further investigation. -Acute COVID 19 pneumonitis. No hypoxia. Supportive care. Subcu Lovenox -GERD Protonix -Essential hypertension Norvasc, Benicar -CAD with a prior history of stent Aspirin, Lipitor -Kidney injury, acute versus chronic UA 1+ protein. Recheck labs in the morning after IV hydration. Renal ultrasound. Hydrocortisone cutback to 25 mg every 8. Increase activity. Discussed with the patient. Cutback IV fluids. Eating better. Expect discharge in next 24-48 hours depending upon activity.
[2021-11-18] MEDS: LORazepam 0.5 MG TAB PO PRN (21:18)
[2021-11-19] MEDS: HYDROCORTISONE SUCCINATE 100 MG/2 ML VIAL IV SCH ×2 (00:41→11:39)
[2021-11-19 03:27] VITALS: TEMP 97.5
[2021-11-19 08:52] VITALS: RESP 18
[2021-11-19] MEDS ORDERED: predniSONE 20 MG TAB PO STA (09:54)
[2021-11-19] MEDS: PANTOPRAZOLE 40 MG TABLET PO SCH (10:00)
[2021-11-19] MEDS: ASPIRIN 81 MG PO SCH (10:00)
[2021-11-19] MEDS: FAMOTIDINE 20 MG TAB PO SCH (10:01)
[2021-11-19] MEDS: ATORVASTATIN 40 MG TAB PO SCH (10:01)
[2021-11-19] MEDS: CLOPIDOGREL 75 MG TAB PO SCH (10:01)
[2021-11-19] MEDS: ENOXAPARIN 40 MG/0.4 ML SYRINGE SQ SCH (10:01)
[2021-11-19] MEDS: allopurinoL 100 MG TAB PO SCH (10:01)
[2021-11-19] MEDS: LOSARTAN 50 MG TAB PO SCH (10:01)
[2021-11-19] MEDS: amLODIPine 10 MG TAB PO SCH (10:01)
[2021-11-19 12:29] VITALS: BP 124/71; PULSE 81
--- NOTE | 2021-11-19 14:31 | CDI ---
Documentation Clarification Form Date: 11/19/2021 02:09:29 PM From: Enriqueta Up RN CCDS Admit Date: 11/17/2021 02:41:00 PM Patient Name: Dev Cunningham Visit Number: [id number] Discharge Date: ATTENTION: The Clinical Documentation Specialists (CDI) and [facility] Coding Staff appreciate your assistance in clarifying documentation. Please respond to the clarification below the line at the bottom and electronically sign. The CDI & [facility] Coding staff will review the response and follow-up if needed. Please note: Queries are made part of the Legal Health Record. If you have any questions, please contact the author of this message via ITS. Dr. Jose A Renee COVID 19 Pneumonitis is documented 11/18, medicine note which may lack sufficient clinical evidence/support in the medical record. Additional clarification is requested. History/Risk Factors: 76-year-old male presents to the ED with feeling weak and tired, to the point he could barely walk. Increasing low back pain, fever, cough and decreased appetite. Medical History: HTN, polymyositis and melanoma. Clinical Indicators: 11/17, CXR: No acute cardiopulmonary disease/process. No significant change from prior examination. 11/17, Labs: Wbc 9.1; Lymphocytes 1.5; Coronavirus (PCR) Detected A 11/18, Medicine note: Acute flareup of polymyositis, given is on prednisone 5mg in the setting of acute infection from COVID 19 increasing myopathy: Some improvement. Decreased IV hydrocortisone 25mg every 8. Hold prednisone. Increase activity. 11/18, Medicine note: Acute COVID 19 pneumonitis. No hypoxia. Supportive care. Subcu lovenox. Treatment: 11/17 Solu-Cortef 50mg IV Q8HR changed 11/18 25mg IV Q8HR d/c 11/19; Prednisone 40mg PO x 1; 11/17 Lovenox 40mg SQ Daily Please clarify if COVID 19 Pneumonitis is a valid diagnosis? [ ] Yes, COVID 19 Pneumonitis is present as evidence by (additional clinical support): [ ] No, COVID 19 Pneumonitis is ruled out [ ] Other (please specify diagnosis) [ ] Unable to determine (Template Last Revised: April 2020) Yes, COVID 19 pneumonitis is presence at evidence of a possible infiltrate on chest x-ray MTDD
--- NOTE | 2021-11-19 17:31 | P.DS ---
Providers Date of admission: 11/17/21 14:41 Expected date of discharge: 11/19/21 Attending physician: Jose A Renee Consults: 11/17/21 12:19 Consult Physician Routine Consulting Provider: León Ramos Consult Reason/Comments: back pain Do you want consulting provider notified?: Yes Primary care physician: [facility] Course: Chief Complaint: Back pain This is a pleasant 76-year-old patient, follows with Dr. Mancini. Chronic stable medical conditions include CAD, hypertension, hyperlipidemia, polymyositis,. Yesterday started feeling weak and tired. To the point he could barely walk. Really has not even could not get out of bed. Having increasing low back pain. Also had some fever and cough. Decrease appetite. No mass or bowel movement every day. Had a loose bowel movement yesterday. He's had lower back pain for about 4 days. No radiation. Did not affect the bowel or urine patent. Did test positive for COVID in the ER. Does have a invalid at home. Pain is better if he does not move. Patient admitted with acute polymyositis exacerbation causing severe muscle weakness myalgia secondary to COVID 19. Started IV hydrocortisone. IV fluids. November 18: Patient feeling better. Did walk to the bathroom with support the staff. Hydrocortisone cutback to 50 mg every 8. Discussed with the patient. Seen by Dr. Ramos from orthopedics. No further intervention. Increase activity as tolerated November 19: Feeling much better. Back to his baseline. Keen to go home. Hydrocortisone discontinued. We'll give prednisone 40 mg today. Short tapered and go down to his 5 mg. Questions answered. Discussion and discharge planning more than 35 minutes Past medical history to include: CAD, hypertension, hyperlipidemia, polymyositis, melanoma, Social history: No smoking. Stop drinking beer in August 2016, is invalid. Patient himself has a Rollator and a cane. Physical examination: VITAL SIGNS: Afebrile, 78, 18, 1 24 x 71, 98% room air GENERAL: Sitting up in a chair, comfortable EYES: Pupils equal. Conjunctiva normal. HEENT: External appearance of nose and ears normal, oral cavity grossly normal. NECK: JVD not raised; masses not palpable. HEART: First and second heart sounds are normal; no edema. LUNGS: Respiratory rate normal; clear to auscultation. ABDOMEN: Soft, nontender, liver spleen not palpable, no masses palpable. PSYCH: Alert and oriented x3; mood and affect normal. MUSCULOSKELETAL:No Clubbing/cyanosis;muscles-grossly intact, evidence of OA INVESTIGATIONS, reviewed in the clinical context: Renal ultrasound: Asymmetric diminished size of the right kidney with hyperechoic area. Thin-walled cyst in the right kidney. November 18: Potassium 3.7 creatinine 1.11 WBC 9.1 hemoglobin 13 platelets 240 07/04/1940 potassium 3.5. 21 creatinine 1.51 Troponin I 0.033, 0.020 TSH 0.991 COVID 19 PCR: Detected EKG tracing personally reviewed by me-normal sinus rhythm, rate 100, Chest x-ray film personally reviewed by me-possible infiltrate X-ray lumbosacral spine: Multiple levels of DJD. With some disc space narrowing. Assessment and plan: - acute flareup of polymyositis, given is on prednisone 5 mg in the setting of acute infection from COVID 19 increasing myopathy: Much improved Received IV hydrocortisone. Short prednisone taper then patient should take his home dose of prednisone. -Acute low back pain of 4 days' duration. Becoming more severe. X-ray showing DJD and some matting of disc space. No radiation. Seen by Dr. Ramos. No further investigation. -Acute COVID 19 pneumonitis. No hypoxia. Supportive care. 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 Follow-up renal function outpatient Disposition: Home Plan - Discharge Summary New Discharge Prescriptions: New predniSONE 0 mg PO DIRECTED #6 tab Continue predniSONE 5 mg PO DAILY Atorvastatin [Lipitor] 40 mg PO DAILY #30 tab Clopidogrel [Plavix] 75 mg PO DAILY #30 tab amLODIPine [Norvasc] 10 mg PO DAILY Folic Acid 1 mg PO DAILY 30 Days #30 tab Aspirin 81 mg PO DAILY Febuxostat [Uloric] 40 mg PO DAILY Pantoprazole Sodium [Protonix] 40 mg PO DAILY Changed Olmesartan Medoxomil [Benicar] 40 mg PO HS #0 Discharge Medication List Folic Acid 1 mg PO DAILY 30 Days #30 tab 05/21/21 [Rx] predniSONE 5 mg PO DAILY 07/21/21 [History] Atorvastatin [Lipitor] 40 mg PO DAILY #30 tab 07/28/21 [Rx] Clopidogrel [Plavix] 75 mg PO DAILY #30 tab 07/28/21 [Rx] Aspirin 81 mg PO DAILY 11/17/21 [History] Febuxostat [Uloric] 40 mg PO DAILY 11/17/21 [History] Pantoprazole Sodium [Protonix] 40 mg PO DAILY 11/17/21 [History] amLODIPine [Norvasc] 10 mg PO DAILY 11/17/21 [History] Olmesartan Medoxomil [Benicar] 40 mg PO HS #0 11/19/21 [Rx] predniSONE 0 mg PO DIRECTED #6 tab 11/19/21 [Rx] Follow up Appointment(s)/Referral(s): David Mancini MD [Primary Care Provider] - 1-2 days Patient Instructions/Handouts: COVID-19 (Coronavirus Disease 2019) (DC)
== END 2021-11-19 14:13 | disposition home or self-care (01) | DRG 545 ==
LOC: EC 07:13 → 6NMEDSUR 09:07 → OBSVTOIN 14:41 → 4SSUR 15:08 → 6NMEDSUR 18:50
PROVIDERS: ADMIT Hospitalist; ATTEND Hospitalist
DX: M33.22 Polymyositis with myopathy (principal); J12.82 Pneumonia due to coronavirus disease 2019; U07.1 COVID-19; N17.9 Acute kidney failure, unspecified; I12.9 Hypertensive chronic kidney disease with stage 1 through stage 4 chronic kidney disease, or unspecified chronic kidney disease; I25.10 Atherosclerotic heart disease of native coronary artery without angina pectoris; E78.5 Hyperlipidemia, unspecified; R73.9 Hyperglycemia, unspecified; T38.0X5A Adverse effect of glucocorticoids and synthetic analogues, initial encounter; R00.0 Tachycardia, unspecified; E86.0 Dehydration; M51.37 Other intervertebral disc degeneration, lumbosacral region; G89.29 Other chronic pain; M47.817 Spondylosis without myelopathy or radiculopathy, lumbosacral region; K21.9 Gastro-esophageal reflux disease without esophagitis; N28.1 Cyst of kidney, acquired; N18.2 Chronic kidney disease, stage 2 (mild); Z63.6 Dependent relative needing care at home; Z28.310 Unvaccinated for COVID-19; Z79.899 Other long term (current) drug therapy; Z79.82 Long term (current) use of aspirin; Z79.02 Long term (current) use of antithrombotics/antiplatelets; Z88.0 Allergy status to penicillin; Z79.52 Long term (current) use of systemic steroids; Z87.01 Personal history of pneumonia (recurrent); I25.2 Old myocardial infarction; Z95.1 Presence of aortocoronary bypass graft
CPT/HCPCS: 36415; 71046; 72110; 76770; 80048; 80053; 81001; 83605; 83735; 84443; 84484; 85025; 85610; 85730; 87635; 93005; 96361; 96372; 96374; 99285

== ENCOUNTER 2023-01-26 10:09 | Observation (INO) | payer MEDICARE ==
[2023-01-26 10:20] LABS: Glucose,Whole Blood 113 mg/dL (70-110)
[2023-01-26 11:13] LABS: Basophils # (A) 0.1 k/uL (0-0.2); Basophils % (A) 1 %; Eosinophils # (A) 0.3 k/uL (0-0.7); Eosinophils % (A) 2 %; HCT 40.7 % (39.0-53.0); HGB 13.7 gm/dL (13.0-17.5); Lymphocytes # (A) 2.8 k/uL (1.0-4.8); Lymphocytes % (A) 21 %; MCH 30.8 pg (25.0-35.0); MCHC 33.7 g/dL (31.0-37.0); MCV 91.5 fL (80.0-100.0); Mean Platelet Volume 8.3; Monocytes # (A) 0.9 k/uL (0-1.0); Monocytes % (A) 7 %; Neutrophils # (A) 8.9 k/uL (1.3-7.7); Neutrophils % (A) 68 %; Platelet Count 233 k/uL (150-450); RBC 4.45 m/uL (4.30-5.90); RDW 13.3 % (11.5-15.5); WBC 13.1 k/uL (3.8-10.6)
--- NOTE | 2023-01-26 11:22 | ED ---
General Adult HPI - General Chief complaint: Syncope Stated complaint: dizziness Time Seen by Provider: 01/26/23 10:18 Source: patient, EMS Mode of arrival: EMS Limitations: no limitations - History of Present Illness Initial comments: Dictation was produced using [employer] dictation software. please excuse any grammatical, word or spelling errors. Chief Complaint: 77-year-old male presents after syncopal episode History of Present Illness: 77-year-old nice with full dizzy while playing [employer] at the [employer]. She name a go home. He went home and put his head down. Also he woke on the floor EMS was called because patient has a fall device that alerts medical professional. Patient states he feels a little weak and dizzy otherwise has no focal complaints. The ROS documented in this emergency department record has been reviewed and confirmed by me. Those systems with pertinent positive or negative responses have been documented in the HPI. All other systems are other negative and/or noncontributory. - Related Data Home Medications Medication Instructions Recorded Confirmed predniSONE 5 mg PO DAILY 07/21/21 11/17/21 Aspirin 81 mg PO DAILY 11/17/21 11/17/21 Febuxostat [Uloric] 40 mg PO DAILY 11/17/21 11/17/21 Pantoprazole Sodium [Protonix] 40 mg PO DAILY 11/17/21 11/17/21 amLODIPine [Norvasc] 10 mg PO DAILY 11/17/21 11/17/21 Previous Rx's Medication Instructions Recorded Folic Acid 1 mg PO DAILY 30 Days #30 tab 05/21/21 Atorvastatin [Lipitor] 40 mg PO DAILY #30 tab 07/28/21 Clopidogrel [Plavix] 75 mg PO DAILY #30 tab 07/28/21 Olmesartan Medoxomil [Benicar] 40 mg PO HS #0 11/19/21 predniSONE 0 mg PO DIRECTED #6 tab 11/19/21 Allergies Allergy/AdvReac Type Severity Reaction Status Date / Time Penicillins Allergy Rash/Hives Verified 01/26/23 10:19 Review of Systems ROS Statement: Those systems with pertinent positive or pertinent negative responses have been documented in the HPI. ROS Other: All systems not noted in ROS Statement are negative. Past Medical History Past Medical History: Coronary Artery Disease (CAD), Cancer, Hyperlipidemia, Hypertension, Pneumonia Additional Past Medical History / Comment(s): See Dr Carmichael's H&P. Polymyositis causing muscle pain and stiffness, requiring mcc steroid use, resulting in elevated A1C. Currently having mild flare up, on steroids. Hx Melamoma X2, once on left scalp and once behind right ear. History of Any Multi-Drug Resistant Organisms: None Reported Past Surgical History: Appendectomy, Coronary Bypass/CABG, Heart Catheterization Additional Past Surgical History / Comment(s): Melanoma behind right ear and left scalp removed, ganglion cyst removed from wrist, all teeth extracted. Knee scope Past Anesthesia/Blood Transfusion Reactions: No Reported Reaction Past Psychological History: No Psychological Hx Reported Smoking Status: Former smoker Past Alcohol Use History: None Reported Past Drug Use History: None Reported - Past Family History Mother Family Medical History: Dementia, Pneumonia Father Family Medical History: Coronary Artery Disease (CAD), Myocardial Infarction ([place]) Additional Family Medical History / Comment(s): from myocardial infarction at 55 years old General Exam - General Exam Comments Initial Comments: PHYSICAL EXAM: General Impression: Alert and oriented x3, not in acute distress HEENT: Normocephalic atraumatic, extra-ocular movements intact, pupils equal and reactive to light bilaterally, mucous membranes moist. Cardiovascular: Heart regular rate and rhythm Chest: Able to complete full sentences, no retractions, no tachypnea Abdomen: abdomen soft, non-tender, non-distended, no organomegaly Musculoskeletal: Pulses present and equal in all extremities, no peripheral edema Motor: no focal deficits noted Neurological: CN II-XII grossly intact, no focal motor or sensory deficits noted Skin: Intact with no visualized rashes Psych: Normal affect and mood Limitations: no limitations Course Vital Signs 01/26/23 01/26/23 01/26/23 10:11 11:06 12:06 Temperature 98.4 F Pulse Rate 80 81 66 Respiratory 18 17 17 Rate Blood Pressure 181/75 146/68 147/62 O2 Sat by Pulse 96 95 94 L Oximetry 01/26/23 13:05 Temperature Pulse Rate 73 Respiratory 17 Rate Blood Pressure 140/56 O2 Sat by Pulse 93 L Oximetry EKG Findings - EKG Comments: EKG Findings:: My EKG interpretation: Ventricular rate 75, sinus rhythm,. 172, QRS 113, QTc 431. No RI prolongation, no QTC prolongation, no ST or T-wave changes noted. Overall, this EKG is unremarkable Medical Decision Making - Medical Decision Making Was pt. sent in by a medical professional or institution (, MY, CATARACT LENS GENERATOR, urgent care, hospital, or custodial...) When possible be specific @ -No Did you speak to anyone other than the patient for history (EMS, parent, family, police, friend...)? What history was obtained from this source @ -No Did you review nursing and triage notes (agree or disagree)? Why? @ -I reviewed and agree with nursing and triage notes Were old charts reviewed (outside hosp., previous admission, EMS record, old EKG, old radiological studies, urgent care reports/EKG's, custodial records)? Report findings @ -No old charts were reviewed Differential Diagnosis (chest pain, altered mental status, abdominal pain women, abdominal pain men, vaginal bleeding, musculoskeletal, weakness, fever, dyspnea, syncope, headache, dizziness, GI bleed, back pain, seizure, CVA, palpatations, mental health)? @ -Differential Syncope: Valvular disease, hypertrophic cardiomyopathy, pulmonary embolism, tamponade, tachycardia, bradycardia, [place], hypovolemia, hemorrhage, dissection, anemia, intracranial hemorrhage, seizure, hypoglycemia, carbon monoxide poisoning, this is not meant to be an all-inclusive list. EKG interpreted by me (3pts min.). @ -See above X-rays interpreted by me (1pt min.). @ -Chest X-ray is nonacute CT interpreted by me (1pt min.). @ -Computed tomography scan of the brain shows no acute processes U/S interpreted by me (1pt. min.). @ -None done What testing was considered but not performed or refused? (CT, X-rays, U/S, labs)? Why? @ -None What meds were considered but not given or refused? Why? @ -None Did you discuss the management of the patient with other professionals (professionals i.e. , MY, CATARACT LENS GENERATOR, lab, RT, psych nurse, social media community manager, nuclear medicine pet ct technologist, teacher, chief contract officer, casey saw operator)? Give summary @ -Case discussed with hospitalist for admission Was smoking cessation discussed for >3mins.? @ -No Was critical care preformed (if so, how long)? @ -No Were there social determinants of health that impacted care today? How? (Homelessness, low income, unemployed, alcoholism, drug addiction, transportation, low edu. Level, literacy, decrease access to med. care, long-term, rehab)? @ -No Was there de-escalation of care discussed even if they declined (Discuss DNR or withdrawal of care, Hospice)? DNR status @ -No What co-morbidities impacted this encounter? (DM, HTN, Smoking, COPD, CAD, Cancer, CVA, ARF, Chemo, Hep., AIDS, mental health diagnosis, sleep apnea, morbid obesity)? @ - CABG Was patient admitted / discharged? Hospital course, mention meds given and route, prescriptions, significant lab abnormalities, going to OR and other p ertinent info. @ -77-year-old male presents to the emergency department for 6 episode. Vital signs are stable. Patient well-appearing at the bedside. He does have history of cardiac disease. Laboratory evaluation found to be unremarkable. Imaging studies are negative for acute processes. Given patient's history of cardiac disease he's considered high risk. He'll be admitted for cardiac monitoring cardiology consultation for suspicion of cardiac syncope Undiagnosed new problem with uncertain prognosis? @ -No Drug Therapy requiring intensive monitoring for toxicity (Heparin, Nitro, Insulin, Cardizem)? @ -No Were any procedures done? @ -No Diagnosis/symptom? Acute, or Chronic, or Acute on Chronic? Uncomplicated (without systemic symptoms) or Complicated (systemic symptoms)? @ -Syncope Side effects of treatment? @ -No Exacerbation, Progression, or Severe Exacerbation? @ -No Poses a threat to life or bodily function? How? (Chest pain, [place], [place], pneumonia, PE, COPD, DKA, ARF, appy, cholecystitis, CVA, Diverticulitis, Homicidal, Suicidal, threat to staff... and all critical care pts) @ -yes - Lab Data Result diagrams: 01/26/23 11:05 01/26/23 11:05 Lab Results 01/26/23 01/26/23 01/26/23 Range/Units 10:18 11:05 11:05 WBC 13.1 H (3.8-10.6) k/uL RBC 4.45 (4.30-5.90) m/uL Hgb 13.7 (13.0-17.5) gm/dL Hct 40.7 (39.0-53.0) % MCV 91.5 (80.0-100.0) fL MCH 30.8 (25.0-35.0) pg MCHC 33.7 (31.0-37.0) g/dL RDW 13.3 (11.5-15.5) % Plt Count 233 (150-450) k/uL MPV 8.3 Neutrophils % 68 % Lymphocytes % 21 % Monocytes % 7 % Eosinophils % 2 % Basophils % 1 % Neutrophils # 8.9 H (1.3-7.7) k/uL Lymphocytes # 2.8 (1.0-4.8) k/uL Monocytes # 0.9 (0-1.0) k/uL Eosinophils # 0.3 (0-0.7) k/uL Basophils # 0.1 (0-0.2) k/uL PT 11.5 (10.0-12.5) sec INR 1.1 (<1.2) APTT 25.2 (22.0-30.0) sec Sodium (137-145) mmol/L Potassium (3.5-5.1) mmol/L Chloride (98-107) mmol/L Carbon Dioxide (22-30) mmol/L Anion Gap mmol/L BUN (9-20) mg/dL Creatinine (0.66-1.25) mg/dL Est GFR (CKD-EPI)AfAm (>60 ml/min/1.73 sqM) Est GFR (CKD-EPI)NonAf (>60 ml/min/1.73 sqM) Glucose (74-99) mg/dL POC Glucose (mg/dL) 113 H (70-110) mg/dL POC Glu Separator Operator [employer] ID [place] Calcium (8.4-10.2) mg/dL Magnesium (1.6-2.3) mg/dL Troponin I (0.000-0.034) ng/mL 01/26/23 01/26/23 Range/Units 11:05 11:05 WBC (3.8-10.6) k/uL RBC (4.30-5.90) m/uL Hgb (13.0-17.5) gm/dL Hct (39.0-53.0) % MCV (80.0-100.0) fL MCH (25.0-35.0) pg MCHC (31.0-37.0) g/dL RDW (11.5-15.5) % Plt Count (150-450) k/uL MPV Neutrophils % % Lymphocytes % % Monocytes % % Eosinophils % % Basophils % % Neutrophils # (1.3-7.7) k/uL Lymphocytes # (1.0-4.8) k/uL Monocytes # (0-1.0) k/uL Eosinophils # (0-0.7) k/uL Basophils # (0-0.2) k/uL PT (10.0-12.5) sec INR (<1.2) APTT (22.0-30.0) sec Sodium 141 (137-145) mmol/L Potassium 4.0 (3.5-5.1) mmol/L Chloride 109 H (98-107) mmol/L Carbon Dioxide 21 L (22-30) mmol/L Anion Gap 11 mmol/L BUN 20 (9-20) mg/dL Creatinine 1.17 (0.66-1.25) mg/dL Est GFR (CKD-EPI)AfAm 68 (>60 ml/min/1.73 sqM) Est GFR (CKD-EPI)NonAf 59 (>60 ml/min/1.73 sqM) Glucose 106 H (74-99) mg/dL POC Glucose (mg/dL) (70-110) mg/dL POC Glu Separator Operator [employer] ID Calcium 8.5 (8.4-10.2) mg/dL Magnesium 1.9 (1.6-2.3) mg/dL Troponin I <0.012 (0.000-0.034) ng/mL Disposition Clinical Impression: Syncope Disposition: ADMITTED IP TO THIS HOSP Condition: Fair Referrals: David Mancini MD [Primary Care Provider] - 1-2 days Decision Time: 13:23
[2023-01-26] MEDS ORDERED: ONDANSETRON 4 MG/2 ML VIAL IVP STA (11:26)
--- NOTE | 2023-01-26 11:29 | XR ---
EXAMINATION TYPE: XR chest 1V portable DATE OF EXAM: 01/26/2023 COMPARISON: 11/17/2021 INDICATION: Syncope nausea TECHNIQUE: Single frontal view of the chest is obtained. FINDINGS: The heart size is normal. The pulmonary vasculature is normal. The lungs are clear. Sternotomy wires are in the midline IMPRESSION: 1. No acute pulmonary process.
[2023-01-26 11:55] LABS: African American GFR (CKD) 68 (>60 ml/min/1.73 sqM); Anion Gap 11 mmol/L; Blood Urea Nitrogen 20 mg/dL (9-20); Calcium 8.5 mg/dL (8.4-10.2); Carbon Dioxide 21 mmol/L (22-30); Chloride 109 mmol/L (98-107); Glucose 106 mg/dL (74-99); Magnesium 1.9 mg/dL (1.6-2.3); Non-African American GFR(CKD) 59 (>60 ml/min/1.73 sqM); Sodium 141 mmol/L (137-145)
[2023-01-26 12:07] LABS: INR 1.1 (<1.2); Partial Thromboplastin Time 25.2 sec (22.0-30.0); Prothrombin Time 11.5 sec (10.0-12.5)
--- NOTE | 2023-01-26 13:05 | CT ---
EXAMINATION TYPE: CT brain jm mcmillan con DATE OF EXAM: 01/26/2023 COMPARISON: 05/20/2021 HISTORY: Fall, Dizziness CT DLP: 1426.[address] of the brain was performed. The ventricles, basal cisterns and sulci overlying the cerebral convexities demonstrate mild enlargem ent. There is no evidence for intracranial hemorrhage or sulcal effacement. There is decreased attenuatio n about the periventricular white matter and deep white matter of both cerebral hemispheres, compatib le with chronic small vessel ischemia. No mass effects are seen. If symptoms persist consider MRI. Osseous calvarium is intact. Chronic right maxillary sinusitis. IMPRESSION: 1. Age related atrophic and chronic small vessel ischemic change without acute intracranial process seen at this time. CT Cervical Spine: Unenhanced CT of the cervical spine was performed with bone and soft tissue window settings submitted . Coronal and sagittal reconstruction is obtained. There is normal alignment and prevertebral soft tissues. No evidence for acute cervical fracture . Scattered degenerative disc disease and spondylosis. Biapical scarring. IMPRESSION: 1. No evidence for acute fracture or subluxation of the cervical spine.
[2023-01-26] MEDS ORDERED: NALOXONE 0.4 MG/ML 1 ML VIAL IV PRN (13:20)
[2023-01-26] MEDS ORDERED: ALPRAZolam 0.5 MG TAB PO PRN (13:41)
[2023-01-26] MEDS: SODIUM CHLORIDE 0.9% 1,000 ML IV SCH (14:24)
--- NOTE | 2023-01-26 15:48 | CT ---
EXAMINATION TYPE: CT angio chest DATE OF EXAM: 01/26/2023 COMPARISON: 08/30/2017 HISTORY: Positive D-dimer. CT DLP: 396.5 mGycm CONTRAST: CT chest with contrast and 3D reconstruction with MIP imaging is performed with IV Contrast, patient injected with 80 ml mL of Isovue 370. Contrast-enhanced CT of the chest was performed through the course of the pulmonary arteries with es g and mediastinal window settings submitted. 3D reconstruction with MIP imaging was also performed. PULMONARY ARTERIES: The pulmonary arteries and their major tributaries are patent. I do not see libertad dence for sizable filling defect to suggest pulmonary embolic process. LUNGS: The lungs are clear and free of infiltrate. No evidence for atelectasis. Left upper lobe pulmo nary nodule measuring 1.1 cm was not present previously. Consider PET/CT for further evaluation or sh ort-term follow-up. No pleural effusion. MEDIASTINUM: Thoracic aorta is of normal caliber.The heart is mildly enlarged. No evidence for medi astinal mass. No mediastinal lymph nodes greater than 1cm. Heterogeneity of the thyroid gland. HILAR STRUCTURES: No evidence for mass. No hilar lymph nodes greater than 1 cm. UPPER ABDOMEN: No significant abnormality is seen. IMPRESSION: 1. No evidence for Pulmonary embolism at this time. 2. Left upper lobe pulmonary nodule measuring 1.1 cm was not present previously. Consider PET/CT for further evaluation or short-term follow-up.
[2023-01-26] MEDS: ACETAMINOPHEN TAB 500 MG TAB PO PRN (18:55)
[2023-01-26] MEDS: ATORVASTATIN 40 MG TAB PO SCH (21:08)
[2023-01-27] MEDS: traMADol 50 MG TAB PO PRN ×3 (00:48→17:27)
[2023-01-27] MEDS: predniSONE 2.5 MG TAB PO SCH (08:26)
[2023-01-27] MEDS: LOSARTAN 50 MG TAB PO SCH (08:27)
[2023-01-27] MEDS: amLODIPine 5 MG TAB PO SCH (08:30)
[2023-01-27] MEDS ORDERED: amLODIPine 10 MG TAB PO SCH (09:00)
[2023-01-27] MEDS ORDERED: LOSARTAN 50 MG TAB PO SCH (09:00)
--- NOTE | 2023-01-27 10:26 | P.CRDCN ---
History of Present Illness Consult date: 01/27/23 Consult reason: sycope History of present illness: History of present illness: This is a 77-year-old male patient of Dr. Carmichael with past medical history of coronary artery disease status post CABG with MEZA to LAD, VG to OM1 in July 2021, hypertension, hyperlipidemia, polymyalgia on steroids. We have been asked to evaluate the patient regarding syncope. Patient states that he was in a store shopping and felt dizzy, went home sat down and put his head onto the table and the next thing he knew he was found himself on the floor. He does not remember falling to the floor. His alert contacted EMS as he was not able to get up. He has had problems with his right ankle since he was at the chiropractor's office 2 weeks ago and may have injured it further with the fall. He denies having any fluttering feeling in his chest no palpitations, no weakness, no chest pain. He states he has been taking all of his medications as directed. He presented with a blood pressure of 181/75. Orthostatic vital signs were obtained in the emergency room which were positive. EKG sinus rhythm and no acute ST changes. Chest x-ray: No acute process CTA of the chest revealed no evidence of pulmonary embolism. Left upper lobe pulmonary nodule 1.1 cm. CAT scan of the brain and cervical spine revealed chronic changes without acute intracranial process. No evidence of acute fracture or subluxation of the cervical spine. WBC 13.1, hemoglobin 13.7. D-dimer 2.06. Sodium 141, potassium 4.0, chloride 109, CO2 21, BUN 20, creatinine 1.17. Blood sugar 106. Troponin negative 2. Magnesium 1.9. Home cardiac medications: Amlodipine 10 mg daily, atorvastatin 40 mg at bedtime, Benicar 40 mg daily. Echocardiogram performed in the office on 05/01/2022 revealed EF 55-60%. Mild left jugular hypertrophy. Trace to mild aortic regurgitation. Mild mitral regurgitation. Mild tricuspid regurgitation. PAS P 16 mmHg. Review Of Systems: At the time of my exam: CONSTITUTIONAL: Denies fever or chills. CARDIOVASCULAR: Denies chest pain, Denies shortness of breath, no orthopnea, PND or palpitations. RESPIRATORY: Denies cough. GASTROINTESTINAL: Denies abdominal pain, diarrhea, constipation, nausea or vomiting. MUSCULOSKELETAL: Denies myalgias. NEUROLOGIC: Denies numbness, tingling or weakness. ENDOCRINE: Denies fatigue, weight change, polydipsia or polyurina. GENITOURINARY: Denies burning, hematuria or urgency with micturation. HEMATOLOGIC: Denies history of anemia or bleeding. Physical examination: Gen: This is a 77-year-old male resting in bed and appears to be comfortable and in no acute distress. VS: reviewed HEENT: Head is atraumatic, normocephalic. Pupils equal, round. Sclerae is anicteric. NECK: Supple. No JVD. LUNGS: Clear to auscultation. No wheezes or rhonchi. No intercostal retractions. HEART: Regular rate and rhythm. 2/6 systolic ejection murmur at the base murmur. ABDOMEN: Soft No tenderness. EXTREMITIES: Right ankle edema. No calf tenderness. NEUROLOGICAL: Patient is awake, alert and oriented x3. Assessment: Syncopal episode of unclear etiology Orthostatic changes Right ankle pain History of coronary artery disease Hypertension Hyperlipidemia Plan: Decrease dose of amlodipine to 5 mg daily and decrease dose of losartan to 50 mg daily Repeat orthostatic vital signs in am Obtain 2-D echocardiogram and Doppler study to assess cardiac structure and function Obtain x-rays of the right ankle Further recommendations to follow based upon clinical course Thank you kindly for this consultation. Nurse practitioner note has been reviewed, I agree with documented findings and plan of care. Patient was seen and examined. Past Medical History Past Medical History: Coronary Artery Disease (CAD), Cancer, Hyperlipidemia, Hypertension, Pneumonia Additional Past Medical History / Comment(s): See Dr Carmichael's H&P. Polymyositis causing muscle pain and stiffness, requiring mcc steroid use, resulting in elevated A1C. Currently having mild flare up, on steroids. Hx Melamoma X2, once on left scalp and once behind right ear. History of Any Multi-Drug Resistant Organisms: None Reported Past Surgical History: Appendectomy, Coronary Bypass/CABG, Heart Catheterization Additional Past Surgical History / Comment(s): Melanoma behind right ear and left scalp removed, ganglion cyst removed from wrist, all teeth extracted. Knee scope Past Anesthesia/Blood Transfusion Reactions: No Reported Reaction Past Psychological History: No Psychological Hx Reported Smoking Status: Former smoker Past Alcohol Use History: None Reported Past Drug Use History: None Reported - Past Family History Mother Family Medical History: Dementia, Pneumonia Father Family Medical History: Coronary Artery Disease (CAD), Myocardial Infarction (NH) Additional Family Medical History / Comment(s): from myocardial infarction at 55 years old Medications and Allergies Home Medications Medication Instructions Recorded Confirmed Type predniSONE 2.5 mg PO DAILY 07/21/21 01/26/23 History amLODIPine [Norvasc] 10 mg PO DAILY 11/17/21 01/26/23 History ALPRAZolam [Xanax] 0.5 mg PO DAILY PRN 01/26/23 01/26/23 History Acetaminophen Tab [Tylenol Tab] 1,000 mg PO BID@1500,2100 01/26/23 01/26/23 H istory Atorvastatin [Lipitor] 40 mg PO HS 01/26/23 01/26/23 History Olmesartan Medoxomil [Benicar] 40 mg PO DAILY 01/26/23 01/26/23 History Allergies Allergy/AdvReac Type Severity Reaction Status Date / Time amoxicillin Allergy Rash/Hives Verified 01/26/23 13:31 on entire upper body Penicillins Allergy Rash/Hives Verified 01/26/23 13:31 on entire upper body Physical Exam Vitals: Vital Signs Temp Pulse Pulse Resp BP BP BP 01/27/23 00:42 99.1 F 89 16 01/26/23 20:00 98.8 F 72 16 01/26/23 18:12 99.5 F 79 20 161/63 01/26/23 17:21 82 18 162/71 01/26/23 16:15 100.5 F H 80 16 153/62 01/26/23 15:05 74 18 147/63 01/26/23 14:13 96 20 125/59 01/26/23 14:12 85 18 116/66 01/26/23 14:10 99.2 F 78 17 01/26/23 13:05 73 17 140/56 01/26/23 12:06 66 17 147/62 01/26/23 11:06 81 17 146/68 01/26/23 10:11 98.4 F 80 18 181/75 BP Pulse Ox 01/27/23 00:42 180/69 94 L 01/26/23 20:00 156/64 94 L 01/26/23 18:12 94 L 01/26/23 17:21 94 L 01/26/23 16:15 93 L 01/26/23 15:05 94 L 01/26/23 14:13 95 01/26/23 14:12 95 01/26/23 14:10 158/70 95 01/26/23 13:05 93 L 01/26/23 12:06 94 L 01/26/23 11:06 95 01/26/23 10:11 96 Intake and Output 01/26/23 01/27/23 01/27/23 22:59 06:59 14:59 Other: Voiding Method Urinal Urinal # Voids 1 1 Weight 90.718 kg Results 01/26/23 11:05 01/26/23 11:05 Cardiac Enzymes 01/26/23 01/26/23 Range/Units 11:05 14:22 Troponin I <0.012 <0.012 (0.000-0.034) ng/mL Coagulation 01/26/23 Range/Units 11:05 PT 11.5 (10.0-12.5) sec APTT 25.2 (22.0-30.0) sec CBC 01/26/23 Range/Units 11:05 WBC 13.1 H (3.8-10.6) k/uL RBC 4.45 (4.30-5.90) m/uL Hgb 13.7 (13.0-17.5) gm/dL Hct 40.7 (39.0-53.0) % Plt Count 233 (150-450) k/uL Comprehensive Metabolic Panel 01/26/23 Range/Units 11:05 Sodium 141 (137-145) mmol/L Potassium 4.0 (3.5-5.1) mmol/L Chloride 109 H (98-107) mmol/L Carbon Dioxide 21 L (22-30) mmol/L BUN 20 (9-20) mg/dL Creatinine 1.17 (0.66-1.25) mg/dL Glucose 106 H (74-99) mg/dL Calcium 8.5 (8.4-10.2) mg/dL Current Medications Generic Name Dose Route Start Last Admin Trade Name Freq PRN Reason Stop Dose Admin Acetaminophen 1,000 mg 01/26/23 18:13 01/26/23 18:55 Acetaminophen Tab 500 Mg Tab PO 1,000 mg Q8HR PRN Administration Fever and/ or Pain Alprazolam 0.5 mg 12/13/23 13:41 01/26/23 21:11 Alprazolam 0.5 Mg Tab PO 0.5 mg DAILY PRN Administration Anxiety Amlodipine Besylate 10 mg 01/27/23 09:00 Amlodipine 10 Mg Tab PO DAILY JARET Atorvastatin Calcium 40 mg 01/26/23 21:00 01/26/23 21:08 Atorvastatin 40 Mg Tab PO 40 mg HS JARET Administration Sodium Chloride 1,000 mls @ 20 mls/hr 01/26/23 13:30 01/26/23 14:24 Saline 0.9% IV 20 mls/hr .Q24H JARET Administration Losartan Potassium 150 mg 01/27/23 09:00 Losartan 50 Mg Tab PO DAILY JARET Naloxone HCl 0.2 mg 01/26/23 13:20 Naloxone 0.4 Mg/Ml 1 Ml Vial IV Q2M PRN Opioid Reversal Prednisone 2.5 mg 01/27/23 09:00 Prednisone 2.5 Mg Tab PO DAILY JARET Tramadol HCl 50 mg 01/27/23 00:02 01/27/23 00:48 Tramadol 50 Mg Tab PO 50 mg Q6H PRN Administration Pain Intake and Output 01/26/23 01/27/23 01/27/23 22:59 06:59 14:59 Other: Voiding Method Urinal Urinal # Voids 1 1 Weight 90.718 kg 01/26/23 11:05 01/26/23 11:05
--- NOTE | 2023-01-27 11:20 | XR ---
EXAMINATION TYPE: XR ankle complete RT DATE OF EXAM: 01/27/2023 COMPARISON: NONE HISTORY: Pain TECHNIQUE: Frontal, lateral and oblique images of the right ankle are obtained. COMPARISON: None. FINDINGS: Mildly displaced oblique fracture distal fibula. Displacement noted of approximately 3 mm. No additional fracture seen. Mild widening of the ankle mortise medially and narrowing laterally may reflect a degree of instability. Soft tissue swelling about the ankle. Plantar dorsal calcaneal spurs evident. IMPRESSION: As above
--- NOTE | 2023-01-27 12:09 | CA ---
Transthoracic Echo Report Name: Dev Cunningham Age: 77 Gender: M : 1945 Exam Date: 01/27/2023 11:26 Exam Location: [facility] Ht (in): 70 Wt (lb): 200 Ordering Physician: Johana Cardona Attending/Referring Phys: [id number], Brendan [employer] Treatment Technician Darlene Drew RDCS Procedure CPT: Indications: LVF Cardiac Hx: Technical Quality: Fair Contrast 1: Total Dose (mL): Contrast 2: Total Dose (mL): MEASUREMENTS (Male / Female) Normal Values 2D ECHO LV Diastolic Diameter PLAX 4.9 cm 4.2 - 5.9 / 3.9 - 5.3 cm LV Systolic Diameter PLAX 3.3 cm IVS Diastolic Thickness 1.2 cm 0.6 - 1.0 / 0.6 - 0.9 cm LVPW Diastolic Thickness 1.3 cm 0.6 - 1.0 / 0.6 - 0.9 cm LV Relative Wall Thickness 0.5 RV Internal Dim ED PLAX 3.6 cm LA Systolic Diameter LX 4.1 cm 3.0 - 4.0 / 2.7 - 3.8 cm LV Diastolic Volume MOD BP 68.1 cm??? 67 - 155 / 56 - 104 cm??? LV Systolic Volume MOD BP 25.7 cm??? - 58 / 19 - 49 cm??? LV Ejection Fraction MOD BP 62.2 % >= 55 % LV Cardiac Index MOD BP 1427.9 cm???/min???m??? LV Diastolic Volume MOD 4C 74.2 cm??? LV Systolic Volume MOD 4C 29.2 cm??? LV Ejection Fraction MOD 4C 60.7 % LV Cardiac Index MOD 4C 1517.2 cm???/min???m??? LV Diastolic Length 4C 7.9 cm LV Systolic Length 4C 6.8 cm LV Diastolic Volume MOD 2C 63.9 cm??? LV Systolic Volume MOD 2C 23.4 cm??? LV Ejection Fraction MOD 2C 63.4 % LV Cardiac Index MOD 2C 1365.2 cm???/min???m??? LV Diastolic Length 2C 8.1 cm LV Systolic Length 2C 6.6 cm LA Volume 51.1 cm??? 18 - 58 / 22 - 52 cm??? LA Volume Index 23.9 cm???/m??? 16 - 28 cm???/m??? M-MODE Aortic Root Diameter MM 3.2 cm MV E Point Septal Separation 0.4 cm AV Cusp Separation MM 2.3 cm DOPPLER AV Peak Velocity 135.0 cm/s AV Peak Gradient 7.3 mmHg MV Area PHT 3.6 cm??? Mitral E Point Velocity 99.5 cm/s Mitral A Point Velocity 111.9 cm/s Mitral E to A Ratio 0.9 MV Deceleration Time 210.2 ms MV E' Velocity 5.6 cm/s Mitral E to MV E' Ratio 17.9 TR Peak Velocity 260.4 cm/s TR Peak Gradient 27.1 mmHg Right Ventricular Systolic Press 32.1 mmHg FINDINGS Left Ventricle No obvious regional wall motion abnormalities. Left ventricular ejection fraction is estimated at 55-60 %. Left ventricular cavity size normal. Mildly increased septal wall thickness. Right Ventricle Mild right ventricular dilatation. Right ventricular systolic pressure within normal limits. Right Atrium Normal right atrial size. Left Atrium Mildly increased left atrial area. Mitral Valve Structurally normal mitral valve. No mitral stenosis, regurgitation or prolapse. Aortic Valve Trileaflet aortic valve. No aortic valve stenosis or regurgitation. Tricuspid Valve Structurally normal tricuspid valve. Mild tricuspid regurgitation. Pulmonic Valve Structurally normal pulmonic valve. Trace pulmonic regurgitation. Pericardium No pericardial effusion. Aorta Normal size aortic root and proximal ascending aorta. CONCLUSIONS Left ventricular ejection fraction is estimated at 55-60 %. No obvious regional wall motion abnormality Mild concentric LVH No significant valvular dysfunction No pericardial effusion Previewed by: Dr Nain Aquino (Electronically Signed) Final Date: 27 January 2023 12:08
--- NOTE | 2023-01-27 14:10 | P.HPIM ---
History of Present Illness H&P Date: 01/26/23 History of present illness; patient is a 77-year-old gentleman with past medical history significant for coronary disease status post CABG, hypertension, hyperlipidemia who presented to the ER for a syncopal episode. Patient stated that he was at a [employer] store when he started feeling dizzy, denied any chest pain or palpitation or time. Patient stated that he decided to go back home to rest. When he reached home, he tried to rest his head on the kitchen counter and the next thing he knows he was laying on the floor. Patient has a fall device that alerted and EMS was called . Patient was unable to lift himself up and get above the ground because of weakness. Patient stated that he has been noticing that he was getting more short of breath on exertion for the last few weeks. Denied any chest pain. Denied any swelling of feet. There was no complain nausea, vomiting or abdominal pain. Denied any recent fever or chills. Because of the symptoms, patient brought to the ER Initial lab work done in the ER showed WBC 13.1, hemoglobin 13.7, platelet count 233, sodium 141, potassium 4, BUNs 20:31.17, glucose 106, magnesium 1.9 troponin 0.012 EKG done in the ER showed heart rate of 75, no ST segment elevation or T-wave inversion seen CT head negative for an acute Process, Showed Age-Related Atrophic and Chronic Small Vessel Ischemic Changes. Chest x-ray showed no acute pulmonary process CT Cervical Spine Showed No Acute Fractures Patient admitted to internal medicine service REVIEW OF SYSTEMS: CONSTITUTIONAL: No fever, no malaise, no fatigue. HEENT: No recent visual problems or hearing problems. Denied any sore throat. CARDIOVASCULAR: No chest pain, orthopnea, PND, no palpitations, no syncope. PULMONARY: No shortness of breath, no cough, no hemoptysis. GASTROINTESTINAL: No diarrhea, no nausea, no vomiting, no abdominal pain. NEUROLOGICAL: No headaches, no weakness, no numbness. HEMATOLOGICAL: Denies any bleeding or petechiae. GENITOURINARY: Denies any burning micturition, frequency, or urgency. MUSCULOSKELETAL/RHEUMATOLOGICAL: Denies any joint pain, swelling, or any muscle pain. ENDOCRINE: Denies any polyuria or polydipsia. The rest of the 14-point review of systems is negative. PHYSICAL EXAMINATION: GENERAL: The patient is alert and oriented x3, not in any acute distress. Well developed, well nourished. HEENT: Pupils are round and equally reacting to light. EOMI. No scleral icterus. No conjunctival pallor. Normocephalic, atraumatic. No pharyngeal erythema. No thyromegaly. CARDIOVASCULAR: S1 and S2 present. No murmurs, rubs, or gallops. PULMONARY: Chest is clear to auscultation, no wheezing or crackles. ABDOMEN: Soft, nontender, nondistended, normoactive bowel sounds. No palpable organomegaly. MUSCULOSKELETAL: No joint swelling or deformity. EXTREMITIES: No cyanosis, clubbing, or pedal edema. NEUROLOGICAL: Gross neurological examination did not reveal any focal deficits. SKIN: No rashes. Assessment and plan Syncope. Fall History of coronary artery disease Hypertension Hyperlipidemia Monitor vital signs Monitor CBC Monitor CMP Continue telemetry monitoring Ordered orthostatics Trend troponin Ordered d-dimer Ordered 2-D echo Resume home meds Consult cardiology Labs and medication were reviewed.. Continue same treatment. Continue with symptomatic treatment. Resume home medication. Monitor labs and vitals. DVT and GI prophylaxis. Further recommendations as per clinical course of the patie nt Dictation was produced using [employer] dictation software. please excuse any grammatical, word or spelling errors. Past Medical History Past Medical History: Coronary Artery Disease (CAD), Cancer, Hyperlipidemia, Hypertension, Pneumonia Additional Past Medical History / Comment(s): See Dr Carmichael's H&P. Polymyositis causing muscle pain and stiffness, requiring snf steroid use, resulting in elevated A1C. Currently having mild flare up, on steroids. Hx Melamoma X2, once on left scalp and once behind right ear. History of Any Multi-Drug Resistant Organisms: None Reported Past Surgical History: Appendectomy, Coronary Bypass/CABG, Heart Catheterization Additional Past Surgical History / Comment(s): Melanoma behind right ear and left scalp removed, ganglion cyst removed from wrist, all teeth extracted. Knee scope Past Anesthesia/Blood Transfusion Reactions: No Reported Reaction Past Psychological History: No Psychological Hx Reported Smoking Status: Former smoker Past Alcohol Use History: None Reported Past Drug Use History: None Reported - Past Family History Mother Family Medical History: Dementia, Pneumonia Father Family Medical History: Coronary Artery Disease (CAD), Myocardial Infarction (CT) Additional Family Medical History / Comment(s): from myocardial infarction at 55 years old Medications and Allergies Home Medications Medication Instructions Recorded Confirmed Type predniSONE 2.5 mg PO DAILY 07/21/21 01/26/23 History amLODIPine [Norvasc] 10 mg PO DAILY 11/17/21 01/26/23 History ALPRAZolam [Xanax] 0.5 mg PO DAILY PRN 01/26/23 01/26/23 History Acetaminophen Tab [Tylenol Tab] 1,000 mg PO BID@1500,2100 01/26/23 01/26/23 History Atorvastatin [Lipitor] 40 mg PO HS 01/26/23 01/26/23 History Olmesartan Medoxomil [Benicar] 40 mg PO DAILY 01/26/23 01/26/23 History Allergies Allergy/AdvReac Type Severity Reaction Status Date / Time amoxicillin Allergy Rash/Hives Verified 01/26/23 13:31 on entire upper body Penicillins Allergy Rash/Hives Verified 01/26/23 13:31 on entire upper body Physical Exam Vitals: Vital Signs Temp Pulse Resp BP Pulse Ox 01/26/23 13:05 73 17 140/56 93 L 01/26/23 12:06 66 17 147/62 94 L 01/26/23 11:06 81 17 146/68 95 01/26/23 10:11 98.4 F 80 18 181/75 96 Intake and Output 01/25/23 01/26/23 01/26/23 22:59 06:59 14:59 Other: Weight 90.718 kg Results CBC & Chem 7: 01/26/23 11:05 01/26/23 11:05 Labs: Abnormal Lab Results - Last 24 Hours (Table) 01/26/23 01/26/23 01/26/23 Range/Units 10:18 11:05 11:05 WBC 13.1 H (3.8-10.6) k/uL Neutrophils # 8.9 H (1.3-7.7) k/uL Chloride 109 H (98-107) mmol/L Carbon Dioxide 21 L (22-30) mmol/L Glucose 106 H (74-99) mg/dL POC Glucose (mg/dL) 113 H (70-110) mg/dL
--- NOTE | 2023-01-27 14:12 | P.PN ---
Subjective Progress Note Date: 01/27/23 patient is a 77-year-old gentleman with past medical history significant for coronary disease status post CABG, hypertension, hyperlipidemia who presented to the ER for a syncopal episode. Patient stated that he was at a [employer] when he started feeling dizzy, denied any chest pain or palpitation or time. Patient stated that he decided to go back home to rest. When he reached home, he tried to rest his head on the kitchen counter and the next thing he knows he was laying on the floor. Patient has a fall device that alerted and EMS was called . Patient was unable to lift himself up and get above the ground because of weakness. Patient stated that he has been noticing that he was getting more short of breath on exertion for the last few weeks. Denied any chest pain. D enied any swelling of feet. There was no complain nausea, vomiting or abdominal pain. Denied any recent fever or chills. Because of the symptoms, patient brought to the ER Initial lab work done in the ER showed WBC 13.1, hemoglobin 13.7, platelet count 233, sodium 141, potassium 4, BUNs 20:31.17, glucose 106, magnesium 1.9 troponin 0.012 EKG done in the ER showed heart rate of 75, no ST segment elevation or T-wave inversion seen CT head negative for an acute Process, Showed Age-Related Atrophic and Chronic Small Vessel Ischemic Changes. Chest x-ray showed no acute pulmonary process CT Cervical Spine Showed No Acute Fractures Patient admitted to internal medicine service 01/27. Patient seen and examined. Patient complaining of right ankle pain and swelling. Does not remember hitting or hurting his ankle. X-ray of the right ankle done showed mildly displaced oblique fracture of distal fibula. D-dimer was elevated, CTA chest done was negative for PE, did show left upper lobe pul monary nodule. REVIEW OF SYSTEMS: CONSTITUTIONAL: No fever, no malaise,. CARDIOVASCULAR: No chest pain, no palpitations, no syncope. PULMONARY: No shortness of breath, no cough, GASTROINTESTINAL: No diarrhea, no nausea, no vomiting, no abdominal pain. NEUROLOGICAL: No headaches, no weakness, PHYSICAL EXAMINATION: GENERAL: The patient is alert and oriented x3, not in any acute distress. Well developed, well nourished. HEENT: Pupils are round and equally reacting to light. EOMI. No scleral icterus. No conjunctival pallor. Normocephalic, atraumatic. No pharyngeal erythema. No thyromegaly. CARDIOVASCULAR: S1 and S2 present. No murmurs, rubs, or gallops. PULMONARY: Chest is clear to auscultation, no wheezing or crackles. ABDOMEN: Soft, nontender, nondistended, normoactive bowel sounds. No palpable organomegaly. MUSCULOSKELETAL: Right ankle tenderness, bruising noticeable EXTREMITIES: No cyanosis, clubbing, or pedal edema. NEUROLOGICAL: Gross neurological examination did not reveal any focal deficits. SKIN: No rashes. Assessment and plan Right ankle fracture Right fibular fracture Syncope. Fall History of coronary artery disease Hypertension Hyperlipidemia Left upper lobe pulmonary nodule, 1.1 cm in size, outpatient PET scan recommended Monitor vital signs Monitor CBC Monitor CMP Continue telemetry monitoring 2-D echo ordered In regards to hypertension, Decrease dose of amlodipine to 5 mg daily and decrease dose of losartan to 50 mg daily Regards to hyperlipidemia , continue Lipitor Cardiology following orthopedic consulted Labs and medication were reviewed.. Continue same treatment. Continue with symptomatic treatment. Resume home medication. Monitor labs and vitals. DVT and GI prophylaxis. Further recommendations as per clinical course of the patient Dictation was produced using [employer] dictation software. please excuse any grammatical, word or spelling errors. Objective - Vital Signs Vital signs: Vital Signs Temp 99.0 F 01/27/23 07:00 Pulse 82 01/27/23 07:00 Resp 16 01/27/23 08:00 BP 134/66 01/27/23 07:00 Pulse Ox 94 L 01/27/23 00:42 FiO2 Intake & Output 01/26/23 01/27/23 01/27/23 18:59 06:59 18:59 Intake Total 118 Balance 118 Weight 90.718 kg 90.718 kg Intake: Oral 118 Other: Voiding Method Urinal Urinal # Voids 1 1 - Labs CBC & Chem 7: 01/26/23 11:05 01/26/23 11:05 Labs: Abnormal Lab Results - Last 24 Hours (Table) 01/26/23 Range/Units 13:43 D-Dimer 2.06 H (<0.60) mg/L FEU
[2023-01-27] MEDS: SODIUM CHLORIDE 0.9% 1,000 ML IV SCH (15:25)
--- NOTE | 2023-01-27 17:29 | P.CNOR ---
History of Present Illness - HPI History of present illness: The patient is a very pleasant 77-year-old male with multiple medical problems who is admitted to internal medicine following a syncopal episode. During the course the patient's workup and x-ray of the ankle was obtained which showed a slightly displaced lateral malleolus fracture. Orthopedics was consulted for management. At the time of my evaluation the patient is complaining of isolated pain in his ankle, but is comfortable without movement. He has no other complaints. Past Medical History Past Medical History: Coronary Artery Disease (CAD), Cancer, Hyperlipidemia, Hypertension, Pneumonia Additional Past Medical History / Comment(s): See Dr Carmichael's H&P. Polymyositis causing muscle pain and stiffness, requiring halfway steroid use, resulting in elevated A1C. Currently having mild flare up, on steroids. Hx Melamoma X2, once on left scalp and once behind right ear. History of Any Multi-Drug Resistant Organisms: None Reported Past Surgical History: Appendectomy, Coronary Bypass/CABG, Heart Catheterization Additional Past Surgical History / Comment(s): Melanoma behind right ear and left scalp removed, ganglion cyst removed from wrist, all teeth extracted. Knee scope Past Anesthesia/Blood Transfusion Reactions: No Reported Reaction Past Psychological History: No Psychological Hx Reported Smoking Status: Former smoker Past Alcohol Use History: None Reported Past Drug Use History: None Reported - Past Family History Mother Family Medical History: Dementia, Pneumonia Father Family Medical History: Coronary Artery Disease (CAD), Myocardial Infarction ([place]) Additional Family Medical History / Comment(s): from myocardial infarction at 55 years old Medications and Allergies Home Medications Medication Instructions Recorded Confirmed Type predniSONE 2.5 mg PO DAILY 07/21/21 01/26/23 History amLODIPine [Norvasc] 10 mg PO DAILY 11/17/21 01/26/23 History ALPRAZolam [Xanax] 0.5 mg PO DAILY PRN 01/26/23 01/26/23 History Acetaminophen Tab [Tylenol Tab] 1,000 mg PO BID@1500,2100 01/26/23 01/26/23 History Atorvastatin [Lipitor] 40 mg PO HS 01/26/23 01/26/23 History Olmesartan Medoxomil [Benicar] 40 mg PO DAILY 01/26/23 01/26/23 History Allergies Allergy/AdvReac Type Severity Reaction Status Date / Time amoxicillin Allergy Rash/Hives Verified 01/26/23 13:31 on entire upper body Penicillins Allergy Rash/Hives Verified 01/26/23 13:31 on entire upper body Physical Examination The patient is no apparent distress and is resting comfortably in bed. He is alert and able to answer questions. His head is normocephalic and atraumatic. He demonstrates nonlabored breathing with symmetric chest expansion. A focused examination of the right lower extremity was conducted. On inspection there is diffuse swelling throughout the ankle and ecchymosis over the lateral ankle. There are no open wounds or fracture blisters. He has no pain with passive range of motion of the hip or knee. His calf is soft. He has tenderness diffusely over the ankle. His foot is warm and well perfused with brisk ca pillary refill. He is able to actively plantarflex and dorsiflex his ankle and toes. Results X-rays of the right ankle show a minimally displaced Tripp B lateral malleolus fracture with slight displacement the medial clear space - Labs Labs: H & H 01/26/23 Range/Units 11:05 Hgb 13.7 (13.0-17.5) gm/dL Hct 40.7 (39.0-53.0) % Coagulation 01/26/23 Range/Units 11:05 INR 1.1 (<1.2) Result Diagrams: 01/26/23 11:05 01/26/23 11:05 Assessment and Plan Assessment: Closed right lateral malleolus ankle fracture Plan: The patient had a short leg bulky Allen type splint applied over the right ankle. He should remain nonweightbearing on the right ankle using crutches or a walker to ambulate. I encouraged ice and elevation. I have no plans for surgical intervention during this hospitalization. The patient will need follow-up in the office with our foot and ankle specialist Dr. Lucas after discharge to discuss treatment. The patient is okay to discharge from an or thopedic standpoint. Procedure: Application of short leg splint by physician, right ankle Verbal consent for application of a short-leg splint was obtained. Web roll and ABDs were applied padding all bony prominences over the ankle. A well-padded bulky Allen splint was then applied with the ankle in neutral. As the splint was setting a slight varus mold was applied. After application of the splint the patient was comfortable and was able to actively plantarflex and dorsiflex his ankle and toes. The patient tolerated splint application without difficulty. Time with Patient: Greater than 30
[2023-01-27] MEDS: ATORVASTATIN 40 MG TAB PO SCH (20:27)
[2023-01-28] MEDS: LOSARTAN 50 MG TAB PO SCH (07:55)
[2023-01-28] MEDS: amLODIPine 5 MG TAB PO SCH (07:55)
[2023-01-28] MEDS: traMADol 50 MG TAB PO PRN ×2 (08:05→20:03)
[2023-01-28 10:31] LABS: HCT 35.9 % (39.0-53.0); HGB 12.2 gm/dL (13.0-17.5); MCH 31.3 pg (25.0-35.0); MCHC 33.9 g/dL (31.0-37.0); MCV 92.3 fL (80.0-100.0); Platelet Count 196 k/uL (150-450); RBC 3.89 m/uL (4.30-5.90); RDW 13.1 % (11.5-15.5); WBC 10.1 k/uL (3.8-10.6)
[2023-01-28 10:40] LABS: ALT 20 U/L (4-49); AST 25 U/L (17-59); African American GFR (CKD) 52 (>60 ml/min/1.73 sqM); Albumin 3.6 g/dL (3.5-5.0); Albumin/Globulin Ratio 1.4; Alkaline Phosphatase 62 U/L (38-126); Anion Gap 10 mmol/L; Blood Urea Nitrogen 23 mg/dL (9-20); Calcium 8.6 mg/dL (8.4-10.2); Carbon Dioxide 27 mmol/L (22-30); Chloride 103 mmol/L (98-107); Globulin 2.6 g/dL; Glucose 121 mg/dL (74-99); Non-African American GFR(CKD) 45 (>60 ml/min/1.73 sqM); Potassium 3.4 mmol/L (3.5-5.1); Sodium 140 mmol/L (137-145); Total Bilirubin 0.7 mg/dL (0.2-1.3); Total Protein 6.2 g/dL (6.3-8.2)
--- NOTE | 2023-01-28 10:51 | P.PN ---
Subjective Progress Note Date: 01/28/23 Consult reason: sycope History of present illness: History of present illness: This is a 77-year-old male patient of Dr. Carmichael with past medical history of coronary artery disease status post CABG with MEZA to LAD, VG to OM1 in July 2021, hypertension, hyperlipidemia, polymyalgia on steroids. We have been asked to evaluate the patient regarding syncope. Patient states that he was in a store shopping and felt dizzy, went home sat down and put his head onto the table and the next thing he knew he was found himself on the floor. He does not remember falling to the floor. His alert contacted EMS as he was not able to get up. He has had problems with his right ankle since he was at the chiropractor's office 2 weeks ago and may have injured it further with the fall. He denies having any fluttering feeling in his chest no palpitations, no weakness, no chest pain. He states he has been taking all of his medications as directed. He presented with a blood pressure of 181/75. Orthostatic vital signs were obtained in the emergency room which were positive. EKG sinus rhythm and no acute ST changes. Chest x-ray: No acute process CTA of the chest revealed no evidence of pulmonary embolism. Left upper lobe pulmonary nodule 1.1 cm. CAT scan of the brain and cervical spine revealed chronic changes without acute intracranial process. No evidence of acute fracture or subluxation of the cervical spine. WBC 13.1, hemoglobin 13.7. D-dimer 2.06. Sodium 141, potassium 4.0, chloride 109, CO2 21, BUN 20, creatinine 1.17. Blood sugar 106. Troponin negative 2. Magnesium 1.9. Home cardiac medications: Amlodipine 10 mg daily, atorvastatin 40 mg at bedtime, Benicar 40 mg daily. Echocardiogram performed in the office on 05/01/2022 revealed EF 55-60%. Mild left jugular hypertrophy. Trace to mild aortic regurgitation. Mild mitral r egurgitation. Mild tricuspid regurgitation. PAS P 16 mmHg. 01/28 Patient is seen today in follow-up. Echocardiogram reveals EF of 55-60% with mild concentric left hypertrophy. Results reviewed with the patient. Blood pressure has been on the higher side which we expected for today as we want to avoid hypotension. Blood pressure 167/65 and heart rate 84, pulse ox 94% on room air. Right ankle x-ray ordered yesterday was positive for fracture and orthopedics is on consult, splint in place and patient is nonweightbearing for now. He denies any lightheadedness or dizziness. Physical examination: Gen: This is a 77-year-old male resting in bed and appears to be comfortable and in no acute distress. VS: reviewed HEENT: Head is atraumatic, normocephalic. Pupils equal, round. Sclerae is an icteric. NECK: Supple. No JVD. LUNGS: Clear to auscultation. No wheezes or rhonchi. No intercostal retractions. HEART: Regular rate and rhythm. 2/6 systolic ejection murmur at the base murmur. ABDOMEN: Soft No tenderness. EXTREMITIES: Right ankle edema. No calf tenderness. NEUROLOGICAL: Patient is awake, alert and oriented x3. Assessment: Syncopal episode of unclear etiology Orthostatic changes Right ankle fracture History of coronary artery disease Hypertension Hyperlipidemia Plan: Continue the decreased doses of amlodipine at 5 mg daily and losartan at 50 mg daily Repeat orthostatic vital signs after patient receives his antihypertensive medications this morning If orthostatic vital signs are negative, increase amlodipine to 10 mg daily. If orthostatic vital signs are positive, continue same dose of amlodipine and losartan. Patient may pickup 14 day event monitor at [facility] office this afternoon. Patient is cleared for discharge from cardiology and may follow up with Dr. Carmichael in 3 weeks. Nurse practitioner note has been reviewed, I agree with documented findings and plan of care. Patient was seen and examined. Objective - Vital Signs Vital signs: Vital Signs Temp 98.5 F 01/28/23 07:00 Pulse 84 01/28/23 07:00 Resp 18 01/28/23 07:00 BP 167/65 01/28/23 07:00 Pulse Ox 94 L 01/28/23 07:00 FiO2 Intake & Output 01/27/23 01/28/23 01/28/23 18:59 06:59 18:59 Intake Total 354 Output Total 200 225 Balance 154 -225 Intake: Oral 354 Output: Urine 200 225 Other: Voiding Method Urinal Urinal # Voids 1 1 - Labs CBC & Chem 7: 01/28/23 10:08 01/26/23 11:05
--- NOTE | 2023-01-28 12:51 | P.DS ---
Providers Date of admission: 01/26/23 13:21 Expected date of discharge: 01/28/23 Attending physician: Mar De Jesus Consults: 01/26/23 13:20 Consult Physician Routine Consulting Provider: Tushar Carmichael Consult Reason/Comments: syncope Do you want consulting provider notified?: Yes 01/27/23 12:42 Consult Physician Routine Consulting Provider: Norman Wade Consult Reason/Comments: R ankle fracture Do you want consulting provider notified?: Yes Primary care physician: David [facility] Course: Discharge diagnoses; Right ankle fracture Right fibular fracture Syncope. Fall History of coronary artery disease Hypertension Hyperlipidemia Left upper lobe pulmonary nodule, 1.1 cm in size, outpatient PET scan recommended Hospital course; patient is a 77-year-old gentleman with past medical history significant for coronary disease status post CABG, hypertension, hyperlipidemia who presented to the ER for a syncopal episode. Patient stated that he was at a [employer] store when he started feeling dizzy, denied any chest pain or palpitation or time. Patient stated that he decided to go back home to rest. When he reached home, he tried to rest his head on the kitchen counter and the next thing he knows he was laying on the floor. Patient has a fall device that alerted and EMS was called . Patient was unable to lift himself up and get above the ground because of weakness. Patient stated that he has been noticing that he was getting more short of breath on exertion for the last few weeks. Denied any chest pain. Denied any swelling of feet. There was no complain nausea, vomiting or abdominal pain. Denied any recent fever or chills. Because of the symptoms, patient brought to the ER Initial lab work done in the ER showed WBC 13.1, hemoglobin 13.7, platelet count 233, sodium 141, potassium 4, BUNs 20:31.17, glucose 106, magnesium 1.9 troponin 0.012 EKG done in the ER showed heart rate of 75, no ST segment elevation or T-wave inversion seen CT head negative for an acute Process, Showed Age-Related Atrophic and Chronic Small Vessel Ischemic Changes. Chest x-ray showed no acute pulmonary process CT Cervical Spine Showed No Acute Fractures Patient admitted to internal medicine service 01/27. Patient seen and examined. Patient complaining of right ankle pain and swelling. Does not remember hitting or hurting his ankle. X-ray of the right ankle done showed mildly displaced oblique fracture of distal fibula. D-dimer was elevated, CTA chest done was negative for PE, did show left upper lobe pulmonary nodule. 01/28. Patient seen and examined. Orthopedic evaluated the patient for right ankle fracture, recommended conservative treatment with leg splint and patient being nonweightbearing, no plan for any surgical intervention. Cardiology recommended starting patient on current dose of Norvasc and losartan. Outpatient follow-up with cardiology. Being discharged home with homecare PHYSICAL EXAMINATION: GENERAL: The patient is alert and oriented x3, not in any acute distress. Well developed, well nourished. HEENT: Pupils are round and equally reacting to light. EOMI. No scleral icterus. No conjunctival pallor. Normocephalic, atraumatic. No pharyngeal erythema. No thyromegaly. CARDIOVASCULAR: S1 and S2 present. No murmurs, rubs, or gallops. PULMONARY: Chest is clear to auscultation, no wheezing or crackles. ABDOMEN: Soft, nontender, nondistended, normoactive bowel sounds. No palpable organomegaly. MUSCULOSKELETAL: Right foot splint seen EXTREMITIES: No cyanosis, clubbing, or pedal edema. NEUROLOGICAL: Gross neurological examination did not reveal any focal deficits. SKIN: No rashes. Dictation was produced using [employer] dictation software. please excuse any grammatical, word or spelling errors. Patient Condition at Discharge: Fair Plan - Discharge Summary New Discharge Prescriptions: New Losartan [Cozaar] 50 mg PO DAILY 30 Days #30 tab amLODIPine [Norvasc] 5 mg PO DAILY #30 tab traMADol HCl [Ultram] 50 mg PO Q6H PRN 3 Days #12 tab PRN Reason: Pain Continue predniSONE 2.5 mg PO DAILY ALPRAZolam [Xanax] 0.5 mg PO DAILY PRN PRN Reason: Anxiety Acetaminophen Tab [Tylenol] 1,000 mg PO BID@1500,2100 Atorvastatin [Lipitor] 40 mg PO HS Discontinued amLODIPine [Norvasc] 10 mg PO DAILY Olmesartan Medoxomil [Benicar] 40 mg PO DAILY Discharge Medication List predniSONE 2.5 mg PO DAILY 07/21/21 [History] ALPRAZolam [Xanax] 0.5 mg PO DAILY PRN 01/26/23 [History] Acetaminophen Tab [Tylenol] 1,000 mg PO BID@1500,2100 01/26/23 [History] Atorvastatin [Lipitor] 40 mg PO HS 01/26/23 [History] Losartan [Cozaar] 50 mg PO DAILY 30 Days #30 tab 01/28/23 [Rx] amLODIPine [Norvasc] 5 mg PO DAILY #30 tab 01/28/23 [Rx] traMADol HCl [Ultram] 50 mg PO Q6H PRN 3 Days #12 tab 01/28/23 [Rx] Follow up Appointment(s)/Referral(s): Tushar Carmichael MD [STAFF PHYSICIAN] - 1 Week Vern Lucas DPM [Doctor of Osteopathic Medicine] - 1-2 Days David Mancini MD [Primary Care Provider] - 1-2 days Activity/Diet/Wound Care/Special Instructions: Patient to picker 14-Day Event Monitor at [facility] office this afternoon.
[2023-01-28] MEDS ORDERED: amLODIPine 5 MG TAB PO STA (13:36)
--- NOTE | 2023-01-28 13:40 | P.PN ---
Subjective Progress Note Date: 01/28/23 patient is a 77-year-old gentleman with past medical history significant for coronary disease status post CABG, hypertension, hyperlipidemia who presented to the ER for a syncopal episode. Patient stated that he was at a [employer] store when he started feeling dizzy, denied any chest pain or palpitation or time. Patient stated that he decided to go back home to rest. When he reached home, he tried to rest his head on the kitchen counter and the next thing he knows he was laying on the floor. Patient has a fall device that alerted and EMS was called . Patient was unable to lift himself up and get above the ground because of weakness. Patient stated that he has been noticing that he was getting more short of breath on exertion for the last few weeks. Denied any chest pain. D enied any swelling of feet. There was no complain nausea, vomiting or abdominal pain. Denied any recent fever or chills. Because of the symptoms, patient brought to the ER Initial lab work done in the ER showed WBC 13.1, hemoglobin 13.7, platelet count 233, sodium 141, potassium 4, BUNs 20:31.17, glucose 106, magnesium 1.9 troponin 0.012 EKG done in the ER showed heart rate of 75, no ST segment elevation or T-wave inversion seen CT head negative for an acute Process, Showed Age-Related Atrophic and Chronic Small Vessel Ischemic Changes. Chest x-ray showed no acute pulmonary process CT Cervical Spine Showed No Acute Fractures Patient admitted to internal medicine service 01/27. Patient seen and examined. Patient complaining of right ankle pain and swelling. Does not remember hitting or hurting his ankle. X-ray of the right ankle done showed mildly displaced oblique fracture of distal fibula. D-dimer was elevated, CTA chest done was negative for PE, did show left upper lobe pul monary nodule. 01/28. Patient seen and examined. Orthopedic evaluated the patient for right ankle fracture, recommended conservative treatment with leg splint and patient being nonweightbearing, no plan for any surgical intervention. PT and OT evaluation, patient requiring rehab, patient is able to go to rehab REVIEW OF SYSTEMS: CONSTITUTIONAL: No fever, no malaise,. CARDIOVASCULAR: No chest pain, no palpitations, no syncope. PULMONARY: No shortness of breath, no cough, GASTROINTESTINAL: No diarrhea, no nausea, no vomiting, no abdominal pain. NEUROLOGICAL: No headaches, no weakness, PHYSICAL EXAMINATION: GENERAL: The patient is alert and oriented x3, not in any acute distress. Well developed, well nourished. HEENT: Pupils are round and equally reacting to light. EOMI. No scleral icterus. No conjunctival pallor. Normocephalic, atraumatic. No pharyngeal erythema. No thyromegaly. CARDIOVASCULAR: S1 and S2 present. No murmurs, rubs, or gallops. PULMONARY: Chest is clear to auscultation, no wheezing or crackles. ABDOMEN: Soft, nontender, nondistended, normoactive bowel sounds. No palpable organomegaly. MUSCULOSKELETAL: Right foot splint seen EXTREMITIES: No cyanosis, clubbing, or pedal edema. NEUROLOGICAL: Gross neurological examination did not reveal any focal deficits. SKIN: No rashes. Assessment and plan Right ankle fracture Right fibular fracture Syncope. Fall History of coronary artery disease Hypertension Hyperlipidemia Left upper lobe pulmonary nodule, 1.1 cm in size, outpatient PET scan recommended Monitor vital signs Monitor CBC Monitor CMP Continue telemetry monitoring In regards to hypertension, continue current dose of amlodipine to 5 mg daily and losartan 50 mg daily Regards to hyperlipidemia , continue Lipitor Cardiology following, recommend event monitor discharge Orthopedic evaluated the patient for right ankle fracture, recommended conservative treatment with leg splint and patient being nonweightbearing, no plan for any surgical intervention. PT and OT recommended rehab Labs and medication were reviewed.. Continue same treatment. Continue with symptomatic treatment. Resume home medication. Monitor labs and vitals. DVT and GI prophylaxis. Further recommendations as per clinical course of the patient Dictation was produced using [employer] dictation software. please excuse any grammatical, word or spelling errors. Objective - Vital Signs Vital signs: Vital Signs Temp 98.3 F 01/28/23 12:06 Pulse 68 01/28/23 12:06 Resp 18 01/28/23 12:06 BP 144/55 01/28/23 12:06 Pulse Ox 95 01/28/23 12:06 FiO2 Intake & Output 01/27/23 01/28/23 01/28/23 18:59 06:59 18:59 Intake Total 354 240 Output Total 200 225 Balance 154 -225 240 Intake: Oral 354 240 Output: Urine 200 225 Other: Voiding Method Urinal Urinal Urinal # Voids 1 1 - Labs CBC & Chem 7: 01/28/23 10:08 01/28/23 10:08 Labs: Abnormal Lab Results - Last 24 Hours (Table) 01/28/23 01/28/23 Range/Units 10:08 10:08 RBC 3.89 L (4.30-5.90) m/uL Hgb 12.2 L (13.0-17.5) gm/dL Hct 35.9 L (39.0-53.0) % Potassium 3.4 L (3.5-5.1) mmol/L BUN 23 H (9-20) mg/dL Creatinine 1.47 H (0.66-1.25) mg/dL Glucose 121 H (74-99) mg/dL Total Protein 6.2 L (6.3-8.2) g/dL
[2023-01-28] MEDS: predniSONE 2.5 MG TAB PO SCH (14:15)
[2023-01-28] MEDS: SODIUM CHLORIDE 0.9% 1,000 ML IV SCH (14:16)
[2023-01-28] MEDS: ATORVASTATIN 40 MG TAB PO SCH (20:04)
[2023-01-29] MEDS: predniSONE 2.5 MG TAB PO SCH (08:42)
[2023-01-29] MEDS: amLODIPine 10 MG TAB PO SCH (08:43)
[2023-01-29] MEDS: LOSARTAN 50 MG TAB PO SCH (08:43)
[2023-01-29] MEDS ORDERED: POTASSIUM CHLORIDE ER 20 MEQ TAB.ER PO STA (09:03)
[2023-01-29] MEDS: ENOXAPARIN 40 MG/0.4 ML SYRINGE SQ SCH (10:41)
--- NOTE | 2023-01-29 13:07 | P.PN ---
Subjective Progress Note Date: 01/29/23 patient is a 77-year-old gentleman with past medical history significant for coronary disease status post CABG, hypertension, hyperlipidemia who presented to the ER for a syncopal episode. Patient stated that he was at a [employer] store when he started feeling dizzy, denied any chest pain or palpitation or time. Patient stated that he decided to go back home to rest. When he reached home, he tried to rest his head on the kitchen counter and the next thing he knows he was laying on the floor. Patient has a fall device that alerted and EMS was called . Patient was unable to lift himself up and get above the ground because of weakness. Patient stated that he has been noticing that he was getting more short of breath on exertion for the last few weeks. Denied any chest pain. D enied any swelling of feet. There was no complain nausea, vomiting or abdominal pain. Denied any recent fever or chills. Because of the symptoms, patient brought to the ER Initial lab work done in the ER showed WBC 13.1, hemoglobin 13.7, platelet count 233, sodium 141, potassium 4, BUNs 20:31.17, glucose 106, magnesium 1.9 troponin 0.012 EKG done in the ER showed heart rate of 75, no ST segment elevation or T-wave inversion seen CT head negative for an acute Process, Showed Age-Related Atrophic and Chronic Small Vessel Ischemic Changes. Chest x-ray showed no acute pulmonary process CT Cervical Spine Showed No Acute Fractures Patient admitted to internal medicine service 01/27. Patient seen and examined. Patient complaining of right ankle pain and swelling. Does not remember hitting or hurting his ankle. X-ray of the right ankle done showed mildly displaced oblique fracture of distal fibula. D-dimer was elevated, CTA chest done was negative for PE, did show left upper lobe pul monary nodule. 01/28. Patient seen and examined. Orthopedic evaluated the patient for right ankle fracture, recommended conservative treatment with leg splint and patient being nonweightbearing, no plan for any surgical intervention. PT and OT evaluation, patient requiring rehab, patient is able to go to rehab 01/29. Patient seen and examined. Laying comfortably in the bed. Denies any pain in the right foot. Keen to go to rehab. REVIEW OF SYSTEMS: CONSTITUTIONAL: No fever, no malaise,. CARDIOVASCULAR: No chest pain, no palpitations, no syncope. PULMONARY: No shortness of breath, no cough, GASTROINTESTINAL: No diarrhea, no nausea, no vomiting, no abdominal pain. NEUROLOGICAL: No headaches, no weakness, PHYSICAL EXAMINATION: GENERAL: The patient is alert and oriented x3, not in any acute distress. Well developed, well nourished. HEENT: Pupils are round and equally reacting to light. EOMI. No scleral icterus. No conjunctival pallor. Normocephalic, atraumatic. No pharyngeal erythema. No thyromegaly. CARDIOVASCULAR: S1 and S2 present. No murmurs, rubs, or gallops. PULMONARY: Chest is clear to auscultation, no wheezing or crackles. ABDOMEN: Soft, nontender, nondistended, normoactive bowel sounds. No palpable organomegaly. MUSCULOSKELETAL: Right foot splint seen EXTREMITIES: No cyanosis, clubbing, or pedal edema. NEUROLOGICAL: Gross neurological examination did not reveal any focal deficits. SKIN: No rashes. Assessment and plan Right ankle fracture Right fibular fracture Syncope. Fall History of coronary artery disease Hypertension Hyperlipidemia Left upper lobe pulmonary nodule, 1.1 cm in size, outpatient PET scan re commended Monitor vital signs Monitor CBC Monitor CMP Continue telemetry monitoring In regards to hypertension, continue current dose of amlodipine to 5 mg daily and losartan 50 mg daily Regards to hyperlipidemia , continue Lipitor Cardiology following, recommend event monitor at discharge Orthopedic evaluated the patient for right ankle fracture, recommended cons ervative treatment with leg splint and patient being nonweightbearing, no plan for any surgical intervention. PT and OT recommended rehab Labs and medication were reviewed.. Continue same treatment. Continue with symptomatic treatment. Resume home medication. Monitor labs and vitals. DVT and GI prophylaxis. Further recommendations as per clinical course of the patient Dictation was produced using [employer] dictation software. please excuse any grammatical, word or spelling errors. Objective - Vital Signs Vital signs: Vital Signs Temp 98.8 F 01/29/23 07:25 Pulse 85 01/29/23 07:25 Resp 16 01/29/23 07:25 BP 168/68 01/29/23 07:25 Pulse Ox 96 01/29/23 07:25 FiO2 Intake & Output 01/28/23 01/29/23 01/29/23 18:59 06:59 18:59 Intake Total 240 118 Output Total 200 175 Balance 40 -175 118 Intake: Oral 240 118 Output: Urine 200 175 Other: Voiding Method Urinal Urinal # Voids 1 - Labs CBC & Chem 7: 01/28/23 10:08 01/28/23 10:08 Labs: Abnormal Lab Results - Last 24 Hours (Table) 01/28/23 01/28/23 Range/Units 10:08 10:08 RBC 3.89 L (4.30-5.90) m/uL Hgb 12.2 L (13.0-17.5) gm/dL Hct 35.9 L (39.0-53.0) % Potassium 3.4 L (3.5-5.1) mmol/L BUN 23 H (9-20) mg/dL Creatinine 1.47 H (0.66-1.25) mg/dL Glucose 121 H (74-99) mg/dL Total Protein 6.2 L (6.3-8.2) g/dL
[2023-01-29] MEDS: SODIUM CHLORIDE 0.9% 1,000 ML IV SCH (14:49)
[2023-01-29] MEDS: traMADol 50 MG TAB PO PRN (20:30)
[2023-01-29] MEDS: ATORVASTATIN 40 MG TAB PO SCH (20:30)
[2023-01-29] MEDS: SENNOSIDES-DOCUSATE SODIUM 1 EACH TAB PO SCH (20:59)
[2023-01-30] MEDS: ENOXAPARIN 40 MG/0.4 ML SYRINGE SQ SCH (08:31)
[2023-01-30] MEDS: predniSONE 2.5 MG TAB PO SCH (08:31)
[2023-01-30] MEDS: amLODIPine 10 MG TAB PO SCH (08:31)
[2023-01-30] MEDS: LOSARTAN 50 MG TAB PO SCH (08:31)
--- NOTE | 2023-01-30 12:20 | P.PN ---
Subjective Progress Note Date: 01/30/23 patient is a 77-year-old gentleman with past medical history significant for coronary disease status post CABG, hypertension, hyperlipidemia who presented to the ER for a syncopal episode. Patient stated that he was at a [employer] when he started feeling dizzy, denied any chest pain or palpitation or time. Patient stated that he decided to go back home to rest. When he reached home, he tried to rest his head on the kitchen counter and the next thing he knows he was laying on the floor. Patient has a fall device that alerted and EMS was called . Patient was unable to lift himself up and get above the ground because of weakness. Patient stated that he has been noticing that he was getting more short of breath on exertion for the last few weeks. Denied any chest pain. D enied any swelling of feet. There was no complain nausea, vomiting or abdominal pain. Denied any recent fever or chills. Because of the symptoms, patient brought to the ER Initial lab work done in the ER showed WBC 13.1, hemoglobin 13.7, platelet count 233, sodium 141, potassium 4, BUNs 20:31.17, glucose 106, magnesium 1.9 troponin 0.012 EKG done in the ER showed heart rate of 75, no ST segment elevation or T-wave inversion seen CT head negative for an acute Process, Showed Age-Related Atrophic and Chronic Small Vessel Ischemic Changes. Chest x-ray showed no acute pulmonary process CT Cervical Spine Showed No Acute Fractures Patient admitted to internal medicine service 01/27. Patient seen and examined. Patient complaining of right ankle pain and swelling. Does not remember hitting or hurting his ankle. X-ray of the right ankle done showed mildly displaced oblique fracture of distal fibula. D-dimer was elevated, CTA chest done was negative for PE, did show left upper lobe pul monary nodule. 01/28. Patient seen and examined. Orthopedic evaluated the patient for right ankle fracture, recommended conservative treatment with leg splint and patient being nonweightbearing, no plan for any surgical intervention. PT and OT evaluation, patient requiring rehab, patient is able to go to rehab 01/29. Patient seen and examined. Laying comfortably in the bed. Denies any pain in the right foot. Keen to go to rehab. 01/30. Patient seen and examined. No acute issues overnight. Denies any chest pain or shortness of breath. Denies any palpitations and lightheadedness. Vital signs stable REVIEW OF SYSTEMS: CONSTITUTIONAL: No fever, no malaise,. CARDIOVASCULAR: No chest pain, no palpitations, no syncope. PULMONARY: No shortness of breath, no cough, GASTROINTESTINAL: No diarrhea, no nausea, no vomiting, no abdominal pain. NEUROLOGICAL: No headaches, no weakness, PHYSICAL EXAMINATION: GENERAL: The patient is alert and oriented x3, not in any acute distress. Well developed, well nourished. HEENT: Pupils are round and equally reacting to light. EOMI. No scleral icterus. No conjunctival pallor. Normocephalic, atraumatic. No pharyngeal erythema. No thyromegaly. CARDIOVASCULAR: S1 and S2 present. No murmurs, rubs, or gallops. PULMONARY: Chest is clear to auscultation, no wheezing or crackles. ABDOMEN: Soft, nontender, nondistended, normoactive bowel sounds. No palpable organomegaly. MUSCULOSKELETAL: Right foot splint seen EXTREMITIES: No cyanosis, clubbing, or pedal edema. NEUROLOGICAL: Gross neurological examination did not reveal any focal deficits. SKIN: No rashes. Assessment and plan Right ankle fracture Right fibular fracture Syncope. Fall History of coronary artery disease Hypertension Hyperlipidemia Left upper lobe pulmonary nodule, 1.1 cm in size, outpatient PET scan recommended Monitor vital signs Monitor CBC Monitor CMP Continue telemetry monitoring In regards to hypertension, continue current dose of amlodipine to 5 mg daily and losartan 50 mg daily Regards to hyperlipidemia , continue Lipitor Cardiology following, recommend event monitor at discharge Orthopedic evaluated the patient for right ankle fracture, recommended conservative treatment with leg splint and patient being nonweightbearing, no plan for any surgical intervention. PT and OT recommended rehab, waiting on placement Labs and medication were reviewed.. Continue same treatment. Continue with symptomatic treatment. Resume home medication. Monitor labs and vitals. DVT and GI prophylaxis. Further recommendations as per clinical course of the patient Dictation was produced using [employer] dictation software. please excuse any grammatical, word or spelling errors. Objective - Vital Signs Vital signs: Vital Signs Temp 98.9 F 01/30/23 03:38 Pulse 89 01/30/23 08:00 Resp 16 01/30/23 08:00 BP 148/68 01/30/23 03:38 Pulse Ox 96 12/17/23 03:38 FiO2 Intake & Output 01/29/23 01/30/23 01/30/23 18:59 06:59 18:59 Intake Total 472 118 Output Total 250 300 Balance 222 -300 118 Intake: Oral 472 118 Output: Urine 250 300 Other: Voiding Method Urinal Bedpan Bedpan Urinal Urinal # Voids 2 - Labs CBC & Chem 7: 01/28/23 10:08 01/28/23 10:08
[2023-01-30] MEDS: SODIUM CHLORIDE 0.9% 1,000 ML IV SCH (13:57)
[2023-01-30] MEDS: SENNOSIDES-DOCUSATE SODIUM 1 EACH TAB PO SCH (20:20)
[2023-01-30] MEDS: ATORVASTATIN 40 MG TAB PO SCH (20:24)
[2023-01-30] MEDS: traMADol 50 MG TAB PO PRN (20:24)
[2023-01-31] MEDS: ACETAMINOPHEN TAB 500 MG TAB PO PRN (00:36)
[2023-01-31] MEDS: LOSARTAN 50 MG TAB PO SCH (08:34)
[2023-01-31] MEDS: ENOXAPARIN 40 MG/0.4 ML SYRINGE SQ SCH (08:34)
[2023-01-31] MEDS: predniSONE 2.5 MG TAB PO SCH (08:34)
[2023-01-31] MEDS: amLODIPine 10 MG TAB PO SCH (08:34)
--- NOTE | 2023-01-31 13:39 | P.DS ---
Providers Date of admission: 01/26/23 13:21 Expected date of discharge: 01/31/23 Attending physician: Mar De Jesus Consults: 01/27/23 12:42 Consult Physician Routine Consulting Provider: Norman Wade Consult Reason/Comments: R ankle fracture Do you want consulting provider notified?: Yes Primary care physician: [facility] Course: Final diagnosis Right ankle fracture Right fibular fracture Syncope. Fall History of coronary artery disease Hypertension Hyperlipidemia Left upper lobe pulmonary nodule, 1.1 cm in size, outpatient PET scan recommended GI prophylaxis DVT prophylaxis Full code Discharge disposition Patient is being discharged in a stable condition with guarded prognosis to [facility]. Patient will follow-up with Dr. Mancini in the outpatient setting upon discharge. Patient is to continue with current medications as prescribed and patient also the follow-up with Vern Lucas coil rewind machine operator as scheduled. Total time taken is greater than 35 minutes. Hospital course This is a 77-year-old male who was recently admitted with syncopal episode was seen and evaluated by cardiology with medication adjustments made and has been cleared. Patient also has been having falls and having increased weakness and having some right ankle pain. X-rays of the ankle showed a mildly displaced oblique fracture of the distal fibula as well as the right ankle fracture and seen by orthopedics and splinted. Patient is to continue with nonweightbearing and outpatient follow-up with podiatry surgeon Dr. Vern Lucas. Patient seen and evaluated by physical therapy recommending rehab and patient is agreeable. Patient required insurance authorization which was obtained today and will be going to [facility]. Patient also has been instructed to follow-up with cardiology in the outpatient setting. In the event patient does require surgery patient will need cardiology clearance prior to surgery. Please refer to the consultation notes for further HPI. Currently no reports of chest pain, shortness of breath, or palpitations. Patient is afebrile. No reports of nausea or vomiting and patient is tolerating diet. Patient will be going to [facility] today. Guarded prognosis. Physical exam: Gen: This is a 77-year-old male who is awake, alert and oriented 3, well- developed, well-nourished, elderly-appearing HEENT: Head is atraumatic, normocephalic. Pupils equal, round. Sclerae is anicteric. NECK: Supple. No JVD. No lymphadenopathy. No thyromegaly. LUNGS: Clear to auscultation. No wheezes or rhonchi. No intercostal retractions. HEART: Regular rate and rhythm. No murmur. ABDOMEN: Soft. Bowel sounds are present. No masses. No tenderness. EXTREMITIES: No pedal edema. No calf tenderness. Right foot splint noted with positive pedal pulses and capillary refill less than 3 NEUROLOGICAL: Patient is awake, alert and oriented x3. Cranial nerves 2 through 12 are grossly intact. Diffusely weak Please refer to medication reconciliation sheet for a list of medications. The impression and plan of care has been dictated by Joann Monreal, Nurse Practitioner as directed. Dr. Brigid MD I have performed a history and examination and MDM of this patient, discussed the same with the dictator, and agree with the dictator's assessment and plan as written ,documented as a scribe. Based on total visit time, I have performed more than 50% of the visit. Patient Condition at Discharge: Fair Plan - Discharge Summary New Discharge Prescriptions: New amLODIPine [Norvasc] 10 mg PO DAILY #30 tablet Losartan [Cozaar] 50 mg PO DAILY 30 Days #30 tab traMADol HCl [Ultram] 50 mg PO Q6H PRN 3 Days #12 tab PRN Reason: Pain Continue predniSONE 2.5 mg PO DAILY ALPRAZolam [Xanax] 0.5 mg PO DAILY PRN PRN Reason: Anxiety Acetaminophen Tab [Tylenol] 1,000 mg PO BID@1500,2100 Atorvastatin [Lipitor] 40 mg PO HS Discontinued amLODIPine [Norvasc] 10 mg PO DAILY Olmesartan Medoxomil [Benicar] 40 mg PO DAILY Discharge Medication List predniSONE 2.5 mg PO DAILY 07/21/21 [History] ALPRAZolam [Xanax] 0.5 mg PO DAILY PRN 01/26/23 [History] Acetaminophen Tab [Tylenol] 1,000 mg PO BID@1500,2100 01/26/23 [History] Atorvastatin [Lipitor] 40 mg PO HS 01/26/23 [History] Losartan [Cozaar] 50 mg PO DAILY 30 Days #30 tab 01/28/23 [Rx] amLODIPine [Norvasc] 10 mg PO DAILY #30 tablet 01/28/23 [Rx] traMADol HCl [Ultram] 50 mg PO Q6H PRN 3 Days #12 tab 01/28/23 [Rx] Follow up Appointment(s)/Referral(s): Tushar Carmichael MD [STAFF PHYSICIAN] - 1 Week Vern Lucas DPM [Doctor of Osteopathic Medicine] - 1-2 Days David Mancini MD [Primary Care Provider] - 1-2 days Activity/Diet/Wound Care/Special Instructions: Left upper lobe pulmonary nodule, 1.1 cm in size, outpatient PET scan recommended FOLLOW UP WITH DR CARMICHAEL IN ONE WEEK AFTER DISCHARGE FOR EVENT MONITOR TO BE PLACED Discharge Disposition: TRANSFER TO SNF/ECF
[2023-01-31] MEDS: traMADol 50 MG TAB PO PRN (13:46)
[2023-01-31 14:51] VITALS: BP 154/68; PULSE 84; RESP 16; TEMP 98.2
== END 2023-01-31 16:20 ==
LOC: EC 10:09 → 6NMEDSUR 13:21 → OBSVTOIN 01-30 14:30 → INTOOBSV 01-30 14:30 → UNDODISIN 01-31 16:20
PROVIDERS: ADMIT Hospitalist; ATTEND Hospitalist
DX: S82.61XA Displaced fracture of lateral malleolus of right fibula, initial encounter for closed fracture (principal); R55 Syncope and collapse; E78.5 Hyperlipidemia, unspecified; R91.1 Solitary pulmonary nodule; I25.10 Atherosclerotic heart disease of native coronary artery without angina pectoris; I10 Essential (primary) hypertension; R79.89 Other specified abnormal findings of blood chemistry; I08.3 Combined rheumatic disorders of mitral, aortic and tricuspid valves; M35.3 Polymyalgia rheumatica; R29.6 Repeated falls; W19.XXXA Unspecified fall, initial encounter; Z79.52 Long term (current) use of systemic steroids; Z79.02 Long term (current) use of antithrombotics/antiplatelets; Z79.82 Long term (current) use of aspirin; Z79.899 Other long term (current) drug therapy; Z90.49 Acquired absence of other specified parts of digestive tract; Z85.820 Personal history of malignant melanoma of skin; Z87.891 Personal history of nicotine dependence; Z95.1 Presence of aortocoronary bypass graft; Z87.01 Personal history of pneumonia (recurrent); Z88.0 Allergy status to penicillin; Z88.1 Allergy status to other antibiotic agents; Z82.49 Family history of ischemic heart disease and other diseases of the circulatory system; Z82.5 Family history of asthma and other chronic lower respiratory diseases; Z82.0 Family history of epilepsy and other diseases of the nervous system
CPT/HCPCS: 96372 ×3; 96374; 99285; 36415; 93005; 93306; 97162; 97530; 97166; 85379; 80053; 80048; 83735; 84484; 85025; 85027; 85610; 85730; 73610; 71045; 72125; 70450; 71275; G0378 ×6; J2405; J1650 ×3; J7512 ×5; Q9967

== ENCOUNTER 2023-02-03 14:36 | Emergency (ER) | payer MEDICARE ==
[2023-02-03] MEDS ORDERED: SODIUM CHLORIDE 0.9% 500 ML 500 ML IV STA (15:06)
--- NOTE | 2023-02-03 15:08 | ED ---
General Adult HPI - General Chief complaint: Syncope Stated complaint: syncope Time Seen by Provider: 02/03/23 14:53 Source: patient, RN notes reviewed, old records reviewed Mode of arrival: EMS Limitations: no limitations - History of Present Illness Initial comments: 77-year-old male presenting with syncopal episode while in his wheelchair. Patient was recently admitted to this dictation after syncopal episode. [facility] where [facility] receiving [facility]. He states he has not been eating or drinking well. Patient denies chest pain or abdominal pain. States he's had loose stools without vomiting or sami diarrhea. No pain complaints. No fall or injury during the episode. - Related Data Home Medications Medication Instructions Recorded Confirmed Acetaminophen Tab [Tylenol] 1,000 mg PO BID@1500,2100 01/26/23 02/03/23 Atorvastatin [Lipitor] 40 mg PO HS 01/26/23 02/03/23 Docusate Sodium [Dok] 100 mg PO DAILY 02/03/23 02/03/23 Melatonin 2 mg PO HS 02/03/23 02/03/23 Melatonin 3 mg PO HS 02/03/23 02/03/23 Previous Rx's Medication Instructions Recorded Losartan [Cozaar] 50 mg PO DAILY 30 Days #30 tab 01/28/23 amLODIPine [Norvasc] 10 mg PO DAILY #30 tablet 01/28/23 Enoxaparin [Lovenox] 40 mg SQ Q24H each 01/31/23 predniSONE 2.5 mg PO DAILY tab 01/31/23 traMADol HCl [Ultram] 50 mg PO Q6HR PRN #6 tab 01/31/23 Allergies Allergy/AdvReac Type Severity Reaction Status Date / Time amoxicillin Allergy Rash/Hives Verified 02/03/23 17:50 on entire upper body Penicillins Allergy Rash/Hives Verified 02/03/23 17:50 on entire upper body Review of Systems ROS Statement: Those systems with pertinent positive or pertinent negative responses have been documented in the HPI. ROS Other: All systems not noted in ROS Statement are negative. Past Medical History Past Medical History: Coronary Artery Disease (CAD), Cancer, Hyperlipidemia, Hypertension, Pneumonia Additional Past Medical History / Comment(s): See Dr Carmichael's H&P. Polymyositis causing muscle pain and stiffness, requiring snf steroid use, resulting in elevated A1C. Currently having mild flare up, on steroids. Hx Melamoma X2, once on left scalp and once behind right ear. History of Any Multi-Drug Resistant Organisms: None Reported Past Surgical History: Appendectomy, Coronary Bypass/CABG, Heart Catheterization Additional Past Surgical History / Comment(s): Melanoma behind right ear and left scalp removed, ganglion cyst removed from wrist, all teeth extracted. Knee scope Past Anesthesia/Blood Transfusion Reactions: No Reported Reaction Past Psychological History: No Psychological Hx Reported Smoking Status: Former smoker Past Alcohol Use History: None Reported Past Drug Use History: None Reported - Past Family History Mother Family Medical History: Dementia, Pneumonia Father Family Medical History: Coronary Artery Disease (CAD), Myocardial Infarction (RI) Additional Family Medical History / Comment(s): from myocardial infarction at 55 years old General Exam Limitations: no limitations General appearance: alert, in no apparent distress Head exam: Present: atraumatic, normocephalic Eye exam: Present: normal appearance, PERRL ENT exam: Present: normal exam Neck exam: Present: normal inspection. Absent: tenderness, meningismus Respiratory exam: Present: normal lung sounds bilaterally. Absent: respiratory distress, wheezes Cardiovascular Exam: Present: regular rate, normal rhythm GI/Abdominal exam: Present: soft. Absent: distended, tenderness, guarding Neurological exam: Present: alert, oriented X3, CN II-XII intact. Absent: motor sensory deficit Psychiatric exam: Present: normal affect, normal mood Course Vital Signs 02/03/23 02/03/23 02/03/23 14:42 14:46 16:46 Temperature 98 F Pulse Rate 88 59 L 68 Respiratory 16 16 16 Rate Blood Pressure 121/55 121/55 121/55 O2 Sat by Pulse 95 95 98 Oximetry 02/03/23 17:00 Temperature Pulse Rate 67 Respiratory 20 Rate Blood Pressure 121/55 O2 Sat by Pulse 98 Oximetry Medical Decision Making - Medical Decision Making Was pt. sent in by a medical professional or institution (, PA, [facility], urgent care, hospital, or [facility]...) When possible be specific @ -[No] Did you speak to anyone other than the patient for history (EMS, parent, family, police, friend...)? What history was obtained from this source @ -PT son Did you review nursing and triage notes (agree or disagree)? Why? @ -[I reviewed and agree with nursing and triage notes] Were old charts reviewed (outside hosp., previous admission, EMS record, old EKG, old radiological studies, urgent care reports/EKG's, [facility] records)? Report findings @ -[No old charts were reviewed] Differential Diagnosis (chest pain, altered mental status, abdominal pain women, abdominal pain men, vaginal bleeding, weakness, fever, dyspnea, syncope, headache, dizziness, GI bleed, back pain, seizure, CVA, palpatations, mental health, musculoskeletal)? @ -[Differential Syncope: Valvular disease, hypertrophic cardiomyopathy, pulmonary embolism, tamponade, tachycardia, bradycardia, RI, hypovolemia, hemorrhage, dissection, anemia, intracranial hemorrhage, seizure, hypoglycemia, carbon monoxide poisoning, this is not meant to be an all-inclusive list. EKG interpreted by me (3pts min.). @ -Sinus bradycardia rate of 58, TX interval 192, QRS duration 116, QTC [address] segment elevation. X-rays interpreted by me (1pt min.). @ -[None done] CT interpreted by me (1pt min.). @ -[None done] U/S interpreted by me (1pt. min.). @ -[None done] What testing was considered but not performed or refused? (CT, X-rays, U/S, labs)? Why? @ -[None] What meds were considered but not given or refused? Why? @ -[None] Did you discuss the management of the patient with other professionals (professionals i.e. , PA, [facility], lab, RT, psych nurse, social insurance administrator, fermenter helper, teacher, community relations officer, telephonic case manager)? Give summary @ -[No] Was smoking cessation discussed for >3mins.? @ -[No] Was critical care preformed (if so, how long)? @ -[No] Were there social determinants of health that impacted care today? How? (Homelessness, low income, unemployed, alcoholism, drug addiction, transportation, low edu. Level, literacy, decrease access to med. care, fdc, rehab)? @ -[No] Was there de-escalation of care discussed even if they declined (Discuss DNR or withdrawal of care, Hospice)? DNR status @ -[No] What co-morbidities impacted this encounter? (DM, HTN, Smoking, COPD, CAD, Cancer, CVA, ARF, Chemo, Hep., AIDS, mental health diagnosis, sleep apnea, morbid obesity)? @ -[Hypertension, diabetes Was patient admitted / discharged? Hospital course, mention meds given and route, prescriptions, significant lab abnormalities, going to OR and other pertinent info. @ -[77-year-old male from [facility] with syncopal episode. Episode sounds orthostatic and the patient has not been eating and drinking well while at the [facility]. He is alert without complaints. No chest pain or dyspnea. No fever. He's had some loose stool which is been ongoing for the past several weeks. Workup reveals table hemoglobin, mildly elevated creatinine which is consistent with recent. Normal electrolytes. Negative urinalysis per patient given IV fluids. He is stable for discharge back to the [facility]. Undiagnosed new problem with uncertain prognosis? @ -[No] Drug Therapy requiring intensive monitoring for toxicity (Heparin, Nitro, Insulin, Cardizem)? @ -[No] Were any procedures done? @ -[No] Diagnosis/symptom? @ -[Syncope, dehydration Acute, or Chronic, or Acute on Chronic? @ -Acute Uncomplicated (without systemic symptoms) or Complicated (systemic symptoms)? @ -[default] Side effects of treatment? @ -[No] Exacerbation, Progression, or Severe Exacerbation? @ -[No] Poses a threat to life or bodily function? How? (Chest pain, USA, RI, pneumonia, PE, COPD, DKA, ARF, appy, cholecystitis, CVA, Diverticulitis, Homicidal, Suicidal, threat to staff... and all critical care pts) @ Low risk at this time - Lab Data Result diagrams: 02/03/23 15:06 02/03/23 15:06 Lab Results 02/03/23 02/03/23 02/03/23 Range/Units 15:06 15:06 15:06 WBC 10.9 H (3.8-10.6) k/uL RBC 3.95 L (4.30-5.90) m/uL Hgb 12.2 L (13.0-17.5) gm/dL Hct 35.7 L (39.0-53.0) % MCV 90.4 (80.0-100.0) fL MCH 30.9 (25.0-35.0) pg MCHC 34.1 (31.0-37.0) g/dL RDW 12.8 (11.5-15.5) % Plt Count 305 (150-450) k/uL MPV 7.8 Neutrophils % 74 % Lymphocytes % 15 % Monocytes % 5 % Eosinophils % 5 % Basophils % 1 % Neutrophils # 8.0 H (1.3-7.7) k/uL Lymphocytes # 1.6 (1.0-4.8) k/uL Monocytes # 0.6 (0-1.0) k/uL Eosinophils # 0.5 (0-0.7) k/uL Basophils # 0.1 (0-0.2) k/uL PT 11.3 (10.0-12.5) sec INR 1.0 (<1.2) APTT 28.5 (22.0-30.0) sec Sodium 141 (137-145) mmol/L Potassium 4.3 (3.5-5.1) mmol/L Chloride 105 (98-107) mmol/L Carbon Dioxide 22 (22-30) mmol/L Anion Gap 14 mmol/L BUN 26 H (9-20) mg/dL Creatinine 1.57 H (0.66-1.25) mg/dL Est GFR (CKD-EPI)AfAm 48 (>60 ml/min/1.73 sqM) Est GFR (CKD-EPI)NonAf 41 (>60 ml/min/1.73 sqM) Glucose 144 H (74-99) mg/dL Calcium 8.7 (8.4-10.2) mg/dL Magnesium 2.2 (1.6-2.3) mg/dL Total Bilirubin 0.6 (0.2-1.3) mg/dL AST 24 (17-59) U/L ALT 18 (4-49) U/L Alkaline Phosphatase 63 (38-126) U/L Troponin I (0.000-0.034) ng/mL Total Protein 6.3 (6.3-8.2) g/dL Albumin 3.6 (3.5-5.0) g/dL Urine Color Urine Appearance (Clear) Urine pH (5.0-8.0) Ur Specific [place] (1.001-1.035) Urine Protein (Negative) Urine Glucose (UA) (Negative) Urine Ketones (Negative) Urine Blood (Negative) Urine Nitrite (Negative) Urine Bilirubin (Negative) Urine Urobilinogen (<2.0) mg/dL Ur Leukocyte Esterase (Negative) Urine RBC (0-5) /hpf Urine WBC (0-5) /hpf Hyaline Casts (0-2) /lpf Urine Mucus (None) /hpf 02/03/23 02/03/23 Range/Units 15:06 18:24 WBC (3.8-10.6) k/uL RBC (4.30-5.90) m/uL Hgb (13.0-17.5) gm/dL Hct (39.0-53.0) % MCV (80.0-100.0) fL MCH (25.0-35.0) pg MCHC (31.0-37.0) g/dL RDW (11.5-15.5) % Plt Count (150-450) k/uL MPV Neutrophils % % Lymphocytes % % Monocytes % % Eosinophils % % Basophils % % Neutrophils # (1.3-7.7) k/uL Lymphocytes # (1.0-4.8) k/uL Monocytes # (0-1.0) k/uL Eosinophils # (0-0.7) k/uL Basophils # (0-0.2) k/uL PT (10.0-12.5) sec INR (<1.2) APTT (22.0-30.0) sec Sodium (137-145) mmol/L Potassium (3.5-5.1) mmol/L Chloride (98-107) mmol/L Carbon Dioxide (22-30) mmol/L Anion Gap mmol/L BUN (9-20) mg/dL Creatinine (0.66-1.25) mg/dL Est GFR (CKD-EPI)AfAm (>60 ml/min/1.73 sqM) Est GFR (CKD-EPI)NonAf (>60 ml/min/1.73 sqM) Glucose (74-99) mg/dL Calcium (8.4-10.2) mg/dL Magnesium (1.6-2.3) mg/dL Total Bilirubin (0.2-1.3) mg/dL AST (17-59) U/L ALT (4-49) U/L Alkaline Phosphatase (38-126) U/L Troponin I <0.012 (0.000-0.034) ng/mL Total Protein (6.3-8.2) g/dL Albumin (3.5-5.0) g/dL Urine Color Yellow Urine Appearance Clear (Clear) Urine pH 5.5 (5.0-8.0) Ur Specific [place] 1.021 (1.001-1.035) Urine Protein 1+ H (Negative) Urine Glucose (UA) Negative (Negative) Urine Ketones Trace H (Negative) Urine Blood Negative (Negative) Urine Nitrite Negative (Negative) Urine Bilirubin Negative (Negative) Urine Urobilinogen <2.0 (<2.0) mg/dL Ur Leukocyte Esterase Negative (Negative) Urine RBC 1 (0-5) /hpf Urine WBC 1 (0-5) /hpf Hyaline Casts 10 H (0-2) /lpf Urine Mucus Rare H (None) /hpf Disposition Clinical Impression: Syncope, Dehydration Disposition: HOME SELF-CARE Condition: Fair Instructions (If sedation given, give patient instructions): Syncope (ED), Dehydration (ED) Is patient prescribed a controlled substance at d/c from ED?: No Referrals: David Mancini MD [Primary Care Provider] - 1-2 days Time of Disposition: 18:50
[2023-02-03 15:29] LABS: Basophils # (A) 0.1 k/uL (0-0.2); Basophils % (A) 1 %; Eosinophils # (A) 0.5 k/uL (0-0.7); Eosinophils % (A) 5 %; HCT 35.7 % (39.0-53.0); HGB 12.2 gm/dL (13.0-17.5); Lymphocytes # (A) 1.6 k/uL (1.0-4.8); Lymphocytes % (A) 15 %; MCH 30.9 pg (25.0-35.0); MCHC 34.1 g/dL (31.0-37.0); MCV 90.4 fL (80.0-100.0); Mean Platelet Volume 7.8; Monocytes # (A) 0.6 k/uL (0-1.0); Monocytes % (A) 5 %; Neutrophils % (A) 74 %; Platelet Count 305 k/uL (150-450); RBC 3.95 m/uL (4.30-5.90); RDW 12.8 % (11.5-15.5); WBC 10.9 k/uL (3.8-10.6)
[2023-02-03 15:41] LABS: Partial Thromboplastin Time 28.5 sec (22.0-30.0); Prothrombin Time 11.3 sec (10.0-12.5)
[2023-02-03 15:48] LABS: ALT 18 U/L (4-49); AST 24 U/L (17-59); African American GFR (CKD) 48 (>60 ml/min/1.73 sqM); Albumin 3.6 g/dL (3.5-5.0); Alkaline Phosphatase 63 U/L (38-126); Anion Gap 14 mmol/L; Blood Urea Nitrogen 26 mg/dL (9-20); Calcium 8.7 mg/dL (8.4-10.2); Carbon Dioxide 22 mmol/L (22-30); Chloride 105 mmol/L (98-107); Glucose 144 mg/dL (74-99); Magnesium 2.2 mg/dL (1.6-2.3); Non-African American GFR(CKD) 41 (>60 ml/min/1.73 sqM); Potassium 4.3 mmol/L (3.5-5.1); Sodium 141 mmol/L (137-145); Total Bilirubin 0.6 mg/dL (0.2-1.3); Total Protein 6.3 g/dL (6.3-8.2)
[2023-02-03] MEDS ORDERED: LORazepam 2 MG/ML INJ IV STA (16:41)
[2023-02-03] MEDS ORDERED: SODIUM CHLORIDE 0.9% 500 ML 500 ML IV ONE (17:46)
[2023-02-03 18:32] LABS: Appearance,Urine Clear (Clear); Bilirubin,Urine Negative (Negative); Blood,Urine Negative (Negative); Color,Urine Yellow; Glucose,Urine (UA) Negative (Negative); Hyaline Casts,Urine 10 /lpf (0-2); Ketones,Urine Trace (Negative); Leukocyte Esterase,Urine Negative (Negative); Mucus,Urine Rare /hpf; Nitrite,Urine Negative (Negative); PH, Urine 5.5 (5.0-8.0); Protein,Urine 1+ (Negative); RBC,Urine 1 /hpf (0-5); Specific Gravity,Urine 1.021 (1.001-1.035); Urobilinogen,Urine <2.0 mg/dL (<2.0); WBC,Urine 1 /hpf (0-5)
[2023-02-03 20:28] VITALS: BP 152/75; PULSE 78; RESP 18; TEMP 98.6
== END 2023-02-03 20:18 | disposition home or self-care (01) ==
LOC: EC 14:36
DX: R55 Syncope and collapse (principal); E86.0 Dehydration; R00.1 Bradycardia, unspecified; I10 Essential (primary) hypertension; E11.9 Type 2 diabetes mellitus without complications; E78.5 Hyperlipidemia, unspecified; I25.10 Atherosclerotic heart disease of native coronary artery without angina pectoris; Z79.899 Other long term (current) drug therapy; Z87.891 Personal history of nicotine dependence; Z88.0 Allergy status to penicillin; Z95.1 Presence of aortocoronary bypass graft
CPT/HCPCS: 36415; 93005; 80053; 83735; 84484; 85025; 85610; 85730; 81001; 99285; 96374; 96361; J2060

== ENCOUNTER 2023-02-11 08:25 | Day surgery (SDC) | payer MEDICARE ==
[2023-02-10 09:23] VITALS: BMI 28.7
[2023-02-11] MEDS ORDERED: DEXAMETHASONE SOD PHOSPHATE 4 MG/ML 1 ML VIAL IV ONE (09:03)
[2023-02-11] MEDS ORDERED: MIDAZOLAM 2 MG/2 ML VIAL IV PRN (09:03)
[2023-02-11] MEDS ORDERED: ONDANSETRON 4 MG/2 ML VIAL IVP ONE ×2 (09:03→10:08)
[2023-02-11] MEDS: LACTATED RINGERS 1,000 ML IV SCH ×2 (09:35→14:07)
[2023-02-11 09:39] LABS: Glucose,Whole Blood 107 mg/dL (70-110)
[2023-02-11] MEDS ORDERED: DEXAMETHASONE SOD PHOSPHATE 4 MG/ML 1 ML VIAL IVP ONE (10:06)
[2023-02-11] MEDS ORDERED: HYDROCORTISONE SUCCINATE 100 MG/2 ML VIAL IVP ONE (10:07)
[2023-02-11] MEDS ORDERED: MIDAZOLAM 2 MG/2 ML VIAL IVP ONE (10:17)
[2023-02-11] MEDS ORDERED: ePHEDrine 50 MG/ML 1 ML VIAL ONE (11:07)
[2023-02-11] MEDS ORDERED: PHENYLEPHRINE-0.9% NACL SYG 1,000 MCG/10 ML SYRINGE ONE (11:07)
[2023-02-11] MEDS ORDERED: PROPOFOL 10 MG/ML 20 ML VIAL IV ONE (11:07)
[2023-02-11] MEDS ORDERED: fentaNYL (PF) 50 MCG/ML 2 ML AMP ONE (11:07)
[2023-02-11] MEDS ORDERED: SODIUM CHLORIDE 0.9% (PF) 10 ML VIAL ONE (11:07)
[2023-02-11] MEDS ORDERED: ROPIVACAINE 5 MG/ML 30 ML VIAL ONE (11:07)
[2023-02-11] MEDS ORDERED: LIDOCAINE 1% INJ 10MG/ML (20 ML MDV) ONE (11:07)
[2023-02-11] MEDS ORDERED: ceFAZolin 1,000 MG in SODIUM CHLORIDE 0.9% 1,000 ML IRRIGATION ONE (11:39)
--- NOTE | 2023-02-11 12:37 | P.OP ---
Date of Procedure: 02/11/23 Preoperative Diagnosis: 1. Displaced right lateral malleolar fracture Postoperative Diagnosis: 1. Displaced lateral malleolar fracture right ankle 2. Ruptured syndesmosis right ankle Procedure(s) Performed: 1. Open reduction with internal fixation right lateral malleolar fracture 2. Open reduction with internal fixation right syndesmosis Implants: Anastasia precontoured lateral malleolar plate with 3.5 locking and nonlocking screws. Anesthesia: KAROLA Surgeon: Vern Lucas Estimated Blood Loss (ml): 20 Pathology: none sent Condition: stable Disposition: PACU Description of Procedure: Prior to the patient being brought to the operating room, anesthesia administered a nerve block on the right lower extremity. The patient was brought into the operative room and placed on table in supine position. Timeout was taken to confirm correct patient identifiers, correct laterality of surgery, and correct procedure. Once all staff in the room were in agreement with the timeout, the patient was induced and placed under general anesthesia. A well- padded tourniquet was placed on the right thigh and a wedge underneath the right hip to internally rotate the right leg. The right leg was then prepped and draped in usual manner. The leg was tingling irrigated with an Esmarch bandage and then the tourniquet was inflated to 250 mmHg. Inches directed over the lateral malleolus where a straight linear incision was made along the midline. The incision was deepened under the subcutaneous tissue careful to identify, avoid, and retract any neurovascular structures and cauterize any bleeding vessels. Dissection was carried down to level of the p eriosteum. A linear periosteal incision was madetissues were reflected anteriorly and posteriorly to expose the fracture. The soft tissue and hematoma were evacuated from between the fracture fragments. Bone reduction forceps were utilized to rotate and bring the fracture back into alignment. Once the fracture was aligned was clamped in place. Fluoroscopy confirmed the proper position of the fracture on AP and lateral views. 3.5 mm nonlocking cortical screw was then used as an interfragmentary screw, utilizing lag technique, across the fracture site. There was excellent bone purchase with the screw and the fracture was compressed well. Fluoroscopy confirmed the proper placement of the as well as maintain alignment of the fracture. A Erwin precontoured lateral malleolar plate was then positioned and adjusted under fluoroscopy until it was aligned appropriately. The plate was then temporarily fixated. Locking screws were placed in the most proximal 2 holes of the plate. Distal locking screws were then placed into the lateral malleolus. Drilling for the screws is done under direct fluoroscopic visualization so that the drill bit did not enter the lateral gutter of the ankle joint. The distal screw was a compression screw to contour the plate and the other 2 screws were locking screws. Fluoroscopic imaging showed that the plate was properly aligned and the fracture well reduced. Under live fluoroscopic visualization external rotation and eversion of the ankle were done to assess the syndesmosis. It was noted that there was excessive motion of the syndesmosis as well as gapping of the medial gutter. The decision was made to use a syndesmotic screw. The proper hole the plate was chosen for the placement of the screw. Drilling was done through 3 cortices then a cortical nonlocking screw was inserted. The screw was tightened with the ankle maximally dorsiflexed. The screw was only tightened until it was firmly against the plate and not overtightened. Stress testing was performed again under fluoroscopy, and it showed that there was no instability of syndesmosis and no abnormal gapping of the medial gutter. The wound is then thoroughly irrigated with antibiotic saline. Deep closure was done with 2-0 Vicryl. Subcu closure was done with 4-0 Monocryl. Skin closure was done with luke. An Arthrex jumpstart dressing was placed over the incis ion and then a bulky dry dressings applied to the right ankle. The tourniquet was released and capillary refill return to all digits on the right foot. Then the patient was placed in a well-padded, well molded posterior mold/sugar tong splint. The ankle was held in neutral dorsiflexion and slight inversion as it dried. Once the splint was dried, anesthesia was reversed and the patient was taken recovery with vital signs stable.
[2023-02-11] MEDS: HYDROmorphone 0.5 MG/0.5 ML SYRINGE IVP PRN ×4 (12:40→13:25)
[2023-02-11 12:47] VITALS: TEMP 98
[2023-02-11 14:00] VITALS: BP 165/72; PULSE 76; RESP 20
--- NOTE | 2023-02-11 14:06 | FL ---
EXAMINATION TYPE: FL guidance operating room, XR ankle limited RT Intraoperative/procedural fluorosco pic services were provided. Total fluoroscopy time is 31 seconds with a total of 3 submitted images t o PACS. Please see the operative/procedural note for further details. DAP: 0.2686 Gycm2
--- NOTE | 2023-02-11 14:57 | P.ANPRN ---
Procedure Note - Anesthesia - Nerve Block Performed Right Adductor Canal Single Time Out Performed: Yes Date of Procedure: 02/11/23 Procedure Start Time: 10:00 Procedure Stop Time: 10:05 Location of Patient: PreOp Indication: Acute Post-Operative Pain, Analgesia, Requested by Surgeon Sedation Type: Sedate with meaningful contact maintained Preparation: Sterile Prep Position: Supine Catheter: None Needle Types: Pajunk Needle Gauge: 21 Ultrasound used to visualize needle placement: Yes Ultrasound used to observe medication spread: Yes Injectate: 0.5% Ropivacaine (see comment for volume) (Ropiv 10 ml+NS 5 ml) Blood Aspirated: No Pain Paresthesia on Injection Noted: No Resistance on Injection: Normal Image Stored and Saved: Yes Events: Uneventful and Well Tolerated
--- NOTE | 2023-02-11 15:29 | P.ANPRN ---
Procedure Note - Anesthesia - Nerve Block Performed Right Popliteal Single Time Out Performed: Yes Date of Procedure: 02/11/23 Procedure Start Time: 10:06 Procedure Stop Time: 10:11 Location of Patient: PreOp Indication: Acute Post-Operative Pain, Analgesia, Requested by Surgeon Sedation Type: Sedate with meaningful contact maintained Preparation: Sterile Prep Position: Left Lateral Catheter: None Needle Types: Pajunk Needle Gauge: 21 Ultrasound used to visualize needle placement: Yes Ultrasound used to observe medication spread: Yes Injectate: 0.5% Ropivacaine (see comment for volume) (Ropiv 10ml +NS 10 ml) Blood Aspirated: No Pain Paresthesia on Injection Noted: No Resistance on Injection: Normal Image Stored and Saved: Yes Events: Uneventful and Well Tolerated
== END 2023-02-11 14:38 ==
LOC: OR 08:25
PROVIDERS: ATTEND Podiatrist
DX: S82.61XA Displaced fracture of lateral malleolus of right fibula, initial encounter for closed fracture (principal); I10 Essential (primary) hypertension; E78.5 Hyperlipidemia, unspecified; I25.10 Atherosclerotic heart disease of native coronary artery without angina pectoris; Z88.0 Allergy status to penicillin; Z95.1 Presence of aortocoronary bypass graft; Z79.899 Other long term (current) drug therapy; Z98.890 Other specified postprocedural states; X58.XXXA Exposure to other specified factors, initial encounter
CPT/HCPCS: 73600; 27882; 27829; 64448; 64445; J2250; J1100; J1720; J0690 ×2; J2405; J1170; 64447

== ENCOUNTER 2024-01-19 11:24 | Emergency (ER) | payer MEDICARE ==
[2024-01-19 11:35] VITALS: RESP 18
--- NOTE | 2024-01-19 12:10 | ED ---
Dizziness HPI - General Chief Complaint: Dizziness Stated Complaint: dizziness Time Seen by Provider: 01/19/24 11:43 Source: patient, RN notes reviewed Mode of arrival: EMS Limitations: no limitations - History of Present Illness Initial Comments: 78-year-old male presents emergency department chief complaint of dizziness. Patient states he was he went to have a bowel movement states that he got up after started walking with his walker became very lightheaded like he is in a pass out he states he sat down to the ground and never loss conscious. Patient states he still felt dizzy and called EMS. Patient denies any chest pain or shortness of breath. Denies any complaints currently states he is asymptomatic denies recent vomiting no focal weakness - Related Data Home Medications Medication Instructions Recorded Confirmed Atorvastatin [Lipitor] 40 mg PO HS 01/26/23 01/19/24 Gabapentin [Neurontin] 100 mg PO HS 02/10/23 01/19/24 Aspirin EC [Ecotrin Low Dose] 81 mg PO DAILY 01/19/24 01/19/24 Folic Acid 1 mg PO DAILY 01/19/24 01/19/24 amLODIPine [Norvasc] 5 mg PO DAILY 01/19/24 01/19/24 Allergies Allergy/AdvReac Type Severity Reaction Status Date / Time amoxicillin Allergy Rash/Hives Verified 01/19/24 13:23 on entire upper body Penicillins Allergy Rash/Hives Verified 01/19/24 13:23 on entire upper body Review of Systems ROS Statement: Those systems with pertinent positive or pertinent negative responses have been documented in the HPI. ROS Other: All systems not noted in ROS Statement are negative. Past Medical History Past Medical History: Coronary Artery Disease (CAD), Cancer, Hyperlipidemia, Hypertension, Pneumonia, Syncope Additional Past Medical History / Comment(s): Current right ankle fracture. Polymyositis causing muscle pain and stiffness, requiring retirement steroid use, resulting in elevated A1C. Currently having mild flare up, on steroids. Hx Melanoma X2, once on left scalp and once behind right ear. Recent syncope "due to blood pressure". History of Any Multi-Drug Resistant Organisms: None Reported Past Surgical History: Appendectomy, Coronary Bypass/CABG, Heart Catheterization Additional Past Surgical History / Comment(s): Melanoma behind right ear and left scalp removed, ganglion cyst removed from wrist, all teeth extracted, knee arthroscopy, double CABG. Past Anesthesia/Blood Transfusion Reactions: No Reported Reaction, Motion Sickness Past Psychological History: No Psychological Hx Reported Smoking Status: Former smoker Past Alcohol Use History: None Reported Past Drug Use History: None Reported - Past Family History Mother Family Medical History: Dementia, Pneumonia Father Family Medical History: Coronary Artery Disease (CAD), Myocardial Infarction ([place]) Additional Family Medical History / Comment(s): from myocardial infarction at 55 years old. General Exam Limitations: no limitations General appearance: alert, in no apparent distress Head exam: Present: atraumatic, normocephalic, normal inspection Respiratory exam: Present: normal lung sounds bilaterally. Absent: respiratory distress, wheezes, rales, rhonchi, stridor Cardiovascular Exam: Present: regular rate, normal rhythm, normal heart sounds. Absent: systolic murmur, diastolic murmur, rubs, gallop, clicks GI/Abdominal exam: Present: soft, normal bowel sounds. Absent: distended, tenderness, guarding, rebound, rigid Neurological exam: Present: alert, oriented X3, CN II-XII intact, reflexes normal. Absent: motor sensory deficit Skin exam: Present: warm, dry, intact, normal color. Absent: rash Course Vital Signs 01/19/24 01/19/24 01/19/24 11:30 12:27 12:30 Temperature 98.3 F Pulse Rate 67 Pulse Rate [ 64 71 Patient Registration Manager ] Respiratory 18 18 Rate Blood Pressure 162/61 Blood Pressure 148/69 [Right Arm Sitting] Blood Pressure [Right Arm Standing] Blood Pressure 154/68 [Right Arm Supine] O2 Sat by Pulse 95 Oximetry 01/19/24 01/19/24 01/19/24 12:33 13:26 14:00 Temperature 99.5 F Pulse Rate 66 75 Pulse Rate [ 81 Patient Registration Manager ] Respiratory 18 18 Rate Blood Pressure 157/69 135/68 Blood Pressure [Right Arm Sitting] Blood Pressure 113/58 [Right Arm Standing] Blood Pressure [Right Arm Supine] O2 Sat by Pulse 95 Oximetry EKG Findings - EKG Comments: EKG Findings:: EKG performed at 11: 51 sinus rhythm with a rate of 66 [place] 204 QRS 108 QT/QTc 418/433 - EKG Results: EKG: interpreted by NORM Medical Decision Making - Medical Decision Making Was pt. sent in by a medical professional or institution (, PA, BOOT TRIMMER, urgent care, hospital, or halfway...) When possible be specific @ -No Did you speak to anyone other than the patient for history (EMS, parent, family, police, friend...)? What history was obtained from this source @ -No Did you review nursing and triage notes (agree or disagree)? Why? @ -I reviewed and agree with nursing and triage notes Were old charts reviewed (outside hosp., previous admission, EMS record, old EKG, old radiological studies, urgent care reports/EKG's, halfway records)? Report findings @ -No old charts were reviewed Differential Diagnosis (chest pain, altered mental status, abdominal pain women, abdominal pain men, vaginal bleeding, weakness, fever, dyspnea, syncope, headache, dizziness, GI bleed, back pain, seizure, CVA, palpatations, mental health, musculoskeletal)? @ -Differential Syncope: Valvular disease, hypertrophic cardiomyopathy, pulmonary embolism, tamponade, tachycardia, bradycardia, OH, hypovolemia, hemorrhage, dissection, anemia, intracranial hemorrhage, seizure, hypoglycemia, carbon monoxide poisoning, this is not meant to be an all-inclusive list. EKG interpreted by me (3pts min.). @ -As above X-rays interpreted by me (1pt min.). @ -None done CT interpreted by me (1pt min.). @ -None done U/S interpreted by me (1pt. min.). @ -None done What testing was considered but not performed or refused? (CT, X-rays, U/S, labs)? Why? @ -None What meds were considered but not given or refused? Why? @ -None Did you discuss the management of the patient with other professionals (professionals i.e. , PA, BOOT TRIMMER, lab, RT, psych nurse, social studies teacher, critical care paramedic, teacher, chief mechanical officer, case specialist)? Give summary @ -No Was smoking cessation discussed for >3mins.? @ -No Was critical care preformed (if so, how long)? @ -No Were there social determinants of health that impacted care today? How? (Homelessness, low income, unemployed, alcoholism, drug addiction, transportation, low edu. Level, literacy, decrease access to med. care, [facility], rehab)? @ -No Was there de-escalation of care discussed even if they declined (Discuss DNR or withdrawal of care, Hospice)? DNR status @ -No What co-morbidities impacted this encounter? (DM, HTN, Smoking, COPD, CAD, Cancer, CVA, ARF, Chemo, Hep., AIDS, mental health diagnosis, sleep apnea, morbid obesity)? @ -None Was patient admitted / discharged? Hospital course, mention meds given and route, prescriptions, significant lab abnormalities, going to OR and other pertinent info. @ -Discharge patient feels greatly improved at this time he is able to ambulate without dizziness. Patient laboratory studies unremarkable patient has a history of orthostatic hypotension family here agrees with plan to discharge Undiagnosed new problem with uncertain prognosis? @ -No Drug Therapy requiring intensive monitoring for toxicity (Heparin, Nitro, Insulin, Cardizem)? @ -No Were any procedures done? @ -No Diagnosis/symptom? @ -Near syncope, Acute, or Chronic, or Acute on Chronic? @ -acute Uncomplicated (without systemic symptoms) or Complicated (systemic symptoms)? @ -uncomplicated Side effects of treatment? @ -No Exacerbation, Progression, or Severe Exacerbation? @ -No Poses a threat to life or bodily function? How? (Chest pain, USA, OH, pneumonia, PE, COPD, DKA, ARF, appy, cholecystitis, CVA, Diverticulitis, Homicidal, Suicidal, threat to staff... and all critical care pts) @ -No - Lab Data Result diagrams: 01/19/24 12:24 01/19/24 12:24 Lab Results 01/19/24 01/19/24 01/19/24 Range/Units 12:24 12:24 12:24 WBC 8.4 (3.8-10.6) k/uL RBC 4.19 L (4.30-5.90) m/uL Hgb 12.0 L (13.0-17.5) gm/dL Hct 37.3 L (39.0-53.0) % MCV 88.9 (80.0-100.0) fL MCH 28.6 (25.0-35.0) pg MCHC 32.2 (31.0-37.0) g/dL RDW 13.2 (11.5-15.5) % Plt Count 201 (150-450) k/uL MPV 7.1 Neutrophils % 70 % Lymphocytes % 18 % Monocytes % 6 % Eosinophils % 3 % Basophils % 1 % Neutrophils # 5.9 (1.3-7.7) k/uL Lymphocytes # 1.5 (1.0-4.8) k/uL Monocytes # 0.5 (0-1.0) k/uL Eosinophils # 0.3 (0-0.7) k/uL Basophils # 0.0 (0-0.2) k/uL PT 11.5 (10.0-12.5) sec INR 1.1 (<1.2) APTT 27.6 (22.0-30.0) sec Sodium 138 (137-145) mmol/L Potassium 3.7 (3.5-5.1) mmol/L Chloride 106 (98-107) mmol/L Carbon Dioxide 24 (22-30) mmol/L Anion Gap 8 mmol/L BUN 17 (9-20) mg/dL Creatinine 1.14 (0.66-1.25) mg/dL Est GFR (CKD-EPI)AfAm 70 (>60 ml/min/1.73 sqM) Est GFR (CKD-EPI)NonAf 61 (>60 ml/min/1.73 sqM) Glucose 104 H (74-99) mg/dL Calcium 8.3 L (8.4-10.2) mg/dL Magnesium 1.9 (1.6-2.3) mg/dL Total Bilirubin 0.7 (0.2-1.3) mg/dL AST 21 (17-59) U/L ALT 21 (4-49) U/L Alkaline Phosphatase 69 (38-126) U/L Troponin I (0.000-0.034) ng/mL Total Protein 6.5 (6.3-8.2) g/dL Albumin 3.8 (3.5-5.0) g/dL 01/19/24 Range/Units 12:24 WBC (3.8-10.6) k/uL RBC (4.30-5.90) m/uL Hgb (13.0-17.5) gm/dL Hct (39.0-53.0) % MCV (80.0-100.0) fL MCH (25.0-35.0) pg MCHC (31.0-37.0) g/dL RDW (11.5-15.5) % Plt Count (150-450) k/uL MPV Neutrophils % % Lymphocytes % % Monocytes % % Eosinophils % % Basophils % % Neutrophils # (1.3-7.7) k/uL Lymphocytes # (1.0-4.8) k/uL Monocytes # (0-1.0) k/uL Eosinophils # (0-0.7) k/uL Basophils # (0-0.2) k/uL PT (10.0-12.5) sec INR (<1.2) APTT (22.0-30.0) sec Sodium (137-145) mmol/L Potassium (3.5-5.1) mmol/L Chloride (98-107) mmol/L Carbon Dioxide (22-30) mmol/L Anion Gap mmol/L BUN (9-20) mg/dL Creatinine (0.66-1.25) mg/dL Est GFR (CKD-EPI)AfAm (>60 ml/min/1.73 sqM) Est GFR (CKD-EPI)NonAf (>60 ml/min/1.73 sqM) Glucose (74-99) mg/dL Calcium (8.4-10.2) mg/dL Magnesium (1.6-2.3) mg/dL Total Bilirubin (0.2-1.3) mg/dL AST (17-59) U/L ALT (4-49) U/L Alkaline Phosphatase (38-126) U/L Troponin I <0.012 (0.000-0.034) ng/mL Total Protein (6.3-8.2) g/dL Albumin (3.5-5.0) g/dL Disposition Clinical Impression: Near syncope Disposition: HOME SELF-CARE Condition: Stable Instructions (If sedation given, give patient instructions): Dizziness (ED) Additional Instructions: Please return to the Emergency Department if symptoms worsen or any other concerns. Is patient prescribed a controlled substance at d/c from ED?: No Referrals: Chris Reyes DO [Primary Care Provider] - 1-2 days Time of Disposition: 14:24
[2024-01-19] MEDS: SODIUM CHLORIDE 0.9% 500 ML 500 ML IV STA (12:26)
[2024-01-19 12:32] LABS: Basophils % (A) 1 %; Eosinophils # (A) 0.3 k/uL (0-0.7); Eosinophils % (A) 3 %; HCT 37.3 % (39.0-53.0); Lymphocytes # (A) 1.5 k/uL (1.0-4.8); Lymphocytes % (A) 18 %; MCH 28.6 pg (25.0-35.0); MCHC 32.2 g/dL (31.0-37.0); MCV 88.9 fL (80.0-100.0); Mean Platelet Volume 7.1; Monocytes # (A) 0.5 k/uL (0-1.0); Monocytes % (A) 6 %; Neutrophils # (A) 5.9 k/uL (1.3-7.7); Neutrophils % (A) 70 %; Platelet Count 201 k/uL (150-450); RBC 4.19 m/uL (4.30-5.90); RDW 13.2 % (11.5-15.5); WBC 8.4 k/uL (3.8-10.6)
[2024-01-19 12:47] LABS: ALT 21 U/L (4-49); AST 21 U/L (17-59); African American GFR (CKD) 70 (>60 ml/min/1.73 sqM); Albumin 3.8 g/dL (3.5-5.0); Alkaline Phosphatase 69 U/L (38-126); Anion Gap 8 mmol/L; Blood Urea Nitrogen 17 mg/dL (9-20); Calcium 8.3 mg/dL (8.4-10.2); Carbon Dioxide 24 mmol/L (22-30); Chloride 106 mmol/L (98-107); Glucose 104 mg/dL (74-99); Magnesium 1.9 mg/dL (1.6-2.3); Non-African American GFR(CKD) 61 (>60 ml/min/1.73 sqM); Potassium 3.7 mmol/L (3.5-5.1); Sodium 138 mmol/L (137-145); Total Bilirubin 0.7 mg/dL (0.2-1.3); Total Protein 6.5 g/dL (6.3-8.2)
[2024-01-19 12:50] LABS: INR 1.1 (<1.2); Partial Thromboplastin Time 27.6 sec (22.0-30.0); Prothrombin Time 11.5 sec (10.0-12.5)
[2024-01-19 14:16] VITALS: BP 135/68
[2024-01-19 14:44] VITALS: PULSE 76; TEMP 99.1
== END 2024-01-19 14:42 | disposition home or self-care (01) ==
LOC: EC 11:24
DX: R55 Syncope and collapse (principal); Z88.0 Allergy status to penicillin; Z87.891 Personal history of nicotine dependence
CPT/HCPCS: 36415; 80053; 83735; 84484; 85025; 85610; 85730; 93005; 96360; 99285

== ENCOUNTER 2024-01-31 08:56 | Emergency (ER) | payer MEDICARE ==
[2024-01-31 09:11] LABS: Glucose,Whole Blood 107 mg/dL (70-110)
[2024-01-31 09:27] LABS: Basophils # (A) 0.1 k/uL (0-0.2); Basophils % (A) 1 %; Eosinophils # (A) 0.5 k/uL (0-0.7); Eosinophils % (A) 5 %; HCT 36.3 % (39.0-53.0); HGB 12.1 gm/dL (13.0-17.5); Lymphocytes # (A) 2.3 k/uL (1.0-4.8); Lymphocytes % (A) 23 %; MCH 29.4 pg (25.0-35.0); MCHC 33.3 g/dL (31.0-37.0); MCV 88.2 fL (80.0-100.0); Mean Platelet Volume 7.4; Monocytes # (A) 0.5 k/uL (0-1.0); Monocytes % (A) 5 %; Neutrophils # (A) 6.7 k/uL (1.3-7.7); Neutrophils % (A) 65 %; Platelet Count 271 k/uL (150-450); RBC 4.12 m/uL (4.30-5.90); RDW 13.3 % (11.5-15.5); WBC 10.2 k/uL (3.8-10.6)
--- NOTE | 2024-01-31 09:35 | ED ---
General Adult HPI - General Chief complaint: Fall Stated complaint: Fall-Dizziness Time Seen by Provider: 01/31/24 08:58 Source: patient, EMS Mode of arrival: EMS Limitations: no limitations - History of Present Illness Initial comments: Dictation was produced using [employer]oom[employer] dictation software. please excuse any grammatical, word or spelling errors. Chief Complaint: 78-year-old male presents to the emergency department for fall History of Present Illness: Patient is 78-year-old male he woke up this morning to take a shower. He is walking back to bed when he all of a sudden got dizzy fell to the ground. States that he fell slowly. Denies any head trauma. He landed on his knees. He wears a fall alert necklace. EMS was automatically called and patient was brought to the ER. Patient states that he feels fine at this time. Denies any pain complaints. The ROS documented in this emergency department record has been reviewed and confirmed by me. Those systems with pertinent positive or negative responses have been documented in the HPI. All other systems are other negative and/or noncontributory. - Related Data Home Medications Medication Instructions Recorded Confirmed Atorvastatin [Lipitor] 40 mg PO HS 01/26/23 01/31/24 Gabapentin [Neurontin] 100 mg PO HS 02/10/23 01/31/24 Aspirin EC [Ecotrin Low Dose] 81 mg PO DAILY 01/19/24 01/31/24 amLODIPine [Norvasc] 5 mg PO DAILY 01/19/24 01/31/24 Folic Acid 0.8 mg PO DAILY 01/31/24 01/31/24 Allergies Allergy/AdvReac Type Severity Reaction Status Date / Time amoxicillin Allergy Rash/Hives Verified 01/31/24 10:17 on entire upper body Penicillins Allergy Rash/Hives Verified 01/31/24 10:17 on entire upper body Review of Systems ROS Statement: Those systems with pertinent positive or pertinent negative responses have been documented in the HPI. ROS Other: All systems not noted in ROS Statement are negative. Past Medical History Past Medical History: Coronary Artery Disease (CAD), Cancer, Hyperlipidemia, Hypertension, Pneumonia, Syncope Additional Past Medical History / Comment(s): Current right ankle fracture. Polymyositis causing muscle pain and stiffness, requiring care home steroid use, resulting in elevated A1C. Currently having mild flare up, on steroids. Hx Melanoma X2, once on left scalp and once behind right ear. Recent syncope "due to blood pressure". History of Any Multi-Drug Resistant Organisms: None Reported Past Surgical History: Appendectomy, Coronary Bypass/CABG, Heart Catheterization Additional Past Surgical History / Comment(s): Melanoma behind right ear and left scalp removed, ganglion cyst removed from wrist, all teeth extracted, knee arthroscopy, double CABG. Past Anesthesia/Blood Transfusion Reactions: No Reported Reaction, Motion Sickness Past Psychological History: No Psychological Hx Reported Smoking Status: Former smoker Past Alcohol Use History: None Reported Past Drug Use History: None Reported - Past Family History Mother Family Medical History: Dementia, Pneumonia Father Family Medical History: Coronary Artery Disease (CAD), Myocardial Infarction ([place]) Additional Family Medical History / Comment(s): from myocardial infarction at 55 years old. General Exam - General Exam Comments Initial Comments: PHYSICAL EXAM: General Impression: Alert and oriented x3, not in acute distress HEENT: Normocephalic atraumatic, extra-ocular movements intact, pupils equal and reactive to light bilaterally, mucous membranes moist. Cardiovascular: Heart regular rate and rhythm Chest: Able to complete full sentences, no retractions, no tachypnea Abdomen: abdomen soft, non-tender, non-distended, no organomegaly Musculoskeletal: Pulses present and equal in all extremities, no peripheral edema Motor: no focal deficits noted Neurological: CN II-XII grossly intact, no focal motor or sensory deficits noted Skin: Intact with no visualized rashes Psych: Normal affect and mood Limitations: no limitations Course Vital Signs 01/31/24 08:57 Temperature 98.2 F Pulse Rate 71 Respiratory 18 Rate Blood Pressure 187/72 O2 Sat by Pulse 97 Oximetry EKG Findings - EKG Comments: EKG Findings:: My EKG interpretation: Ventricular rate 70, sinus rhythm,. 173, QRS 118, QTc 434. No AL prolongation, no QTC prolongation, no ST or T-wave changes noted. EKG compared to January 19, 2024. Interpretation of EKG difficult due to significant artifact. Medical Decision Making - Medical Decision Making Was pt. sent in by a medical professional or institution (, PA, HOT METAL CRANE OPERATOR, urgent care, hospital, or detention...) When possible be specific @ -No Did you speak to anyone other than the patient for history (EMS, parent, family, police, friend...)? What history was obtained from this source @ -No Did you review nursing and triage notes (agree or disagree)? Why? @ -I reviewed and agree with nursing and triage notes Were old charts reviewed (outside hosp., previous admission, EMS record, old EKG, old radiological studies, urgent care reports/EKG's, detention records)? Report findings @ -No old charts were reviewed Differential Diagnosis (chest pain, altered mental status, abdominal pain women, abdominal pain men, vaginal bleeding, musculoskeletal, weakness, fever, dyspnea, syncope, headache, dizziness, GI bleed, back pain, seizure, CVA, palpatations, mental health)? @ -Differential Weakness: Hypoglycemia, shock, sepsis, hyponatremia, anemia, infection, OH, ETOH, adverse medicine reaction, overdose, stroke, this is not meant to be an all-inclusive list. Differential Syncope: Valvular disease, hypertrophic cardiomyopathy, pulmonary embolism, tamponade, tachycardia, bradycardia, OH, hypovolemia, hemorrhage, dissection, anemia, intracranial hemorrhage, seizure, hypoglycemia, carbon monoxide poisoning, this is not meant to be an all-inclusive list. EKG interpreted by me (3pts min.). @ -See above X-rays interpreted by me (1pt min.). @ -Pelvis x-ray chest x-ray shows no acute processes CT interpreted by me (1pt min.). @ -CT brain shows no acute processes. CT C-spine shows no acute processes U/S interpreted by me (1pt. min.). @ -None done What testing was considered but not performed or refused? (CT, X-rays, U/S, labs)? Why? @ -None What meds were considered but not given or refused? Why? @ -None Was smoking cessation discussed for >3mins.? @ -No Were there social determinants of health that impacted care today? How? (Homelessness, low income, unemployed, alcoholism, drug addiction, transportation, low edu. Level, literacy, decrease access to med. care, penitentiary, rehab)? @ -No Was there de-escalation of care discussed even if they declined (Discuss DNR or withdrawal of care, Hospice)? DNR status @ -No What co-morbidities impacted this encounter? (DM, HTN, Smoking, COPD, CAD, Cancer, CVA, ARF, Chemo, Hep., AIDS, mental health diagnosis, sleep apnea, morbi d obesity)? @ -History of coronary artery disease and coronary artery bypass Was patient admitted / discharged? Hospital course, mention meds given and route, prescriptions, significant lab abnormalities, going to OR and other pertinent info. @ -78-year-old male presents to the emergency department after he fell. States that he got dizzy and his legs felt weak caused him to slowly fall forward. Patient denies complaints at the bedside states that he feels fine. Imaging studies are negative for traumatic processes. Laboratory evaluation is unremarkable. Recommended patient be admitted observation for monitoring. He refused and would rather be discharged states that he can come back if he needs to. Patient understands that it is difficult to rule out cardiac syncope or cardiac presyncope was the cause of his event today. He understands still like to be discharged. Did you discuss the management of the patient with other professionals (professionals i.e. , PA, HOT METAL CRANE OPERATOR, lab, RT, psych nurse, social insurance specialist, oriental rug stretcher, teacher, giving officer, employment case manager)? Give summary @ -No Was critical care preformed (if so, how long)? @ -No Undiagnosed new problem with uncertain prognosis? @ -No Drug Therapy requiring intensive monitoring for toxicity (Heparin, Nitro, Insulin, Cardizem)? @ -No Were any procedures done? @ -No Diagnosis/symptom? Acute, or Chronic, or Acute on Chronic? Uncomplicated (without systemic symptoms) or Complicated (systemic symptoms)? @ -Fall Side effects of treatment? @ -No Exacerbation, Progression, or Severe Exacerbation? @ -No Poses a threat to life or bodily function? How? (Chest pain, USA, OH, pneumonia, PE, COPD, DKA, ARF, appy, cholecystitis, CVA, Diverticulitis, Homicidal, Suicidal, threat to staff... and all critical care pts) @ -No - Lab Data Result diagrams: 01/31/24 09:22 01/31/24 09:22 Lab Results 01/31/24 01/31/24 01/31/24 Range/Units 09:09 09:22 09:22 WBC 10.2 (3.8-10.6) k/uL RBC 4.12 L (4.30-5.90) m/uL Hgb 12.1 L (13.0-17.5) gm/dL Hct 36.3 L (39.0-53.0) % MCV 88.2 (80.0-100.0) fL MCH 29.4 (25.0-35.0) pg MCHC 33.3 (31.0-37.0) g/dL RDW 13.3 (11.5-15.5) % Plt Count 271 (150-450) k/uL MPV 7.4 Neutrophils % 65 % Lymphocytes % 23 % Monocytes % 5 % Eosinophils % 5 % Basophils % 1 % Neutrophils # 6.7 (1.3-7.7) k/uL Lymphocytes # 2.3 (1.0-4.8) k/uL Monocytes # 0.5 (0-1.0) k/uL Eosinophils # 0.5 (0-0.7) k/uL Basophils # 0.1 (0-0.2) k/uL PT 12.0 (10.0-12.5) sec INR 1.1 (<1.2) APTT 27.9 (22.0-30.0) sec Sodium (137-145) mmol/L Potassium (3.5-5.1) mmol/L Chloride (98-107) mmol/L Carbon Dioxide (22-30) mmol/L Anion Gap mmol/L BUN (9-20) mg/dL Creatinine (0.66-1.25) mg/dL Est GFR (CKD-EPI)AfAm (>60 ml/min/1.73 sqM) Est GFR (CKD-EPI)NonAf (>60 ml/min/1.73 sqM) Glucose (74-99) mg/dL POC Glucose (mg/dL) 107 (70-110) mg/dL POC Glu Stock Lifter ID [place] Calcium (8.4-10.2) mg/dL Total Bilirubin (0.2-1.3) mg/dL AST (17-59) U/L ALT (4-49) U/L Alkaline Phosphatase (38-126) U/L Troponin I (0.000-0.034) ng/mL Total Protein (6.3-8.2) g/dL Albumin (3.5-5.0) g/dL 01/31/24 01/31/24 Range/Units 09:22 09:22 WBC (3.8-10.6) k/uL RBC (4.30-5.90) m/uL Hgb (13.0-17.5) gm/dL Hct (39.0-53.0) % MCV (80.0-100.0) fL MCH (25.0-35.0) pg MCHC (31.0-37.0) g/dL RDW (11.5-15.5) % Plt Count (150-450) k/uL MPV Neutrophils % % Lymphocytes % % Monocytes % % Eosinophils % % Basophils % % Neutrophils # (1.3-7.7) k/uL Lymphocytes # (1.0-4.8) k/uL Monocytes # (0-1.0) k/uL Eosinophils # (0-0.7) k/uL Basophils # (0-0.2) k/uL PT (10.0-12.5) sec INR (<1.2) APTT (22.0-30.0) sec Sodium 141 (137-145) mmol/L Potassium 3.7 (3.5-5.1) mmol/L Chloride 107 (98-107) mmol/L Carbon Dioxide 24 (22-30) mmol/L Anion Gap 10 mmol/L BUN 18 (9-20) mg/dL Creatinine 1.23 (0.66-1.25) mg/dL Est GFR (CKD-EPI)AfAm 64 (>60 ml/min/1.73 sqM) Est GFR (CKD-EPI)NonAf 55 (>60 ml/min/1.73 sqM) Glucose 112 H (74-99) mg/dL POC Glucose (mg/dL) (70-110) mg/dL POC Glu Stock Lifter ID Calcium 8.7 (8.4-10.2) mg/dL Total Bilirubin 0.6 (0.2-1.3) mg/dL AST 19 (17-59) U/L ALT 14 (4-49) U/L Alkaline Phosphatase 73 (38-126) U/L Troponin I <0.012 (0.000-0.034) ng/mL Total Protein 6.4 (6.3-8.2) g/dL Albumin 3.8 (3.5-5.0) g/dL Disposition Clinical Impression: Fall Disposition: HOME SELF-CARE Condition: Good Instructions (If sedation given, give patient instructions): Fall Prevention for Older Adults (ED) Is patient prescribed a controlled substance at d/c from ED?: No Referrals: Chris Reyes DO [Primary Care Provider] - 1-2 days Time of Disposition: 10:40
[2024-01-31 09:40] LABS: INR 1.1 (<1.2); Partial Thromboplastin Time 27.9 sec (22.0-30.0)
[2024-01-31 09:42] LABS: ALT 14 U/L (4-49); AST 19 U/L (17-59); African American GFR (CKD) 64 (>60 ml/min/1.73 sqM); Albumin 3.8 g/dL (3.5-5.0); Alkaline Phosphatase 73 U/L (38-126); Anion Gap 10 mmol/L; Blood Urea Nitrogen 18 mg/dL (9-20); Calcium 8.7 mg/dL (8.4-10.2); Carbon Dioxide 24 mmol/L (22-30); Chloride 107 mmol/L (98-107); Glucose 112 mg/dL (74-99); Non-African American GFR(CKD) 55 (>60 ml/min/1.73 sqM); Potassium 3.7 mmol/L (3.5-5.1); Sodium 141 mmol/L (137-145); Total Bilirubin 0.6 mg/dL (0.2-1.3); Total Protein 6.4 g/dL (6.3-8.2)
--- NOTE | 2024-01-31 09:49 | CT ---
EXAMINATION TYPE: CT brain cspine wo con DATE OF EXAM: 01/31/2024 COMPARISON: 01/26/2022 CLINICAL INDICATION: Male, 78 years old with history of fall; PHH, pain after fall TECHNIQUE: CT scan of the head and cervical spine are performed without contrast. CT DLP: 1352.[address] CTDI: mGy Automated exposure control for dose reduction was used. FINDINGS: There is no acute intracranial hemorrhage, mass effect, or midline shift identified. The ventricles and sulci are within normal limits in size. The globes are intact and the visualized sinuses are mckay ar. Small scalp hematoma posterior left occipital region. Cervical spine is visualized in its entirety from C1 through upper thoracic levels and demonstrates s atisfactory alignment without evidence of acute fracture or dislocation. Prevertebral soft tissue ap pears within normal limits. The C1-C2 articulation is unremarkable. IMPRESSION: There is no acute fracture or dislocation evident in the cervical spine. 2. No acute intracranial hemorrhage, mass effect, or midline shift is seen. [facility], , 01/31/2024 9:47 AM
--- NOTE | 2024-01-31 10:11 | XR ---
EXAMINATION TYPE: XR chest 2V DATE OF EXAM: 01/31/2024 9:54 AM COMPARISON: 01/26/2023 CLINICAL INDICATION: Male, 78 years old with history of fall, TECHNIQUE: Frontal and lateral views of the chest are obtained. FINDINGS: There is no focal air space opacity, pleural effusion, or pneumothorax seen. The cardiac silhouette size is within normal limits. The osseous structures are intact. IMPRESSION: No acute cardiopulmonary process. [facility], , 01/31/2024 10:09 AM
--- NOTE | 2024-01-31 10:12 | XR ---
EXAMINATION TYPE: XR pelvis AP view DATE OF EXAM: 01/31/2024 9:54 AM COMPARISON: None. CLINICAL INDICATION: Male, 78 years old with history of fall, TECHNIQUE: A single AP view of the pelvis is obtained. FINDINGS: There is no acute fracture/dislocation evident in the pelvis. The hip and sacroiliac join ts appear symmetric and unremarkable. The overlying soft tissue appears unremarkable. IMPRESSION: There is no acute fracture or dislocation in the pelvis. [facility], , 01/31/2024 10:10 AM
[2024-01-31 11:07] VITALS: BP 160/56; PULSE 68; RESP 16; TEMP 98
== END 2024-01-31 12:15 | disposition home or self-care (01) ==
LOC: EC 08:56
DX: R42 Dizziness and giddiness (principal); Z88.0 Allergy status to penicillin; Z87.891 Personal history of nicotine dependence; Z95.1 Presence of aortocoronary bypass graft; Z86.79 Personal history of other diseases of the circulatory system; W06.XXXA Fall from bed, initial encounter; Y93.01 Activity, walking, marching and hiking
CPT/HCPCS: 36415; 70450; 71046; 72125; 72170; 80053; 84484; 85025; 85610; 85730; 93005; 99285

== ENCOUNTER 2024-02-18 09:22 | Emergency (ER) | payer MEDICARE ==
[2024-02-18 09:26] VITALS: RESP 18; TEMP 98.4
[2024-02-18] MEDS: SODIUM CHLORIDE 0.9% 500 ML 500 ML IV STA (10:10)
--- NOTE | 2024-02-18 10:10 | ED ---
General Adult HPI - General Chief complaint: Arrhythmia/Palpitations Stated complaint: heart issues Time Seen by Provider: 02/18/24 09:30 Source: patient, EMS, RN notes reviewed, old records reviewed Mode of arrival: EMS Limitations: no limitations - History of Present Illness Initial comments: This is an 78-year-old male who presents to the emergency department stating that starting yesterday he was having an extra heartbeat his heart rate be normal then all of a sudden he would have a stronger beat and then it would be back at normal. Patient states he has had no chest pain he has had no lightheadedness or dizziness. Patient denies shortness of breath or difficulty breathing. Patient has any fever chills or cough or patient had swelling to the legs or calf tenderness. Patient states this happened yesterday and again today but it has not happened since has been in the emergency department. - Related Data Home Medications Medication Instructions Recorded Confirmed Atorvastatin [Lipitor] 40 mg PO HS 01/26/23 01/31/24 Gabapentin [Neurontin] 100 mg PO HS 02/10/23 01/31/24 Aspirin EC [Ecotrin Low Dose] 81 mg PO DAILY 01/19/24 01/31/24 amLODIPine [Norvasc] 5 mg PO DAILY 01/19/24 01/31/24 Folic Acid 0.8 mg PO DAILY 01/31/24 01/31/24 Allergies Allergy/AdvReac Type Severity Reaction Status Date / Time amoxicillin Allergy Rash/Hives Verified 02/18/24 09:26 on entire upper body Penicillins Allergy Rash/Hives Verified 02/18/24 09:26 on entire upper body Review of Systems ROS Statement: Those systems with pertinent positive or pertinent negative responses have been documented in the HPI. ROS Other: All systems not noted in ROS Statement are negative. Past Medical History Past Medical History: Coronary Artery Disease (CAD), Cancer, Hyperlipidemia, Hypertension, Pneumonia, Syncope Additional Past Medical History / Comment(s): Current right ankle fracture. Polymyositis causing muscle pain and stiffness, requiring assisted steroid use, resulting in elevated A1C. Currently having mild flare up, on steroids. Hx Melanoma X2, once on left scalp and once behind right ear. Recent syncope "due to blood pressure". History of Any Multi-Drug Resistant Organisms: None Reported Past Surgical History: Appendectomy, Coronary Bypass/CABG, Heart Catheterization Additional Past Surgical History / Comment(s): Melanoma behind right ear and left scalp removed, ganglion cyst removed from wrist, all teeth extracted, knee arthroscopy, double CABG. Past Anesthesia/Blood Transfusion Reactions: No Reported Reaction, Motion Sickness Past Psychological History: No Psychological Hx Reported Smoking Status: Former smoker Past Alcohol Use History: None Reported Past Drug Use History: None Reported - Past Family History Mother Family Medical History: Dementia, Pneumonia Father Family Medical History: Coronary Artery Disease (CAD), Myocardial Infarction (VT) Additional Family Medical History / Comment(s): from myocardial infarction at 55 years old. General Exam - General Exam Comments Initial Comments: GENERAL: Patient is well-developed and well-nourished. Patient is nontoxic and well- hydrated and is in no acute distress. ENT: Neck is soft and supple. No significant lymphadenopathy is noted. Oropharynx is clear. Moist mucous membranes. Neck has full range of motion without eliciting any pain. EYES: The sclera were anicteric and conjunctiva were pink and moist. Extraocular movements were intact and pupils were equal round and reactive to light. Eyelids were unremarkable. PULMONARY: Unlabored respirations. Good breath sounds bilaterally. No audible rales rhonchi or wheezing was noted. CARDIOVASCULAR: There is a regular rate and rhythm without any murmurs gallops or rubs. ABDOMEN: Soft and nontender with normal bowel sounds. SKIN: Skin is clear with no lesions or rashes and otherwise unremarkable. NEUROLOGIC: Patient is alert and oriented x3. Cranial nerves II through XII are grossly intact. Motor and sensory are also intact. Normal speech, volume and content. Symmetrical smile. MUSCULOSKELETAL: Normal extremities with adequate strength and full range of motion. No lower extremity swelling or edema. No calf tenderness. LYMPHATICS: No significant lymphadenopathy is noted PSYCHIATRIC: Normal psychiatric evaluation. Limitations: no limitations Course Vital Signs 02/18/24 02/18/24 02/18/24 09:24 09:29 10:21 Temperature 98.4 F Pulse Rate 82 68 Pulse Rate [ 77 Dining Car Conductor ] Respiratory 18 18 Rate Blood Pressure 165/79 147/57 O2 Sat by Pulse 100 98 Oximetry Medical Decision Making - Medical Decision Making EKG is interpreted by myself. EKG shows a sinus rhythm at 71 bpm [place] was 191 QRS is under 15 QT interval is 4 6 QTc is 429. Patient's EKG shows no ST segment elevation or depression. Was pt. sent in by a medical professional or institution ([facility], TEACHERS AIDE, urgent care, hospital, or [place] [facility] facility...) When possible be specific @ -No Did you speak to anyone other than the patient for history (EMS, parent, family, police, friend...)? What history was obtained from this source @ -No Did you review nursing and triage notes (agree or disagree)? Why? @ -I reviewed and agree with nursing and triage notes Were old charts reviewed (outside hosp., previous admission, EMS record, old EKG, old radiological studies, urgent care reports/EKG's, [place] [facility] facility records)? Report findings @ -No old charts were reviewed Differential Diagnosis? @ -Differential Palpitations Ventricular arrhythmias, atrial arrhythmias, myocardial infarction, anemia, thyrotoxicosis, electrolyte imbalance, hypokalemia, pulmonary embolism, pulmonary disease, drugs, alcohol, anxiety, stress.... This is not meant to be an all-inclusive list. EKG interpreted by me (3pts min.). @ -As above X-rays interpreted by me (1pt min.). @ -Chest x-ray shows no acute abnormality CT interpreted by me (1pt min.). @ -None done U/S interpreted by me (1pt. min.). @ -None done What testing was considered but not performed or refused? (CT, X-rays, U/S, labs)? Why? @ -None What meds were considered but not given or refused? Why? @ -None Did you discuss the management of the patient with other professionals (professionals i.e. [facility], TEACHERS AIDE, lab, RT, psych nurse, manager social, supervisor green end department, teacher, restoration officer, director case management)? Give summary @ -No Was smoking cessation discussed for >3mins.? @ -No Was critical care preformed (if so, how long)? @ -No Were there social determinants of health that impacted care today? How? (Homeles sness, low income, unemployed, alcoholism, drug addiction, transportation, low edu. Level, literacy, decrease access to med. care, skilled nursing, rehab)? @ -No Was there de-escalation of care discussed even if they declined (Discuss DNR or withdrawal of care, Hospice)? DNR status @ -No What co-morbidities impacted this encounter? (DM, HTN, Smoking, COPD, CAD, Cancer, CVA, ARF, Chemo, Hep., AIDS, mental health diagnosis, sleep apnea, morbid obesity)? @ -None Was patient admitted / discharged? Hospital course, mention meds given and route, prescriptions, significant lab abnormalities, going to OR and other pertinent info. @ -Patient never had any palpitations while in the emergency department. Patient was reevaluated he felt normal he had no pain no difficulty breathing or shortness of breath no palpitations. Patient lab work was normal x-ray is normal patient be discharged home he has an appointment to follow-up Tuesday. Undiagnosed new problem with uncertain prognosis? @ -No Drug Therapy requiring intensive monitoring for toxicity (Heparin, Nitro, Insulin, Cardizem)? @ -No Were any procedures done? @ -No Diagnosis/symptom? @ -Palpitations Acute, or Chronic, or Acute on Chronic? @ -Acute Uncomplicated (without systemic symptoms) or Complicated (systemic symptoms)? @ -Complicated Side effects of treatment? @ -No Exacerbation, Progression, or Severe Exacerbation? @ -No Poses a threat to life or bodily function? How? (Chest pain, USA, VT, pneumonia, PE, COPD, DKA, ARF, appy, cholecystitis, CVA, Diverticulitis, Homicidal, Suicidal, threat to staff... and all critical care pts) @ -No - Lab Data Result diagrams: 02/18/24 10:08 02/18/24 10:08 Lab Results 02/18/24 02/18/24 02/18/24 Range/Units 10:08 10:08 10:08 WBC 9.1 (3.8-10.6) k/uL RBC 4.12 L (4.30-5.90) m/uL Hgb 11.6 L (13.0-17.5) gm/dL Hct 36.8 L (39.0-53.0) % MCV 89.1 (80.0-100.0) fL MCH 28.2 (25.0-35.0) pg MCHC 31.7 (31.0-37.0) g/dL RDW 13.0 (11.5-15.5) % Plt Count 284 (150-450) k/uL MPV 7.5 Neutrophils % 64 % Lymphocytes % 24 % Monocytes % 6 % Eosinophils % 4 % Basophils % 1 % Neutrophils # 5.8 (1.3-7.7) k/uL Lymphocytes # 2.2 (1.0-4.8) k/uL Monocytes # 0.5 (0-1.0) k/uL Eosinophils # 0.4 (0-0.7) k/uL Basophils # 0.0 (0-0.2) k/uL PT 11.6 (10.0-12.5) sec INR 1.1 (<1.2) APTT 27.0 (22.0-30.0) sec Sodium 140 (137-145) mmol/L Potassium 4.0 (3.5-5.1) mmol/L Chloride 106 (98-107) mmol/L Carbon Dioxide 22 (22-30) mmol/L Anion Gap 12 mmol/L BUN 20 (9-20) mg/dL Creatinine 1.15 (0.66-1.25) mg/dL Est GFR (CKD-EPI)AfAm 70 (>60 ml/min/1.73 sqM) Est GFR (CKD-EPI)NonAf 60 (>60 ml/min/1.73 sqM) Glucose 137 H (74-99) mg/dL Calcium 8.9 (8.4-10.2) mg/dL Magnesium 2.3 (1.6-2.3) mg/dL Total Bilirubin 0.5 (0.2-1.3) mg/dL AST 19 (17-59) U/L ALT 16 (4-49) U/L Alkaline Phosphatase 71 (38-126) U/L Troponin I (0.000-0.034) ng/mL Total Protein 6.5 (6.3-8.2) g/dL Albumin 3.9 (3.5-5.0) g/dL TSH 2.060 (0.465-4.680) mIU/L 02/18/24 Range/Units 10:08 WBC (3.8-10.6) k/uL RBC (4.30-5.90) m/uL Hgb (13.0-17.5) gm/dL Hct (39.0-53.0) % MCV (80.0-100.0) fL MCH (25.0-35.0) pg MCHC (31.0-37.0) g/dL RDW (11.5-15.5) % Plt Count (150-450) k/uL MPV Neutrophils % % Lymphocytes % % Monocytes % % Eosinophils % % Basophils % % Neutrophils # (1.3-7.7) k/uL Lymphocytes # (1.0-4.8) k/uL Monocytes # (0-1.0) k/uL Eosinophils # (0-0.7) k/uL Basophils # (0-0.2) k/uL PT (10.0-12.5) sec INR (<1.2) APTT (22.0-30.0) sec Sodium (137-145) mmol/L Potassium (3.5-5.1) mmol/L Chloride (98-107) mmol/L Carbon Dioxide (22-30) mmol/L Anion Gap mmol/L BUN (9-20) mg/dL Creatinine (0.66-1.25) mg/dL Est GFR (CKD-EPI)AfAm (>60 ml/min/1.73 sqM) Est GFR (CKD-EPI)NonAf (>60 ml/min/1.73 sqM) Glucose (74-99) mg/dL Calcium (8.4-10.2) mg/dL Magnesium (1.6-2.3) mg/dL Total Bilirubin (0.2-1.3) mg/dL AST (17-59) U/L ALT (4-49) U/L Alkaline Phosphatase (38-126) U/L Troponin I <0.012 (0.000-0.034) ng/mL Total Protein (6.3-8.2) g/dL Albumin (3.5-5.0) g/dL TSH (0.465-4.680) mIU/L Disposition Clinical Impression: Palpitations Disposition: HOME SELF-CARE Condition: Good Instructions (If sedation given, give patient instructions): Heart Palpitations (ED), Premature Ventricular Contractions (ED) Is patient prescribed a controlled substance at d/c from ED?: No Referrals: Chris Reyes DO [Primary Care Provider] - 1-2 days Time of Disposition: 11:26
[2024-02-18 10:16] LABS: Basophils % (A) 1 %; Eosinophils # (A) 0.4 k/uL (0-0.7); Eosinophils % (A) 4 %; HCT 36.8 % (39.0-53.0); HGB 11.6 gm/dL (13.0-17.5); Lymphocytes # (A) 2.2 k/uL (1.0-4.8); Lymphocytes % (A) 24 %; MCH 28.2 pg (25.0-35.0); MCHC 31.7 g/dL (31.0-37.0); MCV 89.1 fL (80.0-100.0); Mean Platelet Volume 7.5; Monocytes # (A) 0.5 k/uL (0-1.0); Monocytes % (A) 6 %; Neutrophils # (A) 5.8 k/uL (1.3-7.7); Neutrophils % (A) 64 %; Platelet Count 284 k/uL (150-450); RBC 4.12 m/uL (4.30-5.90); WBC 9.1 k/uL (3.8-10.6)
[2024-02-18 10:25] LABS: ALT 16 U/L (4-49); AST 19 U/L (17-59); African American GFR (CKD) 70 (>60 ml/min/1.73 sqM); Albumin 3.9 g/dL (3.5-5.0); Alkaline Phosphatase 71 U/L (38-126); Anion Gap 12 mmol/L; Blood Urea Nitrogen 20 mg/dL (9-20); Calcium 8.9 mg/dL (8.4-10.2); Carbon Dioxide 22 mmol/L (22-30); Chloride 106 mmol/L (98-107); Glucose 137 mg/dL (74-99); Magnesium 2.3 mg/dL (1.6-2.3); Non-African American GFR(CKD) 60 (>60 ml/min/1.73 sqM); Sodium 140 mmol/L (137-145); Total Bilirubin 0.5 mg/dL (0.2-1.3); Total Protein 6.5 g/dL (6.3-8.2)
[2024-02-18 10:29] LABS: INR 1.1 (<1.2); Prothrombin Time 11.6 sec (10.0-12.5)
--- NOTE | 2024-02-18 10:31 | XR ---
EXAMINATION TYPE: XR chest 2V DATE OF EXAM: 02/18/2024 10:20 AM COMPARISON: Chest x-ray January 31, 2024 CLINICAL INDICATION: Male, 78 years old with history of dysrhythmia, TECHNIQUE: Frontal and lateral views of the chest are obtained. FINDINGS: Overlying sternal wires along with left atrial appendage clip are redemonstrated. There is no focal air space opacity, pleural effusion, or pneumothorax seen. The cardiac silhouette size is stable and upper limits of normal. The osseous structures are intact. IMPRESSION: No acute cardiopulmonary process. No significant change from most recent prior. [facility], , 02/18/2024 10:28 AM
[2024-02-18] MEDS: ASPIRIN 325 MG TAB PO STA (11:44)
[2024-02-18 11:45] VITALS: BP 150/66; PULSE 62
[2024-02-19] MEDS ORDERED: ASPIRIN 325 MG TAB PO SCH (09:00)
== END 2024-02-18 11:43 | disposition home or self-care (01) ==
LOC: EC 09:22 → 3SCARD 11:32 → UNDOADMIN 11:32 → EC 11:43 → UNDODISIN 11:43
DX: R00.2 Palpitations (principal); Z87.891 Personal history of nicotine dependence; Z88.0 Allergy status to penicillin
CPT/HCPCS: 36415; 71046; 80053; 83735; 84443; 84484; 85025; 85610; 85730; 93005; 96360; 99285